=== PATIENT | female | born 1940 | race Caucasian/White ===

== ENCOUNTER → 2017-06-07 09:44 | Outpatient (CLI) | payer MEDICARE, OTHER, SELFPAY ==
[2017-06-07 12:17] LABS: Absolute Lymphocyte Count 1.48 X10^3/ul (0.83-4.51); Absolute Neutrophil Count 3.4 X10^3/uL (2.0-7.7); Basophil# 0.01 X10^3/uL; Basophil% 0.2 % (0-1); Eosinophil# 0.43 X10^3/uL; Hematocrit 39.8 % (37-47); Hemoglobin 13.1 g/dl (12.0-15.0); Lymphocyte # 1.48 X10^3/ul (4.0); Mean Corp Hgb Conc 32.9 g/gl (32-36); Mean Corpuscular Hgb 30.3 pg (27.0-32.0); Mean Corpuscular Volume 91.9 fL (81-99); Mean Platelet Vol. 12.4 fl (6.2-12.0); Monocyte# 0.83 X10^3/uL; Monocyte% 13.5 % (0-10); Neutrophil # 3.41 X10^3/uL (2.7-7.7); Neutrophil % 55.1 % (47-70); Platelet Count 209 K/mm3 (150-450); RBC Distribution Width CV 13.2 % (11.6-14.6); RBC Distribution Width SD 44.1 fl (35.1-43.9); Red Blood Count 4.33 M/mm3 (4.2-5.4); White Blood Count 6.2 K/mm3 (4.4-11.0)
[2017-06-07 12:18] LABS: POSITIVE DIFFERENTIAL NO
[2017-06-07 12:19] LABS: POSITIVE COUNT NO; POSITIVE MORPHOLOGY NO
[2017-06-07 12:44] LABS: ALB/GLOB Ratio 0.9 RATIO (0.9-2.4); AST(SGOT) 80 U/L (15-37); Alanine Aminotransfer ALT/SGPT 27 U/L (13-56); Albumin, Serum 3.4 g/dL (3.2-5.0); Alkaline Phosphatase 85 U/L (45-117); Anion Gap 9 (5-15); BUN 22 mg/dL (7-18); BUN/Creat Ratio 23.2 RATIO (10-20); Calcium,Total 8.8 mg/dL (8.5-10.1); Chloride 105 mmol/L (98-107); Creatinine, Serum 0.95 mg/dL (0.55-1.02); EST Glomerular Filtration Rate 61 mL/min (>60); Est Glom Filt Rate - Afr Amer 74 mL/min (>60); Globulin 3.9 g/dL (2.2-4.2); Glucose 97 mg/dL (74-106); Potassium 3.7 mmol/L (3.5-5.1); Protein, Total 7.3 g/dL (6.4-8.2); Sodium Level 141 mmol/L (136-145)
== END ==
PROVIDERS: Family Provider Internal Medicine; PCP Internal Medicine; Visit Provider Internal Medicine Rheumatology
DX: L40.59 Other psoriatic arthropathy (principal); L40.8 Other psoriasis; R76.8 Other specified abnormal immunological findings in serum; M35.1 Other overlap syndromes; M15.9 Polyosteoarthritis, unspecified; I10 Essential (primary) hypertension; Z85.110 Personal history of malignant carcinoid tumor of bronchus and lung
CPT/HCPCS: 36415; 80053; 85025

== ENCOUNTER → 2017-07-17 10:02 | Outpatient (CLI) | payer MEDICARE, OTHER, SELFPAY ==
--- NOTE | 2017-07-17 10:09 | RAD_ITS ---
STUDY: X-RAY CHEST REASON FOR EXAM: Female, 77 years old. Asthma. Right middle lobectomy. TECHNIQUE: Frontal view of the chest COMPARISON: None. FINDINGS: There are postsurgical changes in the right mid lung with associated scarring. The lungs are clear. There are no pleural effusions. There is no pneumothorax. The heart is normal in size. The visualized osseous structures are within normal limits. RAD/Chest PA and Lateral IMPRESSION: Postsurgical changes in the right midlung. No acute thoracic pathology. Electronically Signed: Bridger De Guzman, at 18:04 EDT Tel , Service support ,
== END ==
PROVIDERS: Family Provider Internal Medicine; PCP Internal Medicine; Visit Provider Internal Medicine Pulmonary Disease
DX: J45.909 Unspecified asthma, uncomplicated (principal)
CPT/HCPCS: 71046

== ENCOUNTER → 2017-08-10 13:26 | Outpatient (CLI) | payer MEDICARE, OTHER, SELFPAY ==
--- NOTE | 2017-08-10 11:40 | RAD_ITS ---
STUDY: X-RAY CHEST REASON FOR EXAM: Female, 77 years old. Cough TECHNIQUE: PA and lateral views of the chest. COMPARISON: 07/17/2017 FINDINGS: Postoperative changes are seen within the right lung. No focal consolidation. There is no demonstrated pleural abnormality. Normal size heart. Normal mediastinum and axel. Normal visualized pulmonary arteries. There is atherosclerotic calcification of the aortic arch with tortuosity. There are diffuse degenerative changes of the visualized thoracic spine. Normal visualized ribs, clavicles, and shoulders. There is no demonstrated abnormality of the visualized soft tissue structures of the upper abdomen. RAD/Chest PA and Lateral IMPRESSION: Postoperative changes to the right midlung. No focal process. Electronically Signed: Ed Padgett DO at 11:40 EDT Tel , Service support ,
--- NOTE | 2017-08-10 13:26 | DT_ITS ---
This patient was seen during an EMR downtime August 07, 2017 - August 14, 2017. This patient may have a combination of paper and electronic documentation or all paper documentation. All documentation is viewable within the e-chart portion of [employer] for each patient visit.
--- NOTE | 2017-08-10 13:32 | RAD_ITS ---
STUDY: X-RAY - PARANASAL SINUSES REASON FOR EXAM: Female, 77 years old. Cough TECHNIQUE: 3 view(s) of the paranasal sinuses were obtained. COMPARISON: None. FINDINGS: Normal visualized frontal, maxillary, ethmoidal and sphenoid sinuses. Normal visualized facial bones. There is a rightward nasal septal spur. The soft tissue structures are unremarkable. RAD/Sinuses min 3 Views IMPRESSION: Normal x-rays of the paranasal sinuses. Electronically Signed: Katiuska Escobar MD at 11:01 EDT Tel , Service support ,
== END ==
PROVIDERS: Family Provider Internal Medicine; PCP Internal Medicine; Visit Provider Internal Medicine Pulmonary Disease
DX: R05 Cough (principal)
CPT/HCPCS: 70220; 71046

== ENCOUNTER → 2018-01-11 08:14 | Outpatient (CLI) | payer MEDICARE, OTHER, SELFPAY ==
[2018-01-11 10:36] LABS: Absolute Lymphocyte Count 1.43 X10^3/ul (0.83-4.51); Absolute Neutrophil Count 3.6 X10^3/uL (2.0-7.7); Basophil# 0.03 X10^3/uL; Basophil% 0.5 % (0-1); Eosinophil# 0.58 X10^3/uL; Eosinophils% 8.8 % (0-5); Hematocrit 41.1 % (37-47); Lymphocyte # 1.43 X10^3/ul (4.0); Lymphocyte % 21.7 % (19-41); Mean Corp Hgb Conc 34.1 g/gl (32-36); Mean Corpuscular Hgb 30.5 pg (27.0-32.0); Mean Corpuscular Volume 89.5 fL (81-99); Monocyte# 0.97 X10^3/uL; Monocyte% 14.7 % (0-10); Neutrophil # 3.57 X10^3/uL (2.7-7.7); Platelet Count 213 K/mm3 (150-450); RBC Distribution Width CV 13.5 % (11.6-14.6); Red Blood Count 4.59 M/mm3 (4.2-5.4); White Blood Count 6.6 K/mm3 (4.4-11.0)
[2018-01-11 10:38] LABS: POSITIVE COUNT NO; POSITIVE DIFFERENTIAL NO; POSITIVE MORPHOLOGY NO
[2018-01-11 10:58] LABS: ALB/GLOB Ratio 0.9 RATIO (0.9-2.4); AST(SGOT) 89 U/L (15-37); Alanine Aminotransfer ALT/SGPT 35 U/L (13-56); Albumin, Serum 3.4 g/dL (3.2-5.0); Alkaline Phosphatase 91 U/L (45-117); Anion Gap 7 (5-15); BUN 21 mg/dL (7-18); BUN/Creat Ratio 22.4 RATIO (10-20); Calcium,Total 8.7 mg/dL (8.5-10.1); Chloride 100 mmol/L (98-107); Creatinine, Serum 0.94 mg/dL (0.55-1.02); EST Glomerular Filtration Rate 62 mL/min (>60); Est Glom Filt Rate - Afr Amer 75 mL/min (>60); Globulin 3.9 g/dL (2.2-4.2); Glucose 101 mg/dL (74-106); Potassium 3.9 mmol/L (3.5-5.1); Protein, Total 7.3 g/dL (6.4-8.2); Sodium Level 137 mmol/L (136-145)
== END ==
PROVIDERS: Family Provider Internal Medicine; PCP Internal Medicine; Referring Provider Internal Medicine Rheumatology; Visit Provider Internal Medicine Rheumatology
DX: L40.59 Other psoriatic arthropathy (principal); L40.8 Other psoriasis; R76.8 Other specified abnormal immunological findings in serum; M35.1 Other overlap syndromes; M15.9 Polyosteoarthritis, unspecified; I10 Essential (primary) hypertension; Z85.110 Personal history of malignant carcinoid tumor of bronchus and lung
CPT/HCPCS: 36415; 80053; 85025

== ENCOUNTER → 2018-09-07 | Outpatient (CLI) | payer MEDICARE, OTHER, SELFPAY ==
--- NOTE | 2018-09-07 11:36 | RAD_ITS ---
STUDY: X-RAY CHEST REASON FOR EXAM: Female, 78 years old. Routine follow-up status post lung cancer 10 years ago and right middle lobectomy TECHNIQUE: PA and lateral views of the chest. COMPARISON: Prior study of 08/10/2017 FINDINGS: Postsurgical changes of the right lung are again noted, stable in the interval. There is no demonstrated pleural abnormality. Normal size heart. There is right hilar prominence consistent with postsurgical change, appearing stable in the interval. Normal visualized pulmonary arteries. There are calcified plaques of the aortic arch. There are diffuse degenerative changes of the visualized thoracic spine. Normal visualized ribs, clavicles, and shoulders. There is no demonstrated abnormality of the visualized soft tissue structures of the upper abdomen. RAD/Chest PA and Lateral IMPRESSION: Postsurgical changes of the right lung. Calcified plaques of the aortic arch. Degenerative changes of the thoracic spine. No acute cardiopulmonary disease process is seen. Chest findings are stable in the interval. Electronically Signed: Dioni Hui MD at 17:14 EDT , Service support ,
== END | disposition home or self-care (01) ==
LOC: MTRAD 11:33
PROVIDERS: Family Provider Internal Medicine; PCP Internal Medicine; Referring Provider Internal Medicine Pulmonary Disease; Visit Provider Internal Medicine Pulmonary Disease
DX: Z85.118 Personal history of other malignant neoplasm of bronchus and lung (principal)
CPT/HCPCS: 71046

== ENCOUNTER → 2019-01-01 | Outpatient (CLI) | payer MEDICARE, OTHER, SELFPAY ==
[2019-01-01 10:09] LABS: Absolute Lymphocyte Count 1.89 X10^3/uL (0.83-4.51); Absolute Neutrophil Count 4.2 X10^3/uL (2.0-7.7); Basophil# 0.05 X10^3/uL; Basophil% 0.6 % (0-1); Eosinophil# 0.66 X10^3/uL; Eosinophils% 8.4 % (0-5); Hematocrit 42.4 % (37-47); Hemoglobin 14.5 g/dL (12.0-15.0); Lymphocyte # 1.89 X10^3/ul (4.0); Lymphocyte % 23.9 % (19-41); Mean Corp Hgb Conc 34.2 g/dL (32-36); Mean Corpuscular Hgb 30.9 pg (27.0-32.0); Mean Corpuscular Volume 90.2 fL (81-99); Mean Platelet Vol. 11.7 fl (6.2-12.0); Monocyte# 1.12 X10^3/uL; Monocyte% 14.2 % (0-10); NRBC Flagged by Analyzer 0 % (0-5); Neutrophil # 4.16 X10^3/uL (2.7-7.7); Neutrophil % 52.6 % (47-70); Platelet Count 216 K/mm3 (150-450); RBC Distribution Width CV 12.4 % (11.6-14.6); RBC Distribution Width SD 41.5 fl (35.1-43.9); White Blood Count 7.9 K/mm3 (4.4-11.0)
[2019-01-01 10:29] LABS: ALB/GLOB Ratio 0.9 RATIO (0.9-2.4); AST(SGOT) 88 U/L (15-37); Alanine Aminotransfer ALT/SGPT 28 U/L (13-56); Albumin, Serum 3.4 g/dL (3.2-5.0); Alkaline Phosphatase 86 U/L (45-117); Anion Gap 10 (5-15); BUN 25 mg/dL (7-18); BUN/Creat Ratio 21.9 RATIO (10-20); Calcium,Total 9.1 mg/dL (8.5-10.1); Chloride 99 mmol/L (98-107); Creatinine, Serum 1.14 mg/dL (0.55-1.02); EST Glomerular Filtration Rate 49 mL/min (>60); Est Glom Filt Rate - Afr Amer 59 mL/min (>60); Globulin 3.9 g/dL (2.2-4.2); Glucose 105 mg/dL (74-106); Potassium 3.5 mmol/L (3.5-5.1); Protein, Total 7.3 g/dL (6.4-8.2); Sodium Level 138 mmol/L (136-145)
== END | disposition home or self-care (01) ==
PROVIDERS: Family Provider Internal Medicine; PCP Internal Medicine; Referring Provider Internal Medicine Rheumatology; Visit Provider Internal Medicine Rheumatology
DX: L40.59 Other psoriatic arthropathy (principal); L40.8 Other psoriasis; R76.8 Other specified abnormal immunological findings in serum; M35.1 Other overlap syndromes; M15.9 Polyosteoarthritis, unspecified; I10 Essential (primary) hypertension; Z85.110 Personal history of malignant carcinoid tumor of bronchus and lung
CPT/HCPCS: 36415; 80053; 85025

== ENCOUNTER → 2019-02-18 10:33 | Outpatient (CLI) | payer MEDICARE, OTHER, SELFPAY ==
[2019-02-06 08:58] VITALS: BMI 28.5
--- NOTE | 2019-02-18 10:34 | ECHOD_ITS ---
Reason For Study: HYPERTENSION Procedure This was a 2D Doppler, Color Flow transthoracic echocardiogram. Exam performed in department. Left Ventricle Normal size and thickness. Normal LV size. Left ventricular systolic function is normal. The estimated ejection fraction is 65 %. Stage 1 diastolic dysfunction. No regional wall motion abnormalities noted. Right Ventricle Normal RV size. Normal systolic function. Atria The left atrium is mildly enlarged. Normal right atrium. Mitral Valve Normal mitral valve. Tricuspid Valve Normal tricuspid valve. Mild tricuspid valve insufficiency. Mild pulmonary hypertension. Aortic Valve Trisinus/trileaflet aortic valve. Pulmonic Valve Normal pulmonic valve. Great Vessels Normal aortic root. The pulmonary artery is normal size. Normal inferior vena cava. Pericardium/Pleural No pericardial effusion. MMode/2D Measurements & Calculations LVIDd: 4.6 cm IVSd: 1.1 cm Ao root diam: 3.1 cm LVIDs: 3.0 cm LVPWd: 1.1 cm RVDd: 3.2 cm FS: 34.2 % LAV(MOD-bp): 65.9 ml LA A4 area: 21.3 cm2 LA dimension(2D): 3.5 cm LAV(MOD-bp) Indexed: 38.1 ml/m2 LAV(MOD-sp2): 60.3 ml LAV(MOD-sp4): 60.3 ml RA A4 area: 12.1 cm2 Time Measurements MV dec time: 0.18 sec Doppler Measurements & Calculations MV E max quentin: 100.9 cm/sec Lat Peak E' Quentin: 10.3 cm/sec Med Peak E' Quentin: 4.9 cm/sec MV A max quentin: 120.9 cm/sec E/E' lat: 9.8 E/E' med: 20.6 MV E/A: 0.83 Ao V2 max: 197.8 cm/sec LV V1 max: 115.8 cm/sec PA V2 max: 96.9 cm/sec Ao max P.7 mmHg LV V1 max P.4 mmHg TR max quentin: 274.1 cm/sec TR max P.1 mmHg Interpretation Summary Normal LV size. Left ventricular systolic function is normal. The estimated ejection fraction is 65 %. Stage 1 diastolic dysfunction. Mild pulmonary hypertension. Ordering Physician: Larry Manuel Referring Physician: Romulo Awan Performed By: Alicia Garcia, VICTORIANO, RVT
== END ==
PROVIDERS: Family Provider Internal Medicine; PCP Internal Medicine; Referring Provider Internal Medicine Cardiovascular Disease; Visit Provider Internal Medicine Cardiovascular Disease
DX: I10 Essential (primary) hypertension (principal); R94.31 Abnormal electrocardiogram [ECG] [EKG]
CPT/HCPCS: 93306

== ENCOUNTER → 2019-05-31 07:14 | Outpatient (CLI) | payer MEDICARE, OTHER, SELFPAY ==
[2019-05-15 10:55] VITALS: BMI 28.5
[2019-05-31 08:04] LABS: Anion Gap 8 (5-15); BUN 27 mg/dL (7-18); Calcium,Total 9.4 mg/dL (8.5-10.1); Chloride 101 mmol/L (98-107); Creatinine, Serum 1.04 mg/dL (0.55-1.02); EST Glomerular Filtration Rate 54 mL/min (>60); Est Glom Filt Rate - Afr Amer 66 mL/min (>60); Glucose 109 mg/dL (74-106); Potassium 3.4 mmol/L (3.5-5.1); Sodium Level 141 mmol/L (136-145)
== END ==
PROVIDERS: PCP Internal Medicine; Referring Provider Physician Assistant Medical; Visit Provider Physician Assistant Medical
DX: I10 Essential (primary) hypertension (principal)
CPT/HCPCS: 36415; 80048

== ENCOUNTER → 2019-06-26 08:55 | Outpatient (CLI) | payer MEDICARE, OTHER, SELFPAY ==
[2019-05-15 10:55] VITALS: BMI 28.5
[2019-06-26 10:02] LABS: Absolute Lymphocyte Count 1.67 X10^3/uL (0.83-4.51); Absolute Neutrophil Count 7.2 X10^3/uL (2.0-7.7); Basophil# 0.04 X10^3/uL; Basophil% 0.4 % (0-1); Eosinophil# 0.04 X10^3/uL; Eosinophils% 0.4 % (0-5); Hematocrit 41.1 % (37-47); Hemoglobin 13.8 g/dL (12.0-15.0); Lymphocyte # 1.67 X10^3/ul (4.0); Lymphocyte % 16.7 % (19-41); Mean Corp Hgb Conc 33.6 g/dL (32-36); Mean Corpuscular Hgb 31.4 pg (27.0-32.0); Mean Corpuscular Volume 93.4 fL (81-99); Monocyte# 1.05 X10^3/uL; Monocyte% 10.5 % (0-10); NRBC Flagged by Analyzer 0 % (0-5); Neutrophil % 71.7 % (47-70); Platelet Count 251 K/mm3 (150-450); RBC Distribution Width CV 12.3 % (11.6-14.6); RBC Distribution Width SD 42.2 fl (35.1-43.9)
[2019-06-26 10:35] LABS: ALB/GLOB Ratio 0.8 RATIO (0.9-2.4); AST(SGOT) 69 U/L (15-37); Alanine Aminotransfer ALT/SGPT 19 U/L (13-56); Albumin, Serum 3.5 g/dL (3.2-5.0); Alkaline Phosphatase 90 U/L (45-117); Anion Gap 8 (5-15); BUN 22 mg/dL (7-18); BUN/Creat Ratio 20.6 RATIO (10-20); Calcium,Total 9.5 mg/dL (8.5-10.1); Chloride 103 mmol/L (98-107); Creatinine, Serum 1.07 mg/dL (0.55-1.02); EST Glomerular Filtration Rate 53 mL/min (>60); Est Glom Filt Rate - Afr Amer 64 mL/min (>60); Globulin 4.2 g/dL (2.2-4.2); Glucose 118 mg/dL (74-106); Potassium 4.1 mmol/L (3.5-5.1); Protein, Total 7.7 g/dL (6.4-8.2); Sodium Level 139 mmol/L (136-145)
== END ==
PROVIDERS: PCP Internal Medicine; Referring Provider Internal Medicine Rheumatology; Visit Provider Internal Medicine Rheumatology
DX: L40.59 Other psoriatic arthropathy (principal); L40.8 Other psoriasis; R76.8 Other specified abnormal immunological findings in serum; M35.1 Other overlap syndromes; M15.9 Polyosteoarthritis, unspecified; I10 Essential (primary) hypertension; Z85.110 Personal history of malignant carcinoid tumor of bronchus and lung
CPT/HCPCS: 36415; 80053; 85025

== ENCOUNTER → 2019-09-24 12:36 | Outpatient (CLI) | payer MEDICARE, OTHER, SELFPAY ==
[2019-02-20 09:02] VITALS: BMI 28.5
[2019-08-26 09:05] VITALS: BMI 28.5
--- NOTE | 2019-09-24 12:38 | CT_ITS ---
STUDY: CT CHEST WITHOUT CONTRAST REASON FOR EXAM: Female, 79 years old. LUNG CANCER F/U 10 YEARS AGO. RIGHT MIDDLE LOBECTOMY RADIATION DOSAGE (If Supplied By Facility): CTDIvol = ( 10.16 ) mGy, DLP = ( 330.13 ) mGycm TECHNIQUE: Transaxial imaging was performed without the administration of intravenous contrast material. Multiplanar coronal and sagittal images were reformatted. Individualized dose optimization techniques were used for this CT. COMPARISON: Previous plain films FINDINGS: Lung windows show the lungs to be normally expanded. Postsurgical changes noted in the right perihilar region consistent with previous right middle lobectomy. Surgical clips and sutures noted. No organized infiltrate, groundglass opacifications, or suspicious noncalcified mass or nodule is noted. The soft tissue windows show a normal-appearing thyroid gland. No suspicious axillary, mediastinal, or perihilar mass or adenopathy. No pleural or pericardial effusions. Normal heart and pericardium. There are calcifications of the coronary arteries. Normal mediastinum. Normal hilar regions. Normal unenhanced pulmonary arteries. Peripheral calcifications noted in the thoracic aorta without aneurysm There are multi-level degenerative changes of the thoracic spine. There is no demonstrated abnormality of the visualized upper abdomen. CT/Chest without Contrast IMPRESSION: Postsurgical changes noted in the right hemithorax from previous right middle lobectomy. No suspicious noncalcified mass or nodule or acute pulmonary process noted. No suspicious axillary, mediastinal, or perihilar adenopathy. Calcified coronary vessels Degenerative bony changes Electronically Signed: Osmar Xiao MD at 13:33 EDT , Service support ,
== END ==
PROVIDERS: Family Provider Internal Medicine; PCP Internal Medicine; Referring Provider Internal Medicine Pulmonary Disease; Visit Provider Internal Medicine Pulmonary Disease
DX: C7A.090 Malignant carcinoid tumor of the bronchus and lung (principal)
CPT/HCPCS: 71250

== ENCOUNTER → 2019-10-04 08:27 | Outpatient (CLI) | payer MEDICARE, OTHER, SELFPAY ==
[2019-08-26 09:05] VITALS: BMI 28.5
[2019-10-04 09:53] LABS: Absolute Lymphocyte Count 2.07 X10^3/uL (0.83-4.51); Absolute Neutrophil Count 3.2 X10^3/uL (2.0-7.7); Basophil# 0.06 X10^3/uL; Basophil% 0.8 % (0-1); Eosinophil# 0.61 X10^3/uL; Eosinophils% 8.5 % (0-5); Hematocrit 40.1 % (37-47); Hemoglobin 13.1 g/dL (12.0-15.0); Lymphocyte # 2.07 X10^3/ul (4.0); Lymphocyte % 28.8 % (19-41); Mean Corp Hgb Conc 32.7 g/dL (32-36); Mean Corpuscular Hgb 31.5 pg (27.0-32.0); Mean Corpuscular Volume 96.4 fL (81-99); Mean Platelet Vol. 11.6 fl (6.2-12.0); Monocyte# 1.21 X10^3/uL; Monocyte% 16.8 % (0-10); NRBC Flagged by Analyzer 0 % (0-5); Neutrophil # 3.22 X10^3/uL (2.7-7.7); Neutrophil % 44.8 % (47-70); Platelet Count 223 K/mm3 (150-450); RBC Distribution Width CV 12.1 % (11.6-14.6); RBC Distribution Width SD 42.4 fl (35.1-43.9); Red Blood Count 4.16 M/mm3 (4.2-5.4); White Blood Count 7.2 K/mm3 (4.4-11.0)
[2019-10-04 10:09] LABS: ALB/GLOB Ratio 0.9 RATIO (0.9-2.4); AST(SGOT) 77 U/L (15-37); Alanine Aminotransfer ALT/SGPT 22 U/L (13-56); Albumin, Serum 3.4 g/dL (3.2-5.0); Alkaline Phosphatase 80 U/L (45-117); Anion Gap 4 (5-15); BUN 25 mg/dL (7-18); BUN/Creat Ratio 22.3 RATIO (10-20); Calcium,Total 9.2 mg/dL (8.5-10.1); Chloride 102 mmol/L (98-107); Creatinine, Serum 1.12 mg/dL (0.55-1.02); EST Glomerular Filtration Rate 50 mL/min (>60); Est Glom Filt Rate - Afr Amer 60 mL/min (>60); Globulin 3.9 g/dL (2.2-4.2); Glucose 100 mg/dL (74-106); Potassium 3.8 mmol/L (3.5-5.1); Protein, Total 7.3 g/dL (6.4-8.2); Sodium Level 138 mmol/L (136-145)
== END ==
PROVIDERS: PCP Internal Medicine; Referring Provider Internal Medicine Rheumatology; Visit Provider Internal Medicine Rheumatology
DX: L40.59 Other psoriatic arthropathy (principal); L40.8 Other psoriasis; R76.8 Other specified abnormal immunological findings in serum; M35.1 Other overlap syndromes; M15.9 Polyosteoarthritis, unspecified; I10 Essential (primary) hypertension; Z85.110 Personal history of malignant carcinoid tumor of bronchus and lung
CPT/HCPCS: 36415; 80053; 85025

== ENCOUNTER → 2019-12-24 08:36 | Outpatient (CLI) | payer MEDICARE, OTHER, SELFPAY ==
[2019-08-26 09:05] VITALS: BMI 28.5
[2019-12-24 09:56] LABS: Absolute Lymphocyte Count 2.11 X10^3/uL (0.83-4.51); Absolute Neutrophil Count 4.5 X10^3/uL (2.0-7.7); Basophil# 0.05 X10^3/uL; Basophil% 0.6 % (0-1); Eosinophil# 0.62 X10^3/uL; Eosinophils% 7.4 % (0-5); Hematocrit 40.7 % (37-47); Hemoglobin 13.1 g/dL (12.0-15.0); Lymphocyte # 2.11 X10^3/ul (4.0); Lymphocyte % 25.2 % (19-41); Mean Corp Hgb Conc 32.2 g/dL (32-36); Mean Corpuscular Hgb 30.3 pg (27.0-32.0); Mean Platelet Vol. 11.6 fl (6.2-12.0); Monocyte# 1.05 X10^3/uL; Monocyte% 12.6 % (0-10); NRBC Flagged by Analyzer 0 % (0-5); Neutrophil # 4.52 X10^3/uL (2.7-7.7); Neutrophil % 54.1 % (47-70); Platelet Count 248 K/mm3 (150-450); RBC Distribution Width CV 12.2 % (11.6-14.6); RBC Distribution Width SD 42.5 fl (35.1-43.9); Red Blood Count 4.33 M/mm3 (4.2-5.4); White Blood Count 8.4 K/mm3 (4.4-11.0)
[2019-12-24 10:36] LABS: ALB/GLOB Ratio 0.8 RATIO (0.9-2.4); AST(SGOT) 81 U/L (15-37); Alanine Aminotransfer ALT/SGPT 21 U/L (13-56); Albumin, Serum 3.4 g/dL (3.2-5.0); Alkaline Phosphatase 89 U/L (45-117); Anion Gap 6 (5-15); BUN 21 mg/dL (7-18); BUN/Creat Ratio 20.6 RATIO (10-20); Calcium,Total 9.2 mg/dL (8.5-10.1); Chloride 99 mmol/L (98-107); Cholesterol 246 mg/dL (200); Creatinine, Serum 1.02 mg/dL (0.55-1.02); EST Glomerular Filtration Rate 56 mL/min (>60); Est Glom Filt Rate - Afr Amer 67 mL/min (>60); Glucose 105 mg/dL (74-106); High Density Lipoprotein 44 mg/dL; Potassium 3.2 mmol/L (3.5-5.1); Protein, Total 7.4 g/dL (6.4-8.2); Sodium Level 137 mmol/L (136-145); Triglycerides 371 mg/dL; Very Low Density Lipoprotein 74 mg/dL (5-40)
== END ==
PROVIDERS: PCP Internal Medicine; Referring Provider Internal Medicine Rheumatology; Visit Provider Internal Medicine Rheumatology
DX: L40.59 Other psoriatic arthropathy (principal); L40.8 Other psoriasis; R76.8 Other specified abnormal immunological findings in serum; M35.1 Other overlap syndromes; M15.9 Polyosteoarthritis, unspecified; I10 Essential (primary) hypertension; Z85.110 Personal history of malignant carcinoid tumor of bronchus and lung
CPT/HCPCS: 36415; 80053; 80061; 85025

== ENCOUNTER → 2020-01-03 09:34 | Outpatient (CLI) | payer MEDICARE, OTHER, SELFPAY ==
[2019-08-26 09:05] VITALS: BMI 28.5
[2020-01-03 13:45] LABS: Anion Gap 7 (5-15); BUN 25 mg/dL (7-18); BUN/Creat Ratio 20.5 RATIO (10-20); Calcium,Total 9.4 mg/dL (8.5-10.1); Chloride 100 mmol/L (98-107); Creatinine, Serum 1.22 mg/dL (0.55-1.02); EST Glomerular Filtration Rate 45 mL/min (>60); Est Glom Filt Rate - Afr Amer 55 mL/min (>60); Glucose 99 mg/dL (74-106); Potassium 4.4 mmol/L (3.5-5.1); Sodium Level 137 mmol/L (136-145)
== END ==
PROVIDERS: PCP Internal Medicine; Referring Provider Physician Assistant Medical; Visit Provider Physician Assistant Medical
DX: E87.6 Hypokalemia (principal); I10 Essential (primary) hypertension
CPT/HCPCS: 36415; 80048

== ENCOUNTER → 2020-05-26 08:42 | Outpatient (CLI) | payer MEDICARE, OTHER, SELFPAY ==
[2020-04-28 09:26] VITALS: BMI 29.0
[2020-05-26 09:09] LABS: Absolute Lymphocyte Count 2.61 X10^3/uL (0.83-4.51); Absolute Neutrophil Count 4.9 X10^3/uL (2.0-7.7); Basophil# 0.06 X10^3/uL; Basophil% 0.6 % (0-1); Eosinophil# 0.82 X10^3/uL; Eosinophils% 8.5 % (0-5); Hematocrit 40.2 % (37-47); Hemoglobin 13.3 g/dL (12.0-15.0); Lymphocyte # 2.61 X10^3/ul (4.0); Lymphocyte % 27.1 % (19-41); Mean Corp Hgb Conc 33.1 g/dL (32-36); Mean Corpuscular Hgb 30.9 pg (27.0-32.0); Mean Corpuscular Volume 93.5 fL (81-99); Mean Platelet Vol. 11.1 fl (6.2-12.0); Monocyte# 1.18 X10^3/uL; Monocyte% 12.3 % (0-10); NRBC Flagged by Analyzer 0 % (0-5); Neutrophil # 4.92 X10^3/uL (2.7-7.7); Neutrophil % 51.2 % (47-70); Platelet Count 244 K/mm3 (150-450); RBC Distribution Width CV 12.8 % (11.6-14.6); RBC Distribution Width SD 43.8 fl (35.1-43.9); White Blood Count 9.6 K/mm3 (4.4-11.0)
[2020-05-26 09:26] LABS: ALB/GLOB Ratio 0.8 RATIO (0.9-2.4); AST(SGOT) 92 U/L (15-37); Alanine Aminotransfer ALT/SGPT 37 U/L (13-56); Albumin, Serum 3.3 g/dL (3.2-5.0); Alkaline Phosphatase 102 U/L (45-117); Anion Gap 8 (5-15); BUN 22 mg/dL (7-18); Calcium,Total 9.2 mg/dL (8.5-10.1); Chloride 101 mmol/L (98-107); Creatinine, Serum 1.16 mg/dL (0.55-1.02); EST Glomerular Filtration Rate 48 mL/min (>60); Est Glom Filt Rate - Afr Amer 58 mL/min (>60); Glucose 114 mg/dL (74-106); Potassium 3.6 mmol/L (3.5-5.1); Protein, Total 7.3 g/dL (6.4-8.2); Sodium Level 139 mmol/L (136-145)
== END ==
PROVIDERS: Physician Assistant Medical; PCP Internal Medicine; Referring Provider Internal Medicine Rheumatology; Visit Provider Internal Medicine Rheumatology
DX: L40.59 Other psoriatic arthropathy (principal); L40.8 Other psoriasis; R76.8 Other specified abnormal immunological findings in serum; M35.1 Other overlap syndromes; M47.897 Other spondylosis, lumbosacral region; M15.9 Polyosteoarthritis, unspecified; I10 Essential (primary) hypertension; Z85.110 Personal history of malignant carcinoid tumor of bronchus and lung
CPT/HCPCS: 36415; 80053; 85025

== ENCOUNTER → 2020-08-27 08:19 | Outpatient (CLI) | payer MEDICARE, OTHER, SELFPAY ==
[2020-04-28 09:26] VITALS: BMI 29.0
--- NOTE | 2020-08-27 08:24 | EKG12_ITS ---
Test Reason : PREOP Blood Pressure : / mmHG Vent. Rate : 039 BPM Atrial Rate : 039 BPM P-R Int : 192 ms QRS Dur : 084 ms QT Int : 506 ms P-R-T Axes : 049 -36 013 degrees QTc Int : 407 ms Marked sinus bradycardia Left axis deviation Abnormal ECG Confirmed by BRINDA SEBASTIAN, SHERRIE ([id number]), fashion editor RIGO FRANCO ([id number]) on 08/28/2020 11:29:40 AM Referred By: Burton Torres Confirmed By:SHERRIE PARRY MD
[2020-08-27 09:27] LABS: Hematocrit 41.8 % (37-47); Hemoglobin 14.2 g/dL (12.0-15.0); Mean Corpuscular Hgb 30.5 pg (27.0-32.0); Mean Corpuscular Volume 89.7 fL (81-99); Platelet Count 275 K/mm3 (150-450); RBC Distribution Width CV 12.6 % (11.6-14.6); Red Blood Count 4.66 M/mm3 (4.2-5.4); White Blood Count 8.7 K/mm3 (4.4-11.0)
[2020-08-27 09:58] LABS: Anion Gap 6 (5-15); BUN 18 mg/dL (7-18); BUN/Creat Ratio 16.7 RATIO (10-20); Calcium,Total 9.4 mg/dL (8.5-10.1); Chloride 90 mmol/L (98-107); Creatinine, Serum 1.08 mg/dL (0.55-1.02); EST Glomerular Filtration Rate 52 mL/min (>60); Est Glom Filt Rate - Afr Amer 63 mL/min (>60); Glucose 96 mg/dL (74-106); Potassium 3.7 mmol/L (3.5-5.1); Sodium Level 127 mmol/L (136-145)
== END ==
PROVIDERS: PCP Internal Medicine; Referring Provider Physician Assistant; Visit Provider Physician Assistant
DX: Z01.818 Encounter for other preprocedural examination (principal); Z01.810 Encounter for preprocedural cardiovascular examination
CPT/HCPCS: 36415; 80048; 85027; 93005

== ENCOUNTER → 2020-09-08 07:44 | Outpatient (CLI) | payer MEDICARE, OTHER, SELFPAY ==
[2020-04-28 09:26] VITALS: BMI 29.0
[2020-09-08 10:23] LABS: Potassium 3.2 mmol/L (3.5-5.1)
== END ==
PROVIDERS: PCP Internal Medicine; Referring Provider Physician Assistant; Visit Provider Physician Assistant
DX: M19.011 Primary osteoarthritis, right shoulder (principal); S46.011A Strain of muscle(s) and tendon(s) of the rotator cuff of right shoulder, initial encounter
CPT/HCPCS: 36415; 84132

== ENCOUNTER → 2020-11-25 08:02 | Outpatient (CLI) | payer MEDICARE, OTHER, SELFPAY ==
[2020-11-25 10:11] LABS: Absolute Neutrophil Count 5.9 X10^3/uL (2.0-7.7); Basophil# 0.07 X10^3/uL; Basophil% 0.7 % (0-1); Eosinophil# 0.31 X10^3/uL; Hematocrit 37.8 % (37-47); Hemoglobin 12.7 g/dL (12.0-15.0); Lymphocyte % 22.5 % (19-41); Mean Corp Hgb Conc 33.6 g/dL (32-36); Mean Corpuscular Hgb 30.5 pg (27.0-32.0); Mean Corpuscular Volume 90.6 fL (81-99); Mean Platelet Vol. 11.9 fl (6.2-12.0); Monocyte# 1.54 X10^3/uL; Monocyte% 15.1 % (0-10); NRBC Flagged by Analyzer 0 % (0-5); Neutrophil # 5.92 X10^3/uL (2.7-7.7); Neutrophil % 58.1 % (47-70); POSITIVE DIFFERENTIAL YES; Platelet Count 279 K/mm3 (150-450); RBC Distribution Width CV 13.2 % (11.6-14.6); RBC Distribution Width SD 43.7 fl (35.1-43.9); Red Blood Count 4.17 M/mm3 (4.2-5.4); White Blood Count 10.2 K/mm3 (4.4-11.0)
[2020-11-25 10:14] LABS: Differential Indicated SCAN CRITERIA MET
[2020-11-25 10:40] LABS: ALB/GLOB Ratio 0.8 RATIO (0.9-2.4); AST(SGOT) 68 U/L (15-37); Alanine Aminotransfer ALT/SGPT 24 U/L (13-56); Albumin, Serum 2.9 g/dL (3.2-5.0); Alkaline Phosphatase 83 U/L (45-117); Anion Gap 9 (5-15); BUN 16 mg/dL (7-18); BUN/Creat Ratio 16.4 RATIO (10-20); Calcium,Total 8.5 mg/dL (8.5-10.1); Chloride 96 mmol/L (98-107); Creatinine, Serum 0.98 mg/dL (0.55-1.02); EST Glomerular Filtration Rate 58 mL/min (>60); Est Glom Filt Rate - Afr Amer 71 mL/min (>60); Globulin 3.8 g/dL (2.2-4.2); Glucose 88 mg/dL (74-106); Potassium 3.4 mmol/L (3.5-5.1); Protein, Total 6.7 g/dL (6.4-8.2); Sodium Level 132 mmol/L (136-145)
== END ==
PROVIDERS: PCP Internal Medicine; Referring Provider Internal Medicine Rheumatology; Visit Provider Internal Medicine Rheumatology
DX: L40.59 Other psoriatic arthropathy (principal); L40.8 Other psoriasis; Z79.899 Other long term (current) drug therapy; R76.8 Other specified abnormal immunological findings in serum; M35.1 Other overlap syndromes; M47.897 Other spondylosis, lumbosacral region; M15.9 Polyosteoarthritis, unspecified; I10 Essential (primary) hypertension; Z85.110 Personal history of malignant carcinoid tumor of bronchus and lung
CPT/HCPCS: 36415; 80053; 85025

== ENCOUNTER 2021-02-17 09:22 | Emergency (ER) | payer MEDICARE, OTHER, SELFPAY ==
[2021-02-17 09:24] VITALS: BP 131/65; PULSE 64; RESP 18; TEMP 36.1; O2SAT 97; BMI 28.3
--- NOTE | 2021-02-17 09:37 | CT_ITS ---
STUDY: CT ABDOMEN AND PELVIS WITHOUT CONTRAST REASON FOR EXAM: Female, 80 years old. Diarrhea and flank pain. RADIATION DOSAGE (If Supplied By Facility): CTDIvol = ( 9.38 ) mGy, DLP = ( 463.43 ) mGycm TECHNIQUE: Transaxial images were obtained from the dome of the diaphragm to the symphysis pubis without oral contrast, and without intravenous contrast. Sagittal and coronal images were reconstructed. Individualized dose optimization techniques were used for this CT. COMPARISON: None. FINDINGS: The visualized lung bases are unremarkable. The visualized portions of the heart are within normal limits. Normal liver. Normal gallbladder and extrahepatic biliary system. There are multiple benign calcified granulomata of the spleen. There are pancreatic calcifications in the distribution of the ducts consistent with chronic pancreatitis. Normal bilateral adrenal glands. There is a 3.1 cm x 3.5 cm cyst in the mid lateral aspect of the right kidney. Minimal anterior cystic calcification is seen. Mild degree of nonspecific bilateral perinephric stranding. Normal left kidney. There is a small hiatal hernia. Normal small intestine. Normal colon. The appendix is visualized and appears normal. There is diffuse atherosclerotic calcification of the abdominal aorta, without a demonstrated aneurysm. Normal inferior vena cava. Normal retroperitoneum. Normal urinary bladder. There is a small umbilical hernia containing fat. There are diffuse degenerative changes of the visualized lumbar spine. CT/Abdomen/Pelvis without Cont IMPRESSION: 3.1 cm x 3.5 cm cyst in the right kidney. Nonspecific bilateral perinephric stranding. No evidence of obstructive uropathy at this time. Electronically Signed: Alex Bedoya MD at 11:01 EST , Service support ,
--- NOTE | 2021-02-17 09:38 | EDS_ITS ---
HPI History of Present Illness Chief Complaint: General Illness Detail of Chief Complaint: Back pain and not feeling well for about a week Informant: patient and spouse/S.O. Narrative Narrative: Patient presents to the emergency department with chief complaint of not feeling well for about a week. Patient states that she has had intermittent back pain which she chronically has because she has arthritis in her back. Last night she had severe pain that radiated down her left leg and she does have prior history of sciatica. She denies any trauma to her back. She denies doing any lifting. Patient also states she is really has not had much of an appetite over the last week. Patient has had some nasal congestion. She denies significant cough. She denies fever. Patient has had her Covid vaccine and booster. Patient denies urinary symptoms. She states that she woke up this morning and she was sweaty. She denies any chest pain. Patient states that she had upper and lower scopes this summer and was diagnosed with lymphocytic colitis and is currently on budesonide. Prior similar symptoms: Yes PFSH [facility] Medical History (Updated 02/17/21 @ 11:[address] Keegan Pendleton, ) Asthma Carcinoid bronchial adenoma of right lung Colitis Elevated serum lactate dehydrogenase (LDH) Essential (primary) hypertension Mild pulmonary arterial systolic hypertension Obesity Osteoarthritis Psoriatic arthropathy Home Medications apremilast 30 mg tablet 30 mg PO BID 02/04/19 [History Last Taken Unknown] vit A 7,160 unit-vit C 113 mg-vit E 100 mfgi-jzll-ajchfd tablet 1 tab PO BID tab 02/04/19 [History Last Taken Unknown] benazepril 20 mg tablet 20 mg PO BID tab 02/06/19 [History Last Taken Unknown] acetaminophen 500 mg tablet 500 mg PO Q6H PRN 05/15/19 [History Last Taken Unknown] budesonide 180 mcg/actuation breath activated powder inhaler 1 inh INHALATION DAILY ea 05/15/19 [History Last Taken Unknown] tizanidine 4 mg tablet 4 mg PO TID PRN tab 04/28/20 [History Last Taken Unknown] chlorthalidone 25 mg tablet 25 mg PO DAILY #30 tab 06/05/20 [Rx Last Taken Unknown] potassium chloride 10 mEq capsule,extended release 20 meq PO DAILY #180 cap 06/22/20 [Rx Last Taken Unknown] amlodipine 10 mg PO DAILY 02/17/21 [History Last Taken Unknown] budesonide 3 mg PO DAILY 02/17/21 [History Last Taken Unknown] cephalexin 500 mg PO Q6 #40 capsule 02/17/21 [Rx Last Taken Unknown] metoprolol succinate 100 mg PO DAILY 02/17/21 [History Last Taken Unknown] Allergy/AdvReac Type Severity Reaction Status Date / Time felodipine [From Plendil] Allergy rash/dyspne Verified 02/17/21 09:23 a meperidine [From Demerol] Allergy over Verified 02/17/21 09:23 sedation thimerosal Allergy rash Verified 02/17/21 09:23 diltiazem [From Cardizem] AdvReac tachycardia Verified 02/17/21 09:23 hydrochlorothiazide AdvReac azotemia Verified 02/17/21 09:23 lanolin AdvReac unknown Verified 02/17/21 09:23 latex AdvReac Unknown Verified 02/17/21 09:23 neomycin AdvReac unknown Verified 02/17/21 09:23 Surgical History History of carpal tunnel release History of hysterectomy History of lobectomy of lung (2009) Social History (Updated 04/28/20 @ 09:[address] Larry Manuel MD) Smoking Status: Never smoker alcohol intake: never ROS ROS ED Constitutional Constitutional ED: Reports systems reviewed and no addt'l complaints, except as documented; Denies body ache(s), change in weight or chills Eyes Eyes: Denies acute decrease in peripheral vision, change in vision, double vision or loss of vision ENT ENT ED: Reports none; Denies ear pain, lip swelling, loss taste/smell, neck pain, otalgia or sore throat Cardiovascular Cardiovascular: Reports none; Denies abdominal pain, chest pain with activity, leg edema, lightheadedness, palpitations, rapid heart rate or syncope Respiratory/Chest Respiratory/Chest: Reports none; Denies change in mental status, dry cough, dyspnea, hemoptysis, shortness of breath at rest or shortness of breath with exertion Gastrointestinal Gastrointestinal: Reports none and other Details: Loss of appetite ; Denies abdominal pain, change in stool character, diarrhea, hematemesis, hematochezia, melena, rectal bleeding or vomiting Genitourinary Genitourinary ED: Reports none; Denies abdominal discomfort, anuria, dysuria, genital pain or polyuria Musculoskeletal Musculoskeletal: Reports none and back pain; Denies arthralgias, difficulty walking, extremity pain, muscle weakness or myalgias Integumentary Reports none; Denies abscess or rash Neurologic Neurologic: Reports none; Denies abnormal gait, confusion, focal weakness, frequent falls, headache(s), loss of vision, numbness, paresthesias, radicular pain, vertigo or weakness Psychiatric Psychiatric: Reports systems reviewed and no addt'l complaints, except as documented and none; Denies behavioral changes, confusion, difficulty concentrating, hallucinations, suicidal ideation, tactile hallucinations or visual hallucinations Endocrine Endocrinology: Denies none, cold intolerance, excessive sweating, fatigue or heat intolerance Hematologic/Lymphatic Hematologic/Lymphatic: Reports none; Denies anemia, easy bleeding or easy bruising Allergic/Immunologic Allergic/Immunologic ED: Denies as per HPI, none, lip swelling, mouth swelling, throat swelling, tongue swelling or hives EXAM Physical Exam Const Vital Signs: 02/17/21 09:24 02/17/21 10:12 Temperature 97.0 F L Temperature Source Temporal Pulse Rate 64 Respiratory Rate 18 Respiratory Effort Normal Non-Labored Respiratory Pattern Normal Blood Pressure 131/65 H Blood Pressure Mean 87 Pulse Ox 97 Oxygen Delivery Method Room Air Positive well nourished and well developed General Appearance ED: well developed and NAD HEENT Reports TM's clear and moist mucous membranes normocephalic and atraumatic; Negative for trauma or tenderness Tympanic Membrane ED: Yes TM's clear Eyes PERRL and EOMs intact bilaterally General Eye ED: Negative for pale conjunctiva or scleral icterus Neck no lymphadenopathy, supple and no JVD General: Negative for tenderness Chest Wall inspection of chest normal and palpation of chest normal Chest: Negative for tenderness Resp normal respiratory effort and clear to auscultation bilaterally Effort and Inspection: Negative for respiratory distress or pain with movement Auscultation: Negative for rhonchi, wheezes or diminished lung sounds Cardio regular rate, regular rhythm, S1 normal heart sound, S2 normal heart sound and no murmurs Peripheral Pulses: pulses 2+ throughout GI normal to inspection, nondistended, normoactive bowel sounds, soft to palpation, non-tender, non-distended and no masses Back/Spine no CVA tenderness and no thoracic nor lumbar tenderness Extremity normal to inspection General Extremety ED: Negative for edema General Extremity: Negative for edema Neuro oriented x3, CN's II-XII intact bilaterally, no sensory deficits noted and gait normal Sensorium / Orientation: awake, alert, oriented to person, oriented to place and oriented to time Motor Exam: strength 5/5 throughout and strength abnormal Psych mental status grossly normal Skin no rashes or lesions noted and no wounds MDM MDM MDM Narrative Medical decision making narrative: Patient has an elevated white blood cell count and signs of urinary tract infection. Her CT scan of her abdomen pelvis was essentially unremarkable. Patient was given Rocephin 1 g IV. I do not feel patient is septic. I feel that the UTI explains her symptomatology and elevated white blood cell count. Patient also had some nonspecific stranding around the kidneys. Patient had a urine culture sent. She will be started on Keflex. Patient advised to push fluids and follow-up with her primary care physician 3 to 5 days. She is to return if worsening back pain, fever, vomiting, or condition should worsen anyway. Lab Data Attestation: I reviewed the patient's lab results. Labs: Laboratory Results - last 24 hr 02/17/21 02/17/21 02/17/21 09:55 09:55 10:25 WBC 18.5 H RBC 3.90 L Hgb 11.8 L Hct 34.8 L MCV 89.2 MCH 30.3 MCHC 33.9 RDW Std Deviation 42.7 RDW Coeff of Carol 13.0 Plt Count 401 MPV 10.5 Immature Gran % (Auto) 1.200 H Neut % (Auto) 81.4 H Lymph % (Auto) 6.5 L Shannon % (Auto) 9.2 Eos % (Auto) 1.4 Baso % (Auto) 0.3 Absolute Neuts (auto) 15.1 H Absolute Lymphs (auto) 1.21 Nucleated RBC % 0 Differential Comment COMMENT Diff Path Review May foll Sodium 134 L Potassium 3.2 L Chloride 96 L Carbon Dioxide 29.0 Anion Gap 9 BUN 27 H Creatinine 1.02 Estim Creat Clear Calc 35.37 Est GFR (MDRD) Af Amer 67 Est GFR (MDRD) Non-Af 55 L BUN/Creatinine Ratio 26.5 H Glucose 118 H Lactic Acid 1.2 Calcium 8.6 Total Bilirubin 0.50 AST 85 H ALT 45 Alkaline Phosphatase 81 Troponin I High Sens 12 Total Protein 6.7 Albumin 1.7 L Globulin 5.0 H Albumin/Globulin Ratio 0.3 L Urine Color Urine Clarity Urine pH Ur Specific [place] Urine Protein Urine Glucose (UA) Urine Ketones Urine Occult Blood Urine Nitrite Urine Bilirubin Urine Urobilinogen Ur Leukocyte Esterase Urine RBC Urine WBC Ur Squamous Epith Cells Urine Bacteria Urine Mucus 02/17/21 11:16 WBC RBC Hgb Hct MCV MCH MCHC RDW Std Deviation RDW Coeff of Carol Plt Count MPV Immature Gran % (Auto) Neut % (Auto) Lymph % (Auto) Shannon % (Auto) Eos % (Auto) Baso % (Auto) Absolute Neuts (auto) Absolute Lymphs (auto) Nucleated RBC % Differential Comment Diff Path Review Sodium Potassium Chloride Carbon Dioxide Anion Gap BUN Creatinine Estim Creat Clear Calc Est GFR (MDRD) Af Amer Est GFR (MDRD) Non-Af BUN/Creatinine Ratio Glucose Lactic Acid Calcium Total Bilirubin AST ALT Alkaline Phosphatase Troponin I High Sens Total Protein Albumin Globulin Albumin/Globulin Ratio Urine Color Yellow Urine Clarity Sl. Cloudy Urine pH 5.0 Ur Specific [place] 1.015 Urine Protein 30 H Urine Glucose (UA) Normal Urine Ketones 5 H Urine Occult Blood 10 H Urine Nitrite Positive H Urine Bilirubin Negative Urine Urobilinogen 1 H Ur Leukocyte Esterase 500 H Urine RBC 0 SEEN Urine WBC 25-50 SEEN Ur Squamous Epith Cells 0 SEEN Urine Bacteria 2+ Urine Mucus 0 SEEN Radiography Diagnostic Testing: Clinical Impression(s) from Imaging Studies Abdomen/Pelvis CT 02/17/21 09:37 IMPRESSION: 3.1 cm x 3.5 cm cyst in the right kidney. Nonspecific bilateral perinephric stranding. No evidence of obstructive uropathy at this time. Electronically Signed: Alex Bedoya MD at 11:01 EST , Service support , EKG Initial EKG: Attestation: I personally reviewed and interpreted this EKG as follows: Comments: Sinus rhythm with a ventricular rate of 53 bpm with left axis deviation Prior EKG tracings: available for review Prior: Unchanged Discharge Plan Triage Chief Complaint: General Illness ED Provider: Keegan Pendleton Dx/Rx/DC Orders Clinical Impression: Acute UTI Instructions: ED CYSTITIS Female Adult Prescriptions: New cephalexin [cephalexin] 500 MG capsule 500 mg PO Q6 Qty: 40 RF: 0 No Action Otezla 30 mg tablet 30 mg PO BID RF: 0 vit A-vit C-vit D-iffi-ojniup 7,160-113-100 kguf-in-ckja tablet 1 tab PO BID RF: 0 benazepril [Lotensin] 20 mg tablet 20 mg PO BID RF: 0 Pulmicort Flexhaler 180 mcg/actuation aerosol powdr breath activated 1 inh INHALATION DAILY RF: 0 acetaminophen [Tylenol Extra Strength] 500 mg tablet 500 mg PO Q6H PRN (Reason: Pain) RF: 0 tizanidine 4 mg tablet 4 mg PO TID PRN (Reason: Pain) RF: 0 budesonide 3 mg capsule,delayed,extend.release 3 mg PO DAILY RF: 0 metoprolol succinate 100 mg tablet extended release 24 hr 100 mg PO DAILY RF: 0 amlodipine 10 mg tablet 10 mg PO DAILY RF: 0 chlorthalidone 25 mg tablet 25 mg PO DAILY Qty: 30 RF: 11 potassium chloride 10 mEq capsule, extended release 20 meq PO DAILY Qty: 180 RF: 3 Primary Care Provider: Romulo Awan Referrals: Romulo Awan MD [Primary Care Provider] - 3-5 Days Disposition Disposition: Home, Self Care
--- NOTE | 2021-02-17 09:38 | EKG12_ITS ---
Test Reason : Blood Pressure : / mmHG Vent. Rate : 053 BPM Atrial Rate : 053 BPM P-R Int : 172 ms QRS Dur : 088 ms QT Int : 464 ms P-R-T Axes : 057 -34 006 degrees QTc Int : 435 ms Sinus bradycardia Left axis deviation Abnormal ECG Confirmed by LILY SEBASTIAN, BELINDA ([id number]), book or script editor RIGO FRANCO ([id number]) on 02/19/2021 1:06:21 PM Referred By: MAGDY Confirmed By:BELINDA BAUTISTA MD
[2021-02-17 10:00] LABS: Absolute Lymphocyte Count 1.21 X10^3/uL (0.83-4.51); Absolute Neutrophil Count 15.1 X10^3/uL (2.0-7.7); Basophil# 0.05 X10^3/uL; Basophil% 0.3 % (0-1); Eosinophil# 0.25 X10^3/uL; Eosinophils% 1.4 % (0-5); Hematocrit 34.8 % (37-47); Hemoglobin 11.8 g/dL (12.0-15.0); Lymphocyte # 1.21 X10^3/ul (0.83-4.51); Lymphocyte % 6.5 % (19-41); Mean Corp Hgb Conc 33.9 g/dL (32-36); Mean Corpuscular Hgb 30.3 pg (27.0-32.0); Mean Corpuscular Volume 89.2 fL (81-99); Mean Platelet Vol. 10.5 fl (6.2-12.0); Monocyte% 9.2 % (0-10); NRBC Flagged by Analyzer 0 % (0-5); Neutrophil # 15.06 X10^3/uL (2.7-7.7); Neutrophil % 81.4 % (47-70); POSITIVE DIFFERENTIAL YES; Platelet Count 401 K/mm3 (150-450); RBC Distribution Width SD 42.7 fl (35.1-43.9); White Blood Count 18.5 K/mm3 (4.4-11.0)
[2021-02-17 10:01] LABS: Differential Indicated SCAN CRITERIA MET
[2021-02-17 10:24] LABS: ALB/GLOB Ratio 0.3 RATIO (0.9-2.4); AST(SGOT) 85 U/L (15-37); Alanine Aminotransfer ALT/SGPT 45 U/L (13-56); Albumin, Serum 1.7 g/dL (3.2-5.0); Alkaline Phosphatase 81 U/L (45-117); Anion Gap 9 (5-15); BUN 27 mg/dL (7-18); BUN/Creat Ratio 26.5 RATIO (10-20); Calcium,Total 8.6 mg/dL (8.5-10.1); Chloride 96 mmol/L (98-107); Creatinine, Serum 1.02 mg/dL (0.55-1.02); EST Glomerular Filtration Rate 55 mL/min (>60); Est Glom Filt Rate - Afr Amer 67 mL/min (>60); Estimated Creatinine Clearance 35.37 ml/min; Glucose 118 mg/dL (74-106); Potassium 3.2 mmol/L (3.5-5.1); Protein, Total 6.7 g/dL (6.4-8.2); Sodium Level 134 mmol/L (136-145); Troponin-I HS 12 pg/mL (3.0-54.0)
[2021-02-17] MEDS: 0.9% Normal Saline 1,000 ML 150 ML IV (10:30)
[2021-02-17 10:55] LABS: Lactic Acid 1.2 mmol/L (0.4-1.9)
[2021-02-17 11:24] LABS: Color, Urine Yellow (Yellow); Glucose, Dipstick Normal (Normal); Ketone-Dipstick 5 mg/dl (Negative); Leukocyte Esterase-Dipstick 500 /ul (Negative); Nitrite-Dipstick Positive (Negative); Occult Blood-Urine 10 /ul (Negative); Protein-Dipstick 30 mg/dl (Negative); Specific Gravity, Urine 1.015 (1.002-1.030); Urine Bilirubin Dipstick Negative (Negative); Urine Clarity Sl. Cloudy (Clear); Urine Urobilinogen 1 mg/dl (Normal)
[2021-02-17 11:26] LABS: Mucous, Urine 0 SEEN /hpf (<or=2+); Red Blood Cells-Urine 0 SEEN /hpf (0-5); Squamous Epithelial Cells - UA 0 SEEN /hpf (5-10)
[2021-02-17 11:29] LABS: White Blood Cells 25-50 SEEN /hpf (0-5)
[2021-02-17 11:30] LABS: Bacteria 2+ /hpf (None Seen)
[2021-02-17] MEDS: Ceftriaxone 1 GM/50 ML BAG IV (12:04)
[2021-02-17 12:49] VITALS: BP 118/80; PULSE 54; RESP 16; O2SAT 97
[2021-02-17 14:21] LABS: Pathologist Review Reviewed
== END 2021-02-17 12:59 | disposition home or self-care (01) ==
PROVIDERS: Emergency Provider Emergency Medicine; PCP Internal Medicine
DX: N39.0 Urinary tract infection, site not specified (principal); R09.81 Nasal congestion; I10 Essential (primary) hypertension; J45.909 Unspecified asthma, uncomplicated; M19.90 Unspecified osteoarthritis, unspecified site; Z87.19 Personal history of other diseases of the digestive system; Z79.899 Other long term (current) drug therapy
CPT/HCPCS: 74176; 80053; 81001; 83605; 84484; 85025; 87077; 87086; 87088; 87186; 87426; 93005; 96361; 96365; 99283; J7030; A4216

== ENCOUNTER 2021-05-04 08:42 | Outpatient (CLI) | payer MEDICARE, OTHER, SELFPAY ==
[2021-05-04 10:17] LABS: Absolute Lymphocyte Count 1.66 X10^3/uL (0.83-4.51); Absolute Neutrophil Count 7.8 X10^3/uL (2.0-7.7); Basophil# 0.06 X10^3/uL; Basophil% 0.5 % (0-1); Eosinophil# 0.72 X10^3/uL; Eosinophils% 6.2 % (0-5); Hematocrit 34.3 % (37-47); Hemoglobin 11.2 g/dL (12.0-15.0); Lymphocyte # 1.66 X10^3/ul (0.83-4.51); Lymphocyte % 14.3 % (19-41); Mean Corp Hgb Conc 32.7 g/dL (32-36); Mean Corpuscular Hgb 27.9 pg (27.0-32.0); Mean Corpuscular Volume 85.5 fL (81-99); Mean Platelet Vol. 11.1 fl (6.2-12.0); Monocyte# 1.32 X10^3/uL; Monocyte% 11.4 % (0-10); NRBC Flagged by Analyzer 0 % (0-5); Neutrophil # 7.79 X10^3/uL (2.7-7.7); Platelet Count 428 K/mm3 (150-450); RBC Distribution Width CV 16.2 % (11.6-14.6); RBC Distribution Width SD 50.8 fl (35.1-43.9); Red Blood Count 4.01 M/mm3 (4.2-5.4); White Blood Count 11.6 K/mm3 (4.4-11.0)
[2021-05-04 10:40] LABS: ALB/GLOB Ratio 0.6 RATIO (0.9-2.4); AST(SGOT) 40 U/L (15-37); Alanine Aminotransfer ALT/SGPT 12 U/L (13-56); Albumin, Serum 2.6 g/dL (3.2-5.0); Alkaline Phosphatase 109 U/L (45-117); Anion Gap 4 (5-15); BUN 11 mg/dL (7-18); BUN/Creat Ratio 12.7 RATIO (10-20); Calcium,Total 9.1 mg/dL (8.5-10.1); Chloride 103 mmol/L (98-107); Creatinine, Serum 0.87 mg/dL (0.55-1.02); EST Glomerular Filtration Rate 67 mL/min (>60); Est Glom Filt Rate - Afr Amer 81 mL/min (>60); Globulin 4.6 g/dL (2.2-4.2); Glucose 98 mg/dL (74-106); Potassium 3.9 mmol/L (3.5-5.1); Protein, Total 7.2 g/dL (6.4-8.2); Sodium Level 135 mmol/L (136-145)
== END 2021-05-04 23:59 | disposition home or self-care (01) ==
LOC: MTLAB 08:44
PROVIDERS: PCP Internal Medicine; Referring Provider Nurse Practitioner Gerontology; Visit Provider Nurse Practitioner Gerontology
DX: I10 Essential (primary) hypertension (principal); L40.59 Other psoriatic arthropathy; M35.1 Other overlap syndromes; E87.6 Hypokalemia; L40.8 Other psoriasis; Z79.899 Other long term (current) drug therapy; R76.8 Other specified abnormal immunological findings in serum; M47.897 Other spondylosis, lumbosacral region; M15.9 Polyosteoarthritis, unspecified; Z85.110 Personal history of malignant carcinoid tumor of bronchus and lung
CPT/HCPCS: 36415; 80053; 85025

== ENCOUNTER → 2021-10-29 | Outpatient (CLI) | payer MEDICARE, OTHER, SELFPAY ==
[2021-10-29 10:19] LABS: Absolute Lymphocyte Count 2.61 X10^3/uL (0.83-4.51); Absolute Neutrophil Count 4.2 X10^3/uL (2.0-7.7); Basophil# 0.05 X10^3/uL; Basophil% 0.6 % (0-1); Eosinophil# 0.74 X10^3/uL; Eosinophils% 8.4 % (0-5); Hematocrit 42.2 % (37-47); Hemoglobin 13.6 g/dL (12.0-15.0); Lymphocyte # 2.61 X10^3/ul (0.83-4.51); Lymphocyte % 29.7 % (19-41); Mean Corp Hgb Conc 32.2 g/dL (32-36); Mean Corpuscular Hgb 29.7 pg (27.0-32.0); Mean Corpuscular Volume 92.1 fL (81-99); Mean Platelet Vol. 12.5 fl (6.2-12.0); Monocyte# 1.11 X10^3/uL; Monocyte% 12.6 % (0-10); NRBC Flagged by Analyzer 0 % (0-5); Neutrophil # 4.24 X10^3/uL (2.7-7.7); Neutrophil % 48.4 % (47-70); Platelet Count 235 K/mm3 (150-450); RBC Distribution Width CV 13.8 % (11.6-14.6); RBC Distribution Width SD 46.8 fl (35.1-43.9); Red Blood Count 4.58 M/mm3 (4.2-5.4); White Blood Count 8.8 K/mm3 (4.4-11.0)
[2021-10-29 11:03] LABS: ALB/GLOB Ratio 0.8 RATIO (0.9-2.4); AST(SGOT) 80 U/L (15-37); Alanine Aminotransfer ALT/SGPT 20 U/L (13-56); Albumin, Serum 3.4 g/dL (3.2-5.0); Alkaline Phosphatase 118 U/L (45-117); Anion Gap 7 (5-15); BUN 19 mg/dL (7-18); BUN/Creat Ratio 18.3 RATIO (10-20); Calcium,Total 9.4 mg/dL (8.5-10.1); Chloride 106 mmol/L (98-107); Creatinine, Serum 1.04 mg/dL (0.55-1.02); EST Glomerular Filtration Rate 54 mL/min (>60); Est Glom Filt Rate - Afr Amer 66 mL/min (>60); Globulin 4.2 g/dL (2.2-4.2); Glucose 102 mg/dL (74-106); Potassium 4.1 mmol/L (3.5-5.1); Protein, Total 7.6 g/dL (6.4-8.2); Sodium Level 140 mmol/L (136-145)
== END | disposition home or self-care (01) ==
LOC: MTLAB 09:00
PROVIDERS: PCP Internal Medicine; Referring Provider Internal Medicine Rheumatology; Visit Provider Internal Medicine Rheumatology
DX: L40.59 Other psoriatic arthropathy (principal); M35.1 Other overlap syndromes; Z79.899 Other long term (current) drug therapy; L40.8 Other psoriasis; R76.8 Other specified abnormal immunological findings in serum; M47.897 Other spondylosis, lumbosacral region; M15.9 Polyosteoarthritis, unspecified; I10 Essential (primary) hypertension; Z85.110 Personal history of malignant carcinoid tumor of bronchus and lung
CPT/HCPCS: 36415; 80053; 85025

== ENCOUNTER → 2022-01-10 | Outpatient (CLI) | payer MEDICARE, OTHER, SELFPAY ==
--- NOTE | 2022-01-10 10:20 | RAD_ITS ---
EXAM: XR CHEST, 2 VIEWS CLINICAL INDICATION: Malignant carcinoid tumor of the bronchus and lung TECHNIQUE: Frontal and lateral views of the chest. This report was created using [employer] report generation technology. COMPARISON: 09/07/2018 FINDINGS: LUNGS AND PLEURAL SPACES: Postsurgical changes are again seen in the right lung. No pneumothorax. No effusion. HEART: Unremarkable. Cardiac silhouette not enlarged. MEDIASTINUM: Central airways and mediastinal contour are unremarkable. BONES/JOINTS: Unremarkable. SOFT TISSUES: Unremarkable. RAD/Chest PA and Lateral IMPRESSION: No acute findings in the chest. Electronically Signed: Renan Morales MD at 23:54 EST ,
== END | disposition home or self-care (01) ==
PROVIDERS: PCP Internal Medicine; Visit Provider Internal Medicine Pulmonary Disease
DX: C7A.090 Malignant carcinoid tumor of the bronchus and lung (principal)
CPT/HCPCS: 71046

== ENCOUNTER → 2022-04-30 | Outpatient (CLI) | payer MEDICARE, OTHER, SELFPAY ==
[2022-04-30 10:22] LABS: Absolute Lymphocyte Count 2.61 X10^3/uL (0.83-4.51); Absolute Neutrophil Count 5.2 X10^3/uL (2.0-7.7); Basophil# 0.06 X10^3/uL; Basophil% 0.6 % (0-1); Eosinophil# 0.64 X10^3/uL; Eosinophils% 6.6 % (0-5); Hematocrit 42.7 % (37-47); Lymphocyte # 2.61 X10^3/ul (0.83-4.51); Lymphocyte % 26.8 % (19-41); Mean Corp Hgb Conc 32.8 g/dL (32-36); Mean Corpuscular Hgb 30.2 pg (27.0-32.0); Monocyte# 1.26 X10^3/uL; Monocyte% 12.9 % (0-10); NRBC Flagged by Analyzer 0 % (0-5); Neutrophil # 5.15 X10^3/uL (2.7-7.7); Neutrophil % 52.8 % (47-70); Platelet Count 238 K/mm3 (150-450); RBC Distribution Width CV 13.1 % (11.6-14.6); RBC Distribution Width SD 44.2 fl (35.1-43.9); Red Blood Count 4.64 M/mm3 (4.2-5.4); White Blood Count 9.8 K/mm3 (4.4-11.0)
[2022-04-30 10:45] LABS: BUN 21 mg/dL (7-18); Creatinine, Serum 1.25 mg/dL (0.55-1.02); EST Glomerular Filtration Rate 44 mL/min (>60); Glucose 113 mg/dL (74-106)
[2022-04-30 10:46] LABS: ALB/GLOB Ratio 0.8 RATIO (0.9-2.4); AST(SGOT) 74 U/L (15-37); Alanine Aminotransfer ALT/SGPT 17 U/L (13-56); Albumin, Serum 3.4 g/dL (3.2-5.0); Alkaline Phosphatase 108 U/L (45-117); Anion Gap 9 (5-15); BUN/Creat Ratio 16.8 RATIO (10-20); Calcium,Total 9.5 mg/dL (8.5-10.1); Chloride 105 mmol/L (98-107); Est Glom Filt Rate - Afr Amer 53 mL/min (>60); Globulin 4.2 g/dL (2.2-4.2); Potassium 4.2 mmol/L (3.5-5.1); Protein, Total 7.6 g/dL (6.4-8.2); Sodium Level 140 mmol/L (136-145)
== END | disposition home or self-care (01) ==
LOC: LAB 10:14
PROVIDERS: PCP Internal Medicine; Visit Provider Internal Medicine Rheumatology
DX: L40.59 Other psoriatic arthropathy (principal); M35.1 Other overlap syndromes; Z79.899 Other long term (current) drug therapy; L40.8 Other psoriasis; R76.8 Other specified abnormal immunological findings in serum; M47.897 Other spondylosis, lumbosacral region; M15.9 Polyosteoarthritis, unspecified; I10 Essential (primary) hypertension; Z85.110 Personal history of malignant carcinoid tumor of bronchus and lung
CPT/HCPCS: 36415; 80053; 85025

== ENCOUNTER → 2022-06-07 | Outpatient (CLI) | payer MEDICARE, OTHER, SELFPAY | END | disposition home or self-care (01) | LOC: PSN 09:06 | PROVIDERS: PCP Internal Medicine; Visit Provider Nurse Practitioner Gerontology | DX: R00.1 Bradycardia, unspecified (principal) | CPT/HCPCS: 93225; 93226 ==

== ENCOUNTER → 2022-10-21 | Outpatient (CLI) | payer MEDICARE, OTHER, SELFPAY ==
[2022-10-21 10:23] LABS: Absolute Lymphocyte Count 2.09 X10^3/uL (0.83-4.51); Absolute Neutrophil Count 4.8 X10^3/uL (2.0-7.7); Basophil# 0.05 X10^3/uL; Basophil% 0.6 % (0-1); Eosinophil# 0.65 X10^3/uL; Eosinophils% 7.5 % (0-5); Hematocrit 38.3 % (37-47); Hemoglobin 12.3 g/dL (12.0-15.0); Lymphocyte # 2.09 X10^3/ul (0.83-4.51); Lymphocyte % 24.1 % (19-41); Mean Corp Hgb Conc 32.1 g/dL (32-36); Mean Corpuscular Hgb 30.1 pg (27.0-32.0); Mean Corpuscular Volume 93.6 fL (81-99); Mean Platelet Vol. 11.9 fl (6.2-12.0); Monocyte% 11.5 % (0-10); NRBC Flagged by Analyzer 0 % (0-5); Neutrophil # 4.84 X10^3/uL (2.7-7.7); Platelet Count 224 K/mm3 (150-450); RBC Distribution Width CV 13.4 % (11.6-14.6); RBC Distribution Width SD 46.3 fl (35.1-43.9); Red Blood Count 4.09 M/mm3 (4.2-5.4); White Blood Count 8.7 K/mm3 (4.4-11.0)
[2022-10-21 10:42] LABS: ALB/GLOB Ratio 0.8 RATIO (0.9-2.4); AST(SGOT) 75 U/L (15-37); Alanine Aminotransfer ALT/SGPT 15 U/L (13-56); Alkaline Phosphatase 107 U/L (45-117); Anion Gap 4 (5-15); BUN 16 mg/dL (7-18); BUN/Creat Ratio 16.6 RATIO (10-20); Chloride 105 mmol/L (98-107); Creatinine, Serum 0.96 mg/dL (0.55-1.02); EST Glomerular Filtration Rate 59 mL/min (>60); Est Glom Filt Rate - Afr Amer 72 mL/min (>60); Globulin 3.9 g/dL (2.2-4.2); Glucose 99 mg/dL (74-106); Potassium 4.1 mmol/L (3.5-5.1); Protein, Total 6.9 g/dL (6.4-8.2); Sodium Level 138 mmol/L (136-145)
== END | disposition home or self-care (01) ==
LOC: MTLAB 09:19
PROVIDERS: PCP Internal Medicine; Referring Provider Internal Medicine Rheumatology; Visit Provider Internal Medicine Rheumatology
DX: L40.59 Other psoriatic arthropathy (principal); Z79.899 Other long term (current) drug therapy
CPT/HCPCS: 36415; 80053; 85025

== ENCOUNTER → 2023-04-24 | Outpatient (CLI) | payer MEDICARE, OTHER, SELFPAY ==
--- OUTSIDE RECORDS SUMMARY | 2023-04-24 15:31 | XMS RPT_ITS | CCD ---
Author Name Unknown Address [address] [place] [address] Organization [facility] Care Team Providers Care Creative Writing English Professor Name Role Phone Romulo Spann MD Primary Care Provider ROMULO SPANN Attending Unavailable ROMULO SPANN Referring Unavailable ROMULO SPANN Primary Care Unavailable OLDER, CHELSEY Referring Unavailable ROMULO SPANN Primary Care Unavailable OLDER, CHELSEY Attending Unavailable ROMULO SPANN Referring Unavailable ROMULO SPANN Primary Care Unavailable Allergies Allergy Classification Reported Allergen(s) Allergy Type Date of Onset Reaction(s) Facility (4 sources) bacitracin / neomycin / polymyxin b; Translations: [NEOMYCIN-BACIT RACIN-POLYMYXIN ] Drug Allergy 5 [facility] Work Phone: (4 sources) dilTIAZem; Translations: [DILTIAZEM HCL] Drug Allergy 1 Other: See Comments [facility] (4 sources) Felodipine; Translations: [FELODIPINE] Drug Allergy 5 Rash, Shortness of Breath [facility] Work Phone: (4 sources) hydroCHLOROthia zide; Translations: [HYDROCHLOROTHI AZIDE] Drug Allergy 9 Unknown [facility] (4 sources) Lanolin; Translations: [LANOLIN] Drug Allergy 5 [facility] Work Phone: (4 sources) Latex; Translations: [LATEX] Propensity to adverse reactions 5 [facility] Work Phone: (4 sources) Meperidine; Translations: [MEPERIDINE (PF)] Drug Allergy 7 Other: See Comments [facility] Work Phone: (4 sources) Thimerosal; Translations: [THIMEROSAL] Drug Allergy 0 Other: See Comments [facility] Work Phone: (3 sources) Neomycin; Translations: [NEOMYCIN] Drug Allergy 1 Other: See Comments [facility] Medications Completed/Discontinued Medications Medication Drug Class(es) Dates Sig (Normalized) Sig (Original) amLODIPine 10 mg oral tablet (3 sources) Dihydropyridine Calcium Channel Reinaldo Start: 09-17-2020 take 1 tablet by mouth once daily amLODIPine (NORVASC) 10 mg tablet Take 10 mg by mouth once daily. 0 09/17/2020 Active Problems Active Problems Problem Classification Problem Date Documented Da te Episodic/Chronic Asthma (5 sources) Mild intermittent asthma; Translations: [Mild intermittent asthma, uncomplicated] Onset: 12-23-2014 Chronic Chronic kidney disease (2 sources) Chronic kidney disease stage 2; Translations: [Chronic kidney disease, stage 2 (mild)] Onset: 12-02-2021 12-02-2021 Chronic Essential hypertension (7 sources) Essential hypertension; Translations: [Essential (primary) hypertension] Onset: 07-06-2015 Chronic Noninfectious gastroenteritis (4 sources) Colitis; Translations: [Lymphocytic colitis] Onset: 11-30-2020 Chronic Osteoarthritis (3 sources) Degenerative joint disease involving multiple joints; Translations: [Polyosteoarthritis , unspecified] Onset: 12-09-2015 12-09-2015 Chronic Other inflammatory condition of skin (5 sources) Psoriatic arthritis; Translations: [Arthropathic psoriasis, unspecified] Onset: 12-09-2015 Chronic Other nutritional; endocrine; and metabolic disorders (3 sources) Body mass index 30+ - obesity; Translations: [Body mass index (BMI) 30.0-30.9, adult] Onset: 07-06-2015 07-06-2015 Chronic Other nutritional; endocrine; and metabolic disorders (1 source) Body mass index 25-29 - overweight; Translations: [Overweight] Episodic Other upper respiratory disease (3 sources) Chronic rhinitis; Translations: [Chronic rhinitis] Onset: 04-04-2008 04-04-2008 Chronic Past or Other Problems Problem Classification Problem Date Documented Date Episodic/Chronic Diabetes mellitus without complication (5 sources) Impaired fasting glycemia; Translations: [Impaired fasting glucose] Onset: 04-30-2009 04-30-2009 Episodic Other connective tissue disease (2 sources) Dupuytren contracture of left palm; Translations: [Palmar fascial fibromatosis [Dupuytren]] Onset: 12-02-2021 12-02-2021 Episodic Other liver diseases (3 sources) Elevated levels of transaminase & lactic acid dehydrogenase; Translations: [Nonspecific elevation of levels of transaminase or lactic acid dehydrogenase (LDH)] Onset: 05-06-2008 12-09-2015 Episodic Results Test Name Value Interpretation Reference Range Facil ity Vital Signs Date Time Vital Sign Value Performing Clinician Lissette lopez 06-01-2022 13:15-0400 Diastolic blood pressure 64 mm[Hg] Chelsey Older PHYSICIAN SCRIBE.ELECTRONIC SECURITY SPECIALIST Work Phone: [facility] 06-01-2022 13:15-0400 Systolic blood pressure 140 mm[Hg] Chelsey Older PHYSICIAN SCRIBE.ELECTRONIC SECURITY SPECIALIST Work Phone: [facility] 06-01-2022 12:50-0400 Body height 155 cm Chelsey Older PHYSICIAN SCRIBE.ELECTRONIC SECURITY SPECIALIST Work Phone: [facility] 06-01-2022 12:50-0400 Body weight 71.22 kg Chelsey Older PHYSICIAN SCRIBE.ELECTRONIC SECURITY SPECIALIST Work Phone: [facility] 06-01-2022 12:50-0400 Heart rate 52 /min Chelsey Older PHYSICIAN SCRIBE.ELECTRONIC SECURITY SPECIALIST Work Phone: [facility] 06-01-2022 12:50-0400 Respiratory rate 12 /min Chelsey Older PHYSICIAN SCRIBE.ELECTRONIC SECURITY SPECIALIST Work Phone: [facility] 05-31-2021 09:20-0400 Diastolic blood pressure 64 mm[Hg] Chelsey Older PHYSICIAN SCRIBE.ELECTRONIC SECURITY SPECIALIST Work Phone: [facility] 05-31-2021 09:20-0400 Systolic blood pressure 126 mm[Hg] Chelsey Older PHYSICIAN SCRIBE.ELECTRONIC SECURITY SPECIALIST Work Phone: [facility] 05-31-2021 09:01-0400 Body weight 67.13 kg Chelsey Older PHYSICIAN SCRIBE.ELECTRONIC SECURITY SPECIALIST Work Phone: [facility] 05-31-2021 09:01-0400 Heart rate 52 /min Chelsey Older PHYSICIAN SCRIBE.ELECTRONIC SECURITY SPECIALIST Work Phone: [facility] 05-31-2021 09:01-0400 Respiratory rate 14 /min Chelesy Older PHYSICIAN SCRIBE.ELECTRONIC SECURITY SPECIALIST Work Phone: [facility] 05-31-2021 09:01-0400 SaO2% (BldA) [Mass fraction] 98 % Chelsey Older PHYSICIAN SCRIBE.ELECTRONIC SECURITY SPECIALIST Work Phone: [facility] Encounters Encounter Date Encounter Type Care Provider Facility Start: 12-02-2022 End: 12-03-2022 ambulatory BRYCE SPANN Facility:[facility] Start: 06-09-2022 End: 06-10-2022 ambulatory CHELSEY OLDER Facility:[facility] Start: 06-01-2022 End: 06-01-2022 ambulatory CHELSEY OLDER Facility:[facility] Start: 06-01-2022 End: 06-01-2022 Patient encounter procedure Chelsey Older PHYSICIAN SCRIBE.ELECTRONIC SECURITY SPECIALIST Work Phone: Internal Medicine [facility] Procedures Date Procedure Procedure Detail Performing Clinician Start: 05-27-2020 Adult depression screening assessment Chelsey Older PHYSICIAN SCRIBE.ELECTRONIC SECURITY SPECIALIST Work Phone: Plan of Treatment Date Care Activity Detail Author Start: 03-19-2024 DIABETES SCREEN DIABETES SCREEN [facility] Start: 06-02-2023 SHINGRIX VACCINE (1 of 2) SHINGRIX V ACCINE (1 of 2) [facility] Immunizations Immunization Date Immunization Notes Care Provider Leilani mckee 11-30-2020 influenza, high-dose , quadrivalent vaccine (FLUZONE HIGH DOSE QUADRIVALENT) Chelsey Older PHYSICIAN SCRIBE.ELECTRONIC SECURITY SPECIALIST Work Phone: [facility] 05-07-2020 COVID-19 vaccine, ag e 12+ yr (PFIZER-BIONTECH - PURPLE TOP) Chelsey Older PHYSICIAN SCRIBE.ELECTRONIC SECURITY SPECIALIST Work Phone: [facility] 04-16-2020 COVID-19 vaccine, ag e 12+ yr (PFIZER-BIONTECH - PURPLE TOP) Chelsey Older PHYSICIAN SCRIBE.ELECTRONIC SECURITY SPECIALIST Work Phone: [facility] 12-25-2018 influenza, high dose seasonal, preservative-free Chelsey Older PHYSICIAN SCRIBE.ELECTRONIC SECURITY SPECIALIST Work Phone: [facility] Work Phone: 12-25-2017 influenza, high dose seasonal, preservative-free Chelsey Older PHYSICIAN SCRIBE.ELECTRONIC SECURITY SPECIALIST Work Phone: [facility] Work Phone: 12-15-2016 influenza, high dose seasonal, preservative-free Chelsey Older PHYSICIAN SCRIBE.ELECTRONIC SECURITY SPECIALIST Work Phone: [facility] 12-09-2015 influenza, high dose seasonal, preservative-free Chelsey Older PHYSICIAN SCRIBE.ELECTRONIC SECURITY SPECIALIST Work Phone: [facility] 12-23-2014 pneumococcal conjuga te vaccine, 13 valent Chelsey Older PHYSICIAN SCRIBE.ELECTRONIC SECURITY SPECIALIST Work Phone: [facility] 12-04-2014 influenza, high dose seasonal, preservative-free Chelsey Older PHYSICIAN SCRIBE.ELECTRONIC SECURITY SPECIALIST Work Phone: [facility] 12-30-2013 influenza, seasonal, injectable Chelsey Older PHYSICIAN SCRIBE.ELECTRONIC SECURITY SPECIALIST Work Phone: [facility] 01-25-2013 tetanus toxoid, redu jose d diphtheria toxoid, and acellular pertussis vaccine, adsorbed Chelsey Older PHYSICIAN SCRIBE.ELECTRONIC SECURITY SPECIALIST Work Phone: [facility] 06-13-2011 zoster vaccine, live Chelsey Old er PHYSICIAN SCRIBE.ELECTRONIC SECURITY SPECIALIST Work Phone: [facility] 12-03-2009 influenza virus vacc ine, unspecified formulation Chelsey Older PHYSICIAN SCRIBE.ELECTRONIC SECURITY SPECIALIST Work Phone: [facility] 12-03-2008 pneumococcal conjuga te vaccine, 7 valent Chelsey Older PHYSICIAN SCRIBE.ELECTRONIC SECURITY SPECIALIST Work Phone: [facility] Work Phone: 12-03-2008 pneumococcal polysaccharide vaccine, 23 valent Romulo Spann MD Work Phone: [facility] 04-04-2008 tetanus and diphther ia toxoids, adsorbed, preservative free, for adult use (2 Lf of tetanus toxoid and 2 Lf of diphtheria toxoid) Chelsey Older PHYSICIAN SCRIBE.ELECTRONIC SECURITY SPECIALIST Work Phone: [facility] 01-15-2008 influenza virus vacc ine, unspecified formulation Chelsey Older PHYSICIAN SCRIBE.ELECTRONIC SECURITY SPECIALIST Work Phone: [facility] 01-30-2006 influenza virus vacc ine, unspecified formulation Chelsey Older PHYSICIAN SCRIBE.ELECTRONIC SECURITY SPECIALIST Work Phone: [facility] Work Phone: Payers Date Payer Category Payer Medicare [id number] 2015 Private Health Insurance HUMANA HUMANA MEDICARE SUPPLEMENT [id number] 2015-Present [phone] [id number] [place] [id number] Indemnity [id number] 2015 Private Health Insurance HUMANA HUMANA MEDICARE SUPPLEMENT [id number] 2015-Present [phone] [id number] [place] [phone] Indemnity [id number] 2004 Medicare MEDICARE MEDICAR E A AND B [id number] 2004-Present [phone] [place] [id number] Medicare [id number] 2004 Medicare MEDICARE MEDICAR E A AND B [id number] 2004-Present [phone] [place] [address] Medicare [id number] 2004 Medicare [id number] Social History Date Type Detail Facility Start: 12-02-2021 Tobacco smoking stat [facility] Never smoked tobacco [facility] Work Phone: Start: 05-31-2021 End: 06-01-2022 Alcohol intake Current non-drinker of alcohol (finding) [facility] Start: 1940 Sex Assigned At Not on file [facility] Start: 12-02-2021 Tobacco use and exposure Smokeless tobacco non-user [facility] Work Phone: Start: 11-22-2021 End: 12-02-2021 Exposure to SARS-CoV-2 (event) Not sure [facility] Work Phone: Clinical Notes 07-06-2015 to 12-02-2022 Patient InstructionsNadiaz Sanford APRN.ELECTRONIC SECURITY SPECIALIST - 06/01/2022 1:00 PM EDTTelephone Encounter - Kim Mckeoner UNHAIRING MACHINE OPERATOR - 12/15/2021 10:00 AM EDTChelsey Sanford APRN.ELECTRONIC SECURITY SPECIALIST - 05/31/2021 9:04 AM EDT Note Date & Type Note Facility 12-02-2022 Note HNO ID: [id number] Author: Romulo Spann MD Service: ? Author Type: Physician Type: Progress Notes Filed: 12/02/2022 10:03 AM Note Text: This note was created using [employer]. Subjective Latha Ferrara is a 82 year old female. She was doing reasonably well. Bradycardia became an issue so Dr. Manuel reduced metoprolol with improvement in her symptoms and blood pressure. Review of Systems Constitutional: Negative for fever and unexpected weight change. Respiratory: Negative for cough and shortness of breath. Cardiovascular: Negative for chest pain, palpitations and leg swelling. Neurological: Negative. ACTIVE PROBLEM LIST RHINITIS CHRONIC Nonspecific elevation of levels of transaminase or lactic acid dehydrogenase (LDH) Impaired Fasting Glucose Mild Intermittent Asthma Without Complication Essential Hypertension With Goal Blood Pressure Less Than 130/80 Bmi 30.0-30.9,Adult Primary Osteoarthritis Involving Multiple Joints Psoriatic Arthropathy (Hcc) Lymphocytic Colitis Chronic Kidney Insufficiency, Stage 2 (Mild) Dupuytren's Contracture of Left Hand Current Outpatient Medications Medication Sig terazosin (HYTRIN) 2 mg capsule Take 1 capsule by mouth daily at bedtime. metoprolol succinate ER (TOPROL XL) 25 mg 24 hr tablet Take 1 tablet by mouth once daily. traMADol (ULTRAM) 50 mg tablet Take 50 mg by mouth three times daily as needed. benazepril (LOTENSIN) 20 mg tablet Take 2 tablets by mouth once daily. omeprazole (PRILOSEC) 20 mg capsule Take 20 mg by mouth once daily. amLODIPine (NORVASC) 10 mg tablet Take 10 mg by mouth once daily. BENEFIBER, WHEAT DEXTRIN, ORAL Take by mouth. potassium chloride SR (MICRO-K) 10 mEq CR capsule Take 10 mEq by mouth once daily. OTEZLA 30 mg tablet Take 1 tablet by mouth twice daily. Per Dr. Mejia budesonide (PULMICORT FLEXHALER) 180 mcg/actuation aepb Inhale 1 Puff as instructed once daily. VIT A/C/E AC/ZNOX/CUPRIC OXIDE (EYE VITAMIN AND MINERALS ORAL) Take 1 tablet by mouth twice daily. fluticasone (FLONASE) 50 mcg/actuation nasal spray Use 1 Ethel in each nostril once daily. USE DIRECTED COMPRESSOR, FOR NEBULIZER As directed No current facility-administered medications for this visit. Objective BP 128/72 Pulse 61 Resp 16 Wt 69.9 kg (154 lb) SpO2 97% BMI 29.08 kg/m? Physical Exam Constitutional: General: She is not in acute distress. Cardiovascular: Rate and Rhythm: Normal rate and regular rhythm. Occasional Extrasystoles are present. Heart sounds: No murmur heard. No gallop. Pulmonary: Breath sounds: Normal breath sounds. Musculoskeletal: Right lower leg: No edema. Left lower leg: No edema. Neurological: General: No focal deficit present. Mental Status: She is alert. Comments: Ambulatory with cane. Assessment and Plan 1. Essential hypertension with goal blood pressure less than 130/80 - ICD9: 401.9, ICD10: I10 (primary diagnosis) - Controlled - Continue current medications - TERAZOSIN 2 MG CAPSULE 2. Mild intermittent asthma without complication - ICD9: 493.90, ICD10: J45.20 - Mild intermittent asthma stable - Continue current medications - She gets flu vaccine at her pharmacy. Romulo Spann MD [facility] 06-01-2022 Note HNO ID: [id number] Author: Chelsey Sanford APRN.JAGDISH Service: ? Author Type: Nurse Practitioner Type: Progress Notes Filed: 06/01/2022 1:24 PM Note Text: Latha Ferrara is a 82 year old female here for a Medicare Subsequent Annual Wellness Visit Health Risk Assessment In general, health is: Very good Concerns with balance:Not at all Concerns with teeth or dentures:Not at all Concerns with sexual function:Not at all [place] anxious, stressed, angry, irritable, lonely, isolated, or had thoughts of hurting themself: Not at all Has little interest or pleasure in doing things: Not at all Bothered by feeling down, depressed, or hopeless: Not at all Needs help with grocery shopping, cooking, housework, bathing, grooming, dressing, eating, sitting or standing, walking, using the toilet, handling finances, taking medications, using the telephone, or driving: No Following safety precautions in the home environment and vehicle: removed throw rugs from floors, installed grab bars in the bathroom, handrails in stairwells, having adequate lighting, wearing seatbelt at all times?: Yes Smokes cigarettes, vapes, or chew tobacco: No Eats healthy foods including fruits, vegetables, whole grains, and fiber-rich foods: Nearly every day Number of days per week engages in exercise: tries to stay active as possible. Chronic back and hip pain prevent routine aerobic exercise. Average alcohol consumption: Never Current Providers Specialists: I have reviewed specialist-related care of the patient in the medical record. Current care team: Patient Care Team: Romulo Spann MD as PCP - General (Internal Medicine) Outside specialists seen: Dresser Tender- Dr. Mejia, Pulmonary-Dr. Saenz, ENT-Dr. Ayoub, [facility], cardiology-Dr. Manuel Medical/Family history review Reviewed and updated problem list, medical/surgical/family/social history, medications, and allergies. Opioid use review Patient is currently using opioids. Prescribed Tramadol as needed prescribed by procurement professional. Takes at nightly at bedtime. Does patient have risk factors for opioid abuse? No Pain overview Current pain concerns and treatment plan reviewed. Patient stable on current treatment plan and under the care of a specialist. Depression screening Depression Screening PHQ-2 Score 06/01/2022 0 Depression screening tool completed and reviewed. Based on score and interview, patient is not at risk for depression. Screening tool discussed with patient, and I recommended no further intervention at this time. Cognitive screening Mini Cog Score: 5 Cognitive screening reviewed and no further action needed (score 3-5) Functional Observation Was the patient's timed Up AND Go test unsteady or ? 12 seconds? No Advance Care Planning End of Life planning discussed, including patient's advanced directive wishes: Yes Measurements BP 140/64 Pulse 52 Resp 12 Ht 5' 1.024 (1.55m) Wt 157 lb (71.2kg) BMI 29.64 kg/(m2). Visual acuity (required for Welcome to Medicare): follows with optometry/ophthalmology Hearing Evaluation: within normal limits ASSESSMENT/PLAN: 1. Medicare annual wellness visit, subsequent - ICD9: V70.0, ICD10: Z00.00 (primary diagnosis) The following prevention plan was discussed during the office visit and provided to the patient: - fall risk reduction - Counseled on healthy diet and regular exercise - Calcium intake with supplements or by diet of 1000 mg/day for under 50, 8660-8377 mg/day for 50+ - Discussed need and benefit for weight loss. BMI 29.64 kg/(m2) - Patient was counseled [id number] by myself (the billing provider) for the following immunizations and vaccine components, including side effects: Shingrix. Patient declined. - follow-up for medicare annual exam in one year 2. Essential hypertension with goal blood pressure less than 130/80 - ICD9: 401.9, ICD10: I10 - fair control - factors affecting control of BP include white coat HTN. - Continue current medication(s) - Recommend home blood pressure monitoring, to bring results in on next visit - Goal of BP <130/80 - LIPID PANEL BASIC 3. Impaired fasting glucose - ICD9: 790.21, ICD10: R73.01 Recheck - HGB A1C Chelsey Sanford APRN.CNP [facility] 06-01-2022 Instructions Chelsey Sanford APRN.CNP - 06/01/2022 1:02 PM EDT Screening schedule Recombinant shingles vaccine (Shingrix) is recommended; 2 doses 2-6 months apart. Please read information, check with your insurance, and schedule vaccination at your local pharmacy. A prescription is not required. If you are certain you have coverage to receive this vaccine in the office, we can schedule this for you. WHAT YOU CAN DO TO PREVENT FALLS Many falls can be prevented. By making some changes, you can lower your chances of falling. Four things YOU can do to prevent falls for you* and your caregiver 1. Begin a regular exercise program Exercise is one of the most important ways to lower your chances of falling. It makes you stronger and helps you feel better. Exercises that improve balance and coordination (like Brent Chi) are the most helpful. Lack of exercise leads to weakness and increases your chances of falling. Ask your doctor or health care provider about the best type of exercise program for you. 2. Have your health care provider review your medicines Have your doctor or pharmacist review all the medicines you take, even sbig-[id number]-[id number] medicines. As you get older, the way medicines work in your body can change. Some medicines, or combinations of medicines, can make you sleepy or dizzy and can cause you to fall. 3. Have your vision checked Have your eyes checked by an eye doctor at least once a year. You may be wearing the wrong glasses or have a condition like glaucoma or cataracts that limits your vision. Poor vision can increase your chances of falling. 4. Make your home safer About half of all falls happen at home. To make your home safer: Remove things you can trip over (like papers, books, clothes, and shoes) from stairs and places where you walk. Remove small throw rugs or use double-sided tape to keep the rugs from slipping. Keep items you use often in cabinets you can reach easily without using a step stool. Have grab bars put in next to your toilet and in the tub or shower. Use non-slip mats in the bathtub and on shower floors. Improve the lighting in your home. As you get older, you need brighter lights to see well. Hang light-weight curtains or shades to reduce glare. Have handrails and lights put in on all staircases. Wear shoes both inside and outside the house. Avoid going barefoot or wearing slippers. For more information, contact: Centers for Disease Control and Prevention www.cdc.gov/injury * This information may not apply if you have certain medical conditions. documented in this encounter [facility] 06-01-2022 History of Presen t illness Narrative Latha Ferrara is a 82 year old female here for a Medicare Subsequent Annual Wellness Visit Health Risk Assessment In general, health is: Very good Concerns with balance:Not at all Concerns with teeth or dentures:Not at all Concerns with sexual function:Not at all [place] anxious, stressed, angry, irritable, lonely, isolated, or had thoughts of hurting themself: Not at all Has little interest or pleasure in doing things: Not at all Bothered by feeling down, depressed, or hopeless: Not at all Needs help with grocery shopping, cooking, housework, bathing, grooming, dressing, eating, sitting or standing, walking, using the toilet, handling finances, taking medications, using the telephone, or driving: No Following safety precautions in the home environment and vehicle: removed throw rugs from floors, installed grab bars in the bathroom, handrails in stairwells, having adequate lighting, wearing seatbelt at all times?: Yes Smokes cigarettes, vapes, or chew tobacco: No Eats healthy foods including fruits, vegetables, whole grains, and fiber-rich foods: Nearly every day Number of days per week engages in exercise: tries to stay active as possible. Chronic back and hip pain prevent routine aerobic exercise. Average alcohol consumption: Never Current Providers Specialists: I have reviewed specialist-related care of the patient in the medical record. Current care team: Patient Care Team: Romulo Spann MD as PCP - General (Internal Medicine) Outside specialists seen: Dresser Tender- Dr. Mejia, Pulmonary-Dr. Saenz, ENT-Dr. Ayoub, [facility], cardiology-Dr. Manuel Medical/Family history review Reviewed and updated problem list, medical/surgical/family/social history, medications, and allergies. Opioid use review Patient is currently using opioids. Prescribed Tramadol as needed prescribed by procurement professional. Takes at nightly at bedtime. Does patient have risk factors for opioid abuse? No Pain overview Current pain concerns and treatment plan reviewed. Patient stable on current treatment plan and under the care of a specialist. Depression screening Depression Screening PHQ-2 Score 06/01/2022 0 Depression screening tool completed and reviewed. Based on score and interview, patient is not at risk for depression. Screening tool discussed with patient, and I recommended no further intervention at this time. Cognitive screening Mini Cog Score: 5 Cognitive screening reviewed and no further action needed (score 3-5) Functional Observation Was the patient's timed Up & Go test unsteady or ? 12 seconds? No Advance Care Planning End of Life planning discussed, including patient's advanced directive wishes: Yes Measurements BP 140/64 Pulse 52 Resp 12 Ht 5' 1.024 (1.55m) Wt 157 lb (71.2kg) BMI 29.64 kg/(m^2). Visual acuity (required for Welcome to Medicare): follows with optometry/ophthalmology Hearing Evaluation: within normal limits ASSESSMENT/PLAN: 1. Medicare annual wellness visit, subsequent - ICD9: V70.0, ICD10: Z00.00 (primary diagnosis) The following prevention plan was discussed during the office visit and provided to the patient: - fall risk reduction - Counseled on healthy diet and regular exercise - Calcium intake with supplements or by diet of 1000 mg/day for under 50, 4725-9521 mg/day for 50+ - Discussed need and benefit for weight loss. BMI 29.64 kg/(m^2) - Patient was counseled [id number] by myself (the billing provider) for the following immunizations and vaccine components, including side effects: Shingrix. Patient declined. - follow-up for medicare annual exam in one year 2. Essential hypertension with goal blood pressure less than 130/80 - ICD9: 401.9, ICD10: I10 - fair control - factors affecting control of BP include white coat HTN. - Continue current medication(s) - Recommend home blood pressure monitoring, to bring results in on next visit - Goal of BP <130/80 - LIPID PANEL BASIC 3. Impaired fasting glucose - ICD9: 790.21, ICD10: R73.01 Recheck - HGB A1C Chelsey Sanford APRN.CNP documented in this encounter [facility] 12-15-2021 Miscellaneous Notes Formattin g of this note might be different from the original. Terazosin was sent escript. notified. Kim Gonzalez LPN Patient's request for medication is as follows Requested Prescriptions Signed Prescriptions Disp Refills terazosin (HYTRIN) 2 mg capsule 90 capsule 1 Sig: Take 1 capsule by mouth daily at bedtime. Authorizing Provider: ROMULO SPANN Order entered - please phone pharmacy and notify patient. Romulo Spann MD Pt calls to report that pcp increased terazosin 1 mg to 2 mg. Pt reports her bp readings have been averaging 112/60-70. Pt reports she is going to need a new rx with the 2 mg dose since she will run out of 1 mg earlier. Maria Alejandra Grimaldo LPN documented in this encounter [facility] 05-31-2021 History of Presen t illness Narrative CC: Patient presents with: F/U 6 months HPI Latha Ferrara is a 81 year old female who presents today for above. Patient was very ill in February. Treated for UTI. Chlorthalidone was discontinued due to hyponatremia. She was referred to bilingual medical receptionist for leukocytosis, thrombocytosis, and anemia. Further evaluation indicated systemic inflammatory issue possibly due to psoriatic arthritis or GI tract but no hematologic disease. Advised to follow-up with her GI, scheduled for next month. Patient reports she is doing much better now. Weakness and fatigue have resolved. No new or worsening symptoms. Essential hypertension with goal blood pressure less than 130/80 HTN-Medication changes:No Taking all medications as prescribed: Yes Side effects: No Home BP's: Yes 120's/60's Denies: headache, chest pain, palpitations, dyspnea and peripheral edema. Last 3 Encounter BP Readings: Date: BP: 05/31/2021 126/64 03/22/2021 116/59 02/24/2021 126/68 Mild intermittent asthma without complication Pulmicort prescribed by furnace room supervisor. Denies frequent cough, wheezing, SOB. No longer using albuterol inhaler. Lymphocytic colitis Diarrhea resolved. Weaned off Entocort, no reoccurring issues. Psoriatic arthropathy (HCC) Medications and monitoring managed by procurement professional Dr. Mejia. Taking Otezla as prescribed, symptoms are controlled. 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 In [place], Sees PULM Dr Saenz. Annual CT scans normal Primary osteoarthritis involving multiple joints 12/09/2015 Psoriatic arthropathy (HCC) 12/09/2015 Snoring Unspecified asthma(493.90) Unspecified essential hypertension PAST SURGICAL HISTORY Procedure Laterality Date COLONOSCOPY FLX DX W/COLLJ SPEC WHEN PFRMD 05/18/1998 Colonoscopy COLONOSCOPY FLX DX W/COLLJ SPEC WHEN PFRMD 05/08/2006 COLONOSCOPY GEN ANES 09/01/2020 EGD 09/01/2020 MASTOIDECTOMY Left 194 RMVL LUNG OTHER THAN PNEUMONECTOMY 1 LOBE LOBECT 09/16/2009 right middle lobe removed TONSILLECTOMY HX 194 TOTAL ABDOMINAL HYSTERECT W/WO RMVL TUBE OVARY 07/1999 Hysterectomy, RAY TUBAL LIGATION HX 1971 ALLERGIES Plendil [Felodipine], Cardizem [Diltiazem Hcl], Demerol [Meperidine (Pf)], Hydrochlorothiazide, Lanolin, Latex, Neosporin [Fihbvpkf-Swdgbdikiq-Xidlhtsdm ], and Thimerosal MEDICATIONS omeprazole (PRILOSEC) 20 mg capsule Take 1 capsule by mouth once daily. amLODIPine (NORVASC) 10 mg tablet Take 10 mg by mouth once daily. BENEFIBER, WHEAT DEXTRIN, ORAL Take by mouth. benazepril (LOTENSIN) 20 mg tablet Take 2 tablets by mouth once daily. potassium chloride SR (MICRO-K) 10 mEq CR capsule Take 10 mEq by mouth once daily. metoprolol succinate ER (TOPROL XL) 100 mg Tb24 Take 100 mg by mouth once daily. OTEZLA 30 mg tablet Take 1 tablet by mouth twice daily. Per Dr. Mejia budesonide (PULMICORT FLEXHALER) 180 mcg/actuation aepb Inhale 1 Puff as instructed once daily. VIT A/C/E AC/ZNOX/CUPRIC OXIDE (EYE VITAMIN AND MINERALS ORAL) Take 1 tablet by mouth twice daily. fluticasone (FLONASE) 50 mcg/actuation nasal spray Use 1 Ethel in each nostril once daily. USE DIRECTED COMPRESSOR, FOR NEBULIZER As directed budesonide, enteric coated (ENTOCORT EC) 3 mg 24 hr capsule Take 1 capsule by mouth once daily. FAMILY HISTORY Problem Relation Age of Onset Cancer Mother skin, non melanoma Heart Mother 89 ? arrhythmia Heart Father 68 [place] Diabetes Maternal Grandmother Diabetes Paternal Grandmother Heart Paternal Grandmother Diabetes Maternal Grandfather Social History Tobacco Use Smoking status: Never Smoker Smokeless tobacco: Never Used Vaping Use Vaping Use: Never used Substance Use Topics Alcohol use: No Drug use: No PHYSICAL EXAM BP 126/64 Pulse (!) 52 Resp 14 Wt 67.1 kg (148 lb) SpO2 98% BMI 27.96 kg/m General Appearance: well appearing, in no acute distress, alert Lungs: Lungs clear to auscultation. No wheezing, rhonchi, rales. Heart: RRR without murmur, gallop, or rubs. No ectopy Health maintenance reviewed with patient: SHINGRIX VACCINE(2 of 3) due on 08/08/2011 ADVANCE DIRECTIVE DISCUSSION Never done COVID-19 VACCINE(4 - Booster for Pfizer series) due on 03/23/2021 DEPRESSION SCREENING due on 05/27/2021 ANNUAL PCP TEAM CHRONIC DISEASE VISIT due on 02/24/2022 BP CONTROLLED (<130/80) due on 03/22/2022 DTAP,TDAP,TD(2 - Td or Tdap) due on 01/25/2023 DIABETES SCREEN due on 03/19/2024 BONE DENSITY Completed INFLUENZA Completed PNEUMOVAX AGE 65 AND OVER WITH 5YR LOOKBACK Completed MENINGOCOCCAL CONJUGATE Aged Out SPIROMETRY Discontinued DATA REVIEWED: Most recent labs ASSESSMENT/PLAN: 1. Essential hypertension with goal blood pressure less than 130/80 - ICD9: 401.9, ICD10: I10 (primary diagnosis) - good control - Continue current medication(s) - Recommended regular aerobic exercise. - Recommend home blood pressure monitoring, to bring results in on next visit - Goal of BP <130/80 - BENAZEPRIL 20 MG TABLET 2. Mild intermittent asthma without complication - ICD9: 493.90, ICD10: J45.20 Stable 3. Lymphocytic colitis - ICD9: 558.9, ICD10: K52.832 Resolved 4. Psoriatic arthropathy (HCC) - ICD9: 696.0, ICD10: L40.50 Stable on medications 5. Overweight (BMI 25.0-29.9) - ICD9: 278.02, ICD10: E66.3 Weight decreasing Prescription instructions reviewed with patient as applicable. Potential red flag symptoms discussed with the patient. Reviewed appropriate action plan to take if red flag symptoms occur. Patient agreeable to treatment plan. Chelsey Sanford APRN.CNP documented in this encounter [facility] documented as of this encounter (statuses as of 05/31/2021) [facility] History of Past illness Narrative* Problem Noted Date Resolved Date Primary atypical carcinoid tumor of right lung 0 07/06/2015 12/15/2016 Overview: September 2009 [place] [facility] [address] 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 Home BP: 159/61 Office BP: 157/73 Hyperlipidemia 07/06/2015 Asthma 07/06/2015 Hemorrhage of rectum and anus documented as of this encounter (statuses as of 12/15/2021) [facility] History of Past illness Narrative* Problem Noted Date Resolved Date Primary atypical carcinoid tumor of right lung 0 07/06/2015 12/15/2016 Overview: September 2009 right middle lobectomy [facility]. In [place] [address] 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 Home BP: 159/61 Office BP: 157/73 Hyperlipidemia 07/06/2015 Asthma 07/06/2015 Hemorrhage of rectum and anus documented as of this encounter (statuses as of 06/01/2022) [facility] note* Diagnosis Essential hypertension with goal blood pressure less than 130/80- Primary Mild intermittent asthma without complication Unspecified asthma Lymphocytic colitis Other and unspecified noninfectious gastroenteritis and colitis Psoriatic arthropathy (HCC) Psoriatic arthropathy Overweight (BMI 25.0-29.9) Overweight documented in this encounter [facility] note* Diagnosis Essential hypertension with goal blood pressure less than 130/80- Primary documented in this encounter [facility] note* Diagnosis Medicare annual wellness visit, subsequent- Primary Routine general medical examination at a health care facility Essential hypertension with goal blood pressure less than 130/80 Impaired fasting glucose Psoriatic arthropathy (HCC) Psoriatic arthropathy documented in this encounter [facility] Summary Purpose Family History No Family History Records FoundNo Family History Records Found Advance Directives No Advanced Directives Records FoundDocuments on File Type Date Recorded Patient Food Preparation Supervisor Expl anation Advance Directive(s) 09/01/2020 8:42 AM Advance Directive(s) 07/16/2018 10:43 AM Advance Directive(s) 10/25/2016 10:42 AM Advance Directive(s) 08/29/2016 11:16 AM Documents on File Type Date Recorded Patient Food Preparation Supervisor Expl anation Advance Directive(s) 07/16/2018 10:43 AM Additional Source Comments INFORMATION SOURCE (unrecogn ized section and content) DATE CREATED AUTHOR AUTHOR'S ORGANIZ ATION 12/09/2022 [facility] Source Comments (unrecognize d section and content) In the event this informatio n is protected by the Federal Confidentiality of Alcohol and Drug Abuse Patient Records regulations: The Federal rules restrict any use of the information to criminally investigate or prosecute any alcohol or drug abuse patient.[facility] the event this information is protected by the Federal Confidentiality of Alcohol and Drug Abuse Patient Records regulations: The Federal rules restrict any use of the information to criminally investigate or prosecute any alcohol or drug abuse patient.[facility] the event this information is protected by the Federal Confidentiality of Alcohol and Drug Abuse Patient Records regulations: The Federal rules restrict any use of the information to criminally investigate or prosecute any alcohol or drug abuse patient.[facility] Reason for Visit (unrecogniz ed section and content) Reason Comments bp update/need for medication Reason Comments Medicare Wellness Exam Care Teams (unrecognized sec tion and content) Creative Writing English Professor Relationship Specialty Start Date End Date Romulo Spann MD [address] [place], [place] [id number] PCP - General Internal Medicine 10/22/15 Creative Writing English Professor Relationship Specialty Start Date End Date Romulo Spann MD [address] [place], [place] [id number] PCP - General Internal Medicine 10/22/15 FOR RECORDS PERTAINING TO PATIENTS WHO ARE OR HAVE BEEN ENROLLED IN A CHEMICAL DEPENDENCY/SUBSTANCEABUSE PROGRAM, SOME INFORMATION MAY BE OMITTED. This clinical summary was aggregated from multiple sources. Caution should be exercised in using it in the provision of clinical care. This summary normalizes information from multiple sources, and as a consequence, information in this document may materially change the coding, format and clinical context of patient data. In addition, data may be omitted in some cases. CLINICAL DECISIONS SHOULD BE BASED ON THE PRIMARY CLINICAL RECORDS. [facility] [employer] [facility]. provides no warranty or guarantee of the accuracy or completeness of information in this document.
[2023-04-24 16:09] LABS: Absolute Lymphocyte Count 2.59 X10^3/uL (0.83-4.51); Absolute Neutrophil Count 5.7 X10^3/uL (2.0-7.7); Basophil# 0.08 X10^3/uL; Basophil% 0.8 % (0-1); Eosinophil# 0.71 X10^3/uL; Eosinophils% 6.8 % (0-5); Hematocrit 39.9 % (37-47); Hemoglobin 12.4 g/dL (12.0-15.0); Lymphocyte # 2.59 X10^3/ul (0.83-4.51); Lymphocyte % 24.9 % (19-41); Mean Corp Hgb Conc 31.1 g/dL (32-36); Mean Corpuscular Volume 93.2 fL (81-99); Mean Platelet Vol. 12.8 fl (6.2-12.0); Monocyte% 12.5 % (0-10); NRBC Flagged by Analyzer 0 % (0-5); Neutrophil # 5.71 X10^3/uL (2.7-7.7); Neutrophil % 54.8 % (47-70); Platelet Count 253 K/mm3 (150-450); RBC Distribution Width CV 13.9 % (11.6-14.6); Red Blood Count 4.28 M/mm3 (4.2-5.4); White Blood Count 10.4 K/mm3 (4.4-11.0)
[2023-04-24 16:37] LABS: ALB/GLOB Ratio 0.8 RATIO (0.9-2.4); AST(SGOT) 68 U/L (15-37); Alanine Aminotransfer ALT/SGPT 16 U/L (13-56); Albumin, Serum 3.1 g/dL (3.2-5.0); Alkaline Phosphatase 131 U/L (45-117); Anion Gap 3 (5-15); BUN 15 mg/dL (7-18); BUN/Creat Ratio 14.6 RATIO (10-20); Calcium,Total 8.8 mg/dL (8.5-10.1); Chloride 105 mmol/L (98-107); Creatinine, Serum 1.03 mg/dL (0.55-1.02); EST Glomerular Filtration Rate 55 mL/min (>60); Est Glom Filt Rate - Afr Amer 66 mL/min (>60); Globulin 4.1 g/dL (2.2-4.2); Glucose 110 mg/dL (74-106); Potassium 4.1 mmol/L (3.5-5.1); Protein, Total 7.2 g/dL (6.4-8.2); Sodium Level 137 mmol/L (136-145)
== END | disposition home or self-care (01) ==
LOC: MTLAB 13:38
PROVIDERS: PCP Internal Medicine; Referring Provider Internal Medicine Rheumatology; Visit Provider Internal Medicine Rheumatology
DX: L40.59 Other psoriatic arthropathy (principal); Z79.899 Other long term (current) drug therapy
CPT/HCPCS: 36415; 80053; 85025

== ENCOUNTER → 2023-05-10 | Outpatient (CLI) | payer MEDICARE, OTHER, SELFPAY ==
--- NOTE | 2023-05-10 10:31 | RAD_ITS ---
INDICATION: PAIN EXAMINATION/TECHNIQUE: X-RAY - LEFT XR Knee Complete 4 Views or More 4 VIEWS COMPARISON: No relevant prior comparison study available FINDINGS: SOFT TISSUES: No soft tissue swelling or gas. No radiopaque foreign body. BONES/JOINTS: No acute fracture or subluxation. Normal alignment. Moderate narrowing of the medial, lateral and patellofemoral joint compartments small marginal degenerative spurs. Mild chondrocalcinosis. No evidence of joint effusion. No sclerotic or destructive changes observed. RAD/Knee 4 or More Views IMPRESSION: Degenerative arthrosis. Electronically Signed: Javier Souza MD at 13:13 EST ,
--- OUTSIDE RECORDS SUMMARY | 2023-05-10 11:12 | XMS RPT_ITS | CCD ---
Author Name Unknown Address [address] [place] [address] Organization [facility] Care Team Providers Care Governor Assembler Name Role Phone Romulo Spann MD Primary Care Provider [phone] ROMULO SPANN Attending Unavailable ROMULO SPANN Referring Unavailable ROMULO SPANN Primary Care Unavailable OLDER, CHELSEY Referring Unavailable ROMULO SPANN Primary Care Unavailable OLDER, CHELSEY Attending Unavailable ROMULO SPANN Referring Unavailable ROMULO SPANN Primary Care Unavailable Allergies Allergy Classification Reported Allergen(s) Allergy Type Date of Onset Reaction(s) Facility (4 sources) bacitracin / neomycin / polymyxin b; Translations: [NEOMYCIN-BACIT RACIN-POLYMYXIN ] Drug Allergy 5 [facility] Work Phone: (4 sources) dilTIAZem; Translations: [DILTIAZEM HCL] Drug Allergy 1 Other: See Comments [facility] (4 sources) Felodipine; Translations: [FELODIPINE] Drug Allergy 5 Rash, Shortness of Breath [facility] Work Phone: (4 sources) hydroCHLOROthia zide; Translations: [HYDROCHLOROTHI AZIDE] Drug Allergy 9 Unknown [facility] (4 sources) Lanolin; Translations: [LANOLIN] Drug Allergy 5 [facility] Work Phone: (4 sources) Latex; Translations: [LATEX] Propensity to adverse reactions 5 [facility] Work Phone: (4 sources) Meperidine; Translations: [MEPERIDINE (PF)] Drug Allergy 7 Other: See Comments [facility] Work Phone: (4 sources) Thimerosal; Translations: [THIMEROSAL] Drug Allergy 0 Other: See Comments [facility] Work Phone: (3 sources) Neomycin; Translations: [NEOMYCIN] Drug Allergy 1 Other: See Comments [facility] Medications Completed/Discontinued Medications Medication Drug Class(es) Dates [...] Diastolic blood pressure 64 mm[Hg] Chelsey Older NURSING CARE PARTNER.MARKETING TECHNOLOGY COORDINATOR Work Phone: [facility] 06-01-2022 13:15-0400 Systolic blood pressure 140 mm[Hg] Chelsey Older NURSING CARE PARTNER.MARKETING TECHNOLOGY COORDINATOR Work Phone: [facility] 06-01-2022 12:50-0400 Body height 155 cm Chelsey Older NURSING CARE PARTNER.MARKETING TECHNOLOGY COORDINATOR Work Phone: [facility] 06-01-2022 12:50-0400 Body weight 71.22 kg Chelsey Older NURSING CARE PARTNER.MARKETING TECHNOLOGY COORDINATOR Work Phone: [facility] 06-01-2022 12:50-0400 Heart rate 52 /min Chelsey Older NURSING CARE PARTNER.MARKETING TECHNOLOGY COORDINATOR Work Phone: [facility] 06-01-2022 12:50-0400 Respiratory rate 12 /min Chelsey Older NURSING CARE PARTNER.MARKETING TECHNOLOGY COORDINATOR Work Phone: [facility] 05-31-2021 09:20-0400 Diastolic blood pressure 64 mm[Hg] Chelsey Older NURSING CARE PARTNER.MARKETING TECHNOLOGY COORDINATOR Work Phone: [facility] 05-31-2021 09:20-0400 Systolic blood pressure 126 mm[Hg] Chelsey Older NURSING CARE PARTNER.MARKETING TECHNOLOGY COORDINATOR Work Phone: [facility] 05-31-2021 09:01-0400 Body weight 67.13 kg Chelsey Older NURSING CARE PARTNER.MARKETING TECHNOLOGY COORDINATOR Work Phone: [facility] 05-31-2021 09:01-0400 Heart rate 52 /min Chelsey Older NURSING CARE PARTNER.MARKETING TECHNOLOGY COORDINATOR Work Phone: [facility] 05-31-2021 09:01-0400 Respiratory rate 14 /min Chelsey Older NURSING CARE PARTNER.MARKETING TECHNOLOGY COORDINATOR Work Phone: [facility] 05-31-2021 09:01-0400 SaO2% (BldA) [Mass fraction] 98 % Chelsey Older NURSING CARE PARTNER.MARKETING TECHNOLOGY COORDINATOR Work Phone: [facility] Encounters Encounter Date Encounter Type Care Provider Facility Start: 12-02-2022 End: 12-03-2022 ambulatory BRYCE SPANN Facility:[facility] Start: 06-09-2022 End: 06-10-2022 ambulatory CHELSEY OLDER Facility:[facility] Start: 06-01-2022 End: 06-01-2022 ambulatory CHELSEY OLDER Facility:[facility] Start: 06-01-2022 End: 06-01-2022 Patient encounter procedure Chelsey Older NURSING CARE PARTNER.MARKETING TECHNOLOGY COORDINATOR Work Phone: [facility] [place] Procedures Date Procedure Procedure Detail Performing Clinician Start: 05-27-2020 Adult depression screening assessment Chelsey Older NURSING CARE PARTNER.MARKETING TECHNOLOGY COORDINATOR Work Phone: Plan of Treatment Date Care Activity Detail Author Start: 03-19-2024 DIABETES SCREEN DIABETES SCREEN [facility] Start: 06-02-2023 SHINGRIX VACCINE (1 of 2) SHINGRIX V ACCINE (1 of 2) [facility] Immunizations Immunization Date Immunization Notes Care Provider Leilani mckee 11-30-2020 influenza, high-dose , quadrivalent vaccine (FLUZONE HIGH DOSE QUADRIVALENT) Chelsey Older NURSING CARE PARTNER.MARKETING TECHNOLOGY COORDINATOR Work Phone: [facility] 05-07-2020 COVID-19 vaccine, ag e 12+ yr (PFIZER-BIONTECH - PURPLE TOP) Chelsey Older NURSING CARE PARTNER.MARKETING TECHNOLOGY COORDINATOR Work Phone: [facility] 04-16-2020 COVID-19 vaccine, ag e 12+ yr (PFIZER-BIONTECH - PURPLE TOP) Chelsey Older NURSING CARE PARTNER.MARKETING TECHNOLOGY COORDINATOR Work Phone: [facility] 12-25-2018 influenza, high dose seasonal, preservative-free Chelsey Older NURSING CARE PARTNER.MARKETING TECHNOLOGY COORDINATOR Work Phone: [facility] Work Phone: 12-25-2017 influenza, high dose seasonal, preservative-free Chelsey Older NURSING CARE PARTNER.MARKETING TECHNOLOGY COORDINATOR Work Phone: [facility] Work Phone: 12-15-2016 influenza, high dose seasonal, preservative-free Chelsey Older NURSING CARE PARTNER.MARKETING TECHNOLOGY COORDINATOR Work Phone: [facility] 12-09-2015 influenza, high dose seasonal, preservative-free Chelsey Older NURSING CARE PARTNER.MARKETING TECHNOLOGY COORDINATOR Work Phone: [facility] 12-23-2014 pneumococcal conjuga te vaccine, 13 valent Chelsey Older NURSING CARE PARTNER.MARKETING TECHNOLOGY COORDINATOR Work Phone: [facility] 12-04-2014 influenza, high dose seasonal, preservative-free Chelsey Older NURSING CARE PARTNER.MARKETING TECHNOLOGY COORDINATOR Work Phone: [facility] 12-30-2013 influenza, seasonal, injectable Chelsey Older NURSING CARE PARTNER.MARKETING TECHNOLOGY COORDINATOR Work Phone: [facility] 01-25-2013 tetanus toxoid, redu jose d diphtheria toxoid, and acellular pertussis vaccine, adsorbed Chelsey Older NURSING CARE PARTNER.MARKETING TECHNOLOGY COORDINATOR Work Phone: [facility] 06-13-2011 zoster vaccine, live Chelsey Old er NURSING CARE PARTNER.MARKETING TECHNOLOGY COORDINATOR Work Phone: [facility] 12-03-2009 influenza virus vacc ine, unspecified formulation Chelsey Older NURSING CARE PARTNER.MARKETING TECHNOLOGY COORDINATOR Work Phone: [facility] 12-03-2008 pneumococcal conjuga te vaccine, 7 valent Chelsey Older NURSING CARE PARTNER.MARKETING TECHNOLOGY COORDINATOR Work Phone: [facility] Work Phone: 12-03-2008 pneumococcal polysaccharide vaccine, 23 valent Romulo Spann MD Work Phone: [facility] 04-04-2008 tetanus and diphther ia toxoids, adsorbed, preservative free, for adult use (2 Lf of tetanus toxoid and 2 Lf of diphtheria toxoid) Chelsey Older NURSING CARE PARTNER.MARKETING TECHNOLOGY COORDINATOR Work Phone: [facility] 01-15-2008 influenza virus vacc ine, unspecified formulation Chelsey Older NURSING CARE PARTNER.MARKETING TECHNOLOGY COORDINATOR Work Phone: [facility] 01-30-2006 influenza virus vacc ine, unspecified formulation Chelsey Older NURSING CARE PARTNER.MARKETING TECHNOLOGY COORDINATOR Work Phone: [facility] Work Phone: Payers Date Payer Category Payer Medicare [id number] 2015 Private Health Insurance HUMANA HUMANA MEDICARE SUPPLEMENT [id number] 2015-Present [phone] [id number] [place] [id number] Indemnity [id number] 2015 Private Health Insurance HUMANA HUMANA MEDICARE SUPPLEMENT [id number] 2015-Present [phone] [id number] [place] [id number] Indemnity [id number] 2004 Medicare MEDICARE MEDICAR E A AND B [id number] 2004-Present [phone] [place] [id number] Medicare [id number] 2004 Medicare MEDICARE MEDICAR E A AND B [id number] 2004-Present [phone] [place] [address] Medicare [id number] 2004 Medicare [id number] Social History Date Type Detail Facility Start: 12-02-2021 Tobacco smoking stat [facility] Never smoked tobacco [facility] Work Phone: Start: 05-31-2021 End: 06-01-2022 Alcohol intake Current non-drinker of alcohol (finding) [facility] Start: 1940 Sex Assigned At Not on file [facility] Start: 12-02-2021 Tobacco use and exposure Smokeless tobacco non-user [facility] Work Phone: Start: 11-22-2021 End: 12-02-2021 Exposure to SARS-CoV-2 (event) Not sure [facility] Work Phone: Clinical Notes 07-06-2015 to 12-02-2022 Patient InstructionsNadiaz Sanford APRN.MARKETING TECHNOLOGY COORDINATOR - 06/01/2022 1:00 PM EDTTelephone Encounter - Kim Mckeoner RECREATIONAL FACILITIES MOTEL MANAGER - 12/15/2021 10:00 AM EDTChelsey Sanford APRN.MARKETING TECHNOLOGY COORDINATOR - 05/31/2021 9:04 AM EDT Note Date & Type Note Facility 12-02-2022 Note HNO ID: [id number] Author: Romulo Spann MD Service: ? Author Type: Physician Type: Progress Notes Filed: 12/02/2022 10:03 AM Note Text: This note was created using [employer]pping [employer] Software. Subjective Latha Ferrara is a 82 year [...] (FLONASE) 50 mcg/actuation nasal spray Use 1 [place] in each nostril once daily. USE DIRECTED [...] vaccine at her pharmacy. Romulo Spann MD [facility] 06-01-2022 Note HNO ID: [id number] Author: Chelsey Sanford APRN.JAGDISH Service: ? Author Type: Nurse Practitioner Type: Progress Notes Filed: 06/01/2022 1:24 PM Note Text: Latha Ferrara is a 82 year old female here for a Medicare Subsequent Annual Wellness Visit Health Risk Assessment In general, health is: Very good Concerns with balance:Not at all Concerns with teeth or dentures:Not at all Concerns with sexual function:Not at all Eustace anxious, stressed, angry, irritable, lonely, isolated, or [...] - General (Internal Medicine) Outside specialists seen: Heater Operator Helper- Dr. Mejia, Pulmonary-Dr. Saenz, ENT-Dr. Ayoub, [facility], cardiology-Dr. Manuel Medical/Family history review Reviewed and updated problem list, medical/surgical/family/social history, medications, and allergies. Opioid use review Patient is currently using opioids. Prescribed Tramadol as needed prescribed by director of placement. Takes at nightly at bedtime. Does patient [...] diet of 1000 mg/day for under 50, 0795-4805 mg/day for 50+ - Discussed need and benefit for weight loss. BMI 29.64 kg/(m2) - Patient was counseled [id number] by myself (the billing provider) for the [...] Recheck - HGB A1C Chelsey Sanford APRN.CNP [facility] 06-01-2022 Instructions Chelsey Sanford APRN.CNP - 06/01/2022 [...] review all the medicines you take, even vacl-wpk-jwlzfln medicines. As you get older, the way [...] certain medical conditions. documented in this encounter [facility] 06-01-2022 History of Presen t illness Narrative Latha Ferrara is a 82 year old female here for a Medicare Subsequent Annual Wellness Visit Health Risk Assessment In general, health is: Very good Concerns with balance:Not at all Concerns with teeth or dentures:Not at all Concerns with sexual function:Not at all Eustace anxious, stressed, angry, irritable, lonely, isolated, or [...] - General (Internal Medicine) Outside specialists seen: Heater Operator Helper- Dr. Mejia, Pulmonary-Dr. Saenz, ENT-Dr. Ayoub, [facility], cardiology-Dr. Manuel Medical/Family history review Reviewed and updated problem list, medical/surgical/family/social history, medications, and allergies. Opioid use review Patient is currently using opioids. Prescribed Tramadol as needed prescribed by director of placement. Takes at nightly at bedtime. Does patient [...] diet of 1000 mg/day for under 50, 4259-4384 mg/day for 50+ - Discussed need and benefit for weight loss. BMI 29.64 kg/(m^2) - Patient was counseled [id number] by myself (the billing provider) for the [...] Chelsey Sanford APRN.CNP documented in this encounter [facility] 12-15-2021 Miscellaneous Notes Formattin g of this [...] Alejandra Grimaldo LPN documented in this encounter [facility] 05-31-2021 History of Presen t illness Narrative CC: Patient presents with: F/U 6 months HPI Latha Ferrara is a 81 year old female who presents today for above. Patient was very ill in February. Treated for UTI. Chlorthalidone was discontinued due to hyponatremia. She was referred to regional manager for leukocytosis, thrombocytosis, and anemia. Further evaluation [...] intermittent asthma without complication Pulmicort prescribed by cryptologic supervisor. Denies frequent cough, wheezing, SOB. No longer using albuterol inhaler. Lymphocytic colitis Diarrhea resolved. Weaned off Entocort, no reoccurring issues. Psoriatic arthropathy (HCC) Medications and monitoring managed by director of placement Dr. Mejia. Taking Otezla as prescribed, symptoms [...] (HCC) 07/06/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 In [place], Sees PULM Dr Saenz. Annual CT scans [...] Demerol [Meperidine (Pf)], Hydrochlorothiazide, Lanolin, Latex, Neosporin [Herpovef-Kvlewmzfai-Dbtjeuvmm ], and Thimerosal MEDICATIONS omeprazole (PRILOSEC) 20 [...] (FLONASE) 50 mcg/actuation nasal spray Use 1 [place] in each nostril once daily. USE DIRECTED COMPRESSOR, FOR NEBULIZER As directed budesonide, enteric coated (ENTOCORT EC) 3 mg 24 hr capsule Take 1 capsule by mouth once daily. FAMILY HISTORY Problem Relation Age of Onset Cancer Mother skin, non melanoma Heart Mother 89 ? arrhythmia Heart Father 68 [place] Diabetes Maternal Grandmother Diabetes Paternal Grandmother Heart [...] Chelsey Sanford APRN.CNP documented in this encounter [facility] documented as of this encounter (statuses as of 05/31/2021) [facility]05-02-2016 History of Past illness Narrative* Problem Noted Date Resolved Date Primary atypical carcinoid tumor of right lung 0 07/06/2015 12/15/2016 Overview: September 2009 [place] middle [place] [facility] [place] [address] 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 Home BP: 159/61 Office BP: 157/73 Hyperlipidemia 07/06/2015 Asthma 07/06/2015 Hemorrhage of rectum and anus documented as of this encounter (statuses as of 12/15/2021) [facility]05-02-2016 History of Past illness Narrative* Problem Noted [...] of this encounter (statuses as of 06/01/2022) [facility] note* Diagnosis Essential hypertension with goal blood pressure less than 130/80- Primary Mild intermittent asthma without complication Unspecified asthma Lymphocytic colitis Other and unspecified noninfectious gastroenteritis and colitis Psoriatic arthropathy (HCC) Psoriatic arthropathy Overweight (BMI 25.0-29.9) Overweight documented in this encounter [facility] note* Diagnosis Essential hypertension with goal blood pressure less than 130/80- Primary documented in this encounter [facility] note* Diagnosis Medicare annual wellness visit, subsequent- Primary Routine general medical examination at a health care facility Essential hypertension with goal blood pressure less than 130/80 Impaired fasting glucose Psoriatic arthropathy (HCC) Psoriatic arthropathy documented in this encounter [facility] Summary Purpose Family History No Family History Records FoundNo Family History Records Found Advance Directives No Advanced Directives Records FoundDocuments on File Type Date Recorded Patient Computer Salesperson Retail Expl anation Advance Directive(s) 09/01/2020 8:42 AM Advance Directive(s) 07/16/2018 10:43 AM Advance Directive(s) 10/25/2016 10:42 AM Advance Directive(s) 08/29/2016 11:16 AM Documents on File Type Date Recorded Patient Computer Salesperson Retail Expl anation Advance Directive(s) 07/16/2018 10:43 AM Additional Source Comments INFORMATION SOURCE (unrecogn ized section and content) DATE CREATED AUTHOR AUTHOR'S ORGANIZ ATION 12/09/2022 [facility] Source Comments (unrecognize d section and content) In the event this informatio n is protected by the Federal Confidentiality of Alcohol and Drug Abuse Patient Records regulations: The Federal rules restrict any use of the information to criminally investigate or prosecute any alcohol or drug abuse patient.[facility] the event this information is protected by the Federal Confidentiality of Alcohol and Drug Abuse Patient Records regulations: The Federal rules restrict any use of the information to criminally investigate or prosecute any alcohol or drug abuse patient.[facility] the event this information is protected by the Federal Confidentiality of Alcohol and Drug Abuse Patient Records regulations: The Federal rules restrict any use of the information to criminally investigate or prosecute any alcohol or drug abuse patient.[facility] Reason for Visit (unrecogniz ed section and content) Reason Comments bp update/need for medication Reason Comments Medicare Wellness Exam Care Teams (unrecognized sec tion and content) Governor Assembler Relationship Specialty Start Date End Date Romulo Spann MD [address] [place], [place] [id number] PCP - General Internal Medicine 10/22/15 Governor Assembler Relationship Specialty Start Date End Date Romulo Spann MD [address] [place], [place] [id number] PCP - General Internal Medicine 10/22/15 FOR [...] BE BASED ON THE PRIMARY CLINICAL RECORDS. [facility] in [facility]. provides no warranty or guarantee of the accuracy or completeness of information in this document.
== END | disposition home or self-care (01) ==
LOC: MTRAD 10:30
PROVIDERS: PCP Internal Medicine; Referring Provider Clinical Nurse Specialist Adult Health; Visit Provider Clinical Nurse Specialist Adult Health
DX: M25.562 Pain in left knee (principal)
CPT/HCPCS: 73564

== ENCOUNTER → 2023-10-10 | Outpatient (CLI) | payer MEDICARE, OTHER, SELFPAY ==
[2023-10-10 10:42] LABS: Absolute Lymphocyte Count 2.12 X10^3/uL (0.83-4.51); Absolute Neutrophil Count 5.3 X10^3/uL (2.0-7.7); Basophil# 0.03 X10^3/uL; Basophil% 0.3 % (0-1); Eosinophils% 6.5 % (0-5); Hematocrit 40.5 % (37-47); Hemoglobin 12.8 g/dL (12.0-15.0); Lymphocyte # 2.12 X10^3/ul (0.83-4.51); Lymphocyte % 22.9 % (19-41); Mean Corp Hgb Conc 31.6 g/dL (32-36); Mean Corpuscular Hgb 28.1 pg (27.0-32.0); Mean Corpuscular Volume 88.8 fL (81-99); Mean Platelet Vol. 11.9 fl (6.2-12.0); Monocyte# 1.13 X10^3/uL; Monocyte% 12.2 % (0-10); NRBC Flagged by Analyzer 0 % (0-5); Neutrophil # 5.33 X10^3/uL (2.7-7.7); Neutrophil % 57.8 % (47-70); Platelet Count 263 K/mm3 (150-450); RBC Distribution Width CV 15.4 % (11.6-14.6); RBC Distribution Width SD 50.6 fl (35.1-43.9); Red Blood Count 4.56 M/mm3 (4.2-5.4); White Blood Count 9.2 K/mm3 (4.4-11.0)
[2023-10-10 10:46] LABS: ALB/GLOB Ratio 0.8 RATIO (0.9-2.4); AST(SGOT) 58 U/L (15-37); Alanine Aminotransfer ALT/SGPT 11 U/L (13-56); Alkaline Phosphatase 111 U/L (45-117); Anion Gap 7 (5-15); BUN 24 mg/dL (7-18); BUN/Creat Ratio 21.8 RATIO (10-20); Chloride 106 mmol/L (98-107); EST Glomerular Filtration Rate 51 mL/min (>60); Est Glom Filt Rate - Afr Amer 61 mL/min (>60); Glucose 104 mg/dL (74-106); Potassium 4.5 mmol/L (3.5-5.1); Sodium Level 139 mmol/L (136-145)
== END | disposition home or self-care (01) ==
LOC: MTLAB 08:36
PROVIDERS: PCP Internal Medicine; Referring Provider Internal Medicine Rheumatology; Visit Provider Internal Medicine Rheumatology
DX: L40.59 Other psoriatic arthropathy (principal); Z79.899 Other long term (current) drug therapy; L40.8 Other psoriasis
CPT/HCPCS: 36415; 80053; 85025

== ENCOUNTER → 2024-05-24 | Outpatient (CLI) | payer MEDICARE, OTHER, SELFPAY ==
--- NOTE | 2024-05-24 07:24 | MRI_ITS ---
PROCEDURE: BRAIN W/WO CONTRAST (MRIBRWW), 05/24/2024 REASON FOR EXAM: NEW NYSTAGMUS DIPLOPIA COMPARISON: None TECHNIQUE: Multisequence multiplanar MRI brain was performed with and without intravenous contrast. IV contrast: 15 mL Clariscan. 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 No mass or appreciable intracranial hemorrhage. Advanced patchy supratentorial white matter and deep blankenship matter signal abnormalities, nonspecific but compatible with chronic microvascular ischemic changes. Mild/moderate cerebral atrophy. Prominent basal ganglia likely perivascular spaces. Cerebellum: Unremarkable. Brainstem: No evidence of acute infarct. Punctate lacunar infarct versus prominent perivascular space within the RIGHT janay. Ventricles/extra-axial spaces: Mildly prominent, proportionate to the degree of volume loss. Major flow voids: Grossly unremarkable within limits of nondedicated technique. Paranasal sinuses: LEFT mastoidectomy. Moderate mucosal thickening in the RIGHT sphenoid sinus. Mild mucosal thickening in the LEFT sphenoid sinus. Patchy opacification and moderate mucosal thickening in the ethmoid air cells and OEPT-ypaagfv-uwec-RIGHT frontal recesses. Trace to mild mucosal thickening along the inferior maxillary sinuses. Scalp/calvarium: Unremarkable. Orbits: Bilateral cataract surgery. Other: No abnormal enhancement. Rightward nasal septal deviation. MRI/Brain W/WO Contrast IMPRESSION: 1. 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 2. RIGHT sphenoid and ethmoid predominant paranasal sinus disease. 3. Additional description as above. Findings in #1 were discussed by telephone with Dori SEBASTIAN at 8:47 am [facility] on 05/05. Reading Location: [id number]
== END | disposition home or self-care (01) ==
LOC: MRI 07:12
PROVIDERS: PCP Internal Medicine; Referring Provider Ophthalmology; Visit Provider Ophthalmology
DX: H55.00 Unspecified nystagmus (principal); I63.9 Cerebral infarction, unspecified
CPT/HCPCS: 70553; A9575

== ENCOUNTER → 2024-06-05 | Outpatient (CLI) | payer MEDICARE, OTHER, SELFPAY ==
--- NOTE | 2024-06-05 13:37 | CDU_ITS ---
Reason For Study Reason For Study: Diplopia Rt. Velocities/BP Lt. Velocities/BP Prox CCA 57/9.9 cm/sec. Prox CCA 62.8/10.9 cm/sec. Mid CCA 57/11.6 cm/sec. Mid CCA 65.7/13.7 cm/sec. Dist CCA 52.6/9.9 cm/sec. Dist CCA 60.7/10.9 cm/sec. Prox ICA 78.4/11.3 cm/sec. Prox ICA 62.6/17.3 cm/sec. Mid ICA 64.1/11.3 cm/sec. Mid ICA 98.1/21.2 cm/sec. Dist ICA 60.5/10.7 cm/sec. Dist ICA 82.8/19 cm/sec. Rt. ICA/CCA = 1.38. Lt. ICA/CCA = 1.49. Prox ECA 118.2/7.7 cm/sec. Prox ECA 88.3/9.1 cm/sec. Rt. Vert. 40.8/8 cm/sec. Lt. Vert. 44.7/12.6 cm/sec. Right Extracranial There is intimal thickening but no significant atherosclerotic plaque noted in the right common carotid artery. There is heterogeneous, irregular atherosclerotic plaque noted in the right internal carotid artery. There is heterogeneous, irregular atherosclerotic plaque noted in the right external carotid artery. Antegrade flow is noted in the right vertebral artery. Left Extracranial There is homogeneous, smooth atherosclerotic plaque noted in the left common carotid artery. There is heterogeneous, irregular atherosclerotic plaque noted in the left internal carotid artery. There is heterogeneous, irregular atherosclerotic plaque noted in the left external carotid artery. Antegrade flow is noted in the left vertebral artery. Procedure Carotid Duplex [id number]. This is a Carotid Duplex examination using B-mode, color flow and specral Doppler. Exam performed in department. VL/Carotid Duplex Ultrasound Interpretation Summary Mild (<50%) stenosis right extracranial internal carotid. Mild (<50%) stenosis left extracranial internal carotid. Patent and antegrade vertebrals bilaterally. Ordering Physician: Maximo Meadows Referring Physician: Romulo Awan M.D. Performed By: Chapis Oliver RVT
== END | disposition home or self-care (01) ==
LOC: CVS 13:36
PROVIDERS: PCP Internal Medicine; Referring Provider Ophthalmology; Visit Provider Ophthalmology
DX: I63.9 Cerebral infarction, unspecified (principal); H53.2 Diplopia
CPT/HCPCS: 93880

== ENCOUNTER → 2024-09-13 | Outpatient (CLI) | payer MEDICARE, OTHER, SELFPAY ==
--- NOTE | 2024-09-13 07:32 | US_ITS ---
PROCEDURE: ABDOMEN LIMITED 09/13/2024 REASON FOR EXAM: ELEVATED LIVER ENZYMES COMPARISON: None FINDINGS: Liver: Diffusely echogenic suggesting fatty infiltration. The liver measures 15.1 cm. Gallbladder: Unremarkable. No evidence of gallstones. The gallbladder wall is not thickened. Common bile duct: Normal measuring 4.1 mm . Pancreas: Normal Other: The right kidney measures 10.7 cm x 5.5 cm 5.4 cm. The renal cortex measures 1.3 cm. 2 cysts are seen in the upper pole of the right kidney. The largest cyst measures 3.7 cm x 3.2 cm x 3.1 cm. US/Abdomen Limited IMPRESSION: Fatty infiltration of the liver. No evidence of gallstones. Cysts seen in the upper pole of the right kidney. Reading Location: [place] [address]
--- OUTSIDE RECORDS SUMMARY | 2024-09-13 07:33 | XMS RPT_ITS | CCD ---
Author Organization [facility] Care Team Providers Care [employer] Administrator Name Role Phone Romulo Awan MD Primary Care Provider Dr. Romulo Awan Primary Care Provider Dr. Romulo Awan Referring Provider Donald SEASONAL RECRUITER, SEASONAL RECRUITER-C Sakina Attending Provider Dr. Romulo Awan Primary Care Provider Dr. Romulo Awan Referring Provider BHAVYA Aponte Attending Provider Donald SEASONAL RECRUITER, SEASONAL RECRUITER-C Sakina Attending Provider Dr. Romulo Awan Primary Care Provider Dr. Romulo wAan Referring Provider Donald LOPEZ, SEASONAL RECRUITER-C Sakina Attending Provider Dr. Romulo Awan Primary Care Provider Dr. Romulo Awan Referring Provider Donald SEASONAL RECRUITER, SEASONAL RECRUITER-C Sakina Attending Provider Romulo Awan MD Primary Care Provider Romulo Awan MD Primary Care Provider Morgan [employer]UMBER [employer] TIN[employer].ENVIRONMENTAL HEALTH SANITARIAN, Chelsey M Unavailable Dr. Romulo Awan MD Primary Care Provider Dori SEBASTIAN, Dr. Marsh Attending Provider Dori SEBASTIAN, Dr. Marsh Referring Provider Trisha SEBASTIAN Dr. Chatman Attending Provider [phone] Miedel, [place] Referring Unavailable Awan, Romulo Primary Care Unavailable Miedel, Maximo Attending Unavailable Miedel, [place] Referring Unavailable Awan, Romulo Primary Care Unavailable Miedel, [place] Attending Unavailable Awan, Romulo Primary Care Unavailable Vellangaby, Ashely Attending Unavailable Quentinlangaby, Ashely Referring Unavailable Larry Manuel Attending Unavailable Awan, Romulo Primary Care Unavailable Awan, Romulo Referring Unavailable Awan, Romulo Primary Care Unavailable Compa Rico Attending Unavailable Miedel, Maximo Referring Unavailable MORGAN, CHELSEY M Referring Unavailable AWAN, BRYCE Primary Care Unavailable MORGAN, CHELSEY M Attending Unavailable AWAN, BRYCE Primary Care Unavailable AWAN, BRYCE Primary Care Unavailable MORGAN, CHELSEY M Referring Unavailable AWAN, BRYCE Primary Care Unavailable MORGAN, CHELSEY M Referring Unavailable AWAN, BRYCE Primary Care Unavailable MORGAN, CHELSEY M Referring Unavailable AWAN, BRYCE Primary Care Unavailable MORGAN, CHELSEY M Referring Unavailable AWAN, BRYCE Primary Care Unavailable MORGAN, CHELSEY M Referring Unavailable AWAN, BRYCE Primary Care Unavailable MORGAN, CHELSEY M Referring Unavailable MORGAN, CHELSEY M Attending Unavailable AWAN, BRYCE Referring Unavailable AWAN, BRYCE Primary Care Unavailable PORTER UNDERWOOD Attending Unavailable AWAN, BRYCE Primary Care Unavailable PORTER UNDERWOOD Attending Unavailable AWAN, BRYCE Primary Care Unavailable MORGAN, CHELSEY M Attending Unavailable AWAN, BRYCE Primary Care Unavailable AWAN, BRYCE Referring Unavailable AWAN, BRYCE Primary Care Unavailable MORGAN, CHELSEY M Referring Unavailable Allergies Allergy Classification Reported Allergen(s) Allergy Type Date of Onset Reaction(s) Facility (20 sources) bacitracin / neomycin / polymyxin b; Translations: [[id number]-J OLYMYXIN] Drug Allergy 01-18-20 [facility] Work Phone: (20 sources) dilTIAZem; Translations: [DILTIAZEM HCL] Drug Allergy 07-24-19 11 Other: See Comments [facility] (20 sources) Felodipine; Translations: [FELODIPINE] Drug Allergy 01-18-20 05 Rash, Shortness of Breath [facility] Work Phone: (20 sources) hydroCHLOROthiazide; Translations: [HYDROCHLOROTHIAZIDE] Drug Allergy 02-07-20 19 Unknown [facility] (20 sources) Lanolin; Translations: [LANOLIN] Drug Allergy 01-18-20 05 unknown [facility] Work Phone: (20 sources) Latex; Translations: [latex] Propensity to adverse reactions 01-18-20 05 Unknown [facility] Work Phone: (20 sources) Meperidine; Translations: [MEPERIDINE (PF)] Drug Allergy 10-15-19 17 Other: See Comments [facility] Work Phone: (20 sources) Thimerosal; Translations: [THIMEROSAL] Drug Allergy 12-04-19 10 Other: See Comments [facility] Work Phone: (9 sources) dilTIAZem Drug Allergy 04-29-19 22 tachycardia [facility] (9 sources) Meperidine Drug Allergy 04-29-19 22 over sedation [facility] (20 sources) Neomycin; Translations: [NEOMYCIN] Drug Allergy 02-18-20 21 Other: See Comments [facility] (1 source) dilTIAZem Drug Allergy 08-10-19 24 [facility] (1 source) Felodipine Drug Allergy 08-10-19 24 [facility] (1 source) hydroCHLOROthiazide Drug Allergy 08-10-19 24 [facility] (1 source) Lanolin Drug Allergy 08-10-19 24 [facility] (1 source) Meperidine Drug Allergy 08-10-19 24 [facility] (1 source) Neomycin Drug Allergy 08-10-19 24 [facility] (1 source) Thimerosal Drug Allergy 08-10-19 24 [facility] Medications Current Medications Medication Drug Class(es) Dates Sig (Normalized) Sig (Original) acetaminophen 500 mg oral tablet (9 sources) Start: 05-15-2019 take 1 tablet by mouth every six hours as needed for pain Acetaminophen (Tylenol Extra Strength) 500 mg tablet Active 500 mg PO EVERY 6 HOURS as needed for Pain May 15, 2019 12:00am amLODIPine 10 mg oral tablet (20 sources) Dihydropyridine Calcium Channel Reinaldo Start: 03-27-2019 End: 05-23-2024 take 1 tablet by mouth once daily amLODIPine (NORVASC) 10 mg tablet Take 10 mg by mouth once daily. 09/17/2020 Active Start: 02-06-2019 End: 10-20-2020 take 2 tablets by mouth once daily at bedtime amLODIPine (NORVASC) 5 mg tablet Take 10 mg by mouth daily at bedtime. 02/06/2019 10/20/2020 Discontinued Start: 02-06-2019 End: 03-27-2019 take 1 tablet by mouth once daily Amlodipine 5 mg tablet Discontinued 5 mg PO DAILY 90 February 06, 2019 1:00am March 27, 2019 3:12pm Comment on above: Take 10 mg by mouth once daily. apremilast 30 mg oral tablet (20 sources) Start: 06-15-19 OTEZLA 30 mg tablet Take 1 tablet by mouth twice daily. Per Dr. Mejia 06/14/2017 Active Comment on above: Take 1 tablet by jarret twice daily. Per Dr. Mejia aspirin 81 mg delayed release oral tablet (6 sources) Platelet Aggregation Inhibitor, Nonsteroidal Anti-inflammatory Drug Start: 06-12-19 take 1 tablet by mouth once daily aspirin, enteric coated (ECOTRIN LOW STRENGTH) 81 mg EC tablet Take 1 tablet by mouth once daily. 06/11/2024 Active atorvastatin 10 mg oral tablet (6 sources) HMG-CoA Reductase Inhibitor Start: 06-12-19 25 take 1 tablet by mouth once daily atorvastatin (LIPITOR) 10 mg tablet Take 1 tablet by mouth once daily. 90 tablet 3 06/11/2024 Active benazepril hydrochloride 20 mg oral tablet (20 sources) Angiotensin Converting Enzyme Inhibitor Start: 04-25-19 23 take 2 tablets by mouth once daily benazepril (LOTENSIN) 20 mg tablet Indications: Essential hypertension with goal blood pressure less than 130/80 Take 2 tablets by mouth once daily. 180 tablet 3 04/25/2022 Active Start: 07-27-2020 End: 05-31-2021 take 2 tablets by mouth once daily benazepril (LOTENSIN) 20 mg tablet Indications: Essential hypertension with goal blood pressure less than 130/80 Take 2 tablets by mouth once daily. 180 tablet 3 07/27/2020 05/31/2021 Discontinued Start: 07-30-2019 End: 07-24-2020 take 2 tablets by mouth once daily benazepril (LOTENSIN) 20 mg tablet Indications: Essential hypertension with goal blood pressure less than 130/80 Take 2 tablets by mouth once daily. 180 tablet 3 07/30/2019 07/24/2020 Discontinued Start: 02-06-2019 End: 10-02-2023 take 1 tablet by mouth twice daily Benazepril (Lotensin) 20 mg tablet Discontinued 20 mg PO TWICE A DAY 180 September 16, 2022 9:12am October 02, 2023 8:01am Start: 02-04-2019 End: 02-06-2019 take 2 tablets by mouth once daily Benazepril (Lotensin) 20 mg tablet Discontinued 40 mg PO DAILY February 04, 2019 1:00am February 06, 2019 10:01am Comment on above: Take 2 tablets by mo [facility] once daily. BENEFIBER, WHEAT DEXTRIN, ORAL (20 sources) BENEFIBER, WHEAT DEXTRIN, ORAL Take by mouth. Active BENEFIBER, WHEAT DEXTRIN, ORAL Take by mouth. 0 Active Comment on above: Take by mouth. clobetasol propionate 0.0005 mg/mg topical ointment (2 sources) Corticosteroid Start: 07-17-2024 End: 08-16-2024 clobetasol (TEMOVATE) 0.05 % ointment Apply 1 application to affected area two times a day. TO AFFECTED AREA. 30 g 1 07/17/2024 08/16/2024 Active enteric contrast (will be provided with radiology test) (4 sources) Start: 04-02-2024 End: 04-03-2024 enteric contrast (will be provided with radiology test) Indications: Left lower quadrant abdominal pain , Rectal bleeding For CT ABD/PEL W IVCON Routine order Administer, As Directed One Time Only, via Oral, Rectal, both Oral and Rectal, Enteric Tube, Stoma or Indwelling Catheter, Enteric Contrast as designated per enteric contrast guidelines 1 Each 04/02/2024 04/03/2024 Active Fluticasone Furoate (20 sources) Corticosteroid Start: 08-10-2023 take 200 ug by inhalation once daily Fluticasone Furoate (Arnuity Ellipta) 200 mcg/actuation blister with device Active 1 NMA INHALATION DAILY August 10, 2023 12:00am Start: 05-22-2023 take 1 puff(s) by in halation once daily fluticasone furoate (ARNUITY ELLIPTA) 100 mcg/actuation inhaler Inhale 1 Puff as instructed once daily. 05/22/2023 Active Start: 05-22-2023 take 1 puff(s) by [facility] once daily ARNUITY ELLIPTA 200 mcg/actuation inhaler 1 PUFF DAILY FOLLOWED BY GOOD ORAL CARE 05/22/2023 Active Start: 05-22-2023 take 1 puff(s) by [facility] once daily ARNUITY ELLIPTA 200 mcg/actuation inhaler 1 PUFF DAILY FOLLOWED BY GOOD ORAL CARE 0 05/22/2023 Active Start: 02-06-2019 End: 04-28-2020 Fluticasone Propionate (Flon ase Allergy Relief) 50 mcg/actuation spray,suspension Discontinued 1 NMA INTRANASAL DAILY as needed May 15, 2019 11:25am April 28, 2020 10:27am Start: 02-06-2019 End: 04-28-2020 Fluticasone Propionate (Flon ase Allergy Relief) 50 mcg/actuation spray,suspension Discontinued 1 SPRAY INTRANASAL DAILY May 15, 2019 11:25am April 28, 2020 10:27am Start: 12-06-2013 End: 12-12-2023 take 1 spray(s) nasal route once daily fluticasone (FLONASE) 50 mcg/actuation nasal spray Indications: Chronic rhinitis Use 1 [place] in each nostril once daily. USE DIRECTED 1 Bottle 11 12/06/2013 12/12/2023 Discontinued (Course of therapy completed) Comment on above: Use 1 [place] in each nostril once daily. USE DIRECTED 1 PUFF DAILY FOLLOWE D BY GOOD ORAL CARE iv contrast (will be provided with radiology test) (5 sources) Start: 04-03-2024 End: 04-04-2024 iv contrast (will be provided with radiology test) Indications: Renal cyst MRI Kidney Inject, intravenously, once for 1 dose. No IV access, insert saline lock prior to the beginning of sedation, infusion, injection of imaging exam. Discontinue saline lock post exam. If Pt. has a central line or IVAD, may access for administration according to line specific nursing protocol. Once exam is complete flush line and de-access according to line specific nursing protocol in the MR contrast administration guidelines link. 1 Each 04/03/2024 04/04/2024 Active Start: 04-02-2024 End: 04-03-2024 iv contrast (will be provide d with radiology test) Indications: Left lower quadrant abdominal pain , Rectal bleeding CT ABD/PEL -Inject, intravenously, once for 1 dose.No IV access, insert saline lock prior to the beginning of sedation, infusion, injection of imaging exam. Discontinue saline lock post exam. If Pt. has a central line or IVAD, may access for administration according to line specific nursing protocol. Once exam is complete flush line and de-access according to line specific nursing protocol in the CT contrast administration guidelines link. 1 Each 04/02/2024 04/03/2024 Discontinued (Course of therapy completed) Start: 04-02-2024 End: 04-03-2024 iv contrast (will be provide d with radiology test) Indications: Left lower quadrant abdominal pain , Rectal bleeding CT ABD/PEL -Inject, intravenously, once for 1 dose.No IV access, insert saline lock prior to the beginning of sedation, infusion, injection of imaging exam. Discontinue saline lock post exam. If Pt. has a central line or IVAD, may access for administration according to line specific nursing protocol. Once exam is complete flush line and de-access according to line specific nursing protocol in the CT contrast administration guidelines link. 1 Each 04/02/2024 04/03/2024 Active 24 hr metoprolol succinate 25 mg extended release oral tablet (20 sources) beta-Adrenergic Reinaldo Start: 07-01-2022 End: 05-23-2024 take 1 tablet by mouth once daily metoprolol succinate ER (TOPROL XL) 25 mg 24 hr tablet Take 1 tablet by mouth once daily. 12/02/2022 Active Start: 2022 End: 07-01-2022 take 2 tablets by mouth once daily Metoprolol Succinate 100 mg tablet extended release 24 hr Discontinued 50 mg PO DAILY May 27, 2022 1:39pm July 01, 2022 10:42am Start: 01-14-2021 End: 02-17-2021 take 1 tablet by mouth once daily Metoprolol Succinate 100 mg tablet extended release 24 hr Discontinued 0 .ROUTE .COMPLEX 90 January 20, 2021 4:23pm February 17, 2021 11:19am TAKE 1 TABLET BY MOUTH EVERY DAY Start: 02-06-2019 End: 12-02-2022 take 25 mg by mouth once daily metoprolol succinate ER (TOPROL XL) 100 mg Tb24 Take 25 mg by mouth once daily. 02/06/2019 12/02/2022 Discontinued Start: 02-06-2019 End: 07-01-2022 take 1 tablet by mouth once daily Metoprolol Succinate Discontinued 0 .ROUTE .COMPLEX 90 2022 11:01am May 27, 2022 1:26pm TAKE 1 TABLET BY MOUTH EVERY DAY Start: 02-06-2019 End: 05-27-2022 take 1 tablet by mouth once daily Metoprolol Succinate (Toprol Xl) 100 mg tablet extended release 24 hr Discontinued 100 mg PO DAILY January 27, 2020 4:28pm January 14, 2021 4:01pm Comment on above: Take 100 mg by mouth once daily. Take 50 mg by mouth once daily. Take 1 tablet by jarret once daily. terazosin 2 mg oral capsule (20 sources) alpha-Adrenergic Reinaldo Start: 04-25-2022 End: 04-02-2024 take 1 capsule by mouth once daily at bedtime terazosin (HYTRIN) 2 mg capsule Take 1 capsule by mouth daily at bedtime. 90 capsule 3 04/02/2024 Active Start: 12-14-2021 take 1 capsule by mo ut once daily at bedtime terazosin (HYTRIN) 2 mg capsule Indications: Essential hypertension with goal blood pressure less than 130/80 Take 1 capsule by mouth daily at bedtime. 90 capsule 1 12/14/2021 Active Start: 12-07-2021 End: 12-14-2021 take 2 capsules by mouth once daily at bedtime terazosin (HYTRIN) 1 mg capsule Indications: Essential hypertension with goal blood pressure less than 130/80 Take 2 capsules by mouth daily at bedtime. 0 12/07/2021 12/14/2021 Discontinued (Duplicate Entry) Comment on above: Take 1 capsule by mo uth daily at bedtime. Take 2 capsules by m outh daily at bedtime. tiZANidine 4 mg oral tablet (9 sources) Central alpha-2 Adrenergic Agonist Start: 1 take 1 tablet by mouth three times daily as needed for pain Tizanidine 4 mg tablet Active 4 mg PO THREE TIMES A DAY as needed for Pain April 28, 2020 1:00am traMADol hydrochloride 50 mg oral tablet (20 sources) Opioid Agonist Start: 3 take 1 tablet by mouth every eight hours as needed traMADol (ULTRAM) 50 mg tablet Take 50 mg by mouth three times daily as needed. 05/02/2022 Active Start: 10-10-2019 End: 08-04-2020 take 1 tablet by mouth every eight hours as needed traMADol (ULTRAM) 50 mg tablet Take 50 mg by mouth three times daily as needed. 10/10/2019 08/04/2020 Discontinued (Course of therapy completed) Comment on above: Take 50 mg by mouth three times daily as needed. Vit A-Vit C-Vit M-Vpnn-Ycjeyv (7 sources) Start: 02-04-2019 take 1 tablet by mouth twice daily Vit A-Vit C-Vit F-Hvxo-Rtwfgv Active 1 TABLET PO TWICE A DAY February 04, 2019 12:00am Start: 02-04-2019 take 1 tablet by jarret th twice daily Vit A-Vit C-Vit Y-Wmgp-Unuxlo Active 1 TABLET PO TWICE A DAY February 04, 2019 1:00am Vit A-Vit C-Vit S-Gheo-Pddtsj 7,160-113-100 yiwu-kc-ktfe tablet (2 sources) Start: 02-04-2019 Vit A-Vit C-Vi t E-Zcky-Qzdkgd 7,160-113-100 pfzm-lx-rnrf tablet Active 1 {tbl} PO TWICE A DAY February 04, 2019 1:00am VIT A/C/E AC/ZNOX/CUPRIC OXIDE (EYE VITAMIN AND MINERALS ORAL) (20 sources) take 1 tablet by mouth twice daily before mealtime VIT A/C/E AC/ZNOX/CUPRIC OXIDE (EYE VITAMIN AND MINERALS ORAL) Take 1 tablet by mouth twice daily. Active take 1 tablet by jarret th twice daily before mealtime VIT A/C/E AC/ZNOX/CUPRIC OXIDE (EYE LEONARDO MIN AND MINERALS ORAL) Take 1 tablet by mouth twice daily. 0 Active Comment on above: Take 1 tablet by jarret twice daily. Completed/Discontinued Medications Medication Drug Class(es) Dates Sig (Normalized) Sig (Original) albuterol 0.83 mg/ml inhalation solution (9 sources) beta2-Adrenergic Agonist Start: 02-04-2019 End: 04-28-2020 take 2.5 mg by inhalation three times daily as needed Albuterol Sulfate 2.5 mg /3 mL (0.083 %) solution for nebulization Discontinued 2.5 mg INHALATION THREE TIMES A DAY as needed February 04, 2019 1:00am April 28, 2020 10:28am budesonide 3 mg delayed release oral capsule (20 sources) Corticosteroid Start: 02-17-2021 End: 05-31-2021 take 1 capsule by mouth once daily Budesonide 3 mg capsule,delayed,ex tend.release Discontinued 3 mg PO DAILY February 17, 2021 1:00am April 29, 2021 10:26am Start: 05-15-2019 End: 08-10-2023 take 180 ug by inhalation once daily Budesonide (Pulmicort Flexhaler) 180 mcg/actuation aerosol powdr breath activated Discontinued 1 NMA INHALATION DAILY May 15, 2019 11:26am August 10, 2023 9:46am Start: 05-15-2019 take 180 ug by inhal ation once daily Budesonide (Pulmicort Flexhaler) 180 mcg/actuation aerosol powdr breath activated Active 1 INH INHALATION DAILY May 15, 2019 10:26am Start: 05-15-2019 take 180 ug by inhal ation once daily Budesonide (Pulmicort Flexhaler) 180 mcg/actuation aerosol powdr breath activated Active 1 INH INHALATION DAILY May 15, 2019 11:26am Start: 02-04-2019 End: 05-15-2019 take 180 ug by inhalation twice daily Budesonide (Pulmicort Flexhaler) 180 mcg/actuation aerosol powdr breath activated Discontinued 1 NMA INHALATION TWICE A DAY February 04, 2019 1:00am May 15, 2019 11:26am Start: 02-04-2019 End: 05-15-2019 take 180 ug by inhalation twice daily Budesonide (Pulmicort Flexhaler) 180 mcg/actuation aerosol powdr breath activated Discontinued 1 INH INHALATION TWICE A DAY February 04, 2019 12:00am May 15, 2019 10:26am Start: 02-04-2019 End: 05-15-2019 take 180 ug by inhalation twice daily Budesonide (Pulmicort Flexhaler) 180 mcg/actuation aerosol powdr breath activated Discontinued 1 INH INHALATION TWICE A DAY February 04, 2019 1:00am May 15, 2019 11:26am Start: 06-26-2017 End: 12-12-2023 take 1 puff(s) by inhalation once daily budesonide (PULMICORT FLEXHALER) 180 mcg/actuation aepb Inhale 1 Puff as instructed once daily. 0 06/26/2017 12/12/2023 Discontinued (Discontinued by another Health Care Provider) Start: 06-26-2017 take 1 puff(s) by in halation once daily budesonide (PULMICORT FLEXHALER) 180 mcg/actuation aepb Inhale 1 Puff as instructed once daily. 0 06/26/2017 Active Comment on above: Inhale 1 Puff as ins tructed once daily. Take 1 capsule by [facility] once daily. cephalexin 500 mg oral capsule (9 sources) Cephalosporin Antibacterial Start: End: take 1 capsule by mouth every six hours Cephalexin 500 MG capsule Discontinued 500 mg PO EVERY 6 HOURS 40 February 17, 2021 1:00am April 29, 2021 10:25am chlorthalidone 25 mg oral tablet (20 sources) Thiazide-like Diuretic Start: End: take 1 tablet by mouth once daily Chlorthalidone 25 mg tablet Discontinued 25 mg PO DAILY June 05, 2020 4:25pm April 29, 2021 10:26am cloNIDine hydrochloride 0.1 mg oral tablet (9 sources) Central alpha-2 Adrenergic Agonist Start: End: take 1 tablet by mouth three times daily Clonidine Hcl 0.1 mg tablet Discontinued 0.1 mg PO THREE TIMES A DAY February 04, 2019 1:00am February 06, 2019 10:22am COMPRESSOR, FOR NEBULIZER (7 sources) Start: End: COMPRESSOR, FOR NEBULIZER As directed 1 0 05/20/2008 12/12/2023 Discontinued (Course of therapy completed) Start: 05-20-2008 COMPRESSOR, FO R NEBULIZER As directed 1 0 05/20/2008 Active Comment on above: As directed diclofenac sodium 0.01 mg/mg topical gel (1 source) Nonsteroidal Anti-inflammatory Drug Start : 10-23 End: 11-30 apply 4 g topically four times daily diclofenac sodium (VOLTAREN) 1 % topical gel Indications: Neck pain Apply 4 g to affected area four times daily. 100 g 10/24/2019 11/30/2020 Discontinued (Course of therapy completed) doxazosin 4 mg oral tablet (9 sources) alpha-Adrenergic Reinaldo Start : 02-04 End: 02-06 take 1 tablet by mouth once daily Doxazosin (Cardura) 4 mg tablet Discontinued 4 mg PO DAILY February 04, 2019 1:00am February 06, 2019 10:22am methylPREDNISolone 4 mg oral tablet (5 sources) Corticosteroid Start : 07-12 End: 07-18 take 1 tablet by mouth once Methylprednisolone (Medrol (Jessee)) 4 mg tablets,dose pack Discontinued 4 mg PO per package directions 24 08July 12, 2022 12:00am July 17, 2022 12:00am July 18, 2022 12:04am omeprazole 20 mg delayed release oral capsule (20 sources) Proton Pump Inhibitor Start : 02-24 End: 06-10 take 1 capsule by mouth once daily omeprazole (PRILOSEC) 20 mg capsule Indications: Heartburn Take 1 capsule by mouth once daily. 30 capsule 5 02/24/2021 06/10/2021 Discontinued Comment on above: Take 1 capsule by [facility] once daily. Take 20 mg by mouth once daily. potassium chloride 10 meq extended release oral capsule (20 sources) Start : 12-26 End: 08-09 take 2 capsules by mouth once daily Potassium Chloride 10 mEq capsule, extended release Discontinued 20 meq PO DAILY 180 August 19, 2022 8:12am August 10, 2023 9:53am Start: 12-27-2019 End: 08-19-2022 take 20 mEq by mouth once daily Potassium Chloride Discontinued 20 MEQ PO DAILY 180 August 23, 2021 8:49am August 19, 2022 8:13am Start: 06-04-2019 End: 12-27-2019 potassium chloride SR (MICRO -K) 10 mEq CR capsule Take 10 mEq by mouth once daily. 08/30/2019 Active Comment on above: Take 10 mEq by mouth once daily. raNITIdine 150 mg oral tablet (10 sources) Histamine-2 Receptor Antagonist Start: 9 End: 0 take 1 tablet by mouth once daily as needed Ranitidine Hcl 150 mg tablet Discontinued 150 mg PO DAILY as needed February 04, 2019 1:00am August 26, 2019 9:08am End: 08-04-2020 Ranitidine HCl 150 mg capsul e Take 150 mg by mouth as needed. 08/04/2020 Discontinued (Course of therapy completed) Problems Active Problems Problem Classification Problem Date Documented Da te Episodic/Chronic Acute cerebrovascular disease (1 source) Cerebral infarction, unspecified; Translations: [Cerebral infarction, unspecified] Onset: 06-11-2024 Chronic Allergic reactions (4 sources) Contact dermatitis; Translations: [Unspecified contact dermatitis, unspecified cause] Onset: 07-17-2024 07-17-2024 Episodic Asthma (20 sources) Mild intermittent asthma; Translations: [Mild intermittent asthma, uncomplicated] Onset: 12-23-2014 Resolved: 07-06-2015 Chronic Cardiac dysrhythmias (11 sources) Bradycardia; Translations: [Bradycardia, unspecified] 05-27-2022 Episodic Chronic kidney disease (20 sources) Chronic kidney disease stage 2; Translations: [Chronic kidney disease, stage 2 (mild)] Onset: 12-02-2021 12-02-2021 Chronic Diseases of white blood cells (1 source) Leukocytosis; Translations: [Elevated white blood cell count, unspecified] 02-24-2021 Chronic Essential hypertension (20 sources) Essential hypertension; Translations: [Essential (primary) hypertension] Onset: 07-06-2015 Resolved: 07-06-2015 Chronic Fluid and electrolyte disorders (9 sources) Hypokalemia; Translations: [Hypokalemia] 04-28-2020 Episodic Inflammatory diseases of female pelvic organs (2 sources) Chronic vulvitis; Translations: [Subacute and chronic vulvitis] Onset: 07-17-2024 07-17-2024 Episodic Osteoarthritis (20 sources) Degenerative joint disease involving multiple joints; Translations: [Polyosteoarthritis , unspecified] Onset: 12-09-2015 12-09-2015 Chronic Other circulatory disease (9 sources) Orthostatic hypotension; Translations: [Orthostatic hypotension] 04-27-2020 Episodic Other circulatory disease (7 sources) Brain stem infarction; Translations: [Personal history of transient ischemic attack (TIA), and cerebral infarction without residual deficits] Onset: 06-11-2024 06-11-2024 Episodic Other diseases of kidney and ureters (3 sources) Cyst of kidney; Translations: [Cyst of kidney, acquired] 04-03-2024 Episodic Other diseases of kidney and ureters (2 sources) Acquired renal cystic disease; Translations: [Cyst of kidney, acquired] 04-03-2024 Episodic Other eye disorders (1 source) Unspecified nystagmus; Translations: [Unspecified nystagmus] Onset: 05-31-2024 Chronic Other gastrointestinal disorders (9 sources) Diarrhea; Translations: [Diarrhea, unspecified] 04-28-2020 Episodic Other gastrointestinal disorders (1 source) Constipation; Translations: [Constipation, unspecified] 04-02-2024 Episodic Other inflammatory condition of skin (20 sources) Psoriatic arthritis; Translations: [Arthropathic psoriasis, unspecified] Onset: 12-09-2015 Chronic Other inflammatory condition of skin (1 source) Other psoriatic arthropathy; Translations: [Other psoriatic arthropathy] Onset: 11-10-2023 Chronic Other non-traumatic joint disorders (1 source) Chronic pain of right upper limb; Translations: [Pain in right shoulder] 05-27-2020 Episodic Other nutritional; endocrine; and metabolic disorders (16 sources) Body mass index 30+ - obesity; Translations: [Body mass index (BMI) 30.0-30.9, adult] Onset: 07-06-2015 07-06-2015 Chronic Other screening for suspected conditions (not mental disorders or infectious disease) (2 sources) Encounter for screening mammogram for malignant neoplasm of breast; Translations: [Encounter for screening mammogram for breast cancer] Onset: 07-17-2024 Episodic Other skin disorders (9 sources) Excessive sweating; Translations: [Generalized hyperhidrosis] 04-28-2020 Episodic Other upper respiratory disease (20 sources) Chronic rhinitis; Translations: [Chronic rhinitis] Onset: 04-04-2008 Resolved: 06-11-2024 04-04-2008 Chronic Pulmonary heart disease (9 sources) Pulmonary arterial hypertension; Translations: [Secondary pulmonary arterial hypertension] 04-27-2020 Chronic Residual codes; unclassified (2 sources) Obstructive sleep apnea syndrome; Translations: [Obstructive sleep apnea (adult) (pediatric)] 08-10-2023 Chronic Comment on above: uses BIPAP Retinal detachments; defects; vascular occlusion; and retinopathy (7 sources) Age related macular degeneration; Translations: [Unspecified macular degeneration] Onset: 06-11-2024 06-11-2024 Chronic Screening and history of mental health and substance abuse codes (4 sources) Patient encounter status; Translations: [Encounter for screening examination for other mental health and behavioral disorders] 06-11-2024 Episodic Sprains and strains (6 sources) Strain of knee; Translations: [Strain of unspecified muscle(s) and tendon(s) at lower leg level, right leg, initial encounter] 07-12-2022 Episodic Urinary tract infections (9 sources) Acute urinary tract infection; Translations: [Urinary tract infection, site not specified] 02-25-2021 Episodic Past or Other Problems Problem Classification Problem Date Documented Da te Episodic/Chronic Abdominal pain (5 sources) Left lower quadrant pain; Translations: [Left lower quadrant pain] Onset: 04-02-2024 04-02-2024 Episodic Cancer of bronchus; lung (20 sources) Carcinoid bronchial adenoma; 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] Onset: 12-03-2009 Resolved: 12-15-2016 02-19-2019 Chronic Diabetes mellitus without complication (20 sources) Impaired fasting glycemia; Translations: [Impaired fasting glucose] Onset: 04-30-2009 04-30-2009 Episodic Disorders of lipid metabolism (18 sources) Hyperlipidemia; Translations: [Hyperlipidemia, unspecified] Resolved: 07-06-2015 07-06-2015 Chronic Gastrointestinal hemorrhage (20 sources) Hemorrhage of rectum and anus; Translations: [Hemorrhage of anus and rectum] Onset: 04-02-2024 Resolved: 12-09-2015 12-09-2015 Episodic Noninfectious gastroenteritis (20 sources) Colitis; Translations: [Lymphocytic colitis] Onset: 11-30-2020 Resolved: 06-11-2024 Chronic Other and unspecified benign neoplasm (18 sources) Carcinoid tumor of lung; Translations: [Benign carcinoid tumor of the bronchus and lung] Onset: 07-07-2010 Resolved: 07-06-2015 07-06-2015 Episodic Other connective tissue disease (19 sources) Dupuytren contracture of left palm; Translations: [Palmar fascial fibromatosis [Dupuytren]] Onset: 12-02-2021 12-02-2021 Episodic Other diseases of kidney and ureters (9 sources) Acquired complex renal cyst; Translations: [Cyst of kidney, acquired] Onset: 04-02-2024 04-20-2024 Episodic Other diseases of kidney and ureters (2 sources) Cyst of kidney, acquired; Translations: [Renal cyst] Onset: 04-10-2024 Episodic Other liver diseases (20 sources) Elevated levels of transaminase & lactic acid dehydrogenase; Translations: [Nonspecific elevation of levels of transaminase or lactic acid dehydrogenase (LDH)] Onset: 05-06-2008 Resolved: 06-11-2024 12-09-2015 Episodic Other nutritional; endocrine; and metabolic disorders (7 sources) Body mass index 25-29 - overweight; Translations: [Overweight] Onset: 07-06-2015 Episodic Unclassified (1 source) Patient encounter status 07-17-2024 Results Test Name Value Interpretation Reference Range Facility OV 08-05-2024 CNOV Office Visit (OBGYWM ) LATHA FERRARA Ivan ([id number]) 1940 F [facility] Date Time Provider Department 08/05/24 10:10 AM PORTER UNDERWOOD OBGYWMarques During your visit today, we recorded the following information about you: Blood pressure 132/68 Porter Underwood MD 08/05/2024 10:59 AM Signed Latha Love Zach is a 84 year old female who presents for problem visit f/u to determine impact of steroid therapy vulvar inflammation. . HPI: severe vulvar irritation/inflammati on OB History No obstetric history on file. Body Die Maker History LMP: Postmenopausal Age at Menarche: Age at First : Age at Menopause: Body Die Maker History Comments: Sexual Activity: Yes; Male Contraception: No contraception data on record PAST MEDICAL HISTORY Diagnosis Date Age-related macular degeneration 06/11/2024 Calculus of gallbladder without mention of cholecystitis or obstruction Carpal tunnel syndrome Chronic kidney insufficiency, stage 2 (mild) 12/02/2021 Disturbance of skin sensation Essential hypertension with goal blood pressure less than 140/90 07/06/2015 External hemorrhoids without mention of complication Generalized osteoarthrosis, unspecified site Hemorrhage of rectum and anus Lymphocytic colitis Nonspecific elevation of levels of transaminase or lactic acid dehydrogenase (LDH) 05/06/2008 Other and unspecified hyperlipidemia 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 In [place], Sees [facility] Dr Saenz. Annual CT scans normal Primary osteoarthritis involving multiple joints 12/09/2015 Psoriatic arthropathy (HCC) 12/09/2015 RHINITIS CHRONIC 04/04/2008 Snoring Unspecified asthma(493.90) Unspecified essential hypertension PAST SURGICAL HISTORY Procedure Laterality Date COLONOSCOPY FLX DX W/COLLJ SPEC WHEN PFRMD 05/18/1998 Colonoscopy COLONOSCOPY FLX DX W/COLLJ SPEC WHEN PFRMD 05/08/2006 COLONOSCOPY GEN ANES 09/01/2020 EGD 09/01/2020 MASTOIDECTOMY Left 194 RMVL LUNG OTHER THAN PNEUMONECTOMY 1 LOBE LOBECT 09/16/2009 right middle lobe removed TONSILLECTOMY HX 1948 TOTAL ABDOMINAL HYSTERECT W/WO RMVL TUBE OVARY 07/1999 Hysterectomy, RAY TUBAL LIGATION HX 1972 FAMILY HISTORY Problem Relation Age of Onset Cancer Mother skin, non melanoma Heart Mother 89 ? arrhythmia Heart Father 68 [place] Diabetes Maternal Grandmother Diabetes Paternal Grandmother Heart Paternal Grandmother Diabetes Maternal Grandfather Social History Tobacco Use Smoking status: Never Smokeless tobacco: Never Vaping Use Vaping status: Never Used Substance Use Topics Alcohol use: No Drug use: No Current Outpatient Medications Medication Sig clobetasol (TEMOVATE) 0.05 % ointment Apply 1 application to affected area two times a day. TO AFFECTED AREA. aspirin, enteric coated (ECOTRIN LOW STRENGTH) 81 mg EC tablet Take 1 tablet by mouth once daily. atorvastatin (LIPITOR) 10 mg tablet Take 1 tablet by mouth once daily. terazosin (HYTRIN) 2 mg capsule Take 1 capsule by mouth daily at bedtime. fluticasone furoate (ARNUITY ELLIPTA) 100 mcg/actuation inhaler Inhale 1 Puff as instructed once daily. metoprolol succinate ER (TOPROL XL) 25 mg [...] by mouth twice daily. Per Dr. Mejia VIT A/C/E AC/ZNOX/CUPRIC OXIDE (EYE VITAMIN AND MINERALS ORAL) Take 1 tablet by mouth twice daily. No current facility-administered medications for this visit. Allergies As of Date: 08/05/2024 Allergen Noted Reaction PLENDIL [FELODIPINE] 01/17/2005 Rash and Shortness of Breath CARDIZEM [DILTIAZEM HCL] 07/23/2010 Other: See Comments DEMEROL [MEPERIDINE (PF)] 10/14/2016 Other: See Comments HYDROCHLOROTHIAZIDE 02/06/2019 Unknown LANOLIN 01/17/2005 LATEX 01/17/2005 NEOMYCIN 02/17/2021 Other: See Comments NEOSPORIN [NEOMYCIN-BACITRACIN- PO*01/17/2005 THIMEROSAL 12/03/2009 Other: See Comments Fully Assessed 08/05/2024 REVIEW OF SYSTEMS Abdomen: No bloating, early satiety, indigestion, or increased flatulence. No abdominal pain, nausea, vomiting, diarrhea, or constipation. Bladder: No dysuria, gross hematuria, urinary frequency, urinary urgency, or incontinence. Breast: No breast lumps, nipple d/c, overlying skin changes, redness or skin retraction. Expanded ROS: N/A Allergies and current medication updated:Yes SENSITIVE EXAM: The sensitive examination was discussed with (more content not included)... Normal [facility] CNOVon 07-17-2024 CNOV Office Visit (OBGYWM ) LATHA FERRARA I ([id number]) 1940 F [facility] Date Time Provider Department 07/17/24 11:10 AM PORTER UNDERWOOD During your visit today, we recorded the following information about you: Blood pressure Weight 132/78 74.5 kg Porter Underwood MD 07/17/2024 11:59 AM Signed Health Care Marketing Specialist provided by [facility] Ivan Ferrara is a 84 year old female who presents for problem visit vaginal and vulvar irritation for 5 month(s). Refractory to steroids and AANDD ointment HPI: OB History No obstetric history on file. Body Die Maker History LMP: Postmenopausal Age at Menarche: Age at First : Age at Menopause: Body Die Maker History Comments: Sexual Activity: Yes; Male Contraception: No contraception data on record PAST MEDICAL HISTORY Diagnosis Date Age-related macular degeneration 06/11/2024 Calculus of gallbladder without mention of cholecystitis or obstruction Carpal tunnel syndrome Chronic kidney insufficiency, stage 2 (mild) 12/02/2021 Disturbance of skin sensation Essential hypertension with goal blood pressure less than 140/90 07/06/2015 External hemorrhoids without mention of complication Generalized osteoarthrosis, unspecified site Hemorrhage of rectum and anus Lymphocytic colitis Nonspecific elevation of levels of transaminase or lactic acid dehydrogenase (LDH) 05/06/2008 Other and unspecified hyperlipidemia 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 In [place], Sees PUL[facility] Saenz. Annual CT scans normal Primary osteoarthritis involving multiple joints 12/09/2015 Psoriatic arthropathy (HCC) 12/09/2015 RHINITIS CHRONIC 04/04/2008 Snoring Unspecified asthma(493.90) Unspecified essential hypertension PAST SURGICAL HISTORY Procedure Laterality Date COLONOSCOPY FLX DX W/COLLJ SPEC WHEN PFRMD 05/18/1998 Colonoscopy COLONOSCOPY FLX DX W/COLLJ SPEC WHEN PFRMD 05/08/2006 COLONOSCOPY GEN ANES 09/01/2020 EGD 09/01/2020 MASTOIDECTOMY Left 1943 RMVL LUNG OTHER THAN PNEUMONECTOMY 1 LOBE LOBECT 09/16/2009 right middle lobe removed TONSILLECTOMY HX 1947 TOTAL ABDOMINAL HYSTERECT W/WO RMVL TUBE OVARY 07/1999 Hysterectomy, RAY TUBAL LIGATION HX 1972 FAMILY HISTORY Problem Relation Age of Onset Cancer Mother skin, non melanoma Heart Mother 89 ? arrhythmia Heart Father 68 [place] Diabetes Maternal Grandmother Diabetes Paternal Grandmother Heart Paternal Grandmother Diabetes Maternal Grandfather Social History Tobacco Use Smoking status: Never Smokeless tobacco: Never Vaping Use Vaping status: Never Used Substance Use Topics Alcohol use: No Drug use: No Current Outpatient Medications Medication Sig aspirin, enteric coated (ECOTRIN LOW STRENGTH) 81 mg EC tablet Take 1 tablet by mouth once daily. atorvastatin (LIPITOR) 10 mg tablet Take 1 tablet by mouth once daily. terazosin (HYTRIN) 2 mg capsule Take 1 capsule by mouth daily at bedtime. fluticasone furoate (ARNUITY ELLIPTA) 100 mcg/actuation inhaler Inhale 1 Puff as instructed once daily. metoprolol succinate ER (TOPROL XL) 25 mg [...] by mouth twice daily. Per Dr. Mejia VIT A/C/E AC/ZNOX/CUPRIC OXIDE (EYE VITAMIN AND MINERALS ORAL) Take 1 tablet by mouth twice daily. No current facility-administered medications for this visit. Allergies As of Date: 07/17/2024 Allergen Noted Reaction PLENDIL [FELODIPINE] 01/17/2005 Rash and Shortness of Breath CARDIZEM [DILTIAZEM HCL] 07/23/2010 Other: See Comments DEMEROL [MEPERIDINE (PF)] 10/14/2016 Other: See Comments HYDROCHLOROTHIAZIDE 02/06/2019 Unknown LANOLIN 01/17/2005 LATEX 01/17/2005 NEOMYCIN 02/17/2021 Other: See Comments NEOSPORIN [NEOMYCIN-BACITRACIN- PO*01/17/2005 THIMEROSAL 12/03/2009 Other: See Comments Fully Assessed 06/11/2024 REVIEW OF SYSTEMS Abdomen: No bloating, early satiety, indigestion, or increased flatulence. No abdominal pain, nausea, vomiting, diarrhea, or constipation. Bladder: No dysuria, gross hematuria, urinary frequency, urinary urgency, or incontinence. Breast: No breast lumps, nipple d/c, overlying skin changes, redness or skin retraction. Expanded ROS: N/A Allergies and current medication updated:Yes SENSITIVE EXAM: The sensitive examination was discussed with the Patient or Patient's Authorized Resist Coater Developer. As applicable, (more content not included)... Normal [facility] CNPNon 06-12-2024 CNPN Telephone (INTMWS) LATHA FERRARA I ([id number]) 1940 [facility] Date Time Provider Department 06/12/24 ROMULO AWAN INTMWS During your visit today, we recorded the following information about you: Emerita Glynn RN 06/12/2024 4:01 PM Signed Patient requesting recent lab results from 06/11/24 to be faxed to her Scow Captain, Dr. Tash Mejia. Faxed as requested to [phone]. Emerita Glynn RN Allergies As of Date: 06/12/2024 Noted Allergy Reaction PLENDIL (FELODIPINE) 01/17/2005 2 - Rash 12 - Shortness of Breath CARDIZEM (DILTIAZEM HCL) 07/23/2010 14 - Other: See Comments Comments: heart racing DEMEROL (MEPERIDINE (PF)) 10/14/2016 14 - Other: See Comments Comments: received 100mg for last colonoscopy and would not wake up- needed to use Narcan HYDROCHLOROTHIAZIDE 02/06/2019 16 - Unknown LANOLIN 01/17/2005 Comments: topical LATEX 01/17/2005 NEOMYCIN 02/17/2021 14 - Other: See Comments NEOSPORIN (NEOMYCIN-BACITRACIN- PO*01/17/2005 THIMEROSAL 12/03/2009 14 - Other: See Comments Comments: Pt. was tested in Allergy and had a reaction (rash) from skin test. Date Reviewed: 06/11/2024 Reviewed by: Chelsey Mora APRN.ENVIRONMENTAL HEALTH SANITARIAN - Fully Assessed Reason for Visit: Patient Request [[id number]] Prescriptions as of 06/12/2024 - aspirin, enteric coated (ECOTRIN LOW STRENGTH) 81 mg EC tablet Take 1 tablet by mouth once daily. - atorvastatin (LIPITOR) 10 mg tablet Take 1 tablet by mouth once daily. - terazosin (HYTRIN) 2 mg capsule Take 1 capsule by mouth daily at bedtime. - fluticasone furoate (ARNUITY ELLIPTA) 100 mcg/actuation inhaler Inhale 1 Puff as instructed once daily. - metoprolol succinate ER (TOPROL XL) 25 mg 24 hr tablet Take 1 tablet by mouth once daily. - traMADol (ULTRAM) 50 mg tablet Take 50 mg by mouth three times daily as needed. - benazepril (LOTENSIN) 20 mg tablet Take 2 tablets by mouth once daily. - omeprazole (PRILOSEC) 20 mg capsule Take 20 mg by mouth once daily. - amLODIPine (NORVASC) 10 mg tablet Take 10 mg by mouth once daily. - BENEFIBER, WHEAT DEXTRIN, ORAL Take by mouth. - potassium chloride SR (MICRO-K) 10 mEq CR capsule Take 10 mEq by mouth once daily. - OTEZLA 30 mg tablet Take 1 tablet by mouth twice daily. Per Dr. Mejia - VIT A/C/E AC/ZNOX/CUPRIC OXIDE (EYE VITAMIN AND MINERALS ORAL) Take 1 tablet by mouth twice daily. Problem List As Of Date 06/12/2024 Noted Resolved Essential hypertension [I10] 07/06/2015 Hyperlipidemia [E78.5] 07/06/2015 Asthma [J45.909] 07/06/2015 Hemorrhage of rectum and anus [K62.5] 12/09/2015 RHINITIS CHRONIC [J31.0] 04/04/2008 06/11/2024 Nonspecific elevation of levels of transaminase*05/07/19 09 06/11/2024 Impaired Fasting Glucose [R73.01] 04/30/2009 Lung cancer (HCC) [C34.90] 12/03/2009 07/06/2015 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] 07/07/2010 07/06/2015 Mild intermittent asthma without complication [*12/23/2014 Essential hypertension with goal blood pressure*07/06/2015 Overweight (BMI 25.0-29.9) [E66.3] 07/06/2015 Primary atypical carcinoid tumor of right lung *07/06/2015 12/15/2016 Primary osteoarthritis involving multiple joint*12/09/2015 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] 12/09/2015 Lymphocytic colitis [K52.832] 11/30/2020 06/11/2024 Chronic kidney insufficiency, stage 2 (mild) [N*12/02/2021 Dupuytren's contracture of left hand [M72.0] 12/02/2021 Acquired complex cyst of kidney, Right. 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/11/2024 Age-related macular degeneration [H35.30] 06/11/2024 Encounter Status:Closed by EMERITA GLYNN on 06/12/24 Normal [facility] CBC W Auto Differential pane l (Bld)on 06-11-2024 Basophils (Bld) [#/Vol] 0.09 10*3/uL [facility] Basophils/100 WBC (Bld) 0.8 % [facility] Differential cell count method Nom (Bld) Auto [facility] Eosinophils (Bld) [#/Vol] 1.18 10*3/uL High [facility] Eosinophils/100 WBC (Bld) 10.6 % [facility] Erythrocyte distribution width (RBC) [Ratio] 14.1 % 11.5 - 15.0 % [facility] Hematocrit (Bld) [Volume fraction] 42.1 % 36.0 - 46.0 % [facility] Hemoglobin (Bld) [Mass/Vol] 13.7 g/dL 11.5 - 15.5 g/dL [facility] Immature granulocytes (Bld) [#/Vol] 0.03 10*3/uL [facility] Immature granulocytes/100 WBC (Bld) 0.3 % [facility] Interpretation and review of laboratory results Abnormal [facility] Lymphocytes (Bld) [#/Vol] 2.83 10*3/uL [facility] Lymphocytes/100 WBC (Bld) 25.3 % [facility] MCH (RBC) [Entitic mass] 29.3 pg 26.0 - 34.0 pg [facility] MCHC (RBC) [Mass/Vol] 32.5 g/dL 30.5 - 36.0 g/dL [facility] MCV (RBC) [Entitic vol] 90 fL 80.0 - 100.0 fL [facility] Monocytes (Bld) [#/Vol] 1.41 10*3/uL High [facility] Monocytes/100 WBC (Bld) 12.6 % [facility] Neutrophils (Bld) [#/Vol] 5.64 10*3/uL [facility] Neutrophils/100 WBC (Bld) 50.4 % [facility] Nucleated RBC (Bld) [#/Vol] [facility] Nucleated RBC/100 WBC (Bld) [Ratio] 0 % /100 WBC [facility] Platelet mean volume (Bld) [Entitic vol] 12.3 fL 9.0 - 12.7 fL [facility] Platelets (Bld) [#/Vol] 231 10*3/uL [facility] RBC (Bld) [#/Vol] 4.68 10*6/uL 3.90 - 5.2 0 m/uL [facility] WBC (Bld) [#/Vol] 11.18 10*3/uL High [facility] Basophils (Bld) [#/Vol] 0.09 10*3/uL Normal <0.11 [facility] Comment on above: Order Comment: Speci men Type: BLOOD SPECIMENOrdering Facility: [facility] Address: [address] [place] [address] Performed By: #### 5 7021-8 ####[facility] LABCLIA [id number] [address] [place] Basophils/100 WBC (Bld) 0.8 % Normal [facility] Comment on above: Order Comment: Speci men Type: BLOOD SPECIMENOrdering Facility: [facility] Address: [address] [place] [address] Performed By: #### 5 7021-8 ####[facility] LABCLIA [id number] [place] [address] [place] Differential cell count method Nom (Bld) Auto Normal [facility] Comment on above: Order Comment: Speci men Type: BLOOD SPECIMENOrdering Facility: [facility] Address: [address] [place] [address] Performed By: #### 5 7021-8 ####[facility] LABCLIA [id number] [place] [address] [place] Eosinophils (Bld) [#/Vol] 1.18 10*3/uL High <0.46 [facility] Comment on above: Order Comment: Speci men Type: BLOOD SPECIMENOrdering Facility: [facility] Address: [address] [place] [address] Performed By: #### 5 7021-8 ####[facility] LABCLIA [id number] [place] [address] [place] Eosinophils/100 WBC (Bld) 10.6 % Normal [facility] Comment on above: Order Comment: Speci men Type: BLOOD SPECIMENOrdering Facility: [facility] Address: [address] [place] [address] Performed By: #### 5 7021-8 ####[facility] LABCLIA [id number] [place] [address] [place] Erythrocyte distribution width (RBC) [Ratio] 14.1 % Normal 11.5-15.0 [facility] Comment on above: Order Comment: Speci men Type: BLOOD SPECIMENOrdering Facility: [facility] Address: [address] [place] [address] Performed By: #### 5 7021-8 ####[facility] LABIA [id number] [place] [address] [place] Hematocrit (Bld) [Volume fraction] 42.1 % Normal 36.0-46.0 [facility] Comment on above: Order Comment: Speci men Type: BLOOD SPECIMENOrdering Facility: [facility] Address: [address] [place] [address] Performed By: #### 5 7021-8 ####[facility] LABIA [id number] [place] [address] [place] Hemoglobin (Bld) [Mass/Vol] 13.7 g/dL Normal 11.5-15.5 [facility] Comment on above: Order Comment: Speci men Type: BLOOD SPECIMENOrdering Facility: [facility] Address: [address] [place] [address] Performed By: #### 5 7021-8 ####[facility] LABIA [id number] [place] [address] [place] Immature granulocytes (Bld) [#/Vol] 0.03 10*3/uL Normal <0.10 [facility] Comment on above: Order Comment: Speci men Type: BLOOD SPECIMENOrdering Facility: [facility] Address: [address] [place] [address] Performed By: #### 5 7021-8 ####[facility] LABIA [id number] [place] [address] [place] Immature granulocytes/100 WBC (Bld) 0.3 % Normal [facility] Comment on above: Order Comment: Speci men Type: BLOOD SPECIMENOrdering Facility: [facility] Address: [address] [place] [address] Performed By: #### 5 7021-8 ####[facility] LABIA [id number] [place] [address] [place] Lymphocytes (Bld) [#/Vol] 2.83 10*3/uL Normal 1.00-4.00 [facility] Comment on above: Order Comment: Speci men Type: BLOOD SPECIMENOrdering Facility: [facility] Address: [address] [place] [address] Performed By: #### 5 7021-8 ####[facility] LABIA [id number] [place] [address] [place] Lymphocytes/100 WBC (Bld) 25.3 % Normal [facility] Comment on above: Order Comment: Speci men Type: BLOOD SPECIMENOrdering Facility: [facility] Address: [address] [place] [address] Performed By: #### 5 7021-8 ####[facility] LABIA [id number] [place] [address] [place] MCH (RBC) [Entitic mass] 29.3 pg Normal 26.0-34.0 [facility] Comment on above: Order Comment: Speci men Type: BLOOD SPECIMENOrdering Facility: [facility] Address: [address] [place] [address] Performed By: #### 5 7021-8 ####[facility] LABIA [id number] [place] [address] [place] MCHC (RBC) [Mass/Vol] 32.5 g/dL Normal 30.5-36.0 [facility] Comment on above: Order Comment: Speci men Type: BLOOD SPECIMENOrdering Facility: [facility] Address: [address] [place] [address] Performed By: #### 5 7021-8 ####[facility] LABIA [id number] [place] [address] [place] MCV (RBC) [Entitic vol] 90.0 fL Normal 80.0-100.0 [facility] Comment on above: Order Comment: Speci men Type: BLOOD SPECIMENOrdering Facility: [facility] Address: [address] [place] [address] Performed By: #### 5 7021-8 ####[facility] LABCLIA [id number] [address], [facility]95 [place] Monocytes (Bld) [#/Vol] 1.41 10*3/uL High <0.87 [facility] Comment on above: Order Comment: Speci men Type: BLOOD SPECIMENOrdering Facility: [facility] Address: [address] [place] [address] Performed By: #### 5 7021-8 ####[facility] LABCLIA [id number] [address], [facility]95 [place] Monocytes/100 WBC (Bld) 12.6 % Normal [facility] Comment on above: Order Comment: Speci men Type: BLOOD SPECIMENOrdering Facility: [facility] Address: [address] [place] [address] Performed By: #### 5 7021-8 ####[facility] LABCLIA [id number] [address], [facility]95 [place] Neutrophils (Bld) [#/Vol] 5.64 10*3/uL Normal 1.45-7.50 [facility] Comment on above: Order Comment: Speci men Type: BLOOD SPECIMENOrdering Facility: [facility] Address: [address] [place] [address] Performed By: #### 5 7021-8 ####[facility] LABCLIA [id number] [facility] [address] [place] [address] [place] Neutrophils/100 WBC (Bld) 50.4 % Normal [facility] Comment on above: Order Comment: Speci men Type: BLOOD SPECIMENOrdering Facility: [facility] Address: [address] [place] [address] Performed By: #### 5 7021-8 ####[facility] LABCLIA [id number] [address] [place] [address] [place] Nucleated RBC (Bld) [#/Vol] 10*3/uL Normal <0.01 [facility] Comment on above: Order Comment: Speci men Type: BLOOD SPECIMENOrdering Facility: [facility] Address: [address] [place] [address] Performed By: #### 5 7021-8 ####[facility] LABCLIA [id number] [place] [address] [place] Nucleated RBC/100 WBC (Bld) [Ratio] 0.0 /100 WBC Normal [facility] Comment on above: Order Comment: Speci men Type: BLOOD SPECIMENOrdering Facility: [facility] Address: [address] [place] [address] Performed By: #### 5 7021-8 ####[facility] LABIA [id number] [place] [address] [place] Platelet mean volume (Bld) [Entitic vol] 12.3 fL Normal 9.0-12.7 [facility] Comment on above: Order Comment: Speci men Type: BLOOD SPECIMENOrdering Facility: [facility] Address: [address] [place] [address] Performed By: #### 5 7021-8 ####[facility] LABIA [id number] [place] [address] [place] Platelets (Bld) [#/Vol] 231 10*3/uL Normal 150-400 [facility] Comment on above: Order Comment: Speci men Type: BLOOD SPECIMENOrdering Facility: [facility] Address: [address] [place] [address] Performed By: #### 5 7021-8 ####[facility] LABCLIA [id number] [place] [address] [place] RBC (Bld) [#/Vol] 4.68 10*6/uL Normal 3.90-5.20 [facility] Comment on above: Order Comment: Speci men Type: BLOOD SPECIMENOrdering Facility: [facility] Address: [address] [place] [address] Performed By: #### 5 7021-8 ####[facility] [id number] [place] [address] [place] WBC (Bld) [#/Vol] 11.18 10*3/uL High 3.70-11.00 [facility] Comment on above: Order Comment: Speci men Type: BLOOD SPECIMENOrdering Facility: [facility] Address: [address] [place] [address] Performed By: #### 5 7021-8 ####[facility] [id number] [place] [address] [facility] CNOVon 06-11-2024 CNOV Office Visit (INTMWS ) LATHA FERRARA I ([id number]) 1940 F [facility] Date Time Provider Department 06/11/24 9:00 AM CHELSEY MORA INTMWS During your visit today, we recorded the following information about you: Pulse Respiration Blood pressure Weight 42/minute 12/minute 118/74 73 kg Height 1.58 m Chelsey Mora, [employer].ENVIRONMENTAL HEALTH SANITARIAN 06/11/2024 9:40 AM Addendum We discussed your recent stroke and stroke prevention: - You are currently taking a daily baby aspirin, which is part of stroke prevention. - I recommend starting atorvastatin 10 mg daily to help reduce your risk of another stroke. This prescription has been sent to your pharmacy. - Stroke prevention also includes maintaining a healthy diet, staying active, and managing other risk factors like high blood pressure. We discussed your carotid ultrasound results: - Your carotid ultrasound showed less than 50% blockage, which is within acceptable limits. No further action is needed at this time. We discussed your rectal bleeding: - You mentioned occasional blood when wiping, which may be due to thinning tissue. - To help prevent this, ensure your bowel movements are soft by eating plenty of fiber and drinking adequate water. - If the bleeding worsens or becomes more frequent, I recommend seeing a general claims agent for further evaluation. We discussed your kidney ultrasound: - Your prior MRI showed kidney cyst that require follow-up. I have ordered a kidney ultrasound to be done in 6-12 months. You can schedule this at your convenience or closer to your next visit. - Your heart rate was slightly low at 42, but you are on metoprolol, which can lower heart rate. Let us know if you experience dizziness, lightheadedness, or shortness of breath. Please let us know if you have any new or worsening symptoms or additional concerns before your next visit. WHAT YOU CAN DO TO PREVENT FALLS [...] review all the medicines you take, even odxg-czy-malmqfj medicines. As you get older, the way [...] apply if you have certain medical conditions. Chelsey Mora, [employer].ENVIRONMENTAL HEALTH SANITARIAN 06/11/2024 10:01 AM Signed Latha Ferrara is a 84 year old female here for a Medicare wellness visit. Medicare Health Risk Assessment General Health Good Exercise: Minutes/Day 0 min Exercise: Days/Week 0 days Alcohol: Daily Use Never Alcohol: Drinks/Day Patient does not drink Alcohol: 6 or more drinks Never Feel off balance No Concerns: Teeth/Dentures No Concerns: Sexual function No Troubled by feelings Stressed Frequency: Eating healthy diet Nearly every day ADLs requiring help None of the above Safety precautions in home/vehicle Yes Smoke, vape, chews tobacco No Difficulty hearing No Difficulty seeing Yes Current Providers Specialists: I have reviewed specialist-related care of the patient in the medical record. Current care team: Patient Care Team: V (more content not included)... Normal [facility] Comprehensive metabolic 2000 panelon 06-11-2024 Albumin [Mass/Vol] 4.0 g/dL Normal 3.9-4.9 [facility] Comment on above: Order Comment: Speci men Type: BLOOD SPECIMENOrdering Facility: [facility] Address: [address] [place] [address] Performed By: #### 2 4331-1, 57961-3 ####[facility] LABCLIA [id number] [place] [address] [place] ALP [Catalytic activity/Vol] 106 U/L Normal 34-123 [facility] Comment on above: Order Comment: Speci men Type: BLOOD SPECIMENOrdering Facility: [facility] Address: [address] [place] [id number] Performed By: #### 2 4331-1, 80182-5 ####[facility] LABCLIA [id number] [address] [address] [place] ALT [Catalytic activity/Vol] 10 U/L Normal 7-38 [facility] Comment on above: Order Comment: Speci men Type: BLOOD SPECIMENOrdering Facility: [facility] Address: [address] [place] [address] Performed By: #### 2 4331-1, ####[facility] LABCLIA [id number] [place] [address] [place] Anion gap [Moles/Vol] 13 mmol/L Normal 8-15 [facility] Comment on above: Order Comment: Speci men Type: BLOOD SPECIMENOrdering Facility: [facility] Address: [address] [place] [address] Performed By: #### 2 4331-, ####[facility] LABCLIA [id number] [place] [address] [place] AST [Catalytic activity/Vol] 59 U/L High 13-35 [facility] Comment on above: Order Comment: Speci men Type: BLOOD SPECIMENOrdering Facility: [facility] Address: [address] [place], [place] [address] Performed By: #### 2 4331-, ####[facility] LABCLIA [id number] [address] [address] [place] Bilirubin [Mass/Vol] 0.4 mg/dL Normal 0.2-1.3 [facility] Comment on above: Order Comment: Speci men Type: BLOOD SPECIMENOrdering Facility: [facility] Address: [address] [place], [place] [address] Performed By: #### 2 4331-1, 09620-3 ####[facility] LABCLIA [id number] [facility] [address] [place] [address] [place] Calcium [Mass/Vol] 9.5 mg/dL Normal 8.5-10.2 [facility] Comment on above: Order Comment: Speci men Type: BLOOD SPECIMENOrdering Facility: [facility] Address: [address] [place] [address] Performed By: #### 2 4331-1, ####[facility] LABCLIA [id number] [facility] [address] [place] [address] [place] Chloride [Moles/Vol] 103 mmol/L Normal 98-107 [facility] Comment on above: Order Comment: Speci men Type: BLOOD SPECIMENOrdering Facility: [facility] Address: [address] [place] [address] Performed By: #### 2 4331-, ####[facility] LABCLIA [id number] [address] [place] [address] [place] CO2 [Moles/Vol] 22 mmol/L Normal 22-30 [facility] Comment on above: Order Comment: Speci men Type: BLOOD SPECIMENOrdering Facility: [facility] Address: [address] [place], [place] [address] Performed By: #### 2 4331-1, 51058-6 ####[facility] LABCLIA [id number] [address] [place] [address] [place] Creatinine [Mass/Vol] 0.95 mg/dL Normal 0.58-0.96 [facility] Comment on above: Order Comment: Speci men Type: BLOOD SPECIMENOrdering Facility: [facility] Address: [address] [place], [place] [address] Performed By: #### 2 4331-1, 36099-2 ####[facility] LABCLIA [id number] [address] [address] [place] Creatinine and Glomerular filtration rate.predicted panel (S/P/Bld) 60 mL/min/1.73m??? Normal >=60 [facility] Comment on above: Order Comment: Marcia fleming Type: BLOOD SPECIMENOrdering Facility: [facility] Address: [address] [place] [address] Result Comment: Deepa mated Glomerular Filtration Rate (eGFR) is calculated using the 2020 CKD-EPI creatinine equation. This equation utilizes serum creatinine, sex, and age as parameters. The creatinine assay has traceable calibration to isotope dilution-mass spectrometry. Refer to KDIGO guidelines for clinical interpretation. In patients with unstable renal function, e.g. those with acute kidney injury, the eGFR may not accurately reflect actual GFR. Performed By: #### 2 4331-1, 80097-5 ####[facility] LABCLIA [id number] [place] [address] [place] Glucose [Mass/Vol] 111 mg/dL High 74-99 [facility] Comment on above: Order Comment: Marcia fleming Type: BLOOD SPECIMENOrdering Facility: [facility] Address: [address] [place] [address] Result Comment: The [place] Diabetes Association (ADA) provides guidance for cutoff values for fasting glucose and random glucose. The ADA defines fasting as no caloric intake for at least 8 hours. Fasting plasma glucose results between 100 to 125 mg/dL indicate increased risk for diabetes (prediabetes). Fasting plasma glucose results greater than or equal to 126 mg/dL meet the criteria for diagnosis of diabetes. In the absence of unequivocal hyperglycemia, results should be confirmed by repeat testing. In a patient with classic symptoms of hyperglycemia or hyperglycemic crisis, random plasma glucose results greater than or equal to 200 mg/dL meet the criteria for diagnosis of diabetes. Reference: Standards of Medical Care in Diabetes 2016, [place] Diabetes Association. Diabetes Care. 2016.39(Suppl 1). Performed By: #### 2 4331-1, 17482-7 ####[facility] LABIA [id number] [place] [address] [place] Potassium [Moles/Vol] 4.6 mmol/L Normal 3.7-5.1 [facility] Comment on above: Order Comment: Speci men Type: BLOOD SPECIMENOrdering Facility: [facility] Address: [address] [place], [place] [address] Performed By: #### 2 4331-1, ####[facility] LABCLIA [id number] [address] [place] [address] [place] Protein [Mass/Vol] 7.5 g/dL Normal 6.3-8.0 [facility] Comment on above: Order Comment: Speci men Type: BLOOD SPECIMENOrdering Facility: [facility] Address: [address] [place], [place] [address] Performed By: #### 2 4331-1, ####[facility] LABCLIA [id number] [address] [address] [place] Sodium [Moles/Vol] 138 mmol/L Normal 136-144 [facility] Comment on above: Order Comment: Speci men Type: BLOOD SPECIMENOrdering Facility: [facility] Address: [address] [place], [place] [address] Performed By: #### 2 4331-1, ####[facility] LABCLIA [id number] [address] [address] [place] Urea nitrogen [Mass/Vol] 20 mg/dL Normal 7-21 [facility] Comment on above: Order Comment: Speci men Type: BLOOD SPECIMENOrdering Facility: [facility] Address: [address] [place], [place] [address] Performed By: #### 2 4331-1, ####[facility] LABCLIA [id number] [address] [address] [place] HbA1c (Bld)on 06-11-2024 Average glucose Estimated from glycated hemoglobin (Bld) [Mass/Vol] 123 mg/dL Normal [facility] Comment on above: Order Comment: Speci men Type: BLOOD SPECIMENOrdering Facility: [facility] Address: [address] [place] [address] Result Comment: eAG: (Estimated average glucose) is a calculated value from HgbA1c and is new accounts banking representative of the average blood glucose level in the last 2-3 month period. Performed By: #### 5 5454-3 ####[facility] LABCLIA [id number] [address] [place] [address] [place] HbA1c (Bld) [Mass fraction] 5.9 % High 4.3-5.6 [facility] Comment on above: Order Comment: Speci men Type: BLOOD SPECIMENOrdering Facility: [facility] Address: [address] [place] [address] Result Comment: Amer [place] Diabetes Association guidelines indicate that patients with HgbA1c in the range 5.7-6.4% are at increased risk for development of diabetes, and intervention by lifestyle modification may be beneficial. HgbA1c greater or equal to 6.5% is considered diagnostic of diabetes. Performed By: #### 5 5454-3 ####[facility] LABIA [id number] [address] [place] [address] [place] Lipid 1996 panelon 5 Cholesterol [Mass/Vol] 216 mg/dL High <200 [facility] Comment on above: Order Comment: Matteoi men Type: BLOOD SPECIMENOrdering Facility: [facility] Address: [address] [place] [address] Result Comment: <200 mg/dL, Desirable 200-239 mg/dL, Borderline high >239 mg/dL, High Performed By: #### 2 4331-1, 15623-5 ####[facility] LABIA [id number] [place] [address] [place] Cholesterol in HDL [Mass/Vol] 40 mg/dL Normal >39 [facility] Comment on above: Order Comment: Matteoi men Type: BLOOD SPECIMENOrdering Facility: [facility] Address: [address] [place] [address] Result Comment: 40-5 9 mg/dL, Acceptable >59 mg/dL, High: Negative risk factor for coronary heart disease <40 mg/dL, Low: Positive risk factor for coronary heart disease Performed By: #### 2 4331-1, 26522-2 ####[facility] LABCLIA [id number] [address] STATES OF [facility] Cholesterol in LDL [Mass/Vol] 141 mg/dL High <100 [facility] Comment on above: Order Comment: Speci men Type: BLOOD SPECIMENOrdering Facility: [facility] Address: [address] [place] [address] Result Comment: <100 mg/dL, Optimal 100-129 mg/dL, Near optimal/above optimal 130-159 mg/dL, Borderline high 160-189 mg/dL, High >189 mg/dL, Very high Secondary prevention optimal LDL Cholesterol levels are recommended to be < 70 mg/dL Performed By: #### 2 4331-1, 24460-9 ####[facility] LABIA [id number] [address] Cholesterol in LDL/Cholesterol in HDL [Mass ratio] 3.53 {ratio} High <2.54 [facility] Comment on above: Order Comment: Speci men Type: BLOOD SPECIMENOrdering Facility: [facility] Address: [address] [place] [address] Result Comment: Refe rence: 1. National Cholesterol Education Program ATP III Guideline At-A-Glance Quick Desk Reference: National Heart, Lung, and Blood Garrett. National Institutes of Health. 2001: NIH Publication No. 01-3305. 2. An International Atherosclerosis Society position paper: global recommendations for the management of dyslipidemia: executive summary, Atherosclerosis. 2014: 232(2):410-413. Performed By: #### 2 4331-1, 49687-4 ####[facility] LABIA [id number] [address] [place] Cholesterol in VLDL [Mass/Vol] 35 mg/dL High <30 [facility] Comment on above: Order Comment: Speci men Type: BLOOD SPECIMENOrdering Facility: [facility] Address: [address] [place] [address], [place] [address] Performed By: #### 2 4331-1, ####[facility] LABCLIA [id number] [facility] [address] [place] [address] [place] Cholesterol non HDL [Mass/Vol] 176 mg/dL High <130 [facility] Comment on above: Order Comment: Speci men Type: BLOOD SPECIMENOrdering Facility: [facility] Address: [address] [place], [place] [address] Result Comment: <130 mg/dL, Optimal 130-159 mg/dL, Near optimal/above optimal 160-189 mg/dL, Borderline high 190-219 mg/dL, High >219 mg/dL, Very high Secondary prevention optimal non HDL Cholesterol levels are recommended to be <100 mg/dL Performed By: #### 2 4331-1, ####[facility] LABCLIA [id number] [address] [place] [address] [place] Cholesterol.total/Chol esterol in HDL [Mass ratio] 5.40 {ratio} High <5.10 [facility] Comment on above: Order Comment: Speci men Type: BLOOD SPECIMENOrdering Facility: [facility] Address: [address] [place], [place] [address] Performed By: #### 2 4331-1, ####[facility] LABCLIA [id number] [facility] [address] [place] [address] [place] FASTING TIME 13 hrs Normal [facility] Comment on above: Order Comment: Speci men Type: BLOOD SPECIMENOrdering Facility: [facility] Address: [address] [place] [address] Performed By: #### 2 4331-1, ####[facility] LABCLIA [id number] [facility] [address] [place] [address] [place] Triglyceride [Mass/Vol] 175 mg/dL High <150 [facility] Comment on above: Order Comment: Speci men Type: BLOOD SPECIMENOrdering Facility: [facility] Address: [address] [place] [address] Result Comment: <150 mg/dL, Normal 150-199 mg/dL, Borderline high 200-499 mg/dL, High >499 mg/dL, Very high Performed By: #### 2 4331-1, 84919-9 ####[facility] LABCLIA [id number] [facility] [address] [place] [facility] Carotid Duplex Ultrasoundon 06-05-2024 Carotid Duplex Ultrasound [facility] [address] [place] [address] Carotid Duplex Ultrasound 06/05/24 1337 MR#: [id number] Acct: [id number] Name: LATHA FERRARA I Rep #: [id number] : 1940 84 From: Compa Rico MD Attending Dr: Dr. Maximo Meadows MD Status: REG CLI Ordering Dr: Maximo Meadows MD Date: 06/05/24 Location: [facility] Sex: F C Admitted: Reason For Study Reason For Study: Diplopia Rt. Velocities/BP Lt. Velocities/BP Prox CCA 57/9.9 cm/sec. Prox CCA 62.8/10.9 cm/sec. Mid CCA 57/11.6 cm/sec. Mid CCA 65.7/13.7 cm/sec. Dist CCA 52.6/9.9 cm/sec. Dist CCA 60.7/10.9 cm/sec. Prox ICA 78.4/11.3 cm/sec. Prox ICA 62.6/17.3 cm/sec. Mid ICA 64.1/11.3 cm/sec. Mid ICA 98.1/21.2 cm/sec. Dist ICA 60.5/10.7 cm/sec. Dist ICA 82.8/19 cm/sec. Rt. ICA/CCA = 1.38. Lt. ICA/CCA = 1.49. Prox ECA 118.2/7.7 cm/sec. Prox ECA 88.3/9.1 cm/sec. Rt. Vert. 40.8/8 cm/sec. Lt. Vert. 44.7/12.6 cm/sec. Right Extracranial There is intimal thickening but no significant atherosclerotic plaque noted in the right common carotid artery. There is heterogeneous, irregular atherosclerotic plaque noted in the right internal carotid artery. There is heterogeneous, irregular atherosclerotic plaque noted in the right external carotid artery. Antegrade flow is noted in the right vertebral artery. Left Extracranial There is homogeneous, smooth atherosclerotic plaque noted in the left common carotid artery. There is heterogeneous, irregular atherosclerotic plaque noted in the left internal carotid artery. There is heterogeneous, irregular atherosclerotic plaque noted in the left external carotid artery. Antegrade flow is noted in the left vertebral artery. Procedure Carotid Duplex 24853. This is a Carotid Duplex examination using B-mode, color flow and specral Doppler. Exam performed in department. VL/Carotid Duplex Ultrasound Interpretation Summary Mild (<50%) stenosis right extracranial internal carotid. Mild (<50%) stenosis left extracranial internal carotid. Patent and antegrade vertebrals bilaterally. Ordering Physician: Maximo Meadows Referring Physician: Romulo Awan M.D. Performed By: Chapis Oliver Ezequiel 06/05/241704 Date Compa Rico MD CC: Dr. Maximo Meadows MD; Dr. Romulo Awan MD Date Dictated: 06/05/241336 Date Transcribed: 06/05/241704 Professional Bondsman: Signed Normal [facility] Duplex ultrasound of carotid artery reportOrdered By: Compa Rico on 06-05-2024 Study report [facility] [address] [place] [address] Carotid Duplex Ultrasound 06/05/241336 MR#: [id number] Acct: [id number] Name: LATHA FERRARA I Rep #:[id number] : 1940 84 From: Compa Nieves Attending Dr: Dr. Maximo Meadows MD Status: REG CLI Ordering Dr: Maximo Meadows MD Date: Location: [facility] Sex: F C Admitted: Reason For Study Reason For Study: Diplopia Rt. Velocities/BP Lt. Velocities/BP Prox CCA 57/9.9 cm/sec. Prox CCA 62.8/10.9 cm/sec. Mid CCA 57/11.6 cm/sec. Mid CCA 65.7/13.7 cm/sec. Dist CCA 52.6/9.9 cm/sec. Dist CCA 60.7/10.9 cm/sec. Prox ICA 78.4/11.3 cm/sec. Prox ICA 62.6/17.3 cm/sec. Mid ICA 64.1/11.3 cm/sec. Mid ICA 98.1/21.2 cm/sec. Dist ICA 60.5/10.7 cm/sec. Dist ICA 82.8/19 cm/sec. Rt. ICA/CCA = 1.38. Lt. ICA/CCA = 1.49. Prox ECA 118.2/7.7 cm/sec. Prox ECA 88.3/9.1 cm/sec. Rt. Vert. 40.8/8 cm/sec. Lt. Vert. 44.7/12.6 cm/sec. Right Extracranial There is intimal thickening but no significant atherosclerotic plaque noted in the right common carotid artery. There is heterogeneous, irregular atherosclerotic plaque noted in the right internal carotid artery. There is heterogeneous, irregular atherosclerotic plaque noted in the right external carotid artery. Antegrade flow is noted in the right vertebral artery. Left Extracranial There is homogeneous, smooth atherosclerotic plaque noted in the left common carotid artery. There is heterogeneous, irregular atherosclerotic plaque noted in the left internal carotid artery. There is heterogeneous, irregular atherosclerotic plaque noted in the left external carotid artery. Antegrade flowis noted in the left vertebral artery. Procedure Carotid Duplex 94646. This is a Carotid Duplex examination using B-mode, color flow and specral Doppler. Exam performed in department. VL/Carotid Duplex Ultrasound Interpretation Summary Mild (<50%) stenosis right extracranial internal carotid. Mild (<50%) stenosis left extracranial internal carotid. Patent and antegrade vertebrals bilaterally. Ordering Physician: Maximo Meadows Referring Physician: Romulo Awan M.D. Performed By: Chapis Oliver RVT 06/05/241704 Date _ Compa Rico MD CC: Dr. Maximo Meadows MD; Dr. Romulo Awan MD ~ Date Dictated: 06/05/24 1337 Date Transcribed: 06/05/241704 Professional Bondsman: Signed [facility] Work Phone: Brain W/WO Contraston 2024 Brain W/WO Contrast [facility] [address] [place] [address] Brain W/WO Contrast MR#: [id number] Acct: [id number] Name: LATHA FERRARA I Rep #: [id number] : 1940 F 84 From: Victoriano Peñaloza MD PCP: Dr. Romulo Awan MD Status: REG CLI Study: Brain W/WO Contrast Date of Exam: 05/24/24 Exam# [id number] Ordering Dr: Maximo Meadows MD PROCEDURE: BRAIN W/WO CONTRAST (MRIBRWW), 05/24/2024 REASON FOR EXAM: NEW NYSTAGMUS DIPLOPIA COMPARISON: None TECHNIQUE: Multisequence multiplanar MRI brain was performed with and without intravenous contrast. IV contrast: 15 mL Clariscan. 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 No mass or appreciable intracranial hemorrhage. Advanced patchy supratentorial white matter and deep blankenship matter signal abnormalities, nonspecific but compatible with chronic microvascular ischemic changes. Mild/moderate cerebral atrophy. Prominent basal ganglia likely perivascular spaces. Cerebellum: Unremarkable. Brainstem: No evidence of acute infarct. Punctate lacunar infarct versus prominent perivascular space within the RIGHT janay. Ventricles/extra-axia l spaces: Mildly prominent, proportionate to the degree of volume loss. Major flow voids: Grossly unremarkable within limits of nondedicated technique. Paranasal sinuses: LEFT mastoidectomy. Moderate mucosal thickening in the RIGHT sphenoid sinus. Mild mucosal thickening in the LEFT sphenoid sinus. Patchy opacification and moderate mucosal thickening in the ethmoid air cells and GKDH-pyokpki-pqes-RIG HT frontal recesses. Trace to mild mucosal thickening along the inferior maxillary sinuses. Scalp/calvarium: Unremarkable. Orbits: Bilateral cataract surgery. Other: No abnormal enhancement. Rightward nasal septal deviation. MRI/Brain W/WO Contrast IMPRESSION: 1. 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 2. RIGHT sphenoid and ethmoid predominant paranasal sinus disease. 3. Additional description as above. Findings in #1 were discussed by telephone with Dori SEBASTIAN at 8:47 am [facility] on 05/24/2024. Reading Location: [facility] CC: Dr. Maximo Meadows MD; Dr. Romulo Awan MD Professional Bondsman: Signed Normal [facility] Magnetic resonance imaging r eportOrdered By: Victoriano Peñaloza on 05-24-2024 Study report [facility] [address] [place], [place] [address] Brain W/WO Contrast MR#: [id number] Acct: [id number] Name: LATHA FERRARA I Rep #: [id number] : 1940 F 84 From: Radha Peñaloza MD PCP: Dr. Romulo Awan MD Status: R EG CLI Study:Brain W/WO Contrast Date of Exam: 05/24/24 Exam# [id number] Ordering Dr: Nahomy Meadows MD PROCEDURE: BRAIN W/WO CONTRAST (MRIBRWW), 05/24/2024 REASON FOR EXAM: NEW NYSTAGMUS DIPLOPIA COMPARISON: None TECHNIQUE: Multisequence multiplanar MRI brain was performed with and without intravenous contrast. IV contrast: 15 mL Clariscan. 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 No mass or appreciable intracranial hemorrhage. Advanced patchy supratentorial white matter and deep blankenship matter signal abnormalities, nonspecific but compatible with chronic microvascular ischemic changes. Mild/moderate cerebral atrophy. Prominent basal ganglia likely perivascular spaces. Cerebellum: Unremarkable. Brainstem: No evidence of acute infarct. Punctate lacunar infarct versus prominent perivascular space within the RIGHT janay. Ventricles/extra-axia l spaces: Mildly prominent, proportionate to the degree of volume loss. Major flow voids: Grossly unremarkable within limits of nondedicated technique. Paranasal sinuses: LEFT mastoidectomy. Moderate mucosal thickening in the RIGHTsphenoid sinus. Mild mucosal thickening in the LEFT sphenoid sinus. Patchy opacification and moderate mucosal thickening in the ethmoid air cells and UJNB-qqbchoh-trxb-RIG HT frontal recesses. Trace to mild mucosal thickening along the inferior maxillarysinuses. Scalp/calvarium: Unremarkable. Orbits: Bilateral cataract surgery. Other: No abnormal enhancement. Rightward nasal septal deviation. MRI/Brain W/WO Contrast IMPRESSION: 1. 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 2. RIGHT sphenoid and ethmoid predominant paranasal sinus disease. 3. Additional description as above. Findings in #1 were discussed by telephone with Dori SEBASTIAN at 8:47 am [facility] on 05/24/2024. Reading Location: [id number] CC: Dr. Maximo Meadows MD; Dr. Romulo Awan MD ~ Professional Bondsman: Signed [facility] MRI KIDNEY WO/W IVCONon MRI KIDNEY WO/W IVCON * * *Final Report* * * DATE OF EXAM: Apr 10 2024 8:55AM [facility] 0721 - MRI KIDNEY WO/W IVCON / PROCEDURE REASON: multiple diagnoses * * * * Physician Interpretation * * * * EXAMINATION: MRI ABDOMEN WITHOUT AND WITH IV CONTRAST CLINICAL HISTORY: Complex right renal cyst TECHNIQUE: Pulse sequences included: axial precontrast T1 weighted in- and qgl-xx-aaoxt, axial and coronal HASTE, axial DWI with creation of ADC map; axial and coronal T1-VIBE before and after the administration of intravenous gadolinium chelate. Multiple post processing techniques were performed. MQ: MRKid_1 Contrast: IV administration of 7.5 ml of Elucirem COMPARISON: CT scans of 04/02/2024. RESULT: Kidneys, adrenals and ureters: Right kidney: 3.8 x 3.1 x 3.7 cm right renal cyst containing thin enhancing septation is seen. No solid component, wall thickening or enhancing/mural nodule. Additional Bosniak 1 cyst ,of 1.4 cm Right renal vasculature - Arterial: single. No early branch (< 1cm). - Venous: single. Right ureter: Single ureter. No hydronephrosis. Right adrenal: Normal, no nodules or thickening Left kidney: No mass. Left renal vasculature - Arterial: single. No early branch (< 1cm). - Venous: conventional, anterior to the aorta. Left ureter: Single ureter. No hydronephrosis. Left adrenal: Normal, no nodules or thickening Retroperitoneal lymphadenopathy and IV involvement: None Abdomen: Liver: Normal morphology. No hepatic steatosis. No mass. Biliary: No bile duct dilation. Gallbladder is unremarkable Spleen: No mass. No splenomegaly. Pancreas: No mass or duct dilation. GI tract: No dilation or wall thickening. Small gastric diverticulum Lymph nodes (other): No abdominal or pelvic lymphadenopathy. Mesentery/Peritoneum: No ascites or mass. Retroperitoneum: No mass. Vasculature: The celiac axis and SMA are patent. The portal vein and branches, splenic vein, SMV, and hepatic veins are patent. The aorta is normal in caliber Bones/Soft Tissues: No significant finding. Lower thorax: Unremarkable. IMPRESSION: Bosniak 2F right renal cyst. Follow-up sonographically in 6-12 months recommended. No suspicious or enhancing renal lesion. No adenopathy or ascites Professional Bondsman: MILLI Transcribe Date/Time: Apr 11 2024 10:27A Dictated by : JAYNA HERNANDEZ MD This examination was interpreted and the report reviewed and electronically signed by: JAYNA HERANNDEZ MD on Apr 11 2024 10:38AM EST [id number] Normal [facility] Urinalysis complete panel (U )on 04-10-2024 BACTERIA UL 4641.5 uL High Negative [facility] Comment on above: Order Comment: Speci men Type: URINE SPECIMENOrdering Facility: [facility] Address: [address] [place] [address] Performed By: #### 2 4356-8 ####[facility] LABCLIA [id number] [place] [address] [place] Bilirubin Ql (U) Negative Normal Negative [facility] Comment on above: Order Comment: Speci men Type: URINE SPECIMENOrdering Facility: [facility] Address: [address] [place] [address] Performed By: #### 2 4356-8 ####[facility] LABCLIA [id number] [place] [address] [place] Clarity (Unsp spec) Clear Normal Clear [facility] Comment on above: Order Comment: Speci men Type: URINE SPECIMENOrdering Facility: [facility] Address: [address] [place] [address] Performed By: #### 2 4356-8 ####[facility] LABCLIA [id number] [place] [address] [place] Color (U) Yellow Normal Yellow [facility] Comment on above: Order Comment: Speci men Type: URINE SPECIMENOrdering Facility: [facility] Address: [address] [place] [address] Performed By: #### 2 4356-8 ####[facility] LABCLIA [id number] [place] [address] [place] Epithelial cells LM.HPF (Urine sed) [#/Area] None Seen Normal [facility] Comment on above: Order Comment: Speci men Type: URINE SPECIMENOrdering Facility: [facility] Address: [address] [place] [address] Performed By: #### 2 4356-8 ####[facility] LABCLIA [id number] [place] [address] [place] Glucose Test strip (U) [Mass/Vol] Negative Normal Negative [facility] Comment on above: Order Comment: Speci men Type: URINE SPECIMENOrdering Facility: [facility] Address: [address] [place] [address] Performed By: #### 2 4356-8 ####[facility] LABCLIA [id number] [place] [address] [place] Hemoglobin Ql (U) 2+ Abnormal Negative [facility] Comment on above: Order Comment: Speci men Type: URINE SPECIMENOrdering Facility: [facility] Address: [address] [place] [address] Performed By: #### 2 4356-8 ####[facility] LABCLIA [id number] [place] [address] [place] Hyaline casts (Urine sed) [#/Area] 1-3 /LPF Abnormal 0 /LPF [facility] Comment on above: Order Comment: Speci men Type: URINE SPECIMENOrdering Facility: [facility] Address: [address] [place] [address] Performed By: #### 2 4356-8 ####[facility] LABCLIA [id number] [place] [address] [place] Ketones Ql (U) Negative Normal Negative [facility] Comment on above: Order Comment: Speci men Type: URINE SPECIMENOrdering Facility: [facility] Address: [address] [place] [address] Performed By: #### 2 4356-8 ####[facility] LABCLIA [id number] [place] [address] [place] Leukocyte esterase Test strip Ql (U) 1+ Abnormal Negative [facility] Comment on above: Order Comment: Speci men Type: URINE SPECIMENOrdering Facility: [facility] Address: [address] [place] [address] Performed By: #### 2 4356-8 ####[facility] LABCLIA [id number] [place] [address] [place] Nitrite Ql (U) Negative Normal Negative [facility] Comment on above: Order Comment: Speci men Type: URINE SPECIMENOrdering Facility: [facility] Address: [address] [place] [address] Performed By: #### 2 4356-8 ####[facility] LABIA [id number] [place] [address] [place] pH (U) 5.5 [pH] Normal <8.5 [facility] Comment on above: Order Comment: Speci men Type: URINE SPECIMENOrdering Facility: [facility] Address: [address] [place] [address] Performed By: #### 2 4356-8 ####[facility] LABIA [id number] [place] [address] [place] Protein (U) [Mass/Vol] Negative Normal Negative [facility] Comment on above: Order Comment: Speci men Type: URINE SPECIMENOrdering Facility: [facility] Address: [address] [place] [address] Performed By: #### 2 4356-8 ####[facility] LABIA [id number] [place] [address] [place] RBC LM.HPF (Urine sed) [#/Area] 0-2 /HPF Normal 0-2 /HPF [facility] Comment on above: Order Comment: Speci men Type: URINE SPECIMENOrdering Facility: [facility] Address: [address] [place] [address] Performed By: #### 2 4356-8 ####[facility] LABIA [id number] [place] [address] [place] Specific gravity (U) [Rel density] 1.013 Normal 1.005-1.030 [facility] Comment on above: Order Comment: Speci men Type: URINE SPECIMENOrdering Facility: [facility] Address: [address] [place] [address] Performed By: #### 2 4356-8 ####[facility] LABIA [id number] [place] [address] [place] Urobilinogen Ql (U) 0.2 EU/dL Normal 0.2-1.0 EU/dL [facility] Comment on above: Order Comment: Speci men Type: URINE SPECIMENOrdering Facility: [facility] Address: [address] [place] [address] Performed By: #### 2 4356-8 ####[facility] LABIA [id number] [place] [address] [place] WBC LM.HPF (Urine sed) [#/Area] 6-10 /HPF Abnormal 0-5 /HPF [facility] Comment on above: Order Comment: Speci men Type: URINE SPECIMENOrdering Facility: [facility] Address: [address] [place] [address] Performed By: #### 2 4356-8 ####[facility] [id number] [place] [address] [place] CNPGloria 04-09-2024 [facility] Telephone (INTWS) LATHA FERRARA I ([id number]) 1940 F [facility] Date Time Provider Department 04/09/24 CHELSEY MORAWS During your visit today, we recorded the following information about you: Kim Gonzalez LPN 04/09/2024 8:39 AM Signed ----- Message from Chelsey Mora APRN.ENVIR[employer] HEALTH SANITARIAN sent at 04/09/2024 8:28 AM EST ----- Please let the patient know the urine culture showed mixed bacteria which typically indicates contamination during collection. I have ordered another urine test, she can have done tomorrow when she is here for the MRI Chelsey Mora APRN.Kim De La Rosa LPN 04/09/2024 8:41 AM Signed Latha notified of below results/recommendatio n, will repeat tomorrow. Kim Gonzalez LPN Allergies As of Date: 04/09/2024 Noted Allergy Reaction PLENDIL (FELODIPINE) 01/17/2005 2 - Rash 12 - Shortness of Breath CARDIZEM (DILTIAZEM HCL) 07/23/2010 14 - Other: See Comments Comments: heart racing DEMEROL (MEPERIDINE (PF)) 10/14/2016 14 - Other: See Comments Comments: received 100mg for last colonoscopy and would not wake up- needed to use Narcan HYDROCHLOROTHIAZIDE 02/06/2019 16 - Unknown LANOLIN 01/17/2005 Comments: topical LATEX 01/17/2005 NEOMYCIN 02/17/2021 14 - Other: See Comments NEOSPORIN (NEOMYCIN-BACITRACIN- PO*01/17/2005 THIMEROSAL 12/03/2009 14 - Other: See Comments Comments: Pt. was tested in Allergy and had a reaction (rash) from skin test. Date Reviewed: 04/02/2024 Reviewed by: Meeta Wood, RT(R) - Fully Assessed Reason for Visit: Results [95] Prescriptions as of 04/09/2024 - terazosin (HYTRIN) 2 mg capsule Take 1 capsule by mouth daily at bedtime. - fluticasone furoate (ARNUITY ELLIPTA) 100 mcg/actuation inhaler Inhale 1 Puff as instructed once daily. - metoprolol succinate ER (TOPROL XL) 25 mg 24 hr tablet Take 1 tablet by mouth once daily. - traMADol (ULTRAM) 50 mg tablet Take 50 mg by mouth three times daily as needed. - benazepril (LOTENSIN) 20 mg tablet Take 2 tablets by mouth once daily. - omeprazole (PRILOSEC) 20 mg capsule Take 20 mg by mouth once daily. - amLODIPine (NORVASC) 10 mg tablet Take 10 mg by mouth once daily. - BENEFIBER, WHEAT DEXTRIN, ORAL Take by mouth. - potassium chloride SR (MICRO-K) 10 mEq CR capsule Take 10 mEq by mouth once daily. - OTEZLA 30 mg tablet Take 1 tablet by mouth twice daily. Per Dr. Mejia - VIT A/C/E AC/ZNOX/CUPRIC OXIDE (EYE VITAMIN AND MINERALS ORAL) Take 1 tablet by mouth twice daily. 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/2010 07/06/2015 Mild intermittent asthma without complication [*12/23/2014 Essential hypertension with goal blood pressure*07/06/2015 BMI 30.0-30.9,adult [Z68.30] 07/06/2015 Primary atypical carcinoid tumor of right lung *07/06/2015 12/15/2016 Primary osteoarthritis involving multiple joint*12/09/2015 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] 12/09/2015 Lymphocytic colitis [K52.832] 11/30/2020 Chronic kidney insufficiency, stage 2 (mild) [N*12/02/2021 Dupuytren's contracture of left hand [M72.0] 12/02/2021 Encounter Status:Closed by KIM GONZALEZ on 04/09/24 Normal [facility] Bacteria Ur Culton 5 Bacteria identified Cx Nom (U) ORGANISM ID: 1 >=100,000 CFU/ml Mixed microbiota No further workup. Mixed microbiota can be due to???urine???contamin ation with skin bacteria at time of collection or presence of a long-term urinary catheter. If a new culture is needed, please consider re-education of the patient on proper midstream co llection technique or straight catheterization for???urine???collect ion. Normal [facility] Comment on above: Performed By: #### 6 30-4, 13123-7 ####[facility] LABCLIA [id number] [place] [address] [place] Urinalysis complete panel (U )on 04-05-2024 BACTERIA UL 2706.2 uL High Negative [facility] Comment on above: Order Comment: Speci men Type: URINE SPECIMENOrdering Facility: [facility] Address: [address] [place] [address] Performed By: #### 6 30-4, 44635-3 ####[facility] LABCLIA [id number] [place] [address] [place] Bilirubin Ql (U) Negative Normal Negative [facility] Comment on above: Order Comment: Speci men Type: URINE SPECIMENOrdering Facility: [facility] Address: [address] [place] [address] Performed By: #### 6 30-4, 75707-1 ####[facility] LABCLIA [id number] [place] [address] [place] Clarity (Unsp spec) Clear Normal Clear [facility] Comment on above: Order Comment: Speci men Type: URINE SPECIMENOrdering Facility: [facility] Address: [address] [place] [address] Performed By: #### 6 30-4, 25702-0 ####[facility] LABCLIA [id number] [place] [address] [place] Color (U) Yellow Normal Yellow [facility] Comment on above: Order Comment: Speci men Type: URINE SPECIMENOrdering Facility: [facility] Address: [address] [place] [address] Performed By: #### 6 30-4, 52657-3 ####[facility] LABCLIA [id number] [address] [place] Epithelial cells LM.HPF (Urine sed) [#/Area] Few Normal [facility] Comment on above: Order Comment: Speci men Type: URINE SPECIMENOrdering Facility: [facility] Address: [address] [place] [address] Performed By: #### 6 30-4, 79663-5 ####[facility] LABCLIA [id number] [place] [address] [place] Glucose Test strip (U) [Mass/Vol] Negative Normal Negative [facility] Comment on above: Order Comment: Speci men Type: URINE SPECIMENOrdering Facility: [facility] Address: [address] [place] [address] Performed By: #### 6 30-4, 98997-1 ####[facility] LABCLIA [id number] [place] [address] [place] Hemoglobin Ql (U) Negative Normal Negative [facility] Comment on above: Order Comment: Speci men Type: URINE SPECIMENOrdering Facility: [facility] Address: [address] [place] [address] Performed By: #### 6 30-4, 98002-9 ####[facility] LABCLIA [id number] [place] [address] [place] Hyaline casts (Urine sed) [#/Area] 0 /[LPF] Normal 0 /LPF [facility] Comment on above: Order Comment: Speci men Type: URINE SPECIMENOrdering Facility: [facility] Address: [address] [place] [address] Performed By: #### 6 30-4, 00400-4 ####[facility] LABCLIA [id number] [place] [address] [place] Ketones Ql (U) Negative Normal Negative [facility] Comment on above: Order Comment: Speci men Type: URINE SPECIMENOrdering Facility: [facility] Address: [facility] [place] [address] Performed By: #### 6 30-4, 79737-7 ####[facility] LABCLIA [id number] [place] [address] [place] Leukocyte esterase Test strip Ql (U) 2+ Abnormal Negative [facility] Comment on above: Order Comment: Speci men Type: URINE SPECIMENOrdering Facility: [facility] Address: [address] [place] [address] Performed By: #### 6 30-4, 46153-2 ####[facility] LABCLIA [id number] [place] [address] [place] Nitrite Ql (U) Negative Normal Negative [facility] Comment on above: Order Comment: Speci men Type: URINE SPECIMENOrdering Facility: [facility] Address: [address] [place] [address] Performed By: #### 6 30-4, 70081-1 ####[facility] LABCLIA [id number] [place] [address] [place] pH (U) 5.5 [pH] Normal <8.5 [facility] Comment on above: Order Comment: Speci men Type: URINE SPECIMENOrdering Facility: [facility] Address: [address] [place] [address] Performed By: #### 6 30-4, 94267-9 ####[facility] LABCLIA [id number] [place] [address] [place] Protein (U) [Mass/Vol] Negative Normal Negative [facility] Comment on above: Order Comment: Speci men Type: URINE SPECIMENOrdering Facility: [facility] Address: [address] [place] [address] Performed By: #### 6 30-4, 77888-9 ####[facility] LABIA [id number] [place] [address] [place] RBC LM.HPF (Urine sed) [#/Area] 0-2 /HPF Normal 0-2 /HPF [facility] Comment on above: Order Comment: Speci men Type: URINE SPECIMENOrdering Facility: [facility] Address: [address] [place] [address] Performed By: #### 6 30-4, 36671-0 ####[facility] [id number] [place] [address] [place] Specific gravity (U) [Rel density] 1.012 Normal 1.005-1.030 [facility] Comment on above: Order Comment: Speci men Type: URINE SPECIMENOrdering Facility: [facility] Address: [address] [place] [address] Performed By: #### 6 30-4, 68437-0 ####[facility] [id number] [place] [address] [place] Urobilinogen Ql (U) 0.2 EU/dL Normal 0.2-1.0 EU/dL [facility] Comment on above: Order Comment: Speci men Type: URINE SPECIMENOrdering Facility: [facility] Address: [address] [place] [address] Performed By: #### 6 30-4, 24220-5 ####[facility] [id number] [place] [address] [place] WBC LM.HPF (Urine sed) [#/Area] 11-20 /HPF Abnormal 0-5 /HPF [facility] Comment on above: Order Comment: Speci men Type: URINE SPECIMENOrdering Facility: [facility] Address: [address] [place] [address] Performed By: #### 6 30-4, 36319-3 ####[facility] LABIA [id number] [address] [place] [address] [place] CNCOon 04-03-2024 CNCO Letter Text Normal [facility] CNPNon 04-03-2024 MAHAD Telephone (INTMWS) LATHA FERRARA I ([id number]) 1940 F [facility] Date Time Provider Department 04/03/24 CHELSEY MORA During your visit today, we recorded the following information about you: Kim Gonzalez LPN 04/03/2024 8:56 AM Signed ----- Message from Chelsey Mora APRN.ENVIRONMENTAL HEALTH SANITARIAN sent at 04/03/2024 8:39 AM EST ----- Please let the patient know the CT of the abdomen was negative for diverticulitis or other issues in the GI tract. However there were a couple incidental findings that are not the cause of her symptoms. There was a cyst on the right kidney that needs further evaluation with MRI. Findings of the bladder indicate possible urinary tract infection. She will need to have urinalysis to evaluate further. Has she had any further episodes of bleeding? Chelsey Mora APRN.Kim De La Rosa LPN 04/03/2024 9:13 AM Signed Patient notified of below results/recommendatio ns. Latha has not had any more episodes of bleeding. Please order urinalysis AND MRI, Patient will come in to lab. Let Patient know PSS will be contacting her to schedule MRI. Giovanna Ware LPN 04/03/2024 11:04 AM Signed Spoke with patient and scheduled MRI. Giovanna Chan Allergies As of Date: 04/03/2024 Noted Allergy Reaction PLENDIL (FELODIPINE) 01/17/2005 2 - Rash 12 - Shortness of Breath CARDIZEM (DILTIAZEM HCL) 07/23/2010 14 - Other: See Comments Comments: heart racing DEMEROL (MEPERIDINE (PF)) 10/14/2016 14 - Other: See Comments Comments: received 100mg for last colonoscopy and would not wake up- needed to use Narcan HYDROCHLOROTHIAZIDE 02/06/2019 16 - Unknown LANOLIN 01/17/2005 Comments: topical LATEX 01/17/2005 NEOMYCIN 02/17/2021 14 - Other: See Comments NEOSPORIN (NEOMYCIN-BACITRACIN- PO*01/17/2005 THIMEROSAL 12/03/2009 14 - Other: See Comments Comments: Pt. was tested in Allergy and had a reaction (rash) from skin test. Date Reviewed: 04/02/2024 Reviewed by: Meeta Wood RT(R) - Fully Assessed Reason for Visit: Results [95] Primary Visit Diagnosis:Left lower quadrant abdominal pain [R10.32] Other Visit Diagnoses:Renal cyst [N28.1] Acquired cyst of kidney [N28.1] Order(s):URINALYSIS (WITH MICROSCOPIC) WITH CULTURE IF INDICATED [SQUACII] Order #: [id number] FUTURE MRI KIDNEY WO/W IVCON [[id number]] Order #: [id number] FUTURE iv contrast (will be provided with radiology test)MRI Kidney Inject, intravenously, once for 1 dose. No IV access, insert saline lock prior to the beginning of sedation, infusion, injection of imaging exam. Discontinue saline lock post exam. If Pt. has a central line or IVAD, may access for administration according to line specific nursing protocol. Once exam is complete flush line and de-access according to line specific nursing protocol in the MR contrast administration guidelines link.Disp: 1 EachRfl: 0 Prescriptions as of 04/03/2024 - iv contrast (will be provided with radiology test) MRI Kidney Inject, intravenously, once for 1 dose. No IV access, insert saline lock prior to the beginning of sedation, infusion, injection of imaging exam. Discontinue saline lock post exam. If Pt. has a central line or IVAD, may access for administration according to line specific nursing protocol. Once exam is complete flush line and de-access according to line specific nursing protocol in the MR contrast administration guidelines link. - terazosin (HYTRIN) 2 mg capsule Take 1 capsule by mouth daily at bedtime. - enteric contrast (will be provided with radiology test) For CT ABD/PEL W IVCON Routine order Administer, As Directed One Time Only, via Oral, Rectal, both Oral and Rectal, Enteric Tube, Stoma or Indwelling Catheter, Enteric Contrast as designated per enteric contrast guidelines - fluticasone furoate (ARNUITY ELLIPTA) 100 mcg/actuation inhaler Inhale 1 Puff as instructed once daily. - metoprolol succinate ER (TOPROL XL) 25 mg 24 hr tablet Take 1 tablet by mouth once daily. - traMADol (ULTRAM) 50 mg tablet Take 50 mg by mouth three times daily as needed. - benazepril (LOTENSIN) 20 mg tablet Take 2 tablets by mouth once daily. - omeprazole (PRILOSEC) 20 mg capsule Take 20 mg by mouth once daily. - amLODIPine (NORVASC) 10 mg tablet Take 10 mg by mouth once daily. - BENEFIBER, WHEAT DEXTRIN, ORAL Take by mouth. - potassium chloride SR (MICRO-K) 10 mEq CR capsule Take 10 mEq by mouth once daily. - OTEZLA 30 mg tablet Take 1 tablet by mouth twice daily. Per Dr. Mejia - VIT A/C/E AC/ZNOX/CUPRIC OXIDE (EYE VITAMIN AND MINERALS ORAL) Take 1 tablet by mouth twice daily. Problem List As Of Date 04/03/2024 Noted Resolved Essential hypertension [I10] 07/06/2015 Hyperlipidemia [E78.5] 07/06/2015 Asthma [J45.909] 07/06/2015 Hemorrhage of rectum and anus [K62.5] 12/09/2015 RHINITIS CHRONIC [J31.0] 04/04/2008 N (more content not included)... Normal [facility] CBC panel Auto (Bld)on 04-02 Erythrocyte distribution width (RBC) [Ratio] 13.9 % 11.5 - 15.0 % [facility] Hematocrit (Bld) [Volume fraction] 41.2 % 36.0 - 46.0 % [facility] Hemoglobin (Bld) [Mass/Vol] 13.4 g/dL 11.5 - 15.5 g/dL [facility] Interpretation and review of laboratory results Abnormal [facility] MCH (RBC) [Entitic mass] 29.3 pg 26.0 - 34.0 pg [facility] MCHC (RBC) [Mass/Vol] 32.5 g/dL 30.5 - 36.0 g/dL [facility] MCV (RBC) [Entitic vol] 90.2 fL 80.0 - 100.0 fL [facility] Nucleated RBC (Bld) [#/Vol] NINF [facility] Platelet mean volume (Bld) [Entitic vol] 11.6 fL 9.0 - 12.7 fL [facility] Platelets (Bld) [#/Vol] 244 10*3/uL [facility] RBC (Bld) [#/Vol] 4.57 10*6/uL 3.90 - 5.2 0 m/uL [facility] WBC (Bld) [#/Vol] 15.17 10*3/uL High [facility] Erythrocyte distribution width (RBC) [Ratio] 13.9 % Normal 11.5-15.0 [facility] Comment on above: Order Comment: Speci men Type: BLOOD SPECIMENOrdering Facility: [facility] Address: [address] [place] [address] Performed By: #### 5 8410-2 ####[facility] HOSPITALJACKY [id number] [address] OF [facility] Hematocrit (Bld) [Volume fraction] 41.2 % Normal 36.0-46.0 [facility] Comment on above: Order Comment: Speci men Type: BLOOD SPECIMENOrdering Facility: [facility] Address: [address] [place] [address] Performed By: #### 5 8410-2 ####[facility]ENTERWJACKY [id number] [address] OF [facility] Hemoglobin (Bld) [Mass/Vol] 13.4 g/dL Normal 11.5-15.5 [facility] Comment on above: Order Comment: Speci men Type: BLOOD SPECIMENOrdering Facility: [facility] Address: [address] [place] [address] Performed By: #### 5 8410-2 ####[facility] HOSPITALCONSTANCELIA [id number] [place] [address] [place] MCH (RBC) [Entitic mass] 29.3 pg Normal 26.0-34.0 [facility] Comment on above: Order Comment: Speci men Type: BLOOD SPECIMENOrdering Facility: [facility] Address: [address] [place] [address] Performed By: #### 5 8410-2 ####[facility]ITALNC[facility] [id number] [place] [address] [place] MCHC (RBC) [Mass/Vol] 32.5 g/dL Normal 30.5-36.0 [facility] Comment on above: Order Comment: Speci men Type: BLOOD SPECIMENOrdering Facility: [facility] Address: [address] [place] [address] Performed By: #### 5 8410-2 ####[facility] HOSPITALNCMELISAA [id number] [place] [address] [place] MCV (RBC) [Entitic vol] 90.2 fL Normal 80.0-100.0 [facility] Comment on above: Order Comment: Speci men Type: BLOOD SPECIMENOrdering Facility: [facility] Address: [address] [place] [address] Performed By: #### 5 8410-2 ####[facility] HOSPITALNCLIA [id number] [place] [address] [place] Nucleated RBC (Bld) [#/Vol] 10*3/uL Normal <0.01 [facility] Comment on above: Order Comment: Speci men Type: BLOOD SPECIMENOrdering Facility: [facility] Address: [address] [place] [address] Performed By: #### 5 8410-2 ####[facility] HOSPITALNCLIA [id number] [place] [address] [place] Platelet mean volume (Bld) [Entitic vol] 11.6 fL Normal 9.0-12.7 [facility] Comment on above: Order Comment: Speci men Type: BLOOD SPECIMENOrdering Facility: [facility] Address: [address] [place] [address] Performed By: #### 5 8410-2 ####[facility] DOMINIC ANTONIONCLIA [id number] [place] [address] [place] Platelets (Bld) [#/Vol] 244 10*3/uL Normal 150-400 [facility] Comment on above: Order Comment: Speci men Type: BLOOD SPECIMENOrdering Facility: [facility] Address: [address] [place] [address] Performed By: #### 5 8410-2 ####[facility] HOSPITALNCLIA [id number] [place] [address] [place] RBC (Bld) [#/Vol] 4.57 10*6/uL Normal 3.90-5.20 [facility] Comment on above: Order Comment: Speci men Type: BLOOD SPECIMENOrdering Facility: [facility] Address: [address] [place] [address] Performed By: #### 5 8410-2 ####[facility] HOSPITALNCLIA [id number] [place] [address] [place] WBC (Bld) [#/Vol] 15.17 10*3/uL High 3.70-11.00 [facility] Comment on above: Order Comment: Speci men Type: BLOOD SPECIMENOrdering Facility: [facility] Address: [address] [place] [address] Performed By: #### 5 8410-2 ####[facility] HOSPITALNCLIA [id number] [place] [address] [place] CNOVon 04-02-2024 CNOV Office Visit (INTMWS ) LATHA FERRARA I ([id number]) 1940 F [facility] Date Time Provider Department 04/02/24 12:20 PM CHELSEY MORA INTMWS During your visit today, we recorded the following information about you: Pulse Respiration Blood pressure Weight 52/minute 14/minute 124/60 74 kg Chelsey Mora, [employer].ENVIRONMENTAL HEALTH SANITARIAN 04/02/2024 12:49 PM Signed CC: Patient presents with: Rectal Problem: X 1 days HPI Latha Ferrara is a 84 year old female who presents today for above. Patient reports a few episodes since early this AM of bright red blood in the toilet and on the paper when she wiped. She noted a small blood clot in the toilet once as well. She had severe abdominal cramping with the first episode of bleeding along with nausea and diaphoresis. Since then abdominal cramping has been mild. She has been more constipated than usual. Denies any blood mixed in the stool or dark/tarry stools. Denies fever, chills, nausea, vomiting, diarrhea, loss of appetite, unintentional weight loss. PMH includes chronic diarrhea and lymphocytic colitis. She has a small external hemorrhoid that is not painful or swollen. Denies history of GI bleeding. She is not on any blood thinners. Last colonoscopy in 2020 was normal. Review of Systems Respiratory: Negative for shortness of breath. Cardiovascular: Negative for palpitations and leg swelling. Genitourinary: Negative for decreased urine volume. Neurological: Negative for dizziness, syncope, weakness, light-headedness and headaches. 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 In [place], Sees [facility]UL[facility] Dr Saenz. Annual CT scans normal Primary osteoarthritis involving multiple joints 12/09/2015 Psoriatic arthropathy (HCC) 12/09/2015 Snoring Unspecified asthma(493.90) Unspecified essential hypertension PAST SURGICAL HISTORY Procedure Laterality Date COLONOSCOPY FLX DX W/COLLJ SPEC WHEN PFRMD 05/18/1998 Colonoscopy COLONOSCOPY FLX DX W/COLLJ SPEC WHEN PFRMD 05/08/2006 COLONOSCOPY GEN ANES 09/01/2020 EGD 09/01/2020 MASTOIDECTOMY Left 1943 RMVL LUNG OTHER THAN PNEUMONECTOMY 1 LOBE LOBECT 09/16/2009 right middle lobe removed TONSILLECTOMY HX 1947 TOTAL ABDOMINAL HYSTERECT W/WO RMVL TUBE OVARY 07/1999 Hysterectomy, RAY TUBAL LIGATION HX 1971 ALLERGIES Plendil [Felodipine], Cardizem [Diltiazem Hcl], Demerol [Meperidine (Pf)], Hydrochlorothiazide, Lanolin, Latex, Neomycin, Neosporin [Neomycin-Bacitracin- Polymyxin], and Thimerosal MEDICATIONS fluticasone furoate (ARNUITY ELLIPTA) 100 mcg/actuation inhaler Inhale 1 Puff as instructed once daily. terazosin (HYTRIN) 2 mg capsule Take 1 [...] by mouth twice daily. Per Dr. Mejia VIT A/C/E AC/ZNOX/CUPRIC OXIDE (EYE VITAMIN AND MINERALS ORAL) Take 1 tablet by mouth twice daily. FAMILY HISTORY Problem Relation Age of Onset Cancer Mother skin, non melanoma Heart Mother 89 ? arrhythmia Heart Father 68 [place] Diabetes Maternal Grandmother Diabetes Paternal Grandmother Heart Paternal Grandmother Diabetes Maternal Grandfather Social History Tobacco Use Smoking status: Never Smokeless tobacco: Never Vaping Use Vaping status: Never Used Substance Use Topics Alcohol use: No Drug use: No BP 124/60 Pulse (!) 52 Resp 14 Wt 74 kg (163 lb 2.3 oz) SpO2 96% BMI 31.00 kg/m? Physical Exam Vitals reviewed. Constitutional: General: She is not in acute distress. Appearance: Normal appearance. She is not ill-appearing. HENT: Mouth/Throat: Mouth: Mucous membranes are moist. Eyes: Conjunctiva/sclera: Conjunctivae normal. Cardiovascular: Rate and Rhythm: Regular rhythm. Bradycardia present. (more content not included)... Normal [facility]02[facility]2024 [facility] LATHA FERRARA I ([id number]) 1940 [facility] Date Time Provider Department 04/02/24 CHELSEY MORA [facility] During your visit today, we recorded the following information about you: Maria Alejandra Mckeon LPN 04/02/2024 11:18 AM Signed Taryn with Dr. Saenz's office calls to report pt is there for a follow up appt and mentioned she has had bright red bloody stools yesterday and this morning. Pt's vitals: 144/72 P50. Palpation of abdomen did not show any tenderness. No fever. Appt scheduled today with NP. Maria Alejandra Mckeon LPN Allergies As of Date: 04/02/2024 Noted Allergy Reaction PLENDIL (FELODIPINE) 01/17/2005 2 - Rash 12 - Shortness of Breath CARDIZEM (DILTIAZEM HCL) 07/23/2010 14 - Other: See Comments Comments: heart racing DEMEROL (MEPERIDINE (PF)) 10/14/2016 14 - Other: See Comments Comments: received 100mg for last colonoscopy and would not wake up- needed to use Narcan HYDROCHLOROTHIAZIDE 02/06/2019 16 - Unknown LANOLIN 01/17/2005 Comments: topical LATEX 01/17/2005 NEOMYCIN 02/17/2021 14 - Other: See Comments NEOSPORIN (NEOMYCIN-BACITRACIN- PO*01/17/2005 THIMEROSAL 12/03/2009 14 - Other: See Comments Comments: Pt. was tested in Allergy and had a reaction (rash) from skin test. Date Reviewed: 04/02/2024 Reviewed by: Meeta Wood, RT(R) - Fully Assessed Reason for Visit: Rectal Problem [93] Prescriptions as of 04/29/2024 - terazosin (HYTRIN) 2 mg capsule Take 1 capsule by mouth daily at bedtime. - fluticasone furoate (ARNUITY ELLIPTA) 100 mcg/actuation inhaler Inhale 1 Puff as instructed once daily. - metoprolol succinate ER (TOPROL XL) 25 mg 24 hr tablet Take 1 tablet by mouth once daily. - traMADol (ULTRAM) 50 mg tablet Take 50 mg by mouth three times daily as needed. - benazepril (LOTENSIN) 20 mg tablet Take 2 tablets by mouth once daily. - omeprazole (PRILOSEC) 20 mg capsule Take 20 mg by mouth once daily. - amLODIPine (NORVASC) 10 mg tablet Take 10 mg by mouth once daily. - BENEFIBER, WHEAT DEXTRIN, ORAL Take by mouth. - potassium chloride SR (MICRO-K) 10 mEq CR capsule Take 10 mEq by mouth once daily. - OTEZLA 30 mg tablet Take 1 tablet by mouth twice daily. Per Dr. Mejia - VIT A/C/E AC/ZNOX/CUPRIC OXIDE (EYE VITAMIN AND MINERALS ORAL) Take 1 tablet by mouth twice daily. 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] 07/07/2010 07/06/2015 Mild intermittent asthma without complication [*12/23/2014 Essential hypertension with goal blood pressure*07/06/2015 BMI 30.0-30.9,adult [Z68.30] 07/06/2015 Primary atypical carcinoid tumor of right lung *07/06/2015 12/15/2016 Primary osteoarthritis involving multiple joint*12/09/2015 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] 12/09/2015 Lymphocytic colitis [K52.832] 11/30/2020 Chronic kidney insufficiency, stage 2 (mild) [N*12/02/2021 Dupuytren's contracture of left hand [M72.0] 12/02/2021 Encounter Status:Closed by MARIA ALEJANDRA MCKEON on 04/29/24 [facility] [address] ABD/PEL W IVCONon 025 CT ABD/PEL W IVCON * * *Final Report* * * DATE OF EXAM: Apr 02 2024 2:53PM [facility] 0530 - CT ABD/PEL W IVCON / PROCEDURE REASON: multiple diagnoses * * * * Physician Interpretation * * * * EXAMINATION: CT ABDOMEN AND PELVIS WITH IV CONTRAST CLINICAL HISTORY: Left lower quadrant pain. Rectal bleeding. TECHNIQUE: CT of the abdomen and pelvis was performed using standard technique, scanning from just above the dome of the diaphragm to the symphysis pubis. MQ: CTAP_3 Contrast: IV: 100 ml of Omnipaque 350 Oral: 10 ml of Omni 240 10-25ml diluted with water CT Radiation dose: Integrated Dose-length product (DLP) for this visit = 582 mGy*cm. CT Dose Reduction Employed: Automated exposure control(AEC) and iterative recon COMPARISON: None. RESULT: Liver: No mass. Biliary: No bile duct dilation. Gallbladder present without evidence of radiopaque stones or wall thickening. Spleen: Subcentimeter calcified splenic granulomas. No splenomegaly. Pancreas: A few coarse calcifications scattered within the pancreas, a finding which may reflect the sequela of remote pancreatitis. No pancreatic ductal dilation. No CT evidence of acute peripancreatic inflammatory change. Adrenals: No mass. Kidneys: Scattered bilateral renal cortical scarring. 3 cm mildly complex right renal cystic lesion with an internal septation and a 3 mm focus of nodularity along its superior aspect. One centimeter additional simple right renal cyst. Mild fullness of the bilateral ureters. GI tract: Small hiatal hernia. No dilation or wall thickening. A few scattered uncomplicated colonic diverticuli. Lymph nodes: No abdominal or pelvic lymphadenopathy. Mesentery/Peritoneum: No ascites. Vasculature: Arterial atherosclerotic calcification of the vasculature. Patent mesenteric vasculature. Pelvis: Mural thickening of the partially distended urinary bladder. No mass or ascites Bones/Soft Tissues: Small fat-containing umbilical hernia. Multilevel degenerative changes. Lower thorax: Coronary artery calcifications. Mild atelectatic changes. Localizer images: No additional findings. IMPRESSION: 1. Mildly complex right renal cystic lesion. Follow-up to document stability is advised. 2. Few scattered uncomplicated colonic diverticuli. 3. Mural thickening of the urinary bladder may be related to incomplete distention, however correlate with urinalysis to exclude cystitis. 4. Additional incidental findings as described. ACTIONABLE RESULT: FOLLOW-UP Acuity: Actionable Findings: Kidneys/Ureters/Bladd er Routing Code: GU_1 Recommendation: Unlisted Recommendation (see report) Time Frame: At the discretion of the clinical team. COMMUNICATION: Results will be communicated with the ordering provider via [employer] staff message or phone message by [facility] within 2 business days of report finalization. --END OF FINDING-- Professional Bondsman: MILLI Transcribe Date/Time: Apr 02 2024 3:14P Dictated by : HECTOR DOUGLASS MD This examination was interpreted and the report reviewed and electronically signed by: HECTOR DOUGLASS MD on Apr 02 2024 3:21PM EST [id number] ACTIONABLE Invalid Interpretation Code [facility] CT Abdomen and Pelvis W cont rast IVOrdered By: [facility]cf Provider on 04-02-2024 Interpretation and review of laboratory results Abnormal [facility] Radiology Result ACTIONABLE Abnormal [facility] Comment on above: This report contains an incidental or actionable finding. This finding may be a new finding separate from the reason your provider ordered the imaging test or it may be an already known finding that needs additional or continued follow-up. Because of this incidental or actionable finding, you may need another test (imaging or a different type of test). Please contact your provider for the next steps. [facility] CT Abdomen and Pelvis W erick vega Sophia 04-02-2024 IMPRESSION: 1. Mildly complex right renal cystic lesion. Follow-up to document stability is advised. 2. Few scattered uncomplicated colonic diverticuli. 3. Mural thickening of the urinary bladder may be related to incomplete distention, however correlate with urinalysis to exclude cystitis. 4. Additional incidental findings as described. ACTIONABLE RESULT: FOLLOW-UP Acuity: Actionable Findings: Kidneys/Ureters/Bladd er Routing Code: GU_1 Recommendation: Unlisted Recommendation (see report) Time Frame: At the discretion of the clinical team. COMMUNICATION: Results will be communicated with the ordering provider via [employer] staff message or phone message by [facility] within 2 business days of report finalization. --END OF FINDING-- Professional Bondsman: MILLI Transcribe Date/Time: Apr 02 2024 3:14P Dictated by : HECTOR DOUGLASS MD This examination was interpreted and the report reviewed and electronically signed by: HECTOR DOUGLASS MD on Apr 02 2024 3:21PM [facility] DIVISION OF RADIOLOGY * * *Final Report* * * DATE OF EXAM: Apr 02 2024 2:53PM [facility] 0530 - CT ABD/PEL W IVCON / PROCEDURE REASON: multiple diagnoses * * * * Physician Interpretation * * * * EXAMINATION: CT ABDOMEN AND PELVIS WITH IV CONTRAST CLINICAL HISTORY: Left lower quadrant pain. Rectal bleeding. TECHNIQUE: CT of the abdomen and pelvis was performed using standard technique, scanning from just above the dome of the diaphragm to the symphysis pubis. MQ: CTAP_3 Contrast: IV: 100 ml of Omnipaque 350 Oral: 10 ml of Omni 240 10-25ml diluted with water CT Radiation dose: Integrated Dose-length product (DLP) for this visit = 582 mGy*cm. CT Dose Reduction Employed: Automated exposure control(AEC) and iterative recon COMPARISON: None. RESULT: Liver: No mass. Biliary: No bile duct dilation. Gallbladder present without evidence of radiopaque stones or wall thickening. Spleen: Subcentimeter calcified splenic granulomas. No splenomegaly. Pancreas: A few coarse calcifications scattered within the pancreas, a finding which may reflect the sequela of remote pancreatitis. No pancreatic ductal dilation. No CT evidence of acute peripancreatic inflammatory change. Adrenals: No mass. Kidneys: Scattered bilateral renal cortical scarring. 3 cm mildly complex right renal cystic lesion with an internal septation and a 3 mm focus of nodularity along its superior aspect. One centimeter additional simple right renal cyst. Mild fullness of the bilateral ureters. GI tract: Small hiatal hernia. No dilation or wall thickening. A few scattered uncomplicated colonic diverticuli. Lymph nodes: No abdominal or pelvic lymphadenopathy. Mesentery/Peritoneum: No ascites. Vasculature: Arterial atherosclerotic calcification of the vasculature. Patent mesenteric vasculature. Pelvis: Mural thickening of the partially distended urinary bladder. No mass or ascites Bones/Soft Tissues: Small fat-containing umbilical hernia. Multilevel degenerative changes. Lower thorax: Coronary artery calcifications. Mild atelectatic changes. Localizer images: No additional findings. DIVISION OF RADIOLOGY Provider, [facility] - 04/02/2024 * * *Final Report* * * DATE OF EXAM: Apr 02 2024 2:53PM [facility] 0530 - CT ABD/PEL W IVCON / PROCEDURE REASON: multiple diagnoses * * * * Physician Interpretation * * * * EXAMINATION: CT ABDOMEN AND PELVIS WITH IV CONTRAST CLINICAL HISTORY: Left lower quadrant pain. Rectal bleeding. TECHNIQUE: CT of the abdomen and pelvis was performed using standard technique, scanning from just above the dome of the diaphragm to the symphysis pubis. MQ: CTAP_3 Contrast: IV: 100 ml of Omnipaque 350 Oral: 10 ml of Omni 240 10-25ml diluted with water CT Radiation dose: Integrated Dose-length product (DLP) for this visit = 582 mGy*cm. CT Dose Reduction Employed: Automated exposure control(AEC) and iterative recon COMPARISON: None. RESULT: Liver: No mass. Biliary: No bile duct dilation. Gallbladder present without evidence of radiopaque stones or wall thickening. Spleen: Subcentimeter calcified splenic granulomas. No splenomegaly. Pancreas: A few coarse calcifications scattered within the pancreas, a finding which may reflect the sequela of remote pancreatitis. No pancreatic ductal dilation. No CT evidence of acute peripancreatic inflammatory change. Adrenals: No mass. Kidneys: Scattered bilateral renal cortical scarring. 3 cm mildly complex right renal cystic lesion with an internal septation and a 3 mm focus of nodularity along its superior aspect. One centimeter additional simple right renal cyst. Mild fullness of the bilateral ureters. GI tract: Small hiatal hernia. No dilation or wall thickening. A few scattered uncomplicated colonic diverticuli. Lymph nodes: No abdominal or pelvic lymphadenopathy. Mesentery/Peritoneum: No ascites. Vasculature: Arterial atherosclerotic calcification of the vasculature. Patent mesenteric vasculature. Pelvis: Mural thickening of the partially distended urinary bladder. No mass or ascites Bones/Soft Tissues: Small fat-containing umbilical hernia. Multilevel degenerative changes. Lower thorax: Coronary artery calcifications. Mild atelectatic changes. Localizer images: No additional findings. IMPRESSION IMPRESSION: 1. Mildly complex right renal cystic lesion. Follow-up to document stability is advised. 2. Few scattered uncomplicated colonic diverticuli. 3. Mural thickening of the urinary bladder may be related to incomplete distention, however correlate with urinalysis to exclude cystitis. 4. Additional incidental findings as described. ACTIONABLE RESULT: FOLLOW-UP Acuity: Actionable Findings: Kidneys/Ureters/Bladd er Routing Code: GU_1 Recommendation: Unlisted Recommendation (see report) Time Frame: At the discretion of the clinical team. COMMUNICATION: Results will be communicated with the ordering provider via [employer] An[employer] staff message or phone message by [facility] within 2 business days of report finalization. --END OF FINDING-- Professional Bondsman: MILLI Transcribe Date/Time: Apr 02 2024 3:14P Dictated by : HECTOR DOUGLASS MD This examination was interpreted and the report reviewed and electronically signed by: HECTOR DOUGLASS MD on Apr 02 2024 3:21PM EST [facility] Radiology Study observation (narrative) [facility] Comprehensive metabolic 2000 panelOrdered By: Rebecca Alvarez on 04-02-2024 Albumin [Mass/Vol] 4.1 g/dL 3.9 - 4.9 g/dL [facility] ALP [Catalytic activity/Vol] 112 U/L 34 - 123 U/L [facility] ALT [Catalytic activity/Vol] 11 U/L 7 - 38 U[facility] Anion gap [Moles/Vol] 14 mmol/L 8 - 15 mmol/L [facility] AST [Catalytic activity/Vol] 51 U/L High 13 - 35 U/L [facility] Bilirubin [Mass/Vol] 0.5 mg/dL 0.2 - 1 .3 mg/dL [facility] Calcium [Mass/Vol] 9.8 mg/dL 8.5 - 10. 2 mg/dL [facility] Chloride [Moles/Vol] 101 mmol/L 98 - 10 7 mmol/L [facility] CO2 [Moles/Vol] 23 mmol/L 22 - 30 mmol/L [facility] Creatinine [Mass/Vol] 0.87 mg/dL 0.58 - 0.96 mg/dL [facility] GFR/1.73 sq M.predicted among non-blacks MDRD (S/P/Bld) [Vol rate/Area] 66 mL/min/{1.73_m2} - PINF [facility] Comment on above: Estimated Glomerular Filtration Rate (eGFR) is calculated using the 2020 CKD-EPI creatinine equation. This equation utilizes serum creatinine, sex, and age as parameters. The creatinine assay has traceable calibration to isotope dilution-mass spectrometry. Refer to KDIGO guidelines for clinical interpretation. In patients with unstable renal function, e.g. those with acute kidney injury, the eGFR may not accurately reflect actual GFR. Glucose [Mass/Vol] 107 mg/dL High 74 - 99 mg/dL [facility] Comment on above: The [place] Diabete s Association (ADA) provides guidance for cutoff values for fasting glucose and random glucose. The ADA defines fasting as no caloric intake for at least 8 hours. Fasting plasma glucose results between 100 to 125 mg/dL indicate increased risk for diabetes (prediabetes). Fasting plasma glucose results greater than or equal to 126 mg/dL meet the criteria for diagnosis of diabetes. In the absence of unequivocal hyperglycemia, results should be confirmed by repeat testing. In a patient with classic symptoms of hyperglycemia or hyperglycemic crisis, random plasma glucose results greater than or equal to 200 mg/dL meet the criteria for diagnosis of diabetes. Reference: Standards of Medical Care in Diabetes 2016, [place] Diabetes Association. Diabetes Care. 2016.39(Suppl 1). Interpretation and review of laboratory results Abnormal [facility] Potassium [Moles/Vol] 4.2 mmol/L 3.7 - 5.1 mmol/L [facility] Protein [Mass/Vol] 7.6 g/dL 6.3 - 8.0 g/dL [facility] Sodium [Moles/Vol] 138 mmol/L 136 - 144 mmol/L [facility] Urea nitrogen [Mass/Vol] 12 mg/dL 7 - 21 mg/dL [facility] Comprehensive metabolic 2000 panelon 04-02-2024 Albumin [Mass/Vol] 4.1 g/dL Normal 3.9-4.9 [facility] Comment on above: Order Comment: Speci men Type: BLOOD SPECIMENOrdering Facility: [facility] Address: [address] [place] [address] Performed By: #### 2 4323-8 ####[facility] MILLTOWNCLIA [id number] [place] [address] [place] ALP [Catalytic activity/Vol] 112 U/L Normal 34-123 [facility] Comment on above: Order Comment: Speci men Type: BLOOD SPECIMENOrdering Facility: [facility] Address: [address] [place] [address] Performed By: #### 2 4323-8 ####[facility]ENTERWNCLIA [id number] [place] [address] [place] ALT [Catalytic activity/Vol] 11 U/L Normal 7-38 [facility] Comment on above: Order Comment: Speci men Type: BLOOD SPECIMENOrdering Facility: [facility] Address: [address] [place] [address] Performed By: #### 2 4323-8 ####[facility]ITALNCLIA [id number] [place] [address] [place] Anion gap [Moles/Vol] 14 mmol/L Normal 8-15 [facility] Comment on above: Order Comment: Speci men Type: BLOOD SPECIMENOrdering Facility: [facility] Address: [address] [place] [address] Performed By: #### 2 4323-8 ####[facility]ENTERWNCLIA [id number] [place] [address] [place] AST [Catalytic activity/Vol] 51 U/L High 13-35 [facility] Comment on above: Order Comment: Speci men Type: BLOOD SPECIMENOrdering Facility: [facility] Address: [address] [place] [address] Performed By: #### 2 4323-8 ####[facility] DOMINIC MOTTALIA [id number] [place] [address] [place] Bilirubin [Mass/Vol] 0.5 mg/dL Normal 0.2-1.3 [facility] Comment on above: Order Comment: Speci men Type: BLOOD SPECIMENOrdering Facility: [facility] Address: [address] [place] [address] Performed By: #### 2 4323-8 ####[facility] CENTERLYNDAA [id number] [place] [address] [place] Calcium [Mass/Vol] 9.8 mg/dL Normal 8.5-10.2 [facility] Comment on above: Order Comment: Speci men Type: BLOOD SPECIMENOrdering Facility: [facility] Address: [address] [place] [address] Performed By: #### 2 4323-8 ####[facility] ANGIEDOVERNCMELISAA [id number] [place] [address] [place] Chloride [Moles/Vol] 101 mmol/L Normal 98-107 [facility] Comment on above: Order Comment: Speci men Type: BLOOD SPECIMENOrdering Facility: [facility] Address: [address] [place] [address] Performed By: #### 2 4323-8 ####[facility]ITALNCLIA [id number] [place] [address] [place] CO2 [Moles/Vol] 23 mmol/L Normal 22-30 [facility] Comment on above: Order Comment: Speci men Type: BLOOD SPECIMENOrdering Facility: [facility] Address: [address] [place] [address] Performed By: #### 2 4323-8 ####[facility]OSPITALNCLI [id number] [place] [address] [place] Creatinine [Mass/Vol] 0.87 mg/dL Normal 0.58-0.96 [facility] Comment on above: Order Comment: Speci men Type: BLOOD SPECIMENOrdering Facility: [facility] Address: [address] [place] [address] Performed By: #### 2 4323-8 ####[facility] [id number] [place] [address] [place] Creatinine and Glomerular filtration rate.predicted panel (S/P/Bld) 66 mL/min/1.73m??? Normal >=60 [facility] Comment on above: Order Comment: Marcia [facility] Type: BLOOD SPECIMENOrdering Facility: [facility] Address: [address] [place] [address] Result Comment: Deepa mated Glomerular Filtration Rate (eGFR) is calculated using the 2020 CKD-EPI creatinine equation. This equation utilizes serum creatinine, sex, and age as parameters. The creatinine assay has traceable calibration to isotope dilution-mass spectrometry. Refer to KDIGO guidelines for clinical interpretation. In patients with unstable renal function, e.g. those with acute kidney injury, the eGFR may not accurately reflect actual GFR. Performed By: #### 2 4323-8 ####[facility] [id number] [place] [address] [place] Glucose [Mass/Vol] 107 mg/dL High 74-99 [facility] Comment on above: Order Comment: Speci men Type: BLOOD SPECIMENOrdering Facility: [facility] Address: [address] [place] [address] Result Comment: The [place] Diabetes Association (ADA) provides guidance for cutoff values for fasting glucose and random glucose. The ADA defines fasting as no caloric intake for at least 8 hours. Fasting plasma glucose results between 100 to 125 mg/dL indicate increased risk for diabetes (prediabetes). Fasting plasma glucose results greater than or equal to 126 mg/dL meet the criteria for diagnosis of diabetes. In the absence of unequivocal hyperglycemia, results should be confirmed by repeat testing. In a patient with classic symptoms of hyperglycemia or hyperglycemic crisis, random plasma glucose results greater than or equal to 200 mg/dL meet the criteria for diagnosis of diabetes. Reference: Standards of Medical Care in Diabetes 2016, [place] Diabetes Association. Diabetes Care. 2016.39(Suppl 1). Performed By: #### 2 4323-8 ####[facility] MILLTOWCONSTANCELIA [id number] [place] [address] [place] Potassium [Moles/Vol] 4.2 mmol/L Normal 3.7-5.1 [facility] Comment on above: Order Comment: Speci men Type: BLOOD SPECIMENOrdering Facility: [facility] Address: [address] [place] [address] Performed By: #### 2 4323-8 ####[facility] CENTERWOHLIA [id number] [place] [address] [place] Protein [Mass/Vol] 7.6 g/dL Normal 6.3-8.0 [facility] Comment on above: Order Comment: Speci men Type: BLOOD SPECIMENOrdering Facility: [facility] Address: [address] [place] [address] Performed By: #### 2 4323-8 ####[facility]OSPITALCONSTANCELIA [id number] [place] [address] [place] Sodium [Moles/Vol] 138 mmol/L Normal 136-144 [facility] Comment on above: Order Comment: Speci men Type: BLOOD SPECIMENOrdering Facility: [facility] Address: [address] [place] [address] Performed By: #### 2 4323-8 ####[facility]ENTERWNCLIA [id number] [place] [address] [place] Urea nitrogen [Mass/Vol] 12 mg/dL Normal 7-21 [facility] Comment on above: Order Comment: Speci men Type: BLOOD SPECIMENOrdering Facility: [facility] Address: [address], [place] [id number] Performed By: #### 2 4323-8 ####[facility] DOMINIC SANDHU [id number] [address] OF [facility] CNOVon 12-12-2023 CNOV Office Visit (INTMWS ) LATHA FERRARA I ([id number]) 1940 F VARUN Date Time Provider Department 12/12/23 8:40 AM CHELSEY MORA INTMWS During your visit today, we recorded the following information about you: Pulse Respiration Blood pressure Weight 56/minute 16/minute 128/80 73.2 kg Chelsey Mora, [employer].ENVIRONMENTAL HEALTH SANITARIAN 12/12/2023 9:03 AM Signed CC: Patient presents with: F/U 6 months HPI Latha Ivan Ferrara is a 83 year old female who presents today for above. Denies any concerns or issues today. Taking all of her medications as prescribed, denies side effects. Restaurant General Manager lowered Metoprolol from 100 to 25 mg daily due to bradycardia. Patient denies dizziness, lightheadedness, feeling faint, fatigue or passing out. She is following up with specialists routinely including health physics technician for RA, car supplier for asthma, and pain management for chronic hip and back pain. She had hip and spine injections by Dr. Pfeiffer that were successful at keeping pain manageable. She is due for repeat injections and will be scheduling soon. Checks BP at home daily, average in the 110's/70's. Review of Systems Constitutional: Negative for chills, diaphoresis and fever. Respiratory: Negative for cough, shortness of breath and wheezing. Cardiovascular: Negative for chest pain, palpitations and leg swelling. 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 In [place], Sees PULM Dr Saenz. Annual CT scans [...] Hcl], Demerol [Meperidine (Pf)], Hydrochlorothiazide, Lanolin, Latex, Neomycin, Neosporin [Neomycin-Bacitracin- Polymyxin], and Thimerosal MEDICATIONS ARNUITY ELLIPTA 200 mcg/actuation inhaler 1 PUFF DAILY FOLLOWED BY [facility] terazosin (HYTRIN) 2 mg capsule Take 1 [...] (FLONASE) 50 mcg/actuation nasal spray Use 1 [place] in each nostril once daily. USE DIRECTED COMPRESSOR, FOR NEBULIZER As directed FAMILY HISTORY Problem Relation Age of Onset Cancer Mother skin, non melanoma Heart Mother 89 ? arrhythmia Heart Father 68 [place] Diabetes Maternal Grandmother Diabetes Paternal Grandmother Heart Paternal Grandmother Diabetes Maternal Grandfather Social History Tobacco Use Smoking status: Never Smokeless tobacco: Never Vaping Use Vaping status: Never Used Substance Use Topics Alcohol use: No Drug use: No BP 146/68 Pulse (!) 49 Resp 16 Wt 73.2 kg (161 lb 6 oz) SpO2 94% BMI 30.67 kg/m? Physical Exam Vitals reviewed. Constitutional: Appearance: Normal appearance. Cardiovascular: Rate and Rhythm: Regular rhythm. Bradycardia present. Heart sounds: Normal heart sounds. No murmur heard. Pulmonary: Effort: Pulmonary effort is normal. Breath sounds: Normal ashleigh (more content not included)... Normal [facility] HbA1c (Bld)on 12-12-2023 Average glucose Estimated from glycated hemoglobin (Bld) [Mass/Vol] 117 mg/dL Normal [facility] Comment on above: Order Comment: Speci men Type: BLOOD SPECIMENOrdering Facility: [facility] Address: [address] [place] [address] Result Comment: eAG: (Estimated average glucose) is a calculated value from HgbA1c and is new accounts banking representative of the average blood glucose level in the last 2-3 month period. Performed By: #### 5 5454-3 ####[facility] LABCLIA [id number] [facility] [id number] [address] [place] HbA1c (Bld) [Mass fraction] 5.7 % High 4.3-5.6 [facility] Comment on above: Order Comment: Matteoi men Type: BLOOD SPECIMENOrdering Facility: [facility] Address: [address] [place] [address] Result Comment: Amer ican Diabetes Association guidelines indicate that patients with HgbA1c in the range 5.7-6.4% are at increased risk for development of diabetes, and intervention by lifestyle modification may be beneficial. HgbA1c greater or equal to 6.5% is considered diagnostic of diabetes. Performed By: #### 5 5454-3 ####[facility] LABCLIA [id number] [place] [address] [place] Lipid 1996 panelon 4 Cholesterol [Mass/Vol] 213 mg/dL High <200 [facility] Comment on above: Order Comment: Marcia fleming Type: BLOOD SPECIMENOrdering Facility: [facility] Address: [address] [place] [address] Result Comment: <200 mg/dL, Desirable 200-239 mg/dL, Borderline high >239 mg/dL, High Performed By: #### 2 4331-1 ####[facility] LABCLIA [id number] [address] [place] Cholesterol in HDL [Mass/Vol] 39 mg/dL Low >39 [facility] Comment on above: Order Comment: Marcia bernadette Type: BLOOD SPECIMENOrdering Facility: [facility] Address: [address] [place] [address] Result Comment: 40-5 9 mg/dL, Acceptable >59 mg/dL, High: Negative risk factor for coronary heart disease <40 mg/dL, Low: Positive risk factor for coronary heart disease Performed By: #### 2 4331-1 ####[facility] LABCLIA [id number] [address] [place] Cholesterol in LDL [Mass/Vol] 137 mg/dL High <100 [facility] Comment on above: Order Comment: Speci men Type: BLOOD SPECIMENOrdering Facility: [facility] Address: [address] [place] [address] Result Comment: <100 mg/dL, Optimal 100-129 mg/dL, Near optimal/above optimal 130-159 mg/dL, Borderline high 160-189 mg/dL, High >189 mg/dL, Very high Secondary prevention optimal LDL Cholesterol levels are recommended to be < 70 mg/dL Performed By: #### 2 4331-1 ####[facility] LABCLIA [id number] [place] [address] [place] Cholesterol in LDL/Cholesterol in HDL [Mass ratio] 3.51 {ratio} High <2.54 [facility] Comment on above: Order Comment: Marcia men Type: BLOOD SPECIMENOrdering Facility: [facility] Address: [address] [place] [address] Result Comment: Berhane cosme: 1. National Cholesterol Education Program ATP III Guideline At-A-Glance Quick Desk Reference: National Heart, Lung, and Blood Garrett. National Institutes of Health. 2001: NIH Publication No. 01-3305. 2. An International Atherosclerosis Society position paper: global recommendations for the management of dyslipidemia: executive summary, Atherosclerosis. 2014: 232(2):410-413. Performed By: #### 2 4331-1 ####[facility] LABIA [id number] [place] [address] [place] Cholesterol in VLDL [Mass/Vol] 37 mg/dL High <30 [facility] Comment on above: Order Comment: Marcia men Type: BLOOD SPECIMENOrdering Facility: [facility] Address: [address] [place] [address] Performed By: #### 2 4331-1 ####[facility] LABIA [id number] [place] [address] [place] Cholesterol non HDL [Mass/Vol] 174 mg/dL High <130 [facility] Comment on above: Order Comment: Marcia fleming Type: BLOOD SPECIMENOrdering Facility: [facility] Address: [address] [place] [address] Result Comment: <130 mg/dL, Optimal 130-159 mg/dL, Near optimal/above optimal 160-189 mg/dL, Borderline high 190-219 mg/dL, High >219 mg/dL, Very high Secondary prevention optimal non HDL Cholesterol levels are recommended to be <100 mg/dL Performed By: #### 2 4331-1 ####[facility] LABCLIA [id number] [place] [address] [place] Cholesterol.total/Chol esterol in HDL [Mass ratio] 5.46 {ratio} High <5.10 [facility] Comment on above: Order Comment: Speci men Type: BLOOD SPECIMENOrdering Facility: [facility] Address: [address] [place] [address] Performed By: #### 2 4331-1 ####[facility] LABCLIA [id number] [place] [address] [place] FASTING TIME 12 hrs Normal [facility] Comment on above: Order Comment: Speci men Type: BLOOD SPECIMENOrdering Facility: [facility] Address: [address] [place] [address] Performed By: #### 2 4331-1 ####[facility] LABCLIA [id number] [place] [address] [place] Triglyceride [Mass/Vol] 187 mg/dL High <150 [facility] Comment on above: Order Comment: Speci men Type: BLOOD SPECIMENOrdering Facility: [facility] Address: [address] [place] [address] Result Comment: <150 mg/dL, Normal 150-199 mg/dL, Borderline high 200-499 mg/dL, High >499 mg/dL, Very high Performed By: #### 2 4331-1 ####[facility] LABCLIA [id number] [place] [address] [place] CBC W/Diff, Automatedon 08-0 -2023 Absolute Lymph 2.12 X10 3/uL Normal 0.83-4.51 [facility] Comment on above: Performed By: #### L 500.4050, L100.0100 #### [facility] [address] [place], [address] Absolute Neut 5.3 X10 3/uL Normal 2.0-7.7 [facility] Comment on above: Performed By: #### L 500.4050, L100.0100 #### [facility] [address] [place], [address] Basophils/100 WBC (Bld) 0.3 % Normal 0-1 [facility] Comment on above: Performed By: #### L 500.4050, L100.0100 #### [facility] [address] [place], [address] Eosinophils/100 WBC (Bld) 6.5 % High 0-5 [facility] Comment on above: Performed By: #### L 500.4050, L100.0100 #### [facility] [address] [place], [address] Erythrocyte distribution width (RBC) [Ratio] 15.4 % High 11.6-14.6 [facility] Comment on above: Performed By: #### L 500.4050, L100.0100 #### [facility] [address] [place], [address] Hematocrit (Bld) [Volume fraction] 40.5 % Normal 37-47 [facility] Comment on above: Performed By: #### L 500.4050, L100.0100 #### [facility] [address] [place], [address] Hemoglobin (Bld) [Mass/Vol] 12.8 g/dL Normal 12.0-15.0 [facility] Comment on above: Performed By: #### L 500.4050, L100.0100 #### [facility] [address] [place], [address] IG% 0.300 Normal 0.0-0.9 [facility] Comment on above: Result Comment: IG% - Immature Granulocytes (promyelocytes, myelocytes and metamyelocytes) > 1% indicates that a LEFT SHIFT is Present. Performed By: #### L 500.4050, L100.0100 #### [facility] [address] [place], [address] Lymphocytes/100 WBC (Bld) 22.9 % Normal 19-41 [facility] Comment on above: Performed By: #### L 500.4050, L100.0100 #### [facility] [address] [place], [address] MCH (RBC) [Entitic mass] 28.1 pg Normal 27.0-32.0 [facility] Comment on above: Performed By: #### L 500.4050, L100.0100 #### [facility] [address] [place], [address] MCHC (RBC) [Mass/Vol] 31.6 g/dL Low 32-36 [facility] Comment on above: Performed By: #### L 500.4050, L100.0100 #### [facility] [address] [place], [address] MCV (RBC) [Entitic vol] 88.8 fL Normal 81-99 [facility] Comment on above: Performed By: #### L 500.4050, L100.0100 #### [facility] [address] [place], [address] Monocytes/100 WBC (Bld) 12.2 % High 0-10 [facility] Comment on above: Performed By: #### L 500.4050, L100.0100 #### [facility] [address] [place], [address] Neutrophils/100 WBC (Bld) 57.8 % Normal 47-70 [facility] Comment on above: Performed By: #### L 500.4050, L100.0100 #### [facility] [address] [place], [address] Nucleated RBC (Bld) [#/Vol] 0 10*3/uL Normal 0-5 [facility] Comment on above: Performed By: #### L 500.4050, L100.0100 #### [facility] [address] [place], [address] Platelet mean volume (Bld) [Entitic vol] 11.9 fL Normal 6.2-12.0 [facility] Comment on above: Performed By: #### L 500.4050, L100.0100 #### [facility] [address] [place], [address] Platelets (Bld) [#/Vol] 263 10*3/uL Normal 150-450 [facility] Comment on above: Performed By: #### L 500.4050, L100.0100 #### [facility] [address] [place], [address] RBC (Bld) [#/Vol] 4.56 10*6/uL Normal 4.2-5.4 [facility] Comment on above: Performed By: #### L 500.4050, L100.0100 #### [facility] [address] [place], [address] RDW SD 50.6 fl High 35.1-43.9 [facility] Comment on above: Performed By: #### L 500.4050, L100.0100 #### [facility] [address] [place], [address] WBC (Bld) [#/Vol] 9.2 10*3/uL Normal 4.4-11.0 [facility] Comment on above: Performed By: #### L 500.4050, L100.0100 #### [facility] [address] [place], [address] Comprehensive Metabolic Prof ilon 10-10-2023 Albumin [Mass/Vol] 3.0 g/dL Low 3.2-5.0 [facility] Comment on above: Performed By: #### L 500.4050, L100.0100 #### [facility] [address] [place], [address] Albumin/Globulin [Mass ratio] 0.8 {ratio} Low 0.9-2.4 [facility] Comment on above: Performed By: #### L 500.4050, L100.0100 #### [facility] [address] [place], [address] ALK P 111 U/L Normal 45-117 [facility] Comment on above: Performed By: #### L 500.4050, L100.0100 #### [facility] [address] [place], [address] ALT [Catalytic activity/Vol] 11 U/L Low 13-56 [facility] Comment on above: Performed By: #### L 500.4050, L100.0100 #### [facility] [address] [place], [address] AST [Catalytic activity/Vol] 58 U/L High 15-37 [facility] Comment on above: Performed By: #### L 500.4050, L100.0100 #### [facility] [address] [place], [address] Bilirubin [Mass/Vol] 0.50 mg/dL Normal 0.20-1.00 [facility] Comment on above: Result Comment: For patients on eltrombopag therapy, use of Dimension [place] TBIL is not recommended. Performed By: #### L 500.4050, L100.0100 #### [facility] [address] [place], [address] BUN/CRE 21.8 RATIO High 10-20 [facility] Comment on above: Performed By: #### L 500.4050, L100.0100 #### [facility] [address] [place], [address] CA,Total 9.0 mg/dL Normal 8.5-10.1 [facility] Comment on above: Performed By: #### L 500.4050, L100.0100 #### [facility] [address] [place], [address] Chloride [Moles/Vol] 106 mmol/L Normal 98-107 [facility] Comment on above: Performed By: #### L 500.4050, L100.0100 #### [facility] [address] [place], [address] CO2 [Moles/Vol] 26.0 mmol/L Normal 21.0-32.0 [facility] Comment on above: Performed By: #### L 500.4050, L100.0100 #### [facility] [address] [place], [address] Creatinine [Mass/Vol] 1.10 mg/dL High 0.55-1.02 [facility] Comment on above: Result Comment: The validity of the calculated GFR GFRAA in patients over 70 years has not been determined. Clinical correlation is essential. Performed By: #### L 500.4050, L100.0100 #### [facility] [address] [place], [address] EST GFR - AA 61 mL/min Normal >60 [facility] Comment on above: Result Comment: Afri can [place] GFR Calc Performed By: #### L 500.4050, L100.0100 #### [facility] [address] [place], [address] GAP 7 Normal 5-15 [facility] Comment on above: Performed By: #### L 500.4050, L100.0100 #### [facility] [address] [place], [address] GFR/1.73 sq M.predicted among non-blacks MDRD (S/P/Bld) [Vol rate/Area] 51 mL/min/{1.73_m2} Low >60 [facility] Comment on above: Result Comment: Non- GFR Calc Performed By: #### L 500.4050, L100.0100 #### [facility] [address] [place], [address] Globulin (S) [Mass/Vol] 4.0 g/dL Normal 2.2-4.2 [facility] Comment on above: Performed By: #### L 500.4050, L100.0100 #### [facility] [address] [place], [address] Glucose [Mass/Vol] 104 mg/dL Normal 74-106 [facility] Comment on above: Result Comment: Fast ing Glucose result from 100 to 125 mg/dL suggests IMPAIRED HOMEOSTASIS per A.D.A. criteria. Performed By: #### L 500.4050, L100.0100 #### [facility] [address] [place], [address] Potassium [Moles/Vol] 4.5 mmol/L Normal 3.5-5.1 [facility] Comment on above: Performed By: #### L 500.4050, L100.0100 #### [facility] [address] [place], [address] Sodium [Moles/Vol] 139 mmol/L Normal 136-145 [facility] Comment on above: Performed By: #### L 500.4050, L100.0100 #### [facility] [address] [place], [address] T PROT 7.0 g/dL Normal 6.4-8.2 [facility] Comment on above: Performed By: #### L 500.4050, L100.0100 #### [facility] [address] [place], [address] Urea nitrogen [Mass/Vol] 24 mg/dL High 7-18 [facility] Comment on above: Performed By: #### L 500.4050, L100.0100 #### [facility] [address] [place], [address] Cardiology Visit Reporton Cardiology Visit Report [facility] [address] [place], [place] [address] OFFICE VISIT Date of Service: 08/10/23 MR#: [id number] Acct: [id number] Name: LATHA FERRARA I Rep #: [id number] : 1940 Provider: Dr. Larry Manuel MD Age/Sex: 83/F Location[place] [facility] Status: Signed HPI HPI History of Present Illness Details: This is a 83-year-old female who presents here today for a cardiovascular follow-up. She has a history of hypertension, hyperlipidemia, asthma, and recently diagnosed with EMMIE. From a cardiac standpoint, the patient is doing well. She does use a cane to help with ambulation. She denies any palpitations, chest pain, pressure or heaviness. She denies SOB, Orthopnea, and PND. She does wear a Bipap. She does not have bleeding issues; no blood in urine, stool or nosebleeds. She denies any decrease in energy level, myalgias, or claudication. She does not have edema, or sudden weight gain. She denies dizziness, lightheadedness, syncopal or near syncopal episodes, and headaches. Intake Vital Signs 05/27/22 13:12 03/16/23 09:50 08/10/23 09:41 Height 5 ft 2 in 5 ft 1 in 5 ft 1 in Weight: 158 lb 4 oz BMI 29.9 BP 117/73 Blood Pressure Location Lt brachial Position Sitting Respiration 16 Pulse 52 L Pulse Source Monitor Intake Visit Reasons: 1 Y FU [employer] Required: No Accompanied by: Self Is patient in pain?: No Allergies felodipine (From Plendil) Allergy (Verified 08/10/23 09:46) rash/dyspnea meperidine (From Demerol) Allergy (Verified 08/10/23 09:46) over sedation thimerosal Allergy (Verified 08/10/23 09:46) rash diltiazem (From Cardizem) Adverse Reaction (Verified 08/10/23 09:46) tachycardia hydrochlorothiazide Adverse Reaction (Verified 08/10/23 09:46) azotemia lanolin Adverse Reaction (Verified 08/10/23 09:46) unknown latex Adverse Reaction (Verified 08/10/23 09:46) Unknown neomycin Adverse Reaction (Verified 08/10/23 09:46) unknown Medications ???Medication ???Instructions ???Recorded ???Confirmed ???Type apremilast 30 mg tablet (Otezla) 30 mg PO BID 02/04/19 08/10/23 History vit A 7,160 unit-vit C 113 mg-vit 1 tab PO BID 02/04/19 08/10/23 History E 100 [id number] tablet acetaminophen 500 mg tablet 500 mg PO Q6H PRN Pain 05/15/19 08/10/23 History (Tylenol Extra Strength) tizanidine 4 mg tablet 4 mg PO TID PRN Pain 04/28/20 08/10/23 History terazosin 2 mg capsule 2 mg PO DAILY 05/27/22 08/10/23 History tramadol 50 mg tablet 50 mg PO TID PRN 05/27/22 08/10/23 History benazepril 20 mg tablet (Lotensin) 20 mg PO BID #180 tabs 09/16/22 08/10/23 Rx amlodipine 10 mg tablet 10 mg PO DAILY #90 tabs 03/16/23 08/10/23 Rx metoprolol succinate 25 mg 25 mg PO DAILY #90 tabs 06/15/23 08/10/23 Rx tablet,extended release 24 hr fluticasone furoate 200 1 inh inhalation DAILY 08/10/23 08/10/23 History mcg/actuation blister powder for inhalation (Arnuity Ellipta) potassium chloride 10 mEq 20 meq (2 x 10 mEq) PO DAILY This 08/10/23 08/10/23 Rx capsule,extended release is a dose increase #180 caps Nurse's Note: Patient states no changes in meds [facility] Medical History EMMIE (obstructive sleep apnea) Colitis 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 Osteoarthritis Obesity Essential (primary) hypertension Asthma Surgical History S/P right rotator cuff repair History of carpal tunnel release History of hysterectomy History of lobectomy of lung (2009) Social History Smoking Status: Never smoker alcohol intake: never ROS Const Const: Positive for difficulty sleeping (has EMMIE-uses BIPAP); Negative for fatigue, weakness, headache(s) or daytime sleepiness ENT ENT: Negative for headache(s), dizziness or Nosebleed/epistaxis Cardio Chest Pain: No Palpitations: No Edema: None Resp Respiratory: Negative for SOB with activity, SOB at rest, SOB orthopnea SOB lying down or Cough GI GI: Negative nausea, vomiting or heartburn Neuro Neuro: Negative for dizziness, lightheadedness, near syncope, headache(s) or weakness Endo Endo: Negative for fatigue Cardiology Exam Const Appearance: cooperative and no acute distress Nutritional Appearance: overweight Orientation: alert and oriented x3 Head Head: normal to inspection Ears: hearing grossly normal bilaterally Nose: external nose normal Face and Sinus: face symmetric Eyes General: appearance normal, both eyes and all related structures Eyelids: eyelids normal Conjunctivae: conjunctivae normal Pupils: PERRL and (more content not included)... Normal [facility] Absolute lymphocyte countOrd ered By: Ashely Mejia on 04-24-2023 Lymphocytes Auto (Unsp spec) [#/Vol] 2.59 10*3/uL 0.83-4.51 [facility] Automated lymphocyte count a s percentage of total leukocytesOrdered By: Ashely Mejia on 04-24-2023 Lymphocytes/100 WBC Auto (Unsp spec) 24.9 % 19-41 [facility] Basophil percentageOrdered B y: Ashely Mejia on 04-24-2023 Basophils/100 WBC (Bld) 0.8 % 0-1 [facility] Bilirubin [Mass/Vol] 0.40 mg/dL 0.20-1.00 [facility] Comment on above: For patients on eltr ombopag therapy, use of Dimension [place] TBIL is not recommended. Chloride [Moles/Vol] 105 mmol/L 98-107 [facility] Eosinophils/100 WBC (Bld) 6.8 % 0-5 [facility] Glucose [Mass/Vol] 110 mg/dL 74-106 [facility] Comment on above: Fasting Glucose resu lt from 100 to 125 mg/dL suggests IMPAIRED HOMEOSTASIS per A.D.A. criteria. Hemoglobin (Bld) [Mass/Vol] 12.4 g/dL 12.0-15.0 [facility] Monocytes/100 WBC (Bld) 12.5 % 0-10 [facility] Neutrophils (Bld) [#/Vol] 5.7 10*3/uL 2.0-7.7 [facility] Neutrophils/100 WBC (Bld) 54.8 % 47-70 [facility] Potassium [Moles/Vol] 4.1 mmol/L 3.5-5.1 [facility] Protein [Mass/Vol] 7.2 g/dL 6.4-8.2 [facility] Sodium [Moles/Vol] 137 mmol/L 136-145 [facility] WBC (Bld) [#/Vol] 10.4 10*3/uL 4.4-11.0 [facility] Determination of erythrocyte mean corpuscular volume (MCV)Ordered By: Ashely Mejia on 04-24-2023 MCV (RBC) [Entitic vol] 93.2 fL 81-99 [facility] Erythrocyte distribution wid th ratioOrdered By: Ashely Mejia on 04-24-2023 Erythrocyte distribution width (RBC) [Ratio] 13.9 % 11.6-14.6 [facility] Erythrocyte distribution wid th standard deviationOrdered By: Ashely Mejia on 04-24-2023 Erythrocyte distribution width (RBC) [Entitic vol] 47.0 fL 35.1-43.9 [facility] Hematocrit Auto (Bld) [Volum e fraction]Ordered By: Ashely Mejia on 04-24-2023 Hematocrit (Bld) [Volume fraction] 39.9 % 37-47 [facility] Immature granulocytes/100 WB C Auto (Bld)Ordered By: Ashely Mejia on 04-24-2023 Immature granulocytes/100 WBC (Bld) 0.200 % 0.0-0.9 [facility] Comment on above: IG% - Immature Granu locytes (promyelocytes, myelocytes and metamyelocytes) > 1% indicates that a LEFT SHIFT is Present. Laboratory - Chemistry and C hemistry - challengeOrdered By: Ashely Mejia on 04-24-2023 Albumin/Globulin [Mass ratio] 0.8 {ratio} 0.9-2.4 [facility] ALP [Catalytic activity/Vol] 131 U/L 45-117 [facility] ALT [Catalytic activity/Vol] 16 U/L 13-56 [facility] CO2 [Moles/Vol] 29.0 mmol/L 21.0-32.0 [facility] Globulin (S) [Mass/Vol] 4.1 g/dL 2.2-4.2 [facility] Urea nitrogen/Creatinine [Mass ratio] 14.6 mg/mg 10-20 [facility] - Hematology and Cell countsOrdered By: Ashely Mejia on 04-24-2023 MCH (RBC) [Entitic mass] 29.0 pg 27.0-32.0 [facility] MCHC (RBC) [Mass/Vol] 31.1 g/dL 32-36 [facility] Nucleated RBC/100 WBC (Bld) [Ratio] 0 % 0-5 [facility] Platelet mean volume (Bld) [Entitic vol] 12.8 fL 6.2-12.0 [facility] Platelets (Bld) [#/Vol] 253 10*3/uL 150-450 [facility] No Panel InformationOrdered By: Ashely Mejia on 04-24-2023 Estimated GFR (MDRD) Amer 66 mL/min >60 [facility] Comment on above: GFR Calc Estimated GFR (MDRD) Non-Af Amer 55 mL/min >60 [facility] Comment on above: Non- GFR Calc RBC Auto (Bld) [#/Vol]Ordere d By: Ashely Mejia on 04-24-2023 RBC (Bld) [#/Vol] 4.28 10*6/uL 4.2-5.4 [facility] Serum or plasma calcium kimmy urement (mass/volume)Ordered By: Ashely Mejia on 04-24-2023 Calcium [Mass/Vol] 8.8 mg/dL 8.5-10.1 [facility] Serum or plasma creatinine m easurement (mass/volume)Ordered By: Ashely Mejia on 04-24-2023 Creatinine [Mass/Vol] 1.03 mg/dL 0.55-1.02 [facility] Comment on above: The validity of the calculated GFR & GFRAA in patients over 70 years has not been determined. Clinical correlation is essential. Serum or plasma urea nitroge n measurement (mass/volume)Ordered By: Ashely Mejia on 04-24-2023 Urea nitrogen [Mass/Vol] 15 mg/dL 7-18 [facility] Thin prep Papanicolaou smear with manual screeningOrdered By: Ashely Mejia on 04-24-2023 Thin prep Papanicolaou smear with manual screening 3.1 g/dL 3.2-5.0 [facility] Thin prep Papanicolaou smear with manual screening 68 U/L 15-37 [facility] Thin prep Papanicolaou smear with manual screening 3 5-15 [facility] Absolute lymphocyte countOrd ered By: Ashely Mejia on 10-21-2022 Lymphocytes Auto (Unsp spec) [#/Vol] 2.09 10*3/uL 0.83-4.51 [facility] Basophil percentageOrdered B y: Ashely Mejia on 10-21-2022 Basophils/100 WBC (Bld) 0.6 % 0-1 [facility] Bilirubin [Mass/Vol] 0.50 mg/dL 0.20-1.00 [facility] Comment on above: For patients on eltr ombopag therapy, use of Dimension [place] TBIL is not recommended. Chloride [Moles/Vol] 105 mmol/L 98-107 [facility] Eosinophils/100 WBC (Bld) 7.5 % 0-5 [facility] Glucose [Mass/Vol] 99 mg/dL 74-106 [facility] Neutrophils (Bld) [#/Vol] 4.8 10*3/uL 2.0-7.7 [facility] Neutrophils/100 WBC (Bld) 56.0 % 47-70 [facility] Potassium [Moles/Vol] 4.1 mmol/L 3.5-5.1 [facility] Protein [Mass/Vol] 6.9 g/dL 6.4-8.2 [facility] Sodium [Moles/Vol] 138 mmol/L 136-145 [facility] WBC (Bld) [#/Vol] 8.7 10*3/uL 4.4-11.0 [facility] Blood erythrocytes count (nu mber/volume)Ordered By: Ashely Mejia on 10-21-2022 RBC (Bld) [#/Vol] 4.09 10*6/uL 4.2-5.4 [facility] Blood hemoglobin measurement (mass/volume)Ordered By: Ashely Mejia on 10-21-2022 Hemoglobin (Bld) [Mass/Vol] 12.3 g/dL 12.0-15.0 [facility] Blood lymphocytes/100 leukoc ytesOrdered By: Ashely Mejia on 10-21-2022 Lymphocytes/100 WBC (Bld) 24.1 % 19-41 [facility] Blood monocytes/100 leukocyt esOrdered By: Ashely Mejia on 10-21-2022 Monocytes/100 WBC (Bld) 11.5 % 0-10 [facility] Blood platelet mean volumeOr dered By: Ashely Mejia on 10-21-2022 Platelet mean volume (Bld) [Entitic vol] 11.9 fL 6.2-12.0 [facility] Determination of erythrocyte mean corpuscular volume (MCV)Ordered By: Ashely Mejia on 10-21-2022 MCV (RBC) [Entitic vol] 93.6 fL 81-99 [facility] Hematocrit Auto (Bld) [Volum e fraction]Ordered By: Ashely Mejia on 10-21-2022 Hematocrit (Bld) [Volume fraction] 38.3 % 37-47 [facility] - Chemistry and C hemistry - challengeOrdered By: Ashely Mejia on 10-21-2022 ALP [Catalytic activity/Vol] 107 U/L 45-117 [facility] ALT [Catalytic activity/Vol] 15 U/L 13-56 [facility] CO2 [Moles/Vol] 29.0 mmol/L 21.0-32.0 [facility] Globulin (S) [Mass/Vol] 3.9 g/dL 2.2-4.2 [facility] Urea nitrogen/Creatinine [Mass ratio] 16.6 mg/mg 10-20 [facility] - Hematology and Cell countsOrdered By: Ashely Mejia on 10-21-2022 Erythrocyte distribution width (RBC) [Entitic vol] 46.3 fL 35.1-43.9 [facility] Erythrocyte distribution width (RBC) [Ratio] 13.4 % 11.6-14.6 [facility] Immature granulocytes/100 WBC (Bld) 0.300 % 0.0-0.9 [facility] Comment on above: IG% - Immature Granu locytes (promyelocytes, myelocytes and metamyelocytes) > 1% indicates that a LEFT SHIFT is Present. MCH (RBC) [Entitic mass] 30.1 pg 27.0-32.0 [facility] Nucleated RBC/100 WBC (Bld) [Ratio] 0 % 0-5 [facility] MCHC Auto (RBC) [Mass/Vol]Or dered By: Ashely Mejia on 10-21-2022 MCHC (RBC) [Mass/Vol] 32.1 g/dL 32-36 [facility] No Panel InformationOrdered By: Ashely Mejia on 10-21-2022 Estimated GFR (MDRD) Amer 72 mL/min >60 [facility] Comment on above: GFR Calc Estimated GFR (MDRD) Non-Af Amer 59 mL/min >60 [facility] Comment on above: Non- GFR Calc Platelets bldOrdered By: Bev Mejia on 10-21-2022 Platelets (Bld) [#/Vol] 224 10*3/uL 150-450 [facility] Serum or plasma albumin kimmy urement (mass/volume)Ordered By: Ashely Mejia on 10-21-2022 Albumin [Mass/Vol] 3.0 g/dL 3.2-5.0 [facility] Serum or plasma albumin/glob ulin mass ratioOrdered By: Ashely Mejia on 10-21-2022 Albumin/Globulin [Mass ratio] 0.8 {ratio} 0.9-2.4 [facility] Serum or plasma calcium kimmy urement (mass/volume)Ordered By: Ashely Mejia on 10-21-2022 Calcium [Mass/Vol] 9.0 mg/dL 8.5-10.1 [facility] Serum or plasma creatinine m easurement (mass/volume)Ordered By: Ashely Mejia on 10-21-2022 Creatinine [Mass/Vol] 0.96 mg/dL 0.55-1.02 [facility] Comment on above: The validity of the calculated GFR & GFRAA in patients over 70 years has not been determined. Clinical correlation is essential. Serum or plasma urea nitroge n measurement (mass/volume)Ordered By: Ashely Mejia on 10-21-2022 Urea nitrogen [Mass/Vol] 16 mg/dL 7-18 [facility] Thin prep Papanicolaou smear with manual screeningOrdered By: Ashely Mejia on 10-21-2022 Thin prep Papanicolaou smear with manual screening 75 U/L 15-37 [facility] Thin prep Papanicolaou smear with manual screening 4 5-15 [facility] Absolute lymphocyte countOrd ered By: Dr. Mejia on 04-30-2022 Lymphocytes Auto (Unsp spec) [#/Vol] 2.61 10*3/uL 0.83-4.51 [facility] Basophil percentageOrdered B y: Dr. Mejia on 04-30-2022 Basophils/100 WBC (Bld) 0.6 % 0-1 [facility] Bilirubin [Mass/Vol] 0.70 mg/dL 0.20-1.00 [facility] Comment on above: For patients on eltr ombopag therapy, use of Dimension [place] TBIL is not recommended. Chloride [Moles/Vol] 105 mmol/L 98-107 [facility] Eosinophils/100 WBC (Bld) 6.6 % 0-5 [facility] Glucose [Mass/Vol] 113 mg/dL 74-106 [facility] Comment on above: Fasting Glucose resu lt from 100 to 125 mg/dL suggests IMPAIRED HOMEOSTASIS per A.D.A. criteria. Neutrophils (Bld) [#/Vol] 5.2 10*3/uL 2.0-7.7 [facility] Neutrophils/100 WBC (Bld) 52.8 % 47-70 [facility] Potassium [Moles/Vol] 4.2 mmol/L 3.5-5.1 [facility] Protein [Mass/Vol] 7.6 g/dL 6.4-8.2 [facility] Sodium [Moles/Vol] 140 mmol/L 136-145 [facility] WBC (Bld) [#/Vol] 9.8 10*3/uL 4.4-11.0 [facility] Blood erythrocytes count (nu mber/volume)Ordered By: Dr. Mejia on 04-30-2022 RBC (Bld) [#/Vol] 4.64 10*6/uL 4.2-5.4 [facility] Blood hemoglobin measurement (mass/volume)Ordered By: Dr. Mejia on 04-30-2022 Hemoglobin (Bld) [Mass/Vol] 14.0 g/dL 12.0-15.0 [facility] Blood lymphocytes/100 leukoc ytesOrdered By: Dr. Mejia on 04-30-2022 Lymphocytes/100 WBC (Bld) 26.8 % 19-41 [facility] Blood monocytes/100 leukocyt esOrdered By: Dr. Mejia on 04-30-2022 Monocytes/100 WBC (Bld) 12.9 % 0-10 [facility] Blood platelet mean volumeOr dered By: Dr. Meija on 04-30-2022 Platelet mean volume (Bld) [Entitic vol] 12.0 fL 6.2-12.0 [facility] Determination of erythrocyte mean corpuscular volume (MCV)Ordered By: Dr. Mejia on 04-30-2022 MCV (RBC) [Entitic vol] 92.0 fL 81-99 [facility] Hematocrit Auto (Bld) [Volum e fraction]Ordered By: Dr. Mejia on 04-30-2022 Hematocrit (Bld) [Volume fraction] 42.7 % 37-47 [facility] Laboratory - Chemistry and C hemistry - challengeOrdered By: Dr. Mejia on 04-30-2022 ALP [Catalytic activity/Vol] 108 U/L 45-117 [facility] ALT [Catalytic activity/Vol] 17 U/L 13-56 [facility] CO2 [Moles/Vol] 26.0 mmol/L 21.0-32.0 [facility] Globulin (S) [Mass/Vol] 4.2 g/dL 2.2-4.2 [facility] Urea nitrogen/Creatinine [Mass ratio] 16.8 mg/mg 10-20 [facility] Laboratory - Hematology and Cell countsOrdered By: Dr. Mejia on 04-30-2022 Erythrocyte distribution width (RBC) [Entitic vol] 44.2 fL 35.1-43.9 [facility] Erythrocyte distribution width (RBC) [Ratio] 13.1 % 11.6-14.6 [facility] Immature granulocytes/100 WBC (Bld) 0.300 % 0.0-0.9 [facility] Comment on above: IG% - Immature Granu locytes (promyelocytes, myelocytes and metamyelocytes) > 1% indicates that a LEFT SHIFT is Present. MCH (RBC) [Entitic mass] 30.2 pg 27.0-32.0 [facility] Nucleated RBC/100 WBC (Bld) [Ratio] 0 % 0-5 [facility] MCHC Auto (RBC) [Mass/Vol]Or dered By: Dr. Mejia on 04-30-2022 MCHC (RBC) [Mass/Vol] 32.8 g/dL 32-36 [facility] No Panel InformationOrdered By: Dr. Mejia on 04-30-2022 Estimated GFR (MDRD) Amer 53 mL/min >60 [facility] Comment on above: GFR Calc Estimated GFR (MDRD) Non-Af Amer 44 mL/min >60 [facility] Comment on above: Non- GFR Calc Platelets bldOrdered By: Dr. Mejia on 04-30-2022 Platelets (Bld) [#/Vol] 238 10*3/uL 150-450 [facility] Serum or plasma albumin kimmy urement (mass/volume)Ordered By: Dr. Mejia on 04-30-2022 Albumin [Mass/Vol] 3.4 g/dL 3.2-5.0 [facility] Serum or plasma albumin/glob ulin mass ratioOrdered By: Dr. Mejia on 04-30-2022 Albumin/Globulin [Mass ratio] 0.8 {ratio} 0.9-2.4 [facility] Serum or plasma calcium kimmy urement (mass/volume)Ordered By: Dr. Mejia on 04-30-2022 Calcium [Mass/Vol] 9.5 mg/dL 8.5-10.1 [facility] Serum or plasma creatinine m easurement (mass/volume)Ordered By: Dr. Mejia on 04-30-2022 Creatinine [Mass/Vol] 1.25 mg/dL 0.55-1.02 [facility] Comment on above: The validity of the calculated GFR & GFRAA in patients over 70 years has not been determined. Clinical correlation is essential. Serum or plasma urea nitroge n measurement (mass/volume)Ordered By: Dr. Mejia on 04-30-2022 Urea nitrogen [Mass/Vol] 21 mg/dL 7-18 [facility] Thin prep Papanicolaou smear with manual screeningOrdered By: Dr. Mejia on 04-30-2022 Thin prep Papanicolaou smear with manual screening 74 U/L 15-37 [facility] Thin prep Papanicolaou smear with manual screening 9 5-15 [facility] Absolute lymphocyte counton 10-29-2021 Lymphocytes Auto (Unsp spec) [#/Vol] 2.61 10*3/uL 0.83-4.51 [facility] Work Phone: Basophil percentageon 2021 Basophils/100 WBC (Bld) 0.6 % 0-1 [facility] Work Phone: Bilirubin [Mass/Vol] 0.60 mg/dL 0.20-1.00 [facility] Work Phone: Comment on above: For patients on eltr ombopag therapy, use of Dimension [place] TBIL is not recommended. Chloride [Moles/Vol] 106 mmol/L 98-107 [facility] Work Phone: Eosinophils/100 WBC (Bld) 8.4 % 0-5 [facility] Work Phone: Glucose [Mass/Vol] 102 mg/dL 74-106 [facility] Work Phone: Comment on above: Fasting Glucose resu lt from 100 to 125 mg/dL suggests IMPAIRED HOMEOSTASIS per A.D.A. criteria. Neutrophils (Bld) [#/Vol] 4.2 10*3/uL 2.0-7.7 [facility] Work Phone: Neutrophils/100 WBC (Bld) 48.4 % 47-70 [facility] Work Phone: Potassium [Moles/Vol] 4.1 mmol/L 3.5-5.1 [facility] Work Phone: Protein [Mass/Vol] 7.6 g/dL 6.4-8.2 [facility] Work Phone: Sodium [Moles/Vol] 140 mmol/L 136-145 [facility] Work Phone: WBC (Bld) [#/Vol] 8.8 10*3/uL 4.4-11.0 [facility] Work Phone: Blood erythrocytes count (nu mber/volume)on 10-29-2021 RBC (Bld) [#/Vol] 4.58 10*6/uL 4.2-5.4 [facility] Work Phone: Blood hemoglobin measurement (mass/volume)on 10-29-2021 Hemoglobin (Bld) [Mass/Vol] 13.6 g/dL 12.0-15.0 [facility] Work Phone: Blood lymphocytes/100 leukoc yteson 10-29-2021 Lymphocytes/100 WBC (Bld) 29.7 % 19-41 [facility] Work Phone: Blood monocytes/100 leukocyt eson 10-29-2021 Monocytes/100 WBC (Bld) 12.6 % 0-10 [facility] Work Phone: Blood platelet mean volumeon 10-29-2021 Platelet mean volume (Bld) [Entitic vol] 12.5 fL 6.2-12.0 [facility] Work Phone: [phone] Determination of erythrocyte mean corpuscular volume (MCV)on 10-29-2021 MCV (RBC) [Entitic vol] 92.1 fL 81-99 [facility] Work Phone: [phone] Hematocrit Auto (Bld) [Volum e fraction]on 10-29-2021 Hematocrit (Bld) [Volume fraction] 42.2 % 37-47 [facility] Work Phone: [phone] Laboratory - Chemistry and C hemistry - challengeon 10-29-2021 ALP [Catalytic activity/Vol] 118 U/L 45-117 [facility] Work Phone: [phone] ALT [Catalytic activity/Vol] 20 U/L 13-56 [facility] Work Phone: [phone] CO2 [Moles/Vol] 27.0 mmol/L 21.0-32.0 [facility] Work Phone: [phone] Globulin (S) [Mass/Vol] 4.2 g/dL 2.2-4.2 [facility] Work Phone: [phone] Urea nitrogen/Creatinine [Mass ratio] 18.3 mg/mg 10-20 [facility] Work Phone: [phone] Laboratory - Hematology and Cell countson 10-29-2021 Erythrocyte distribution width (RBC) [Entitic vol] 46.8 fL 35.1-43.9 [facility] Work Phone: [phone] Erythrocyte distribution width (RBC) [Ratio] 13.8 % 11.6-14.6 [facility] Work Phone: [phone] Immature granulocytes/100 WBC (Bld) 0.300 % 0.0-0.9 [facility] Work Phone: [phone] Comment on above: IG% - Immature Granu locytes (promyelocytes, myelocytes and metamyelocytes) > 1% indicates that a LEFT SHIFT is Present. MCH (RBC) [Entitic mass] 29.7 pg 27.0-32.0 [facility] Work Phone: Nucleated RBC/100 WBC (Bld) [Ratio] 0 % 0-5 [facility] Work Phone: MCHC Auto (RBC) [Mass/Vol]on 10-29-2021 MCHC (RBC) [Mass/Vol] 32.2 g/dL 32-36 [facility] Work Phone: No Panel Informationon 10-29 Estimated GFR (MDRD) Amer 66 mL/min >60 [facility] Work Phone: Comment on above: GFR Calc Estimated GFR (MDRD) Non-Af Amer 54 mL/min >60 [facility] Work Phone: Comment on above: Non- GFR Calc Platelets bldon 10-29-2021 Platelets (Bld) [#/Vol] 235 10*3/uL 150-450 [facility] Work Phone: Serum or plasma albumin kimmy urement (mass/volume)on 10-29-2021 Albumin [Mass/Vol] 3.4 g/dL 3.2-5.0 [facility] Work Phone: Serum or plasma albumin/glob ulin mass ratioon 10-29-2021 Albumin/Globulin [Mass ratio] 0.8 {ratio} 0.9-2.4 [facility] Work Phone: Serum or plasma calcium kimmy urement (mass/volume)on 10-29-2021 Calcium [Mass/Vol] 9.4 mg/dL 8.5-10.1 [facility] Work Phone: Serum or plasma creatinine m easurement (mass/volume)on 10-29-2021 Creatinine [Mass/Vol] 1.04 mg/dL 0.55-1.02 [facility] Work Phone: Comment on above: The validity of the calculated GFR & GFRAA in patients over 70 years has not been determined. Clinical correlation is essential. Serum or plasma urea nitroge n measurement (mass/volume)on 10-29-2021 Urea nitrogen [Mass/Vol] 19 mg/dL 7-18 [facility] Work Phone: Thin prep Papanicolaou smear with manual screeningon 10-29-2021 Thin prep Papanicolaou smear with manual screening 80 U/L 15-37 [facility] Work Phone: Thin prep Papanicolaou smear with manual screening 7 5-15 [facility] Work Phone: XR Chest PA and Lateralon IMPRESSION: Postsurgical change. No acute cardiopulmonary disease identified. Professional Bondsman: MILLI Transcribe Date/Time: Feb 24 2021 5:40P Dictated by : LAITH REBOLLEDO MD This examination was interpreted and the report reviewed and electronically signed by: LAITH REBOLLEDO MD on Feb 24 2021 5:41PM [facility] DIVISION OF RADIOLOGY * * *Final Report* * * DATE OF EXAM: Feb 24 2021 5:31PM WOX [id number] - XR CHEST 2V FRONTAL/LAT / PROCEDURE REASON: multiple diagnoses * * * * Physician Interpretation * * * * EXAMINATION: CHEST RADIOGRAPH (2 VIEW FRONTAL & LATERAL) CLINICAL HISTORY: Moderate persistent asthma without complication Leukocytosis, unspecified type MQ: XC2_6 EXAM DATE/TIME: 02/24/2021 5:31 PM COMPARISON: July 2012 RESULT: Lines, tubes, and devices: None. Lungs and pleura: Postsurgical change involving the right lung. No confluent infiltrate, effusion, or pneumothorax identified. Cardiomediastinal silhouette: Normal cardiomediastinal silhouette. Atherosclerotic calcifications involving the aortic arch. Bones and soft tissues: Unremarkable. DIVISION OF RADIOLOGY Provider, [facility] - 02/24/2021 * * *Final Report* * * DATE OF EXAM: Feb 24 2021 5:31PM WOX [id number] - XR CHEST 2V FRONTAL/LAT / PROCEDURE REASON: multiple diagnoses * * * * Physician Interpretation * * * * EXAMINATION: CHEST RADIOGRAPH (2 VIEW FRONTAL & LATERAL) CLINICAL HISTORY: Moderate persistent asthma without complication Leukocytosis, unspecified type MQ: XC2_6 EXAM DATE/TIME: 02/24/2021 5:31 PM COMPARISON: July 2012 RESULT: Lines, tubes, and devices: None. Lungs and pleura: Postsurgical change involving the right lung. No confluent infiltrate, effusion, or pneumothorax identified. Cardiomediastinal silhouette: Normal cardiomediastinal silhouette. Atherosclerotic calcifications involving the aortic arch. Bones and soft tissues: Unremarkable. IMPRESSION IMPRESSION: Postsurgical change. No acute cardiopulmonary disease identified. Professional Bondsman: MILLI Transcribe Date/Time: Feb 24 2021 5:40P Dictated by : LAITH REBOLLEDO MD This examination was interpreted and the report reviewed and electronically signed by: LAITH REBOLLEDO MD on Feb 24 2021 5:41PM EST [facility] Radiology Study observation (narrative) [facility] XR Chest PA and LateralOrder ed By: [facility] Provider on 02-24-2021 [facility] XR Shoulder - right 2 Viewso n 05-27-2020 IMPRESSION: Degenerative changes as discussed Professional Bondsman: MILLI Transcribe Date/Time: May 27 2020 1:35P Dictated by : SUELLEN JOINER DO This examination was interpreted and the report reviewed and electronically signed by: SUELLEN JOINER DO on May 27 2020 1:36PM EST DIVISION OF RADIOLOGY * * *Final Report* * * DATE OF EXAM: May 27 2020 12:53PM WOX [id number] - XR SHOULDER 2V AP/TRUE AP RT / PROCEDURE REASON: multiple diagnoses * * * * Physician Interpretation * * * * RIGHT shoulder EXAM DATE/TIME: 05/27/2020 12:53 PM HISTORY: 80 years old Clinical information: Chronic right shoulder pain Chronic right shoulder pain Chronic diffuse right shoulder pain with limited range of motion x 1 year. no injury. TECHNIQUE: Images: XR SHOULDER 2V AP/TRUE AP RT Comparison: None. RESULT: Findings: Severe narrowing of the AC joint. Marked narrowing of the glenohumeral joint. Mild spurring along the inferior lateral margin of the glenoid and inferior medial humeral head is noted. Bone density appears well-preserved. No fractures or dislocations are seen. Degenerative changes in the lower cervical and thoracic spine. Extensive postsurgical changes in the RIGHT hilar region DIVISION OF RADIOLOGY Provider, [facility] - 05/27/2020 * * *Final Report* * * DATE OF EXAM: May 27 2020 12:53PM WOX [id number] - XR SHOULDER 2V AP/TRUE AP RT / PROCEDURE REASON: multiple diagnoses * * * * Physician Interpretation * * * * RIGHT shoulder EXAM DATE/TIME: 05/27/2020 12:53 PM HISTORY: 80 years old Clinical information: Chronic right shoulder pain Chronic right shoulder pain Chronic diffuse right shoulder pain with limited range of motion x 1 year. no injury. TECHNIQUE: Images: XR SHOULDER 2V AP/TRUE AP RT Comparison: None. RESULT: Findings: Severe narrowing of the AC joint. Marked narrowing of the glenohumeral joint. Mild spurring along the inferior lateral margin of the glenoid and inferior medial humeral head is noted. Bone density appears well-preserved. No fractures or dislocations are seen. Degenerative changes in the lower cervical and thoracic spine. Extensive postsurgical changes in the RIGHT hilar region IMPRESSION IMPRESSION: Degenerative changes as discussed Professional Bondsman: MILLI Transcribe Date/Time: May 27 2020 1:35P Dictated by : SUELLEN JOINER DO This examination was interpreted and the report reviewed and electronically signed by: SUELLEN JOINER DO on May 27 2020 1:36PM [facility] Radiology Study observation (narrative) [facility] XR Shoulder - right 2 ViewsO rdered By: [facility] Provider on 05-27-2020 [facility] CNNURSEon 05-07-2020 CNN[facility] Nurse Visit (DEVI) LATHA FERRARA I ([id number]) 1940 F VARUN Date Time Provider Department 05/07/20 KAYDEN LAMAS JR During your visit today, we recorded the following information about you: Allergies As of Date: 05/07/2020 Noted Allergy Reaction PLENDIL (FELODIPINE) 01/17/2005 2 - Rash 12 - Shortness of Breath CARDIZEM (DILTIAZEM HCL) 07/23/2010 14 - Other: See Comments Comments: heart racing DEMEROL (MEPERIDINE (PF)) 10/14/2016 14 - Other: See Comments Comments: received 100mg for last colonoscopy and would not wake up- needed to use Narcan LANOLIN 01/17/2005 Comments: topical LATEX 01/17/2005 NEOSPORIN (NEOMYCIN-BACITRACIN- PO*01/17/2005 THIMEROSAL 12/03/2009 14 - Other: See Comments Comments: Pt. was tested in Allergy and had a reaction (rash) from skin test. Date Reviewed: 11/18/2019 Reviewed by: Susie Heath Outside Upholsterer - Fully Assessed Order(s):A [facility] SARS-COV-2 VACCINE 2D DOSE APPT [[id number]] Order #: [id number] Prescriptions as of 05/07/2020 Sig: POTASSIUM CHLORIDE ER 10 MEQ * Take 10 mEq by mouth once alexandra* TRAMADOL 50 MG TABLET Take 50 mg by mouth three pamela* DICLOFENAC 1 % TOPICAL GEL Apply 4 g to affected area fo* X TIZANIDINE 4 MG TABLET Take 4 mg by mouth three time* Patient not taking: Reported on 05/27/2020 BENAZEPRIL 20 MG TABLET Take 2 tablets by mouth once * METOPROLOL SUCCINATE ER 100 M* Take 100 mg by mouth once alexandra* AMLODIPINE 5 MG TABLET Take 10 mg by mouth daily at * RANITIDINE 150 MG CAPSULE Take 150 mg by mouth as neede* OTEZLA 30 MG TABLET Take 1 tablet by mouth twice * BUDESONIDE 180 MCG/ACTUATION * Inhale 1 Puff as instructed o* EYE VITAMIN AND MINERALS ORAL Take 1 tablet by mouth twice * FLUTICASONE PROPIONATE 50 MCG* Use 1 [place] in each nostril o* Patient taking differently: Use 1 [place] in each nostril a* COMPRESSOR, FOR NEBULIZER As directed Problem List As Of Date 05/07/2020 Noted Resolved Essential hypertension [I10] 07/06/2015 Hyperlipidemia [E78.5] 07/06/2015 Asthma [J45.909] 07/06/2015 Hemorrhage of rectum and anus [K62.5] 12/09/2015 RHINITIS CHRONIC [J31.0] 04/04/2008 Nonspecific elevation of levels of transaminase*05/07/19 09 Impaired Fasting Glucose [R73.01] 04/30/2009 Lung cancer (HCC) [C34.90] 12/03/2009 07/06/2015 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] 07/07/2010 07/06/2015 Moderate persistent asthma without complication*12/24/19 15 Essential hypertension with goal blood pressure*07/06/2015 BMI 30.0-30.9,adult [Z68.30] 07/06/2015 Primary atypical carcinoid tumor of right lung *07/06/2015 12/15/2016 Primary osteoarthritis involving multiple joint*12/09/2015 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] 12/09/2015 Encounter Status:Open [facility] Vital Signs Date Time Vital Sign Value Performing Clinician Lissette lopez 08-05-2024 10:20-0400 Diastolic blood pressure 68 mm[Hg] Porter Underwood MD Work Phone: [facility] 08-05-2024 10:20-0400 Systolic blood pressure 132 mm[Hg] Porter Underwood MD Work Phone: [facility] 07-17-2024 11:14-0400 Body mass index (BMI) [Ratio] 29.83 kg/m2 Porter Underwood MD Work Phone: [facility] 07-17-2024 11:14-0400 Body weight 74.48 kg Porter Underwood MD Work Phone: [facility] 07-17-2024 11:14-0400 Diastolic blood pressure 78 mm[Hg] Porter Underwood MD Work Phone: [facility] 07-17-2024 11:14-0400 Systolic blood pressure 132 mm[Hg] Porter Underwood MD Work Phone: [facility] 06-11-2024 08:57-0400 Body height 158 cm Chelsey Morgan [employer] Work Phone: [facility] 06-11-2024 08:57-0400 Body mass index (BMI) [Ratio] 29.24 kg/m2 Chelsey Morgan [employer] HE[employer]IT[employer]IAN Work Phone: [facility] 06-11-2024 08:57-0400 Body weight 73 kg Chelsey Morgan [employer] HE[employer]IT[employer] Work Phone: [facility] 06-11-2024 08:57-0400 Diastolic blood pressure 74 mm[Hg] Chelsey Morgan [employer] HE[employer]IT[employer]IAN Work Phone: [facility] 06-11-2024 08:57-0400 Heart rate 42 /min Chelsey Morgan [employer] HE[employer]IT[employer] Work Phone: [facility] 06-11-2024 08:57-0400 Respiratory rate 12 /min Chelsey Morgan [employer]IT[employer] Work Phone: [facility] 06-11-2024 08:57-0400 SaO2% (BldA) [Mass fraction] 98 % Chelsey Morgan [employer]IT[employer] Work Phone: [facility] 06-11-2024 08:57-0400 Systolic blood pressure 118 mm[Hg] Chelsey Morgan [employer] HE[employer]IT[employer] Work Phone: [facility] 04-02-2024 12:15-0500 Body mass index (BMI) [Ratio] 31 kg/m2 Chelsey Morgan [employer]IT[employer] Work Phone: [facility] 04-02-2024 12:15-0500 Body weight 74 kg Chelsey Morgan [employer] HE[employer]IT[employer] Work Phone: [facility] 04-02-2024 12:15-0500 Diastolic blood pressure 60 mm[Hg] Chelsey Morgan [employer] HE[employer]ITARIAN Work Phone: [facility] 04-02-2024 12:15-0500 Heart rate 52 /min Chelsey Morgan [employer] HE[employer] SANITARIAN Work Phone: [facility] 04-02-2024 12:15-0500 Respiratory rate 14 /min Chelsey Morgan [employer] HE[employer]ITARIAN Work Phone: [facility] 04-02-2024 12:15-0500 SaO2% (BldA) [Mass fraction] 96 % Chelsey Morgan [employer] HE[employer]ITARIAN Work Phone: [facility] 04-02-2024 12:15-0500 Systolic blood pressure 124 mm[Hg] Chelsey Morgan [employer] HE[employer]IT[employer]IAN Work Phone: [facility] 12-12-2023 08:57-0400 Diastolic blood pressure 80 mm[Hg] Chelsey Morgan [employer] HE[employer] SANITARIAN Work Phone: [facility] 12-12-2023 08:57-0400 Heart rate 56 /min Chelsey Morgan [employer] HE[employer]IT[employer] Work Phone: [facility] 12-12-2023 08:57-0400 Systolic blood pressure 128 mm[Hg] Chelsey Morgan [employer] HE[employer]ITARIAN Work Phone: [facility] 12-12-2023 08:44-0400 Body mass index (BMI) [Ratio] 30.67 kg/m2 Chelsey Morgan [employer] HE[employer]IT[employer] Work Phone: [facility] 12-12-2023 08:44-0400 Body weight 73.2 kg Chelsey Morgan [employer] HE[employer]IT[employer]IAN Work Phone: [facility] 12-12-2023 08:44-0400 Respiratory rate 16 /min Chelsey Morgan [employer] HE[employer]IT[employer]IAN Work Phone: [facility] 12-12-2023 08:44-0400 SaO2% (BldA) [Mass fraction] 94 % Chelsey Morgan [employer] HE[employer]IT[employer]IAN Work Phone: [facility] 06-09-2023 10:55-0400 Body height 154.5 cm Chelsey Morgan [employer] HE[employer] SANITARIAN Work Phone: [facility] 06-09-2023 10:55-0400 Body weight 70.76 kg Chelsey Morgan [employer] HE[employer]IT[employer]IAN Work Phone: [facility] 06-09-2023 10:55-0400 Diastolic blood pressure 64 mm[Hg] Chelsey Morgan [employer] HE[employer]IT[employer]IAN Work Phone: [facility] 06-09-2023 10:55-0400 Heart rate 68 /min Chelsey Morgan [employer] HE[employer]IT[employer]IAN Work Phone: [facility] 06-09-2023 10:55-0400 Respiratory rate 14 /min Chelseydiaz Mora [employer] HE[employer]IT[employer]IAN Work Phone: [facility] 06-09-2023 10:55-0400 SaO2% (BldA) [Mass fraction] 95 % Chelseydiaz Mora [employer] HE[employer]IT[employer]IAN Work Phone: [facility] 06-09-2023 10:55-0400 Systolic blood pressure 114 mm[Hg] Chelsey Mora [employer] HE[employer]IT[employer]IAN Work Phone: [facility] 03-16-2023 10:04-0500 Diastolic blood pressure 60 mm[Hg] Dr. Romulo Awan Work Phone: [facility] 03-16-2023 10:04-0500 Systolic blood pressure 120 mm[Hg] Dr. Romulo Awan Work Phone: [phone] [place] [address] 03-16-2023 09:50-0500 Body height 154.[address] Romulo Awan Work Phone: 4([phone] [place] [address] 03-16-2023 09:50-0500 Body mass index (BMI) [Ratio] 29.2 kg/m2 Dr. Romulo Awan Work Phone: 2(549)[phone] [place] [address] 03-16-2023 09:50-0500 Body weight 70.[address] Romulo Awan Work Phone: 9(153)[phone] [place] [address] 03-16-2023 09:50-0500 Heart rate 66 /min Dr. Romulo Awan Work Phone: 7(666)[phone] [place] [address] 03-16-2023 09:50-0500 Respiratory rate 18 /min Dr. Romulo Awan Work Phone: 0(603)[phone] [place] [address] 03-16-2023 09:50-0500 SaO2% (BldA) [Mass fraction] 95 % Dr. Romulo Awan Work Phone: [phone] [place] [address] 09-16-2022 09:10-0400 Body height 154.[address] Romulo Awan Work Phone: [facility] 09-16-2022 09:10-0400 Body mass index (BMI) [Ratio] 28.9 kg/m2 Dr. Romulo Awan Work Phone: [facility] 09-16-2022 09:10-0400 Body weight 69.[address] Romulo Awan Work Phone: 6([phone] [place] [address] 09-16-2022 09:10-0400 Diastolic blood pressure 67 mm[Hg] Dr. Romulo Awan Work Phone: [phone] [place] [address] 09-16-2022 09:10-0400 Heart rate 58 /min Dr. Romulo Awan Work Phone: 2(297)[phone] [place] [address] 09-16-2022 09:10-0400 Respiratory rate 18 /min Dr. Romulo Awan Work Phone: 3(323)[phone] [place] [address] 09-16-2022 09:10-0400 SaO2% (BldA) [Mass fraction] 97 % Dr. Romulo Awan Work Phone: 0(510)[phone] [place] [address] 09-16-2022 09:10-0400 Systolic blood pressure 116 mm[Hg] Dr. Romulo Awan Work Phone: 9(534)[phone] [place] [address] 07-12-2022 11:44-0400 Body mass index (BMI) [Ratio] 28.9 kg/m2 Dr. Romulo Awan Work Phone: 1(966)[phone] [place] [address] 07-12-2022 11:44-0400 Body temperature 96.8 [degF] Dr. Romulo Awan Work Phone: 6(002)[phone] [place] [address] 07-12-2022 11:44-0400 Body weight 69.[address] Romulo Awan Work Phone: 5(521)[phone] [place] [address] 07-12-2022 11:44-0400 Diastolic blood pressure 60 mm[Hg] Dr. Romulo Awan Work Phone: 6(738)146-321394 [place] [address] 07-12-2022 11:44-0400 Heart rate 68 /min Dr. Romulo Awan Work Phone: [facility] 07-12-2022 11:44-0400 Respiratory rate 16 /min Dr. Romulo Awan Work Phone: [facility] 07-12-2022 11:44-0400 SaO2% (BldA) [Mass fraction] 97 % Dr. Romulo Awan Work Phone: [facility] 07-12-2022 11:44-0400 Systolic blood pressure 142 mm[Hg] Dr. Romulo Awan Work Phone: [facility] 06-01-2022 13:15-0400 Diastolic blood pressure 64 mm[Hg] Chelsey Older [employer].ENVIRONMENTAL HEALTH SANITARIAN Work Phone: [facility] 06-01-2022 13:15-0400 Systolic blood pressure 140 mm[Hg] Chelsey Older [employer].ENVIRONMENTAL HEALTH SANITARIAN Work Phone: [facility] 06-01-2022 12:50-0400 Body height 155 cm Chelsey Older [employer].ENVIRONMENTAL HEALTH SANITARIAN Work Phone: [facility] 06-01-2022 12:50-0400 Body weight 71.22 kg Chelsey Older [employer].ENVIRONMENTAL HEALTH SANITARIAN Work Phone: [facility] 06-01-2022 12:50-0400 Heart rate 52 /min Chelsey Older [employer].ENVIRONMENTAL HEALTH SANITARIAN Work Phone: [facility] 06-01-2022 12:50-0400 Respiratory rate 12 /min Chelsey Older [employer].ENVIRONMENTAL HEALTH SANITARIAN Work Phone: [facility] 05-27-2022 13:12-0400 Body height 157.[address] Romulo Awan Work Phone: [facility] 05-27-2022 13:12-0400 Diastolic blood pressure 50 mm[Hg] Dr. Romulo Awan Work Phone: [facility] 05-27-2022 13:12-0400 Systolic blood pressure 148 mm[Hg] Dr. Romulo Awan Work Phone: [facility] 05-27-2022 13:12-0400 Body mass index (BMI) [Ratio] 29.2 kg/m2 Dr. Romulo Awan Work Phone: [facility] 05-27-2022 13:12-0400 Body weight 72.[address] Romulo Awan Work Phone: [facility] 05-27-2022 13:12-0400 Heart rate 52 /min Dr. Romulo Awan Work Phone: [facility] 05-27-2022 13:12-0400 Respiratory rate 18 /min Dr. Romulo Awan Work Phone: [facility] 05-27-2022 13:12-0400 SaO2% (BldA) [Mass fraction] 97 % Dr. Romulo Awan Work Phone: [facility] 05-31-2021 09:20-0400 Diastolic blood pressure 64 mm[Hg] Chelsey Older [employer].ENVIRONMENTAL HEALTH SANITARIAN Work Phone: [facility] 05-31-2021 09:20-0400 Systolic blood pressure 126 mm[Hg] Chelsey Older [employer].ENVIRONMENTAL HEALTH SANITARIAN Work Phone: [facility] 05-31-2021 09:01-0400 Body weight 67.13 kg Chelsey Older [employer].ENVIRONMENTAL HEALTH SANITARIAN Work Phone: [facility] 05-31-2021 09:01-0400 Heart rate 52 /min Chelsey Older [employer].ENVIRONMENTAL HEALTH SANITARIAN Work Phone: [facility] 05-31-2021 09:01-0400 Respiratory rate 14 /min Chelsey Older [employer].ENVIRONMENTAL HEALTH SANITARIAN Work Phone: [facility] 05-31-2021 09:01-0400 SaO2% (BldA) [Mass fraction] 98 % Chelsey Older [employer].ENVIRONMENTAL HEALTH SANITARIAN Work Phone: [facility] Encounters Encounter Date Encounter Type Care Provider Facility Start: 09-02-2024 End: 09-02-2024 Refill Porter Underwood MD Work Phone: OB/Gynecology Comment on above: Refill Request Start: 08-05-2024 End: 08-05-2024 Patient encounter procedure Porter Underwood MD Work Phone: OB/Gynecology Comment on above: Vulvar dermatitis (P rimary Dx) Start: 08-05-2024 End: 08-05-2024 ambulatory PORTER UNDERWOOD Facility:[facility] Start: 07-17-2024 End: 07-17-2024 Patient encounter procedure Porter Underwood MD Work Phone: OB/Gynecology Comment on above: Encounter for gyneco logical examination (general) (routine) without abnormal findings (Primary Dx); Encounter for screening mammogram for breast cancer; Contact dermatitis, unspecified contact dermatitis type, unspecified trigger; Chronic vulvitis; Encounter for screening mammogram for malignant neoplasm of breast Start: 07-17-2024 End: 07-17-2024 Patient encounter status Porter Underwood MD Work Phone: [facility] Start: 07-17-2024 End: 07-17-2024 ambulatory PORTER UNDERWOOD Facility:[facility] Start: 07-17-2024 Encounter for gynecological examination (general) (routine) without abnormal findings PORTER UNDERWOOD [facility] Start: 06-12-2024 End: 08-12-2024 Follow-up encounter Chelsey Mora APRN.ENVIRONMENTAL HEALTH SANITARIAN Work Phone: [facility] [place] Start: 06-12-2024 End: 06-12-2024 Telephone encounter Romulo Awan MD Work Phone: [facility] [place] Comment on above: Patient Request Start: 06-11-2024 End: 06-11-2024 ambulatory CHELSEY MORA Facility:[facility] Start: 06-11-2024 End: 06-11-2024 Patient encounter procedure Chelsey Mora APRN.ENVIRONMENTAL HEALTH SANITARIAN Work Phone: [facility] [place] Comment on above: Medicare annual well ness visit, subsequent (Primary Dx); 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 Compa murphy MD [facility] Start: 06-05-2024 End: 06-05-[address] Romulo Awan MD Work Phone: [facility] Work Phone: Start: 06-05-2024 End: 06-05-[address] Maximo Meadows MD -Cardiovascular Services Work Phone: Start: 06-05-2024 End: 06-05-2024 ambulatory Maximo Meadows Facility:[facility] Start: 05-24-2024 End: 05-24-[address] Romulo Awan MD Work Phone: [facility] Work Phone: Start: 05-24-2024 End: 05-24-[address] Maximo Meadows MD -[facility] Work Phone: Start: 05-24-2024 End: 05-24-2024 ambulatory Maximo Meadows Facility:[facility] Start: 04-15-2024 End: 04-15-2024 Follow-up encounter Chelsey Mora APRN.CNP Work Phone: [facility] [place] Start: 04-10-2024 End: 04-10-2024 Subsequent hospital visit by physician [facility] (I-Stat/1.5t) Work Phone: Radiology Comment on above: Renal cyst [N28.1] Start: 04-10-2024 End: 04-10-2024 ambulatory ROMULO AWAN Facility:[facility] Start: 04-09-2024 End: 04-09-2024 Telephone encounter Chelsey Mora APRN.ENVIRONMENTAL HEALTH SANITARIAN Work Phone: [facility] [place] Comment on above: Results Left lower quadrant abdominal pain (Primary Dx) Start: 04-05-2024 End: 04-05-2024 ambulatory ROMULO Sanders AWAN Facility:[facility] Start: 04-03-2024 End: 04-03-2024 Telephone encounter Chelsey Mora APRN.ENVIRONMENTAL HEALTH SANITARIAN Work Phone: [facility] [place] Comment on above: Results Start: 04-02-2024 End: 04-02-2024 ambulatory ROMULO Sanders AWAN Facility:[facility] Start: 04-02-2024 End: 04-29-2024 Telephone encounter Chelsey Mora APRN.ENVIRONMENTAL HEALTH SANITARIAN Work Phone: [facility] [place] Comment on above: Rectal Problem Start: 04-02-2024 End: 04-02-2024 Subsequent hospital visit by physician [facility] Cat Scan Comment on above: Left lower quadrant abdominal pain [R10.32] Start: 04-02-2024 End: 04-02-2024 ambulatory ROMULO GIRONZ Facility:[facility] Start: 04-02-2024 End: 04-02-2024 Patient encounter procedure Chelsey Mora APRN.ENVIRONMENTAL HEALTH SANITARIAN Work Phone: [facility] [place] Comment on above: Rectal bleeding (Yesenia benoit Dx); Left lower quadrant abdominal pain; Constipation, unspecified constipation type Start: 12-12-2023 End: 12-12-2023 ambulatory ROMULO Sanders AWAN Facility:[facility] Start: 12-12-2023 End: 12-12-2023 Patient encounter procedure Chelsey Mora APRN.ENVIRONMENTAL HEALTH SANITARIAN Work Phone: [facility] [place] Comment on above: Essential hypertensi on with goal blood pressure less than 130/80 (Primary Dx); Impaired fasting glucose; Mild intermittent asthma without complication; Psoriatic arthropathy (HCC); Chronic kidney insufficiency, stage 2 (mild) Start: 10-10-2023 End: 10-10-2023 ambulatory Romulo Awan Facility:[facility] Start: 08-10-2023 End: 08-10-2023 ambulatory Larry Manuel Facility:[facility] Start: 06-09-2023 End: 06-09-2023 Patient encounter procedure Chelsey Mora APRN.CNP Work Phone: [facility] [place] Comment on above: Medicare annual well ness visit, subsequent (Primary Dx); Essential hypertension with goal blood pressure less than 130/80; Psoriatic arthropathy (HCC) Start: 05-10-2023 End: 05-10-[address] Romulo Awan Work Phone: [facility] Work Phone: Start: 05-10-2023 End: 05-10-[address] Romulo Awan [facility]: Start: 04-24-2023 End: 04-24-[address] Romulo Awan Work Phone: [facility] Work Phone: Start: 04-24-2023 End: 04-24-[address] Romulo Awan Work Phone: [facility] Work Phone: Start: 03-16-2023 End: 03-16-[address] Romulo Awan Work Phone: [facility] Work Phone: Start: 10-21-2022 End: 10-21-[address] Romulo Awan Work Phone: [facility] Work Phone: Start: 10-21-2022 End: 10-21-[address] Romulo Awan Work Phone: [facility] Work Phone: Start: 09-16-2022 End: 09-16-[address] Romulo Awan Work Phone: [facility] Work Phone: Start: 07-12-2022 End: 07-12-[address] Romulo Awan Work Phone: [facility] Work Phone: Start: 06-07-2022 End: 06-07-[address] Romulo Awan Work Phone: [facility] Work Phone: Start: 06-07-2022 End: 06-07-[address] Romulo Awan Work Phone: [facility]-Pulmonary Services/Neurology Start: 06-01-2022 End: 06-01-2022 Patient encounter procedure Chelsey Sanford APRN.CNP Work Phone: [facility] [place] Comment on above: Medicare annual well ness visit, subsequent (Primary Dx); Essential hypertension with goal blood pressure less than 130/80; Impaired fasting glucose; Psoriatic arthropathy (HCC) Start: 05-27-2022 End: 05-27-[address] Romulo Awan Work Phone: [facility] Start: 04-30-2022 End: 04-30-2022 ambulatory [facility] Work Phone: Start: 04-30-2022 End: 04-30-2022 Patient encounter procedure [facility]-Laboratory Start: 01-10-2022 End: 01-10-2022 ambulatory [facility] Work Phone: Start: 01-10-2022 End: 01-10-2022 Patient encounter procedure [facility]-Radiology, [place] Start: 12-14-2021 Telephone encounter Romulo deutsch MD Work Phone: [facility] [place] Comment on above: bp update/need for m edication Start: 10-29-2021 End: 10-29-2021 ambulatory [facility] Work Phone: Start: 10-29-2021 End: 10-29-2021 Patient encounter procedure [facility] Start: 05-31-2021 End: 05-31-2021 Patient encounter procedure Chelsey Sanford APRN.ENVIRONMENTAL HEALTH SANITARIAN Work Phone: [facility] [place] Comment on above: Essential hypertensi on with goal blood pressure less than 130/80 (Primary Dx); Mild intermittent asthma without complication; Lymphocytic colitis; Psoriatic arthropathy (HCC); Overweight (BMI 25.0-29.9) Start: 02-24-2021 End: 02-24-2021 Subsequent hospital visit by physician [facility] Work Phone: Radiology Comment on above: Moderate persistent asthma without complication [J45.40] Start: 05-27-2020 End: 05-27-2020 Subsequent hospital visit by physician [facility] Work Phone: Radiology Comment on above: Chronic right should er pain [M25.511, G89.29] Procedures Date Procedure Procedure Detail Performing Clinician Start: 06-11-2024 Adult depression screening assessment Chelsey Mora APRN.ENVIRONMENTAL HEALTH SANITARIAN Work Phone: Start: 05-24-2024 MRI of brain with contrast Dr. Romulo Awan MD Work Phone: Start: 04-02-2024 Ct abdomen & pelvis w/contrast material Chelsey Mora APRN.ENVIRONMENTAL HEALTH SANITARIAN Work Phone: Start: 06-09-2023 Adult depression screening assessment [facility] [place] Work Phone: Start: 05-10-2023 Radiologic examinati on of knee Dr. Romulo Awan Work Phone: Start: 01-10-2022 Plain chest X-ray Start: 02-24-2021 Radiologic exam ches t 2 views Romulo Awan MD Work Phone: Start: 05-27-2020 Radex shoulder compl ete minimum 2 views Romulo Awan MD Work Phone: Start: 05-27-2020 Adult depression screening assessment Chelsey Sanford APRNKarolynENVIRONMENTAL HEALTH SANITARIAN Work Phone: Plan of Treatment Date Care Activity Detail Author Start: 06-12-2027 Diabetes Screening Diabetes Screenin g [facility] Start: 04-02-2027 Diabetes Screening Diabetes Screenin g [facility] Start: 12-11-2026 Diabetes Screening Diabetes Screenin g [facility] Start: 06-11-2025 Anxiety Screening Anxiety Screening [facility] Start: 06-11-2025 Depression Screening Depression Scre ening [facility] Start: 06-11-2025 Medicare Annual Well ness Visit Medicare Annual Wellness Visit [facility] Start: 06-11-2025 Shingrix Vaccine (1 of 2) Shingrix Vaccine (1 of 2) [facility] Comment on above: Postponed from 08/07 (Declined at this time) Start: 06-11-2025 Urine microalbumin profile DTaP,Tdap,Td Vaccine (2 - Td or Tdap) [facility] Comment on above: Postponed from 01/25 (Declined at this time) Start: 06-09-2025 Diabetes Screening Diabetes Screenmd henok [facility] Start: 12-13-2024 End: 12-13-2024 Patient encounter procedure 12/13/2024 8:40 AM EDT Office Visit [facility] [place] [address] [place], [place] [id number] Romulo Awan MD [address] [place] [address] follow up 6 months [facility] [place] Comment on above: follow up 6 months Start: 12-11-2024 Covid-19 Vaccine ( season) Covid-19 Vaccine () [facility] Comment on above: Postponed from 11/04 (Declined at this time) Start: 12-11-2024 End: 07-11-2025 US Kidney - bilateral and Urinary bladder US KIDNEY/BLADDER Radiology Routine Acquired complex cyst of kidney, Right. Expected: 12/11/2024 (Approximate), Expires: 07/11/2025 [facility] Comment on above: Expected: 12/11/2024 (Approximate), Expires: 07/11/2025 Start: 12-11-2024 End: 12-11-2024 Patient encounter procedure 12/11/2024 9:15 AM EDT Appointment Radiology [address] [place] [address] Renal cyst [N28.1] Radiology Comment on above: Renal cyst [N28.1] Start: 09-02-2024 Influenza vaccination Influenza Vacc ine (#1) [facility] Comment on above: Postponed from 11/04 (Currently Scheduled) Start: 08-05-2024 End: 08-05-2024 Patient encounter procedure 08/05/2024 10:10 AM EDT Office Visit OB/Gynecology [address] [place] [address] Porter Underwood MD [address] [place] [address] follow up OB/Gynecology Comment on above: follow up Start: 06-11-2024 End: 09-10-2024 Comprehensive metabolic 2000 panel - Serum or Plasma [facility] Comment on above: Expected: 06/11/2024 , Expires: 09/10/2024 Start: 06-11-2024 End: 09-10-2024 Hemoglobin A1c in Blood [facility] Comment on above: Expected: 06/11/2024 , Expires: 09/10/2024 Start: 06-11-2024 End: 09-10-2024 Lipid 1996 panel - Serum or Plasma [facility] Work Phone: Comment on above: Expected: 06/11/2024 , Expires: 09/10/2024 Start: 06-11-2024 End: 06-11-2024 Patient encounter procedure 06/11/2024 9:00 AM EDT Office Visit [facility] [place] [address] [facility] [place] [address] Chelsey Mora, [employer]BER [employer]NER.ENVIRONMENTAL HEALTH SANITARIAN [address] [address] Medicare Wellness ; 6 month follow up [facility] [place] Comment on above: Medicare Wellness ; 6 month follow up Start: 06-08-2024 Anxiety Screening Anxiety Screening [facility] Start: 06-08-2024 Covid-19 Vaccine () Covid-19 Vaccine () [facility] Comment on above: Postponed from 11/04 (Declined at this time) Start: 06-08-2024 Depression Screening Depression Scre ening [facility] Start: 06-08-2024 Shingrix Vaccine (1 of 2) Shingrix Vaccine (1 of 2) [facility] Comment on above: Postponed from 08/07 (Declined at this time) Start: 06-08-2024 Urine microalbumin profile DTaP,Tdap,Td Vaccine (2 - Td or Tdap) [facility] Comment on above: Postponed from 01/25 (Declined at this time) Start: 04-10-2024 End: 04-10-2024 Patient encounter procedure 04/10/2024 8:30 AM EST Appointment Radiology [address] [facility] [place] [address] Renal cyst [N28.1] Radiology Comment on above: Renal cyst [N28.1] Start: 04-09-2024 End: 07-09-2024 Urinalysis complete panel - Urine URINALYSIS (WITH MICROSCOPIC) WITH CULTURE IF INDICATED Lab Routine Left lower quadrant abdominal pain Expected: 04/09/2024, Expires: 07/09/2024 [facility] Work Phone: Comment on above: Expected: 04/09/2024 , Expires: 07/09/2024 Start: 04-05-2024 End: 04-05-2024 ambulatory 04/05/2024 8:45 AM EST Results Only [facility] [address] [facility] [place] [address] [facility] Start: 04-03-2024 End: 07-03-2024 Urinalysis complete panel - Urine URINALYSIS (WITH MICROSCOPIC) WITH CULTURE IF INDICATED Lab Routine Left lower quadrant abdominal pain Expected: 04/03/2024, Expires: 07/03/2024 [facility] Work Phone: Comment on above: Expected: 04/03/2024 , Expires: 07/03/2024 Start: 03-19-2024 DIABETES SCREEN DIABETES SCREEN [facility] Start: 03-06-2024 Advance Directive Discussion Advance Directive Discussion [facility] Start: 12-12-2023 End: 03-12-2024 Hemoglobin A1c in Blood [facility] Comment on above: Expected: 12/12/2023 , Expires: 03/12/2024 Start: 12-12-2023 End: 03-12-2024 Lipid 1996 panel - Serum or Plasma [facility] Work Phone: Comment on above: Expected: 12/12/2023 , Expires: 03/12/2024 Start: 12-11-2023 End: 12-11-2023 Patient encounter procedure 12/11/2023 9:00 AM EDT Office Visit [facility] [place] [address] [place], [place] [address] Chelsey Mora, [employer]BER [employer]NER.ENVIRONMENTAL HEALTH SANITARIAN [address] [place], [place] [address] 6 month follow up [facility] [place] Comment on above: 6 month follow up Start: 11-05-2023 Covid-19 Vaccine ( season) Covid-19 Vaccine ( season) [facility] Start: 11-05-2023 Influenza vaccination Influenza Vacc ine (#1) [facility] Start: 06-02-2023 SHINGRIX VACCINE (1 of 2) SHINGRIX VACCINE (1 of 2) [facility] Comment on above: Postponed from 08/07 (Declined at this time) Start: 03-06-2023 Advance Directive Discussion Advance Directive Discussion [facility] Start: 03-06-2023 Behavioral Health Screening Behavioral Health Screening [facility] Start: 01-25-2023 Urine microalbumin profile DTAP,TDAP,TD (2 - Td or Tdap) [facility] Start: 12-02-2022 ANNUAL PCP TEAM SENIOR TELLER MARÍA DISEASE VISIT ANNUAL PCP TEAM CHRONIC DISEASE VISIT [facility] Start: 06-01-2022 End: 08-01-2022 Hemoglobin A1c in Blood HGB A1C Lab Routine Impaired fasting glucose Expected: 06/01/2022, Expires: 08/01/2022 [facility] Work Phone: Comment on above: Expected: 06/01/2022 , Expires: 08/01/2022 Start: 06-01-2022 End: 08-01-2022 Lipid 1996 panel - Serum or Plasma LIPID PANEL BASIC Lab Routine Essential hypertension with goal blood pressure less than 130/80 Expected: 06/01/2022, Expires: 08/01/2022 [facility] Work Phone: Comment on above: Expected: 06/01/2022 , Expires: 08/01/2022 Start: 05-31-2022 ANNUAL PCP TEAM SENIOR TELLER MARÍA DISEASE VISIT ANNUAL PCP TEAM CHRONIC DISEASE VISIT [facility] Start: 05-31-2022 BP CONTROLLED (<130/80) BP CONTROLLE D (<130/80) [facility] Start: 03-19-2022 SERUM CREATININE SERUM CREATININE Cl [facility] Start: 11-16-2021 COVID-19 VACCINE (5 - Booster for Pfizer series) COVID-19 VACCINE (5 - Booster for Pfizer series) [facility] Start: 11-04-2021 Influenza vaccination INFLUENZA (#1) [facility] Start: 05-27-2021 Adult depression screening assessment DEPRESSION SCREENING [facility] Start: 03-23-2021 COVID-19 VACCINE (4 - Booster for Pfizer series) COVID-19 VACCINE (4 - Booster for Pfizer series) [facility] Start: 03-06-2021 DEPRESSION ASSESSMENT DEPRESSION ASS ESSMENT [facility] Start: 07-05-2019 BP CONTROLLED (<130/80) BP CONTROLLE D (<130/80) [facility] Start: 08-08-2011 SHINGRIX VACCINE (1 of 2) SHINGRIX VACCINE (1 of 2) [facility] Start: 08-08-2011 SHINGRIX VACCINE (2 of 3) SHINGRIX VACCINE (2 of 3) [facility] End: 08-16-2025 DBT Breast - bilateral screening FCO SCREENING W [facility] Radiology Routine Encounter for screening mammogram for malignant neoplasm of breast 1 Occurrences starting 07/17/2024 until 08/16/2025 [facility] Work Phone: Comment on above: 1 Occurrences starti ng 07/17/2024 until 08/16/2025 End: 05-03-2025 MR Kidney WO and W contrast IV MRI KIDNEY WO/W IVCON Radiology Routine Renal cyst Acquired cyst of kidney 1 Occurrences starting 04/03/2024 until 05/03/2025 [facility] Comment on above: 1 Occurrences starti ng 04/03/2024 until 05/03/2025 MR Kidney WO and W contrast IV MRI KIDNEY WO/W IVCON Radiology Routine Renal cyst Acquired cyst of kidney 04/10/2024 9:02 AM EST [facility] Work Phone: [facility] Immunizations Immunization Date Immunization Notes Care Provider Leilani [email or web address] 01-25-2024 influenza, high dose seasonal, preservative-free Porter Underwood MD Work Phone: [facility] 01-20-2023 influenza (aIIV4) vaccine, age 65+ yr, quadrivalent, PF (FLUAD QUAD) Porter Underwood MD Work Phone: [facility] 01-20-2023 respiratory syncytia l virus (RSV) vaccine, adjuvanted (AREXVY) Porter Underwood MD Work Phone: [facility] 01-20-2023 influenza virus vaccine, unspecified formulation [facility] [place] Work Phone: [facility] 12-27-2021 Covid Pfizer Bivalen t Booster [facility] 12-27-2021 influenza (aIIV4) vaccine, age 65+ yr, quadrivalent, PF (FLUAD QUAD) Chelsey Mora [employer]BER [employer] TINNER.ENVIRONMENTAL HEALTH SANITARIAN Work Phone: [facility] 12-27-2021 influenza, injectabl e, quadrivalent, preservative free Dr. Romulo Awan Work Phone: [facility] 12-27-2021 influenza, seasonal, injectable [facility] 11-30-2020 influenza, high-dose , quadrivalent vaccine (FLUZONE HIGH DOSE QUADRIVALENT) Chelsey Sanford [employer]UMBER AND TINNER.ENVIRONMENTAL HEALTH SANITARIAN Work Phone: [facility] 05-07-2020 COVID-19 vaccine, ag e 12+ yr (PFIZER-BIONTECH - PURPLE TOP) Chelsey Older PLUMBER AND TINNER.ENVIRONMENTAL HEALTH SANITARIAN Work Phone: [facility] 04-16-2020 COVID-19 vaccine, ag e 12+ yr (PFIZER-BIONTECH - PURPLE TOP) Chelsey Older [employer]UMBER [employer]NER.ENVIRONMENTAL HEALTH SANITARIAN Work Phone: [facility] 01-07-2020 influenza (HD-IIV4) vaccine, age 65+ yr, high dose, quadrivalent, PF (FLUZONE HIGH-DOSE) Chelsey Morgan [employer]BER [employer]NER.ENVIRONMENTAL HEALTH SANITARIAN Work Phone: [facility] 12-25-2018 influenza, high dose seasonal, preservative-free Chelsey Older [employer].ENVIRONMENTAL HEALTH SANITARIAN Work Phone: [facility] Work Phone: 12-25-2017 influenza, high dose seasonal, preservative-free Chelsey Older [employer].ENVIRONMENTAL HEALTH SANITARIAN Work Phone: [facility] Work Phone: 12-15-2016 influenza, high dose seasonal, preservative-free Chelsey Older [employer].ENVIRONMENTAL HEALTH SANITARIAN Work Phone: [facility] 12-09-2015 influenza, high dose seasonal, preservative-free Chelsey Older [employer].ENVIRONMENTAL HEALTH SANITARIAN Work Phone: [facility] 12-23-2014 pneumococcal conjuga te vaccine, 13 valent Chelsey Older [employer].ENVIRONMENTAL HEALTH SANITARIAN Work Phone: [facility] 12-04-2014 influenza, high dose seasonal, preservative-free Chelsey Older [employer].ENVIRONMENTAL HEALTH SANITARIAN Work Phone: [facility] 12-30-2013 influenza, seasonal, injectable Chelsey Older [employer].ENVIRONMENTAL HEALTH SANITARIAN Work Phone: [facility] 01-25-2013 tetanus toxoid, redu jose d diphtheria toxoid, and acellular pertussis vaccine, adsorbed Chelsey Older [employer].ENVIRONMENTAL HEALTH SANITARIAN Work Phone: [facility] 06-13-2011 zoster vaccine, live Chelsey Old er [employer].ENVIRONMENTAL HEALTH SANITARIAN Work Phone: [facility] 12-03-2009 influenza virus vaccine, unspecified formulation Chelsey Older [employer].ENVIRONMENTAL HEALTH SANITARIAN Work Phone: [facility] 12-03-2008 pneumococcal conjuga te vaccine, 7 valent Chelsey Older [employer].ENVIRONMENTAL HEALTH SANITARIAN Work Phone: [facility] Work Phone: 12-03-2008 pneumococcal polysaccharide vaccine, 23 valent Romulo Awan MD Work Phone: [facility] 04-04-2008 tetanus and diphther ia toxoids, adsorbed, preservative free, for adult use (2 Lf of tetanus toxoid and 2 Lf of diphtheria toxoid) Chelsey Older [employer].[facility] Work Phone: [facility] 01-15-2008 influenza virus vaccine, unspecified formulation Chelsey Older [employer]NER.ENVIRONMENTAL HEALTH SANITARIAN Work Phone: [facility] 01-30-2006 influenza virus vaccine, unspecified formulation Chelsey Older [employer]NER.[facility] Work Phone: [facility] Work Phone: Payers Date Payer Category Payer Self-pay [id number] 2015 Private Health Insurance HUMANA HUMANA MEDICARE SUPPLEMENT [id number] 2015-Present [phone] [address] [address] [place] [address] Indemnity [id number] 2015 Private Health Insurance [id number] 2015 Private Health Insurance [id number] 2004 Medicare MEDICARE MEDICAR E A AND B [id number] 2004-Present [phone] [address] [address] [place] [address] Medicare [id number] 2004 Medicare [id number] 2004 Medicare [id number] Unknown [id number] Unknown [id number] Unknown [id number] Unknown [id number] Unknown [id number] Social History Date Type Detail Facility Start: 12-02-2021 End: 03-16-2023 Tobacco smoking status NHIS Never smoked tobacco [facility] Work Phone: Start: 05-31-2021 End: 07-17-2024 Alcohol intake Current non-drinker of alcohol (finding) [facility] Start: 1940 Sex Assigned At Not on file [facility] Start: 04-29-2021 End: 03-16-2023 Tobacco smoking status CAIS Unknown if ever smoked [facility] Start: 1940 Sex Assigned At Female [facility] Start: 06-13-2011 End: 12-02-2021 Tobacco use and exposure Smokeless tobacco non-user [facility] Work Phone: Start: 04-27-2020 End: 12-02-2021 Exposure to SARS-CoV-2 (event) Not sure [facility] Work Phone: Start: 12-02-2022 End: 06-09-2023 [facility] Start: 12-02-2022 End: 06-09-2023 Alcohol Use Disorder Identification Test - Consumption [AUDIT-C] [facility] How often to you hav e a drink containing alcohol? Never [facility] How many standard dr inks containing alcohol do you have on a typical day? Patient does not drink [facility] Start: 04-03-2024 Gender identity Identifies as female gender (finding) [facility] Start: 04-03-2024 Sexual orientation Heterosexual (finding) [facility] Start: 05-31-2024 End: 06-11-2024 Sex Female (finding) [facility] Functional Status Date Assessment Result Facility 06-11-2024 Total score [AUDIT-C] 0 06/12/19 25 9:19 AM EDT Chelsey Mora, [employer].[facility] 01-04-2019 Are you deaf, or do you have serious difficulty hearing No 01/04/2019 1:39 PM Romulo Ignacio MD No [facility] 01-04-2019 Are you blind, or do you have serious difficulty seeing, even when wearing glasses No 01/04/2019 1:39 PM Romulo Ignacio MD No [facility] 01-04-2019 Do you have serious difficulty walking or climbing stairs No 01/04/2019 1:39 PM Romulo Ignacio MD No [facility] 01-04-2019 Do you have difficul ty dressing or bathing No 01/04/2019 1:39 PM Romulo Ignacio MD No [facility] 01-04-2019 Because of a physica l, mental, or emotional condition, do you have difficulty doing errands alone such as visiting a physician's office or shopping No 01/04/2019 1:39 PM Romulo Ignacio MD No [facility] Mental Status Date Assessment Result Facility 01-04-2019 Because of a physica l, mental, or emotional condition, do you have serious difficulty concentrating, remembering, or making decisions No 01/04/2019 1:39 PM Romulo Ignacio MD No [facility] Clinical Notes 07-06-2015 to 08-05-2024 Porter Underwood MD - 08/05/2024 10:16 AM Porter Boyd MD - 07/17/2024 11:05 AM EDTTelephone Encounter - Emerita Glynn RN - 06/12/2024 3:55 PM EDTPatient Instructions Note Date & Type Note Facility 08-05-2024 Note HNO ID: [id number] Author: PORTER UNDERWOOD MD Service: ? Author Type: Physician Type: Progress Notes Filed: 08/05/2024 10:59 Note Text: Latha Ferrara is a 84 year old female who presents for problem visit f/u to determine impact of steroid therapy vulvar inflammation. . HPI: severe vulvar irritation/inflammation OB History No obstetric history on file. Body Die Maker History LMP: Postmenopausal Age at Menarche: Age at First : Age at Menopause: Body Die Maker History Comments: Sexual Activity: Yes; Male Contraception: No contraception data on record PAST MEDICAL HISTORY Diagnosis Date Age-related macular degeneration 06/11/2024 Calculus of gallbladder without mention of cholecystitis or obstruction Carpal tunnel syndrome Chronic kidney insufficiency, stage 2 (mild) 12/02/2021 Disturbance of skin sensation Essential hypertension with goal blood pressure less than 140/90 07/06/2015 External hemorrhoids without mention of complication Generalized osteoarthrosis, unspecified site Hemorrhage of rectum and anus Lymphocytic colitis Nonspecific elevation of levels of transaminase or lactic acid dehydrogenase (LDH) 05/06/2008 Other and unspecified hyperlipidemia 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 In [place], Sees [facility] Dr Saenz. Annual CT scans normal Primary osteoarthritis involving multiple joints 12/09/2015 Psoriatic arthropathy (HCC) 12/09/2015 [facility]INIT[facility] CHRONIC 04/04/2008 Snoring Unspecified asthma(493.90) Unspecified essential hypertension PAST [...] OVARY 07/1999 Hysterectomy, RAY TUBAL LIGATION HX 1972 FAMILY HISTORY Problem Relation Age of Onset Cancer Mother skin, non melanoma Heart Mother 89 ? arrhythmia Heart Father 68 [place] Diabetes Maternal Grandmother Diabetes Paternal Grandmother Heart Paternal Grandmother Diabetes Maternal Grandfather Social History Tobacco Use Smoking status: Never Smokeless tobacco: Never Vaping Use Vaping status: Never Used Substance Use Topics Alcohol use: No Drug use: No Current Outpatient Medications Medication Sig clobetasol (TEMOVATE) 0.05 % ointment Apply 1 application to affected area two times a day. TO AFFECTED AREA. aspirin, enteric coated (ECOTRIN LOW STRENGTH) 81 mg EC tablet Take 1 tablet by mouth once daily. atorvastatin (LIPITOR) 10 mg tablet Take 1 tablet by mouth once daily. terazosin (HYTRIN) 2 mg capsule Take 1 capsule by mouth daily at bedtime. fluticasone furoate (ARNUITY ELLIPTA) 100 mcg/actuation inhaler Inhale 1 Puff as instructed once daily. metoprolol succinate ER (TOPROL XL) 25 mg [...] by mouth twice daily. Per Dr. Mejia VIT A/C/E AC/ZNOX/CUPRIC OXIDE (EYE VITAMIN AND MINERALS ORAL) Take 1 tablet by mouth twice daily. No current facility-administered medications for this visit. Allergies As of Date: 08/05/2024 Allergen Noted Reaction PLENDIL [FELODIPINE] 01/17/2005 Rash and Shortness of Breath CARDIZEM [DILTIAZEM HCL] 07/23/2010 Other: See Comments DEMEROL [MEPERIDINE (PF)] 10/14/2016 Other: See Comments HYDROCHLOROTHIAZIDE 02/06/2019 Unknown LANOLIN 01/17/2005 LATEX 01/17/2005 NEOMYCIN 02/17/2021 Other: See Comments NEOSPORIN [[id number]* 5 THIMEROSAL 12/03/2009 Other: See Comments Fully Assessed 08/05/2024 REVIEW OF SYSTEMS Abdomen: No bloating, early satiety, indigestion, or increased flatulence. No abdominal pain, nausea, vomiting, diarrhea, or constipation. Bladder: No dysuria, gross hematuria, urinary frequency, urinary urgency, or incontinence. Breast: No breast lumps, nipple d/c, overlying skin changes, redness or skin retraction. Expanded ROS: N/A Allergies and current medication updated:Yes SENSITIVE EXAM: The sensitive examination was discussed with the Patient or Patient's Authorized Resist Coater Developer. As applicable, any other physician, advance practice provider, medical student, or other health professional student that will be observing or involved in the sensitive exa (more content not included)... [facility] 08-05-2024 History of Present illness Narrative Latha Ferrara is a 84 year old female who presents for problem visit f/u to determine impact of steroid therapy vulvar inflammation. . HPI: severe vulvar irritation/inflammation OB History No obstetric history on file. Body Die Maker History LMP: Postmenopausal Age at Menarche: Age at First : Age at Menopause: Body Die Maker History Comments: Sexual Activity: Yes; Male Contraception: No contraception data on record PAST MEDICAL HISTORY Diagnosis Date Age-related macular degeneration 06/11/2024 Calculus of gallbladder without mention of cholecystitis or obstruction Carpal tunnel syndrome Chronic kidney insufficiency, stage 2 (mild) 12/02/2021 Disturbance of skin sensation Essential hypertension with goal blood pressure less than 140/90 07/06/2015 External hemorrhoids without mention of complication Generalized osteoarthrosis, unspecified site Hemorrhage of rectum and anus Lymphocytic colitis Nonspecific elevation of levels of transaminase or lactic acid dehydrogenase (LDH) 05/06/2008 Other and unspecified hyperlipidemia 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 In [place], Sees [facility] Sa[facility]. Annual CT scans normal Primary osteoarthritis involving multiple joints 12/09/2015 Psoriatic arthropathy (HCC) 12/09/2015 [facility] CHRONIC 04/04/2008 Snoring Unspecified asthma(493.90) Unspecified essential hypertension PAST SURGICAL HISTORY Procedure Laterality Date COLONOSCOPY FLX DX W/COLLJ SPEC WHEN PFRMD 05/18/1998 Colonoscopy COLONOSCOPY FLX DX W/COLLJ SPEC WHEN PFRMD 05/08/2006 COLONOSCOPY GEN ANES 09/01/2020 EGD 09/01/2020 MASTOIDECTOMY Left 1943 RMVL LUNG OTHER THAN PNEUMONECTOMY 1 LOBE LOBECT 09/16/2009 right middle lobe removed TONSILLECTOMY HX 194 TOTAL ABDOMINAL HYSTERECT W/WO RMVL TUBE OVARY 07/1999 Hysterectomy, RAY TUBAL LIGATION HX 1972 FAMILY HISTORY Problem Relation Age of Onset Cancer Mother skin, non melanoma Heart Mother 89 ? arrhythmia Heart Father 68 [place] Diabetes Maternal Grandmother Diabetes Paternal Grandmother Heart Paternal Grandmother Diabetes Maternal Grandfather Social History Tobacco Use Smoking status: Never Smokeless tobacco: Never Vaping Use Vaping status: Never Used Substance Use Topics Alcohol use: No Drug use: No Current Outpatient Medications Medication Sig clobetasol (TEMOVATE) 0.05 % ointment Apply 1 application to affected area two times a day. TO AFFECTED AREA. aspirin, enteric coated (ECOTRIN LOW STRENGTH) 81 mg EC tablet Take 1 tablet by mouth once daily. atorvastatin (LIPITOR) 10 mg tablet Take 1 tablet by mouth once daily. terazosin (HYTRIN) 2 mg capsule Take 1 capsule by mouth daily at bedtime. fluticasone furoate (ARNUITY ELLIPTA) 100 mcg/actuation inhaler Inhale 1 Puff as instructed once daily. metoprolol succinate ER (TOPROL XL) 25 mg [...] by mouth twice daily. Per Dr. Mejia VIT A/C/E AC/ZNOX/CUPRIC OXIDE (EYE VITAMIN AND MINERALS ORAL) Take 1 tablet by mouth twice daily. No current facility-administered medications for this visit. Allergies As of Date: 08/05/2024 Allergen Noted Reaction PLENDIL [FELODIPINE] 01/17/2005 Rash and Shortness of Breath CARDIZEM [DILTIAZEM HCL] 07/23/2010 Other: See Comments DEMEROL [MEPERIDINE (PF)] 10/14/2016 Other: See Comments HYDROCHLOROTHIAZIDE 02/06/2019 Unknown LANOLIN 01/17/2005 LATEX 01/17/2005 NEOMYCIN 02/17/2021 Other: See Comments NEOSPORIN [[id number]* 5 THIMEROSAL 12/03/2009 Other: See Comments Fully Assessed 08/05/2024 REVIEW OF SYSTEMS Abdomen: No bloating, early satiety, indigestion, or increased flatulence. No abdominal pain, nausea, vomiting, diarrhea, or constipation. Bladder: No dysuria, gross hematuria, urinary frequency, urinary urgency, or incontinence. Breast: No breast lumps, nipple d/c, overlying skin changes, redness or skin retraction. Expanded ROS: N/A Allergies and current medication updated:Yes SENSITIVE EXAM: The sensitive examination was discussed with the Patient or Patient's Authorized Resist Coater Developer. As applicable, any other physician, advance practice provider, medical student, or other health professional student that will be observing or involved in the sensitive examination for educational or training purposes was discussed with the Patient or Authorized Resist Coater Developer. The Patient or Authorized Resist Coater Developer has agreed to proceed with the sensitive examination. (Sensitive examination includes inspection and/or palpation of the breasts, pelvis, prostate and anorectal regions). EXAM: There were no vitals taken for this visit. GENERAL: pleasant, female PELVIC: normal Bartholin's glands, urethra, Fincastle's glands, no vulvar lesions, no cervical lesions, good vaginal support, physiologic discharge present, normal appearing perineal body and perianal region, vulvar dermatitis/inflammation resolving. ASSESSMENT AND PLAN: Assessment & Plan Vulvar dermatitis Has changed to co[place]on underclothing, clear detergent and d/c dryer sheets ftft> 20 m Continue clobetasol twice daily Porter Underwood MD documented in this encounter [facility] 07-17-2024 Note HNO ID: [id number] Author: PORTER UNDERWOOD MD Service: ? Author Type: Physician Type: Progress Notes Filed: 07/17/2024 11:59 Note Text: Health Care Marketing Specialist provided by Audra Vinson LPN Latha Ferrara is a 84 year old female who presents for problem visit vaginal and vulvar irritation for 5 month(s). Refractory to steroids and AANDD ointment HPI: OB History No obstetric history on file. Body Die Maker History LMP: Postmenopausal Age at Menarche: Age at First : Age at Menopause: Body Die Maker History Comments: Sexual Activity: Yes; Male Contraception: No contraception data on record PAST MEDICAL HISTORY Diagnosis Date Age-related macular degeneration 06/11/2024 Calculus of gallbladder without mention of cholecystitis or obstruction Carpal tunnel syndrome Chronic kidney insufficiency, stage 2 (mild) 12/02/2021 Disturbance of skin sensation Essential hypertension with goal blood pressure less than 140/90 07/06/2015 External hemorrhoids without mention of complication Generalized osteoarthrosis, unspecified site Hemorrhage of rectum and anus Lymphocytic colitis Nonspecific elevation of levels of transaminase or lactic acid dehydrogenase (LDH) 05/06/2008 Other and unspecified hyperlipidemia 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 In [place], Sees [facility] Dr Saenz. Annual CT scans normal Primary osteoarthritis involving multiple joints 12/09/2015 Psoriatic arthropathy (HCC) 12/09/2015 RHINITIS CHRONIC 04/04/2008 Snoring Unspecified asthma(493.90) Unspecified essential hypertension PAST SURGICAL HISTORY Procedure Laterality Date COLONOSCOPY FLX DX W/COLLJ SPEC WHEN PFRMD 05/18/1998 Colonoscopy COLONOSCOPY FLX DX W/COLLJ SPEC WHEN PFRMD 05/08/2006 COLONOSCOPY GEN ANES 09/01/2020 EGD 09/01/2020 MASTOIDECTOMY Left 1943 RMVL LUNG OTHER THAN PNEUMONECTOMY 1 LOBE LOBECT 09/16/2009 right middle lobe removed TONSILLECTOMY HX 194 TOTAL ABDOMINAL HYSTERECT W/WO RMVL TUBE OVARY 07/1999 Hysterectomy, RAY TUBAL LIGATION HX 1972 FAMILY HISTORY Problem Relation Age of Onset Cancer Mother skin, non melanoma Heart Mother 89 ? arrhythmia Heart Father 68 [place] Diabetes Maternal Grandmother Diabetes Paternal Grandmother Heart Paternal Grandmother Diabetes Maternal Grandfather Social History Tobacco Use Smoking status: Never Smokeless tobacco: Never Vaping Use Vaping status: Never Used Substance Use Topics Alcohol use: No Drug use: No Current Outpatient Medications Medication Sig aspirin, enteric coated (ECOTRIN LOW STRENGTH) 81 mg EC tablet Take 1 tablet by mouth once daily. atorvastatin (LIPITOR) 10 mg tablet Take 1 tablet by mouth once daily. terazosin (HYTRIN) 2 mg capsule Take 1 capsule by mouth daily at bedtime. fluticasone furoate (ARNUITY ELLIPTA) 100 mcg/actuation inhaler Inhale 1 Puff as instructed once daily. metoprolol succinate ER (TOPROL XL) 25 mg [...] by mouth twice daily. Per Dr. Mejia VIT A/C/E AC/ZNOX/CUPRIC OXIDE (EYE VITAMIN AND MINERALS ORAL) Take 1 tablet by mouth twice daily. No current facility-administered medications for this visit. Allergies As of Date: 07/17/2024 Allergen Noted Reaction PLENDIL [FELODIPINE] 01/17/2005 Rash and Shortness of Breath CARDIZEM [DILTIAZEM HCL] 07/23/2010 Other: See Comments DEMEROL [MEPERIDINE (PF)] 10/14/2016 Other: See Comments HYDROCHLOROTHIAZIDE 02/06/2019 Unknown LANOLIN 01/17/2005 LATEX 01/17/2005 NEOMYCIN 02/17/2021 Other: See Comments NEOSPORIN [[id number]* 5 THIMEROSAL 12/03/2009 Other: See Comments Fully Assessed 06/11/2024 REVIEW OF SYSTEMS Abdomen: No bloating, early satiety, indigestion, or increased flatulence. No abdominal pain, nausea, vomiting, diarrhea, or constipation. Bladder: No dysuria, gross hematuria, urinary frequency, urinary urgency, or incontinence. Breast: No breast lumps, nipple d/c, overlying skin changes, redness or skin retraction. Expanded ROS: N/A Allergies and current medication updated:Yes SENSITIVE EXAM: The sensitive examination was discussed with the Patient or Patient's Authorized Resist Coater Developer. As applicable, any other physician, advance practice provider, medical student, or other health professional student that will be observing or involved in the sensitive examination for educational or training purposes was discussed with the Patient or Au (more content not included)... [facility] 07-17-2024 History of Present illness Narrative Health Care Marketing Specialist provided by Audra Vinson LPN Latha Ferrara is a 84 year old female who presents for problem visit vaginal and vulvar irritation for 5 month(s). Refractory to steroids and A&D ointment HPI: OB History No obstetric history on file. Body Die Maker History LMP: Postmenopausal Age at Menarche: Age at First : Age at Menopause: Body Die Maker History Comments: Sexual Activity: Yes; Male Contraception: No contraception data on record PAST MEDICAL HISTORY Diagnosis Date Age-related macular degeneration 06/11/2024 Calculus of gallbladder without mention of cholecystitis or obstruction Carpal tunnel syndrome Chronic kidney insufficiency, stage 2 (mild) 12/02/2021 Disturbance of skin sensation Essential hypertension with goal blood pressure less than 140/90 07/06/2015 External hemorrhoids without mention of complication Generalized osteoarthrosis, unspecified site Hemorrhage of rectum and anus Lymphocytic colitis Nonspecific elevation of levels of transaminase or lactic acid dehydrogenase (LDH) 05/06/2008 Other and unspecified hyperlipidemia 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 In [place], Sees [facility] Dr Saenz. Annual CT scans normal Primary osteoarthritis involving multiple joints 12/09/2015 Psoriatic arthropathy (HCC) 12/09/2015 RHINITIS CHRONIC 04/04/2008 Snoring Unspecified asthma(493.90) Unspecified essential hypertension PAST SURGICAL HISTORY Procedure Laterality Date COLONOSCOPY FLX DX W/COLLJ SPEC WHEN PFRMD 05/18/1998 Colonoscopy COLONOSCOPY FLX DX W/COLLJ SPEC WHEN PFRMD 05/08/2006 COLONOSCOPY GEN ANES 09/01/2020 EGD 09/01/2020 MASTOIDECTOMY Left 1943 RMVL LUNG OTHER THAN PNEUMONECTOMY 1 LOBE LOBECT 09/16/2009 right middle lobe removed TONSILLECTOMY HX 194 TOTAL ABDOMINAL HYSTERECT W/WO RMVL TUBE OVARY 07/1999 Hysterectomy, RAY TUBAL LIGATION HX 1972 FAMILY HISTORY Problem Relation Age of Onset Cancer Mother skin, non melanoma Heart Mother 89 ? arrhythmia Heart Father 68 [place] Diabetes Maternal Grandmother Diabetes Paternal Grandmother Heart Paternal Grandmother Diabetes Maternal Grandfather Social History Tobacco Use Smoking status: Never Smokeless tobacco: Never Vaping Use Vaping status: Never Used Substance Use Topics Alcohol use: No Drug use: No Current Outpatient Medications Medication Sig aspirin, enteric coated (ECOTRIN LOW STRENGTH) 81 mg EC tablet Take 1 tablet by mouth once daily. atorvastatin (LIPITOR) 10 mg tablet Take 1 tablet by mouth once daily. terazosin (HYTRIN) 2 mg capsule Take 1 capsule by mouth daily at bedtime. fluticasone furoate (ARNUITY ELLIPTA) 100 mcg/actuation inhaler Inhale 1 Puff as instructed once daily. metoprolol succinate ER (TOPROL XL) 25 mg [...] by mouth twice daily. Per Dr. Mejia VIT A/C/E AC/ZNOX/CUPRIC OXIDE (EYE VITAMIN AND MINERALS ORAL) Take 1 tablet by mouth twice daily. No current facility-administered medications for this visit. Allergies As of Date: 07/17/2024 Allergen Noted Reaction PLENDIL [FELODIPINE] 01/17/2005 Rash and Shortness of Breath CARDIZEM [DILTIAZEM HCL] 07/23/2010 Other: See Comments DEMEROL [MEPERIDINE (PF)] 10/14/2016 Other: See Comments HYDROCHLOROTHIAZIDE 02/06/2019 Unknown LANOLIN 01/17/2005 LATEX 01/17/2005 NEOMYCIN 02/17/2021 Other: See Comments NEOSPORIN [[id number]* 5 THIMEROSAL 12/03/2009 Other: See Comments Fully Assessed 06/11/2024 REVIEW OF SYSTEMS Abdomen: No bloating, early satiety, indigestion, or increased flatulence. No abdominal pain, nausea, vomiting, diarrhea, or constipation. Bladder: No dysuria, gross hematuria, urinary frequency, urinary urgency, or incontinence. Breast: No breast lumps, nipple d/c, overlying skin changes, redness or skin retraction. Expanded ROS: N/A Allergies and current medication updated:Yes SENSITIVE EXAM: The sensitive examination was discussed with the Patient or Patient's Authorized Resist Coater Developer. As applicable, any other physician, advance practice provider, medical student, or other health professional student that will be observing or involved in the sensitive examination for educational or training purposes was discussed with the Patient or Authorized Resist Coater Developer. The Patient or Authorized Resist Coater Developer has agreed to proceed with the sensitive examination. (Sensitive examination includes inspection and/or palpation of the breasts, pelvis, prostate and anorectal regions). EXAM: There were no vitals taken for this visit. GENERAL: pleasant, female in no apparent distress PELVIC: Extensive vulvar, perineal, and perianal erythema BIMANUAL: no adnexal masses, non-tender, and uterus surgically absent ASSESSMENT AND PLAN: Assessment & Plan Encounter for gynecological examination (general) (routine) without abnormal findings Encounter for screening mammogram for breast cancer Contact dermatitis, unspecified contact dermatitis type, unspecified trigger Chronic vulvitis Tx Clobetasol Porter Underwood MD documented in this encounter [facility] 06-12-2024 Telephone encounter Note Patient requesting recent lab results from 06/11/24 to be faxed to her Scow Captain, Dr. Tash Mejia. Faxed as requested to [phone]. Emerita Glynn RN [facility] 06-12-2024 Miscellaneous Notes Patient requesting recent lab results from 06/11/24 to be faxed to her Scow Captain, Dr. Tash Mejia. Faxed as requested to [phone]. Emerita Glynn RN documented in this encounter [facility] 06-11-2024 Note HNO ID: [id number] Author: CHELSEY MORA APRN.JAGDISH Service: ? Author Type: Nurse Practitioner Type: Progress Notes Filed: 06/11/2024 10:01 Note Text: Latha Ferrara is a 84 year old female here for a Medicare wellness visit. Medicare Health Risk Assessment General Health Good Exercise: Minutes/Day 0 min Exercise: Days/Week 0 days Alcohol: Daily Use Never Alcohol: Drinks/Day Patient does not drink Alcohol: 6 or more drinks Never Feel off balance No Concerns: Teeth/Dentures No Concerns: Sexual function No Troubled by feelings Stressed Frequency: Eating healthy diet Nearly every day ADLs requiring help None of the above Safety precautions in home/vehicle Yes Smoke, vape, chews tobacco No Difficulty hearing No Difficulty seeing Yes Current Providers Specialists: I have reviewed specialist-related care of the patient in the medical record. Current care team: Patient Care Team: Romulo Awan MD as PCP - General (Internal Medicine) Chelsey Mora APRN.JAGDISH as Medart Operator (Internal Medicine) for Sleep apnea - Dentist [facility] Orthopedics - Rheumatology - allergy injections - Cardiology Medical/Family history review Reviewed and updated problem list, medical/surgical/family/social history, medications, and allergies. Opioid use review Opioid Medications (last 90 days) 06/11/2024 08:56 Opioid Medications tramadol HCl 50 mg TID PRN ORAL (50 mg tab) Details Patient-reported Prescribed No opioid use on file in the last 90 days Does patient have risk factors for opioid abuse? No Pain overview Current pain concerns and treatment plan reviewed. Patient stable on current treatment plan. Anxiety/Depression screening PHQ-2 Score: 0 (Lower risk for depression) ERIKA-2 Score: 2 (Lower risk for anxiety) Recommendation: no further intervention at this time Cognitive screening Mini Cog Score: 4 Cognitive screening reviewed and No further action needed (score 3-5). Functional Observation Was the patient's Timed Up AND Go test unsteady or >= 12 seconds? No Advance Care Planning Surrogate decision maker documented and/or advance directives scanned in chart Measurements BP 118/74 Pulse (!) 42 Resp 12 Ht 158 cm (5' 2.21) Wt 73 kg (160 lb 15 oz) SpO2 98% BMI 29.24 kg/m? Vision Screening: Follows with optometry/ophthalmology Assessment/Plan Medicare annual wellness visit, subsequent (Z00.00) - Counseled on healthy diet and regular exercise - Fall avoidance information provided - Personalized prevention plan provided Additional Concerns The following concerns were also discussed with the patient: The patient consented to the use of ComHear software for draft documentation of the visit consistent with [facility]?s Notice of Privacy Practices. Latha is a 84-year-old female, with a history of HTN, macular degeneration, and psoriatic arthritis, presenting for a Medicare wellness visit. She is accompanied by her . She was evaluated on 05/27/24 by her pet supplies salesperson Dr. Mistry for reports of double vision x 3 months. He noted downbeat nystagmus on exam and ordered a carotid ultrasound and a brain MRI. 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 Following these findings, she was started on a daily baby aspirin by Dr. Mistry. She is not on cholesterol medication and has never been prescribed it. Her blood pressure is well controlled on anti-hypertensives prescribed by her material cutter. She denies any stroke like symptoms except for one episode of severe vertigo a few months ago. She is currently under the care of multiple specialists, including a material cutter (Dr. Manuel), a health physics technician (Dr. Olmstead), and an consulting marine engineer (Dr. Biswas). She had a back injection at [facility] on December 26. She is also taking tramadol at night for pain and Otezla for psoriatic arthritis. She uses Arnuity Ellipta for asthma, managed by Dr. Estevez, and denies any recent issues with asthma. She denies new or worsening chest pain, heart palpitations, edema or dyspnea. She reports occasional rectal bleeding when wiping, which she attributes to tissue thinning. She notes that the bleeding is not as severe as a previous episode for which she was seen in March. Denies black/bloody stools. Her last colonoscopy was in 2020 and was unremarkable Review of Systems Constitutional: Negative for chills, diaphoresis, fatigue and unexpected weight change. Respiratory: Negative for cough and wheezing. Gastrointestinal: Negative for abdominal pain, constipation, diarrhea, nausea, rectal pain and vomiting. Neurological: Negative for dizziness, tremors, syncope, facial asymmetry, speech difficulty, weakness, light-headedness, numbness and headaches. Physical Exam Vitals revie (more content not included)... [facility] 06-11-2024 History of Present illness Narrative Images from the original note were not included. Latha Ferrara is a 84 year old female here for a Medicare wellness visit. Medicare Health Risk Assessment General Health Good Exercise: Minutes/Day 0 min Exercise: Days/Week 0 days Alcohol: Daily Use Never Alcohol: Drinks/Day Patient does not drink Alcohol: 6 or more drinks Never Feel off balance No Concerns: Teeth/Dentures No Concerns: Sexual function No Troubled by feelings Stressed Frequency: Eating healthy diet Nearly every day ADLs requiring help None of the above Safety precautions in home/vehicle Yes Smoke, vape, chews tobacco No Difficulty hearing No Difficulty seeing Yes Current Providers Specialists: I have reviewed specialist-related care of the patient in the medical record. Current care team: Patient Care Team: Romulo Awan MD as PCP - General (Internal Medicine) Chelsey Mora APRN.JAGDISH as Medart Operator (Internal Medicine) for Sleep apnea - Dentist [facility] Orthopedics - Rheumatology - allergy injections - Cardiology Medical/Family history review Reviewed and updated problem list, medical/surgical/family/social history, medications, and allergies. Opioid use review Opioid Medications (last 90 days) 06/11/2024 08:56 Opioid Medications tramadol HCl 50 mg TID PRN ORAL (50 mg tab) Details Patient-reported Prescribed No opioid use on file in the last 90 days Does patient have risk factors for opioid abuse? No Pain overview Current pain concerns and treatment plan reviewed. Patient stable on current treatment plan. Anxiety/Depression screening PHQ-2 Score: 0 (Lower risk for depression) ERIKA-2 Score: 2 (Lower risk for anxiety) Recommendation: no further intervention at this time Cognitive screening Mini Cog Score: 4 Cognitive screening reviewed and No further action needed (score 3-5). Functional Observation Was the patient's Timed Up & Go test unsteady or >= 12 seconds? No Advance Care Planning Surrogate decision maker documented and/or advance directives scanned in chart Measurements BP 118/74 Pulse (!) 42 Resp 12 Ht 158 cm (5' 2.21) Wt 73 kg (160 lb 15 oz) SpO2 98% BMI 29.24 kg/m Vision Screening: Follows with optometry/ophthalmology Assessment/Plan Medicare annual wellness visit, subsequent (Z00.00) - Counseled on healthy diet and regular exercise - Fall avoidance information provided - Personalized prevention plan provided Additional Concerns The following concerns were also discussed with the patient: The patient consented to the use of ambient AI software for draft documentation of the visit consistent with [facility] s Notice of Privacy Practices. Latha is a 84-year-old female, with a history of HTN, macular degeneration, and psoriatic arthritis, presenting for a Medicare wellness visit. She is accompanied by her . She was evaluated on 05/27/24 by her pet supplies salesperson Dr. Mistry for reports of double vision x 3 months. He noted downbeat nystagmus on exam and ordered a carotid ultrasound and a brain MRI. 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 Following these findings, she was started on a daily baby aspirin by Dr. Mistry. She is not on cholesterol medication and has never been prescribed it. Her blood pressure is well controlled on anti-hypertensives prescribed by her material cutter. She denies any stroke like symptoms except for one episode of severe vertigo a few months ago. She is currently under the care of multiple specialists, including a material cutter (Dr. Manuel), a health physics technician (Dr. Olmstead), and an consulting marine engineer (Dr. Biswas). She had a back injection at [facility] on December 26. She is also taking tramadol at night for pain and Otezla for psoriatic arthritis. She uses Arnuity Ellipta for asthma, managed by Dr. Estevez, and denies any recent issues with asthma. She denies new or worsening chest pain, heart palpitations, edema or dyspnea. She reports occasional rectal bleeding when wiping, which she attributes to tissue thinning. She notes that the bleeding is not as severe as a previous episode for which she was seen in March. Denies black/bloody stools. Her last colonoscopy was in 2020 and was unremarkable Review of Systems Constitutional: Negative for chills, diaphoresis, fatigue and unexpected weight change. Respiratory: Negative for cough and wheezing. Gastrointestinal: Negative for abdominal pain, constipation, diarrhea, nausea, rectal pain and vomiting. Neurological: Negative for dizziness, tremors, syncope, facial asymmetry, speech difficulty, weakness, light-headedness, numbness and headaches. Physical Exam Vitals reviewed. Constitutional: Appearance: Normal appearance. Cardiovascular: Rate and Rhythm: Regular rhythm. Bradycardia present. Heart sounds: Normal heart sounds. No murmur heard. Pulmonary: Effort: Pulmonary effort is normal. Breath sounds: Normal breath sounds. No wheezing, rhonchi or rales. Skin: General: Skin is warm and dry. Neurological: Mental Status: She is alert. Data Reviewed: most recent MRI brain, carotid ultrasound, labs, colonoscopy, MRI kidneys Imaging: - Carotid Ultrasound: Less than 50% stenosis. - MRI Brain: acute left putamen infarct. - MRI of the Kidney: Normal aside from right renal cyst; follow-up recommended in 6 to 12 months. 1. Medicare annual wellness visit, subsequent (Z00.00) See medicare wellness plan 2. 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 Mistry to evaluate diplopia revealed an acute left putamen infarct. Carotid ultrasound showed less than 50% stenosis. Patient started on low-dose aspirin by Dr. Mistry. - Discussed secondary prevention strategies, including the initiation of atorvastatin 10 mg daily. - hypertension well controlled. 3. Rectal bleeding (K62.5) Intermittent rectal bleeding noted, described as possibly due to friable tissue. Previous colonoscopy showed no hemorrhoids. - Advised to maintain soft bowel movements with adequate fiber and hydration. - Recommended referral to gastroenterology to evaluate further however patient declined at this time. She will consider if bleeding persists or worsens 4. 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 - Ordered renal ultrasound to be performed before the next follow-up appointment in 6 months 5. Essential hypertension with goal blood pressure less than 130/80 (I10) Blood pressure well-controlled at 118/74 mmHg. Continue current medications 6. Psoriatic arthropathy (HCC) (L40.50) Stable on Otezla and Tramadol as needed 7. Impaired fasting glucose (R73.01) - Ordered HgbA1c 8. Age-related macular degeneration (H35.30) Chronic condition. Under the care of Dr. Mistry. 9. Mild intermittent asthma without complication (HCC) (J45.20) Well-controlled with Arnuity Ellipta. Managed by Dr. Saenz 10. Bradycardia (R00.1) Heart rate at 42 bpm, likely secondary to metoprolol. No symptoms of dizziness, lightheadedness, or shortness of breath reported. 11. Encounter for screening examination for other mental health and behavioral disorders (Z13.39) Screening for depression (Z13.31) Increased stress due to family issues, but no significant anxiety or depression reported. Chelsey Mora APRN.CNP Medical Decision Making: Problems: Moderate: 2+ stable chronic illnesses and New problem with uncertain prognosis Data: Unique test result(s) reviewed: 3+ Unique test(s) ordered: 1 Risk: Low: Low risk from testing/treatment Moderate: Drug management Medical Decision Making Level: 4 - Moderate documented in this encounter [facility] 06-11-2024 Instructions Chelsey Mora APRN.CNP - 06/11/2024 9:29 AM EDT We discussed your recent stroke and stroke prevention: - You are currently taking a daily baby aspirin, which is part of stroke prevention. - I recommend starting atorvastatin 10 mg daily to help reduce your risk of another stroke. This prescription has been sent to your pharmacy. - Stroke prevention also includes maintaining a healthy diet, staying active, and managing other risk factors like high blood pressure. We discussed your carotid ultrasound results: - Your carotid ultrasound showed less than 50% blockage, which is within acceptable limits. No further action is needed at this time. We discussed your rectal bleeding: - You mentioned occasional blood when wiping, which may be due to thinning tissue. - To help prevent this, ensure your bowel movements are soft by eating plenty of fiber and drinking adequate water. - If the bleeding worsens or becomes more frequent, I recommend seeing a general claims agent for further evaluation. We discussed your kidney ultrasound: - Your prior MRI showed kidney cyst that require follow-up. I have ordered a kidney ultrasound to be done in 6-12 months. You can schedule this at your convenience or closer to your next visit. - Your heart rate was slightly low at 42, but you are on metoprolol, which can lower heart rate. Let us know if you experience dizziness, lightheadedness, or shortness of breath. Please let us know if you have any new or worsening symptoms or additional concerns before your next visit. WHAT YOU CAN DO TO PREVENT FALLS [...] review all the medicines you take, even [id number] medicines. As you get older, the way [...] certain medical conditions. documented in this encounter [facility] 04-15-2024 Telephone encounter Note Patient notified and verbalized understanding. Becky Simons MA [facility] 04-15-2024 Miscellaneous Notes Patient notified and verbalized understanding. Becky Simons MA ----- Message from Chelsey Mora APRN.CNP sent at 04/15/2024 7:55 AM EST ----- Please let the patient know the MRI of the abdomen indicated the cyst on her right kidney was likely benign however the recommendation is to reevaluate with ultrasound in 6 to 12 months. The MRI was otherwise normal Chelsey Mora APRN.CNP documented in this encounter [facility] 04-15-2024 Telephone encounter Note ----- Message from Chelsey Mora APRN.CNP sent at 04/15/2024 7:55 AM EST ----- Please let the patient know the MRI of the abdomen indicated the cyst on her right kidney was likely benign however the recommendation is to reevaluate with ultrasound in 6 to 12 months. The MRI was otherwise normal Chelsey Mora APRN.ENVIRONMENTAL HEALTH SANITARIAN [facility] 04-10-2024 History of Present illness Narrative Radiology Service Progress Note DATE OF SERVICE: April 10, 2024 TIME: 8:34 AM PATIENT IDENTITY VERIFICATION COMPLETED USING TWO (2) STANDARD IDENTIFIERS: Name and Date of confirmed by patient verbally. FALL SCREENING: Has the patient had 2 falls in the last year or 1 fall with injury or currently using an Ambulatory Assistive Device (Walker, Cane, Wheelchair, Crutches, etc.)? Yes, Patient High Risk for Falls What interventions were put in place to prevent falls during this visit? Instructed Patient to Call for Help if Needed, Offered Assistance with Transfers/Clothing, Instructed Patient to Remain Seated (Not on Exam Table) Until Exam, and Increased Observations by Caregivers PATIENT GENDER DATA: Assigned female at . status: : No status: NO. PATIENT RELEVANT IMPLANT DATA REVIEWED: Yes PATIENT PRESENTS WITH AN IMPLANTABLE OR ATTACHED SHACTOR: No ALLERGIES: Reviewed and unchanged CONTRAST ALLERGY: NO. EXAM: MRI - CONTRAST TYPE: GROUP II PERIPHERAL IV DATA: Ambulatory: A peripheral IV was started in the Left antecubital site with a Angio cath: 22 gauge. RADIOLOGY DEPARTMENT: MR; Exam(s) Completed: Body: Renal SIGNATURE: CHARAN Mariee) PATIENT NAME: Latha Ferrara DATE: April 10, 2024 TIME: 8:34 AM documented in this encounter [facility] 04-10-2024 Note HNO ID: [id number] Author: DORYS DE PAZ RT(R) Service: ? Author Type: Technologist Type: Progress Notes Filed: 04/10/2024 08:35 Note Text: Radiology Service Progress Note DATE OF SERVICE: April 10, 2024 TIME: 8:34 AM PATIENT IDENTITY VERIFICATION COMPLETED USING TWO (2) STANDARD IDENTIFIERS: Name and Date of confirmed by patient verbally. FALL SCREENING: Has the patient had 2 falls in the last year or 1 fall with injury or currently using an Ambulatory Assistive Device (Walker, Cane, Wheelchair, Crutches, etc.)? Yes, Patient High Risk for Falls What interventions were put in place to prevent falls during this visit? Instructed Patient to Call for Help if Needed, Offered Assistance with Transfers/Clothing, Instructed Patient to Remain Seated (Not on Exam Table) Until Exam, and Increased Observations by Caregivers PATIENT GENDER DATA: Assigned female at . status: : No status: NO. PATIENT RELEVANT IMPLANT DATA REVIEWED: Yes PATIENT PRESENTS WITH AN IMPLANTABLE OR ATTACHED SHACTOR: No ALLERGIES: Reviewed and unchanged CONTRAST ALLERGY: NO. EXAM: MRI - CONTRAST TYPE: GROUP II PERIPHERAL IV DATA: Ambulatory: A peripheral IV was started in the Left antecubital site with a Angio cath: 22 gauge. RADIOLOGY DEPARTMENT: MR; Exam(s) Completed: Body: Renal SIGNATURE: Dorys De Paz, RT(R) PATIENT NAME: Latha Ferrara DATE: April 10, 2024 TIME: 8:34 AM [facility] 04-09-2024 Telephone encounter Note Latha notified of below results/recommendation, will repeat tomorrow. Kim Gonzalez LPN [facility] 04-09-2024 Miscellaneous Notes Latha notified of below results/recommendation, will repeat tomorrow. Kim Gonzalez LPN ----- Message from Chelsey Mora APRN.ENVIRONMENTAL HEALTH SANITARIAN sent at 04/09/2024 8:28 AM EST ----- Please let the patient know the urine culture showed mixed bacteria which typically indicates contamination during collection. I have ordered another urine test, she can have done tomorrow when she is here for the MRI Chelsey Mora APRN.ENVIRONMENTAL HEALTH SANITARIAN documented in this encounter [facility] 04-09-2024 Telephone encounter Note ----- Message from Chelsey Mora APRN.JAGDISH sent at 04/09/2024 8:28 AM EST ----- Please let the patient know the urine culture showed mixed bacteria which typically indicates contamination during collection. I have ordered another urine test, she can have done tomorrow when she is here for the MRI Chelsey Mora APRN.JAGDISH [facility] 04-03-2024 Telephone encounter Note Spoke with patient and scheduled MRI. Giovanna Chan [facility] 04-03-2024 Miscellaneous Notes Spoke with patient and scheduled MRI. Giovanna Chan Patient notified of below results/recommendations. Latha has not had any more episodes of bleeding. Please order urinalysis & MRI, Patient will come in to lab. Let Patient know [facility]SS will be contacting her to schedule MRI. Kim Gonzalez LPN ----- Message from Chelsey Mora APRN.ENVIRONMENTAL HEALTH SANITARIAN sent at 04/03/2024 8:39 AM EST ----- Please let the patient know the CT of the abdomen was negative for diverticulitis or other issues in the GI tract. However there were a couple incidental findings that are not the cause of her symptoms. There was a cyst on the right kidney that needs further evaluation with MRI. Findings of the bladder indicate possible urinary tract infection. She will need to have urinalysis to evaluate further. Has she had any further episodes of bleeding? Chelsey Mora APRN.CNP documented in this encounter [facility] 04-03-2024 Telephone encounter Note Patient notified of below results/recommendations. Latha has not had any more episodes of bleeding. Please order urinalysis & MRI, Patient will come in to lab. Let Patient know PSS will be contacting her to schedule MRI. Kim Gonzalez LPN [facility] 04-03-2024 Telephone encounter Note ----- Message from Chelsey Mora APRN.ENVIRONMENTAL HEALTH SANITARIAN sent at 04/03/2024 8:39 AM EST ----- Please let the patient know the CT of the abdomen was negative for diverticulitis or other issues in the GI tract. However there were a couple incidental findings that are not the cause of her symptoms. There was a cyst on the right kidney that needs further evaluation with MRI. Findings of the bladder indicate possible urinary tract infection. She will need to have urinalysis to evaluate further. Has she had any further episodes of bleeding? Chelsey Mora APRN.ENVIRONMENTAL HEALTH SANITARIAN [facility] 04-02-2024 History of Present illness Narrative Radiology Service Progress Note DATE OF SERVICE: April 02, 2024 TIME: 3:31 PM PATIENT IDENTITY VERIFICATION COMPLETED USING TWO (2) STANDARD IDENTIFIERS: Name and Date of confirmed by patient verbally. FALL SCREENING: Has the patient had 2 falls in the last year or 1 fall with injury or currently using an Ambulatory Assistive Device (Walker, Cane, Wheelchair, Crutches, etc.)? No PATIENT GENDER DATA: Assigned female at . status: : No status: NO. PATIENT RELEVANT IMPLANT DATA REVIEWED: Yes PATIENT PRESENTS WITH AN IMPLANTABLE OR ATTACHED SHACTOR: No ALLERGIES: Reviewed and unchanged CONTRAST ALLERGY: NO. EXAM: CT -CONTRAST INDUCED NEPHROPATHY RISK FACTORS: Patient age > 60 years CREATININE: Creatinine Date Value Ref Range Status 04/02/2024 0.87 0.58 - 0.96 mg/dL Final 03/19/2021 0.77 0.58 - 0.96 mg/dL Final 02/25/2021 0.98 (H) 0.58 - 0.96 mg/dL Final Estimated Glomerular Filtration Rate Date Value Ref Range Status 04/02/2024 66 >=60 mL/min/1.73m Final Comment: Estimated Glomerular Filtration Rate (eGFR) is calculated using the 2020 CKD-EPI creatinine equation. This equation utilizes serum creatinine, sex, and age as parameters. The creatinine assay has traceable calibration to isotope dilution-mass spectrometry. Refer to KDIGO guidelines for clinical interpretation. In patients with unstable renal function, e.g. those with acute kidney injury, the eGFR may not accurately reflect actual GFR. eGFR- Date Value Ref Range Status 03/19/2021 >60 Final P.O.C.T. RESULTS: POC done: Yes, See Lab Tab April 02, 2024 TREATMENT: N/A PERIPHERAL IV DATA: Ambulatory: A peripheral IV was started in the Left antecubital site with a Angio cath: 22 gauge. RADIOLOGY DEPARTMENT: CT; Exam(s) Completed: Abdomen/Pelvis SIGNATURE: CHARAN Goldsmith) PATIENT NAME: Latha Ferrara DATE: April 02, 2024 TIME: 3:31 PM documented in this encounter [facility] 04-02-2024 Note HNO ID: [id number] Author: MEETA WOOD RT(R) Service: ? Author Type: Brass Roller Type: Progress Notes Filed: 04/02/2024 15:31 Note Text: Radiology Service Progress Note DATE OF SERVICE: April 02, 2024 TIME: 3:31 PM PATIENT IDENTITY VERIFICATION COMPLETED USING TWO (2) STANDARD IDENTIFIERS: Name and Date of confirmed by patient verbally. FALL SCREENING: Has the patient had 2 falls in the last year or 1 fall with injury or currently using an Ambulatory Assistive Device (Walker, Cane, Wheelchair, Crutches, etc.)? No PATIENT GENDER DATA: Assigned female at . status: : No status: NO. PATIENT RELEVANT IMPLANT DATA REVIEWED: Yes PATIENT PRESENTS WITH AN IMPLANTABLE OR ATTACHED SHACTOR: No ALLERGIES: Reviewed and unchanged CONTRAST ALLERGY: NO. EXAM: CT -CONTRAST INDUCED NEPHROPATHY RISK FACTORS: Patient age > 60 years CREATININE: Creatinine Date Value Ref Range Status 04/02/2024 0.87 0.58 - 0.96 mg/dL Final 03/19/2021 0.77 0.58 - 0.96 mg/dL Final 02/25/2021 0.98 (H) 0.58 - 0.96 mg/dL Final Estimated Glomerular Filtration Rate Date Value Ref Range Status 04/02/2024 66 >=60 mL/min/1.73m? Final Comment: Estimated Glomerular Filtration Rate (eGFR) is calculated using the 2020 CKD-EPI creatinine equation. This equation utilizes serum creatinine, sex, and age as parameters. The creatinine assay has traceable calibration to isotope dilution-mass spectrometry. Refer to KDIGO guidelines for clinical interpretation. In patients with unstable renal function, e.g. those with acute kidney injury, the eGFR may not accurately reflect actual GFR. eGFR- Date Value Ref Range Status 03/19/2021 >60 Final P.O.C.T. RESULTS: POC done: Yes, See Lab Tab April 02, 2024 TREATMENT: N/A PERIPHERAL IV DATA: Ambulatory: A peripheral IV was started in the Left antecubital site with a Angio cath: 22 gauge. RADIOLOGY DEPARTMENT: CT; Exam(s) Completed: Abdomen/Pelvis SIGNATURE: RT Rupal(R) PATIENT NAME: Latha Ferrara DATE: April 02, 2024 TIME: 3:31 PM [facility] 04-02-2024 Note HNO ID: [id number] Author: CHELSEY MORA APRN.ENVIRONMENTAL HEALTH SANITARIAN Service: ? Author Type: Nurse Practitioner Type: Progress Notes Filed: 04/02/2024 12:49 Note Text: CC: Patient presents with: Rectal Problem: X 1 days HPI Latha Ferrara is a 84 year old female who presents today for above. Patient reports a few episodes since early this AM of bright red blood in the toilet and on the paper when she wiped. She noted a small blood clot in the toilet once as well. She had severe abdominal cramping with the first episode of bleeding along with nausea and diaphoresis. Since then abdominal cramping has been mild. She has been more constipated than usual. Denies any blood mixed in the stool or dark/tarry stools. Denies fever, chills, nausea, vomiting, diarrhea, loss of appetite, unintentional weight loss. PMH includes chronic diarrhea and lymphocytic colitis. She has a small external hemorrhoid that is not painful or swollen. Denies history of GI bleeding. She is not on any blood thinners. Last colonoscopy in 2020 was normal. Review of Systems Respiratory: Negative for shortness of breath. Cardiovascular: Negative for palpitations and leg swelling. Genitourinary: Negative for decreased urine volume. Neurological: Negative for dizziness, syncope, weakness, light-headedness and headaches. 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 In [place], Sees PULM Dr Saenz. Annual CT scans normal Primary osteoarthritis involving multiple joints 12/09/2015 Psoriatic arthropathy (HCC) 12/09/2015 Snoring Unspecified asthma(493.90) Unspecified essential hypertension PAST SURGICAL HISTORY Procedure Laterality Date COLONOSCOPY FLX DX W/COLLJ SPEC WHEN PFRMD 05/18/1998 Colonoscopy COLONOSCOPY FLX DX W/COLLJ SPEC WHEN PFRMD 05/08/2006 COLONOSCOPY GEN ANES 09/01/2020 EGD 09/01/2020 MASTOIDECTOMY Left 1943 RMVL LUNG OTHER THAN PNEUMONECTOMY 1 LOBE LOBECT 09/16/2009 right middle lobe removed TONSILLECTOMY HX 1947 TOTAL ABDOMINAL HYSTERECT W/WO RMVL TUBE OVARY 07/1999 Hysterectomy, RAY TUBAL LIGATION HX 1971 ALLERGIES Plendil [Felodipine], Cardizem [Diltiazem Hcl], Demerol [Meperidine (Pf)], Hydrochlorothiazide, Lanolin, Latex, Neomycin, Neosporin [Airiaqai-Vutqudsgoo-Hrhgutflm], and Thimerosal MEDICATIONS fluticasone furoate (ARNUITY ELLIPTA) 100 mcg/actuation inhaler Inhale 1 Puff as instructed once daily. terazosin (HYTRIN) 2 mg capsule Take 1 [...] by mouth twice daily. Per Dr. Mejia VIT A/C/E AC/ZNOX/CUPRIC OXIDE (EYE VITAMIN AND MINERALS ORAL) Take 1 tablet by mouth twice daily. FAMILY HISTORY Problem Relation Age of Onset Cancer Mother skin, non melanoma Heart Mother 89 ? arrhythmia Heart Father 68 [place] Diabetes Maternal Grandmother Diabetes Paternal Grandmother Heart Paternal Grandmother Diabetes Maternal Grandfather Social History Tobacco Use Smoking status: Never Smokeless tobacco: Never Vaping Use Vaping status: Never Used Substance Use Topics Alcohol use: No Drug use: No BP 124/60 Pulse (!) 52 Resp 14 Wt 74 kg (163 lb 2.3 oz) SpO2 96% BMI 31.00 kg/m? Physical Exam Vitals reviewed. Constitutional: General: She is not in acute distress. Appearance: Normal appearance. She is not ill-appearing. HENT: Mouth/Throat: Mouth: Mucous membranes are moist. Eyes: Conjunctiva/sclera: Conjunctivae normal. Cardiovascular: Rate and Rhythm: Regular rhythm. Bradycardia present. Heart sounds: Normal heart sounds. No murmur heard. Pulmonary: Effort: Pulmonary effort is normal. Breath sounds: Normal breath sounds. No wheezing, rhonchi or rales. Abdominal: General: Bowel sounds are normal. There is no distension. Palpations: Abdomen is (more content not included)... [facility] 04-02-2024 History of Present illness Narrative CC: Patient presents with: Rectal Problem: X 1 days HPI Latha Ferrara is a 84 year old female who presents today for above. Patient reports a few episodes since early this AM of bright red blood in the toilet and on the paper when she wiped. She noted a small blood clot in the toilet once as well. She had severe abdominal cramping with the first episode of bleeding along with nausea and diaphoresis. Since then abdominal cramping has been mild. She has been more constipated than usual. Denies any blood mixed in the stool or dark/tarry stools. Denies fever, chills, nausea, vomiting, diarrhea, loss of appetite, unintentional weight loss. PMH includes chronic diarrhea and lymphocytic colitis. She has a small external hemorrhoid that is not painful or swollen. Denies history of GI bleeding. She is not on any blood thinners. Last colonoscopy in 2020 was normal. Review of Systems Respiratory: Negative for shortness of breath. Cardiovascular: Negative for palpitations and leg swelling. Genitourinary: Negative for decreased urine volume. Neurological: Negative for dizziness, syncope, weakness, light-headedness and headaches. 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 In [place], Sees [facility]UL[facility] Dr Saenz. Annual CT scans normal Primary osteoarthritis involving multiple joints 12/09/2015 Psoriatic arthropathy (HCC) 12/09/2015 Snoring Unspecified asthma(493.90) Unspecified essential hypertension PAST SURGICAL HISTORY Procedure Laterality Date COLONOSCOPY FLX DX W/COLLJ SPEC WHEN PFRMD 05/18/1998 Colonoscopy COLONOSCOPY FLX DX W/COLLJ SPEC WHEN PFRMD 05/08/2006 COLONOSCOPY GEN ANES 09/01/2020 EGD 09/01/2020 MASTOIDECTOMY Left 1943 RMVL LUNG OTHER THAN PNEUMONECTOMY 1 LOBE LOBECT 09/16/2009 right middle lobe removed TONSILLECTOMY HX 194 TOTAL ABDOMINAL HYSTERECT W/WO RMVL TUBE OVARY 07/1999 Hysterectomy, RAY TUBAL LIGATION HX 1971 ALLERGIES Plendil [Felodipine], Cardizem [Diltiazem Hcl], Demerol [Meperidine (Pf)], Hydrochlorothiazide, Lanolin, Latex, Neomycin, Neosporin [Vhtcisfv-Dempbiovro-Ldklcxwhw], and Thimerosal MEDICATIONS fluticasone furoate (ARNUITY ELLIPTA) 100 mcg/actuation inhaler Inhale 1 Puff as instructed once daily. terazosin (HYTRIN) 2 mg capsule Take 1 [...] by mouth twice daily. Per Dr. Mejia VIT A/C/E AC/ZNOX/CUPRIC OXIDE (EYE VITAMIN AND MINERALS ORAL) Take 1 tablet by mouth twice daily. FAMILY HISTORY Problem Relation Age of Onset Cancer Mother skin, non melanoma Heart Mother 89 ? arrhythmia Heart Father 68 [place] Diabetes Maternal Grandmother Diabetes Paternal Grandmother Heart Paternal Grandmother Diabetes Maternal Grandfather Social History Tobacco Use Smoking status: Never Smokeless tobacco: Never Vaping Use Vaping status: Never Used Substance Use Topics Alcohol use: No Drug use: No BP 124/60 Pulse (!) 52 Resp 14 Wt 74 kg (163 lb 2.3 oz) SpO2 96% BMI 31.00 kg/m Physical Exam Vitals reviewed. Constitutional: General: She is not in acute distress. Appearance: Normal appearance. She is not ill-appearing. HENT: Mouth/Throat: Mouth: Mucous membranes are moist. Eyes: Conjunctiva/sclera: Conjunctivae normal. Cardiovascular: Rate and Rhythm: Regular rhythm. Bradycardia present. Heart sounds: Normal heart sounds. No murmur heard. Pulmonary: Effort: Pulmonary effort is normal. Breath sounds: Normal breath sounds. No wheezing, rhonchi or rales. Abdominal: General: Bowel sounds are normal. There is no distension. Palpations: Abdomen is soft. There is no hepatomegaly, splenomegaly or mass. Tenderness: There is abdominal tenderness (LLQ, mild). There is no guarding or rebound. Skin: General: Skin is warm and dry. Coloration: Skin is not pale. Neurological: Mental Status: She is alert. DATA REVIEWED: Most recent labs and colonoscopy ASSESSMENT/PLAN: 1. Rectal bleeding - ICD9: 569.3, ICD10: K62.5 (primary diagnosis) Etiology unclear. Differentials include bleeding hemorrhoids, diverticulitis, lower GI bleed. No alarm symptoms or exam findings however patient had severe abdominal pain initially and she is tender on exam. Will need stat work-up with: - CT ABD/PEL W IVCON - IV CONTRAST (RADIOLOGY PROCEDURE) - NOT ON MAR - ENTERIC CONTRAST (RADIOLOGY PROCEDURE) - NOT ON MAR - COMPLETE BLOOD COUNT - COMPREHENSIVE METABOLIC PANEL Follow-up pending results 2. Left lower quadrant abdominal pain - ICD9: 789.04, ICD10: R10.32 As above - CT ABD/PEL W IVCON - IV CONTRAST (RADIOLOGY PROCEDURE) - NOT ON MAR - ENTERIC CONTRAST (RADIOLOGY PROCEDURE) - NOT ON MAR - COMPLETE BLOOD COUNT - COMPREHENSIVE METABOLIC PANEL Prescription instructions reviewed with patient as applicable. Potential red flag symptoms discussed with the patient. Reviewed appropriate action plan to take if red flag symptoms occur. Patient agreeable to treatment plan. Chelsey Mora APRN.ENVIRONMENTAL HEALTH SANITARIAN documented in this encounter [facility] 04-02-2024 Telephone encounter Note Taryn with Dr. Saenz's office calls to report pt is there for a follow up appt and mentioned she has had bright red bloody stools yesterday and this morning. Pt's vitals: 144/72 P50. Palpation of abdomen did not show any tenderness. No fever. Appt scheduled today with SEASONAL RECRUITER. Maria Alejandra Mckeon LPN [facility] 04-02-2024 Miscellaneous Notes Taryn with Dr. Saenz's office calls to report pt is there for a follow up appt and mentioned she has had bright red bloody stools yesterday and this morning. Pt's vitals: 144/72 P50. Palpation of abdomen did not show any tenderness. No fever. Appt scheduled today with SEASONAL RECRUITER. Maria Alejandra Mckeon LPN documented in this encounter [facility] 12-12-2023 Note HNO ID: [id number] Author: CHELSEY MORA APRN.ENVIRONMENTAL HEALTH SANITARIAN Service: ? Author Type: Nurse Practitioner Type: Progress Notes Filed: 12/12/2023 09:03 Note Text: CC: Patient presents with: F/U 6 months HPI Latha Ferrara is a 83 year old female who presents today for above. Denies any concerns or issues today. Taking all of her medications as prescribed, denies side effects. Restaurant General Manager lowered Metoprolol from 100 to 25 mg daily due to bradycardia. Patient denies dizziness, lightheadedness, feeling faint, fatigue or passing out. She is following up with specialists routinely including health physics technician for RA, car supplier for asthma, and pain management for chronic hip and back pain. She had hip and spine injections by Dr. Pfeiffer that were successful at keeping pain manageable. She is due for repeat injections and will be scheduling soon. Checks BP at home daily, average in the 110's/70's. Review of Systems Constitutional: Negative for chills, diaphoresis and fever. Respiratory: Negative for cough, shortness of breath and wheezing. Cardiovascular: Negative for chest pain, palpitations and leg swelling. 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 In [place], Sees [facility] Sa[facility]. Annual CT scans normal Primary osteoarthritis involving multiple joints 12/09/2015 Psoriatic arthropathy (HCC) 12/09/2015 Snoring Unspecified asthma(493.90) Unspecified essential hypertension PAST SURGICAL HISTORY Procedure Laterality Date COLONOSCOPY FLX DX W/COLLJ SPEC WHEN PFRMD 05/18/1998 Colonoscopy COLONOSCOPY FLX DX W/COLLJ SPEC WHEN PFRMD 05/08/2006 COLONOSCOPY GEN ANES 09/01/2020 EGD 09/01/2020 MASTOIDECTOMY Left 1943 RMVL LUNG OTHER THAN PNEUMONECTOMY 1 LOBE LOBECT 09/16/2009 right middle lobe removed TONSILLECTOMY HX 1947 TOTAL ABDOMINAL HYSTERECT W/WO RMVL TUBE OVARY 07/1999 Hysterectomy, RAY TUBAL LIGATION HX 1972 ALLERGIES Plendil [Felodipine], Cardizem [Diltiazem Hcl], Demerol [Meperidine (Pf)], Hydrochlorothiazide, Lanolin, Latex, Neomycin, Neosporin [Uzmiioxb-Uidotvwdsy-Slnpmqdul], and Thimerosal MEDICATIONS ARNUITY ELLIPTA 200 mcg/actuation inhaler 1 PUFF DAILY FOLLOWED BY [facility] terazosin (HYTRIN) 2 mg capsule Take 1 [...] (FLONASE) 50 mcg/actuation nasal spray Use 1 [place] in each nostril once daily. USE DIRECTED COMPRESSOR, FOR NEBULIZER As directed FAMILY HISTORY Problem Relation Age of Onset Cancer Mother skin, non melanoma Heart Mother 89 ? arrhythmia Heart Father 68 [place] Diabetes Maternal Grandmother Diabetes Paternal Grandmother Heart Paternal Grandmother Diabetes Maternal Grandfather Social History Tobacco Use Smoking status: Never Smokeless tobacco: Never Vaping Use Vaping status: Never Used Substance Use Topics Alcohol use: No Drug use: No BP 146/68 Pulse (!) 49 Resp 16 Wt 73.2 kg (161 lb 6 oz) SpO2 94% BMI 30.67 kg/m? Physical Exam Vitals reviewed. Constitutional: Appearance: Normal appearance. Cardiovascular: Rate and Rhythm: Regular rhythm. Bradycardia present. Heart sounds: Normal heart sounds. No murmur heard. Pulmonary: Effort: Pulmonary effort is normal. Breath sounds: Normal breath sounds. No wheezing, rhonchi or rales. Skin: General: Skin is warm and dry. Neurological: Mental Status: She is alert. Psychiatric: Mood and Affect: Mood normal. Health maintenance reviewed with patient: Covid-19 Vaccine(2023- season) due on (more content not included)... [facility] 12-12-2023 History of Present illness Narrative CC: Patient presents with: F/U 6 months HPI Latha Ferrara is a 83 year old female who presents today for above. Denies any concerns or issues today. Taking all of her medications as prescribed, denies side effects. Restaurant General Manager lowered Metoprolol from 100 to 25 mg daily due to bradycardia. Patient denies dizziness, lightheadedness, feeling faint, fatigue or passing out. She is following up with specialists routinely including health physics technician for RA, car supplier for asthma, and pain management for chronic hip and back pain. She had hip and spine injections by Dr. Pfeiffer that were successful at keeping pain manageable. She is due for repeat injections and will be scheduling soon. Checks BP at home daily, average in the 110's/70's. Review of Systems Constitutional: Negative for chills, diaphoresis and fever. Respiratory: Negative for cough, shortness of breath and wheezing. Cardiovascular: Negative for chest pain, palpitations and leg swelling. 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 In [place], Sees [facility] Dr Saenz. Annual CT scans [...] Hcl], Demerol [Meperidine (Pf)], Hydrochlorothiazide, Lanolin, Latex, Neomycin, Neosporin [Qsydyyto-Pwqaoygybi-Vmkkjhsyy], and Thimerosal MEDICATIONS ARNUITY ELLIPTA 200 mcg/actuation inhaler 1 PUFF DAILY FOLLOWED BY [facility] terazosin (HYTRIN) 2 mg capsule Take 1 [...] (FLONASE) 50 mcg/actuation nasal spray Use 1 [place] in each nostril once daily. USE DIRECTED COMPRESSOR, FOR NEBULIZER As directed FAMILY HISTORY Problem Relation Age of Onset Cancer Mother skin, non melanoma Heart Mother 89 ? arrhythmia Heart Father 68 [place] Diabetes Maternal Grandmother Diabetes Paternal Grandmother Heart Paternal Grandmother Diabetes Maternal Grandfather Social History Tobacco Use Smoking status: Never Smokeless tobacco: Never Vaping Use Vaping status: Never Used Substance Use Topics Alcohol use: No Drug use: No BP 146/68 Pulse (!) 49 Resp 16 Wt 73.2 kg (161 lb 6 oz) SpO2 94% BMI 30.67 kg/m Physical Exam Vitals reviewed. Constitutional: Appearance: Normal appearance. Cardiovascular: Rate and Rhythm: Regular rhythm. Bradycardia present. Heart sounds: Normal heart sounds. No murmur heard. Pulmonary: Effort: Pulmonary effort is normal. Breath sounds: Normal breath sounds. No wheezing, rhonchi or rales. Skin: General: Skin is warm and dry. Neurological: Mental Status: She is alert. Psychiatric: Mood and Affect: Mood normal. Health maintenance reviewed with patient: Covid-19 Vaccine( season) due on 11/05/2023 DTaP,Tdap,Td Vaccine(2 - Td or Tdap) due on 06/08/2024 Shingrix Vaccine(1 of 2) due on 06/08/2024 Influenza Vaccine(1) due on 09/02/2024 Depression Screening due on 06/08/2024 Anxiety Screening due on 06/08/2024 Diabetes Screening due on 06/09/2025 Bone Density Screening Completed Advance Directive Discussion Completed RSV Vaccine Completed Pneumococcal Vaccine: 65+ Completed Spirometry Discontinued Cervical Cancer Screening Discontinued Colorectal Cancer Screening Discontinued DATA REVIEWED: Most recent labs ASSESSMENT/PLAN: 1. Essential hypertension with goal blood pressure less than 130/80 - ICD9: 401.9, ICD10: I10 (primary diagnosis) - Controlled - Continue current medications - Recommend home blood pressure monitoring, to bring results to next visit - Encouraged sodium restriction, DASH or Mediterranean diet - Recommend regular aerobic exercise - LIPID PANEL BASIC 2. Impaired fasting glucose - ICD9: 790.21, ICD10: R73.01 Recheck - HEMOGLOBIN A1C 3. Mild intermittent asthma without complication - ICD9: 493.90, ICD10: J45.20 stable 4. Psoriatic arthropathy (HCC) - ICD9: 696.0, ICD10: L40.50 Stable 5. Chronic kidney insufficiency, stage 2 (mild) - ICD9: 585.2, ICD10: N18.2 - eGFR: Stable - Counseled on avoiding NSAIDs, adequate hydration - Counseled on low sodium diet Prescription instructions reviewed with patient as applicable. Potential red flag symptoms discussed with the patient. Reviewed appropriate action plan to take if red flag symptoms occur. Patient agreeable to treatment plan. Chelsey Mora APRN.JAGDISH documented in this encounter [facility] 06-09-2023 Instructions Chelsey Mora APRN.JAGDISH - 06/09/2023 11:32 AM EDT Screening schedule The following prevention plan is recommended: Shingrix Vaccine(1 of 2) due on 08/08/2011 Covid-19 Vaccine(2022-24 season) due on 11/04/2022 DTaP,Tdap,Td Vaccine(2 - Td or Tdap) due on 01/25/2023 WHAT YOU CAN DO TO PREVENT FALLS [...] review all the medicines you take, even jwzk-jrf-hmmmvpy medicines. As you get older, the way [...] certain medical conditions. documented in this encounter [facility] 06-09-2023 History of Present illness Narrative Images from the original note were not included. Latha Ferrara is a 83 year old female here for a Medicare wellness visit. Medicare Health Risk Assessment General Health Very good Exercise: Minutes/Day 0 min Exercise: Days/Week 0 days Alcohol: Daily Use Never Alcohol: Drinks/Day Patient does not drink Alcohol: 6 or more drinks Never Feel off balance No Concerns: Teeth/Dentures No Concerns: Sexual function No Troubled by feelings None of the above Frequency: Eating healthy diet Nearly every day ADLs requiring help None of the above Safety precautions in home/vehicle Yes Smoke, vape, chews tobacco No Difficulty hearing No Difficulty seeing No Current Providers Specialists: I have reviewed specialist-related care of the patient in the medical record. Current care team: Patient Care Team: Romulo Awan MD as PCP - General (Internal Medicine) Outside specialists seen: for Sleep apnea - Dentist [facility] Orthopedics - Rheumatology - allergy injections - Cardiology Medical/Family history review Reviewed and updated problem list, medical/surgical/family/social history, medications, and allergies. Opioid use review Opioid Medications (last 90 days) 06/09/2023 Opioid Medications tramadol HCl 50 mg TID PRN ORAL (50 mg tab) No sig Details Patient-reported medication Prescribed No opioid use on file in the last 90 days Does patient have risk factors for opioid abuse? Yes Pain overview Current pain concerns and treatment plan reviewed. Patient not currently experiencing pain, stable on current treatment plan, and under the care of a specialist. Depression screening Depression Screening PHQ-2 Score 06/09/2023 0 Depression screening tool completed and reviewed. Based on score and interview, patient is not at risk for depression. Screening tool discussed with patient, and I recommended no further intervention at this time. Cognitive screening Mini Cog Score: 5 Cognitive screening reviewed and no further action needed (score 3-5) Functional Observation Was the patient's Timed Up & Go test unsteady or ? 12 seconds? No Advance Care Planning Surrogate decision maker and/or advance care plan documented Measurements BP 114/64 Pulse 68 Resp 14 Ht 5' .827 (1.55m) Wt 156 lb (70.8kg) SpO2 95% BMI 29.64 kg/(m^2). Assessment/Plan Medicare annual wellness visit, subsequent (Z00.00) - Counseled on healthy diet and regular exercise - Fall avoidance information provided - Personalized prevention plan provided Additional Concerns: 6 month follow up with refills. She has been taking her medications as prescribed without side effects or concerns. She needs a refill on Terazosin. She received a caudal injection and steroid injection to her right hip in February 2023. Since, she has had significant improvement with pain and performance with ADL's. Prior to the injections she was unable to go to the grocery store, now she is doing her own shopping. She is walking with a cane for security, although feels it is not needed. Her diet has not changed. She eats breakfast twice weekly at a restaurant. Otherwise all meals are cooked at home. She denies chest pain, SOB, problems with bowel movements or urination. No change in appetite or sleep. She does not experience claudication or leg edema. REVIEW OF SYSTEMS GENERAL: No weight loss, malaise or fevers RESPIRATORY: Negative for cough, hemoptysis, wheezing, COPD, dyspnea or shortness of breath CARDIOVASCULAR: Negative for chest pain, leg swelling, hypertension, CHF or palpitations GI: No nausea, vomiting, or diarrhea and Negative for abdominal discomfort, blood in stools or black stools, change in bowel habit, diarrhea, heart burn, nausea, vomiting : No history of dysuria, frequency or incontinence, Negative for dysuria, frequency, and incontinence MUSCULOSKELETAL: back pain SKIN: Negative for lesions, rash, and itching PHYSICAL EXAM BP 114/64 Pulse 68 Resp 14 Ht 154.5 cm (5' 0.83) Wt 70.8 kg (156 lb) SpO2 95% BMI 29.64 kg/m GENERAL: well appearing, alert, in no acute distress and ambulates with cane CARDIOVASCULAR: regular rate and rhythm. No murmur, rubs or gallops. PULMONARY: clear to auscultation, no wheezing, rhonchi, or crackles ABDOMEN: soft, non-tender, non-distended, no masses or organomegaly EXTREMITY: no lower extremity edema. No skin discoloration., brisk capillary refill, and 2+ pedal pulses of both lower extremities ASSESSMENT/PLAN: 1. Medicare annual wellness visit, subsequent - ICD9: V70.0, ICD10: Z00.00 (primary diagnosis) - Counseled on healthy diet and regular exercise - Calcium intake with supplements or by diet of 1000 mg/day for under 50, 0413-0322 mg/day for 50+ - Depression screening tool completed and reviewed with patient. Based on score and interview, patient is not at risk for depression and recommended no further intervention at this time. - Follow up for annual medicare wellness exam in one year 2. Essential hypertension with goal blood pressure less than 130/80 - ICD9: 401.9, ICD10: I10 Patient adherent with medications and follow up visits with cardiology. She is eating a heart healthy diet and tolerating her medications well. - Controlled - Continue current medications - Encouraged to continue sodium restriction and healthy diet choices. - Recommend regular aerobic exercise whenever possible. - Follow up in 6 months for hypertension visit - TERAZOSIN 2 MG CAPSULE 3. Psoriatic arthropathy (HCC) - ICD9: 696.0, ICD10: L40.50 Dhiraj, health physics technician Dr. Roberto Mora APRN.ENVIRONMENTAL HEALTH SANITARIAN documented in this encounter [facility] 06-01-2022 Instructions Chelsey Sanford APRN.JAGDISH - 06/01/2022 1:02 PM EDT Screening schedule [...] Exercises that improve balance and coordination (like Rbent Chi) are the most helpful. Lack of exercise leads to weakness and increases your chances of falling. Ask your doctor or health care provider about the best type of exercise program for you. 2. Have your health care provider review your medicines Have your doctor or pharmacist review all the medicines you take, even [id number] medicines. As you get older, the way [...] certain medical conditions. documented in this encounter [facility] 06-01-2022 History of Present illness Narrative Latha Ferrara is a 82 year old female here for a Medicare Subsequent Annual Wellness Visit Health Risk Assessment In general, health is: Very good Concerns with balance:Not at all Concerns with teeth or dentures:Not at all Concerns with sexual function:Not at all [place] anxious, stressed, angry, irritable, lonely, isolated, or [...] Current care team: Patient Care Team: Romulo Awan MD as PCP - General (Internal Medicine) Outside specialists seen: Scow Captain- Dr. Mejia, Pulmonary-Dr. Saenz, ENT-Dr. Ayoub, [facility], cardiology-Dr. Manuel Medical/Family history review Reviewed and updated problem list, medical/surgical/family/social history, medications, and allergies. Opioid use review Patient is currently using opioids. Prescribed Tramadol as needed prescribed by health physics technician. Takes at nightly at bedtime. Does patient [...] diet of 1000 mg/day for under 50, 6051-6819 mg/day for 50+ - Discussed need and benefit for weight loss. BMI 29.64 kg/(m^2) - Patient was counseled [id number] by myself (the billing provider) for the [...] R73.01 Recheck - HGB A1C Chelsey Sanford APRN.JAGDISH documented in this encounter [facility] 12-15-2021 Miscellaneous Notes Terazosin was sent escript. notified. Kim Gonzalez LPN Patient's request for medication is as follows Requested Prescriptions Signed Prescriptions Disp Refills terazosin (HYTRIN) 2 mg capsule 90 capsule 1 Sig: Take 1 capsule by mouth daily at bedtime. Authorizing Provider: ROMULO AWAN Order entered - please phone pharmacy and notify patient. Romulo Awan MD Pt calls to report that pcp increased terazosin 1 mg to 2 mg. Pt reports her bp readings have been averaging 112/60-70. Pt reports she is going to need a new rx with the 2 mg dose since she will run out of 1 mg earlier. Maria Alejandra Mckeon LPN documented in this encounter [facility] 05-31-2021 History of Present illness Narrative CC: Patient presents with: F/U 6 months HPI Latha Ferrara is a 81 year old female who presents today for above. Patient was very ill in February. Treated for UTI. Chlorthalidone was discontinued due to hyponatremia. She was referred to motorcycle fabricator for leukocytosis, thrombocytosis, and anemia. Further evaluation [...] intermittent asthma without complication Pulmicort prescribed by car supplier. Denies frequent cough, wheezing, SOB. No longer using albuterol inhaler. Lymphocytic colitis Diarrhea resolved. Weaned off Entocort, no reoccurring issues. Psoriatic arthropathy (HCC) Medications and monitoring managed by health physics technician Dr. Mejia. Taking Otezla as prescribed, symptoms [...] (HCC) 07/06/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 In [place], Sees [facility] Saenz. Annual CT scans normal Primary osteoarthritis involving multiple joints 12/09/2015 Psoriatic arthropathy (HCC) 12/09/2015 Snoring Unspecified asthma(493.90) Unspecified essential hypertension PAST SURGICAL HISTORY Procedure Laterality Date COLONOSCOPY FLX DX W/COLLJ SPEC WHEN PFRMD 05/18/1998 Colonoscopy COLONOSCOPY FLX DX W/COLLJ SPEC WHEN PFRMD 05/08/2006 COLONOSCOPY GEN ANES 09/01/2020 EGD 09/01/2020 MASTOIDECTOMY Left 1943 RMVL LUNG OTHER THAN PNEUMONECTOMY 1 LOBE LOBECT 09/16/2009 right middle lobe removed TONSILLECTOMY HX 1947 TOTAL ABDOMINAL HYSTERECT W/WO RMVL TUBE OVARY 07/1999 Hysterectomy, RAY TUBAL LIGATION HX 1971 ALLERGIES Plendil [Felodipine], Cardizem [Diltiazem Hcl], Demerol [Meperidine (Pf)], Hydrochlorothiazide, Lanolin, Latex, Neosporin [Dymakjrg-Czavggpltq-Gokqhiyol], and Thimerosal MEDICATIONS omeprazole (PRILOSEC) 20 mg [...] (FLONASE) 50 mcg/actuation nasal spray Use 1 [place] in each nostril once daily. USE DIRECTED COMPRESSOR, FOR NEBULIZER As directed budesonide, enteric coated (ENTOCORT EC) 3 mg 24 hr capsule Take 1 capsule by mouth once daily. FAMILY HISTORY Problem Relation Age of Onset Cancer Mother skin, non melanoma Heart Mother 89 ? arrhythmia Heart Father 68 [place] Diabetes Maternal Grandmother Diabetes Paternal Grandmother Heart [...] Chelsey Sanford APRN.CNP documented in this encounter [facility] 02-24-2021 History of Present illness Narrative Radiology Service Progress Note PATIENT NAME: Latha Ferrara DATE OF SERVICE: February 24, 2021 TIME: 5:22 PM PATIENT IDENTITY VERIFICATION COMPLETED USING TWO (2) IDENTIFIERS: Name and Date of confirmed by patient verbally. FALL SCREENING: Has the patient had 2 falls in the last year or 1 fall with injury or currently using an Ambulatory Assistive Device (Walker, Cane, Wheelchair, Crutches, etc.)? No PATIENT GENDER DATA: Female. status: : No status: NO. PATIENT RELEVANT IMPLANT DATA REVIEWED: Not Applicable RADIOLOGY DEPARTMENT: General X-ray: Exam(s) Completed: Chest X-Ray PERIPHERAL IV DATA: Not applicable SIGNED BY: RT [place](R) February 24, 2021 5:22 PM documented in this encounter [facility] 05-27-2020 History of Present illness Narrative Radiology Service Progress Note PATIENT NAME: Latha Ferrara DATE OF SERVICE: May 27, 2020 TIME: 12:46 PM PATIENT IDENTITY VERIFICATION COMPLETED USING TWO (2) IDENTIFIERS: Name and Date of confirmed by patient verbally. FALL SCREENING: Has the patient had 2 falls in the last year or 1 fall with injury or currently using an Ambulatory Assistive Device (Walker, Cane, Wheelchair, Crutches, etc.)? No PATIENT GENDER DATA: Female. status: : No status: NO. PATIENT RELEVANT IMPLANT DATA REVIEWED: Yes RADIOLOGY DEPARTMENT: General X-ray: Exam(s) Completed: Upper Extremity X-Ray(s): Shoulder, AP / TRUE AP right : PERIPHERAL IV DATA: Not applicable SIGNED BY: RT Xin May 27, 2020 12:46 PM documented in this encounter [facility] 07-06-2015 History of Past i llness Narrative Problem Noted Date Resolved Date Primary atypical carcinoid tumor of right lung 0 07/06/2015 12/15/2016 Overview: September 2009 [place] [facility] [place] 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 Home BP: 159/61 Office BP: 157/73 Hyperlipidemia 07/06/2015 Asthma 07/06/2015 Hemorrhage of rectum and anus documented as of this encounter (statuses as of 05/31/2021) [facility] History of Past illness Narrative* Problem Noted Date Resolved Date Primary atypical carcinoid tumor of right lung 0 07/06/2015 12/15/2016 Overview: September 2009 [place] [facility] [place] 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 Home BP: 159/61 Office BP: 157/73 Hyperlipidemia 07/06/2015 Asthma 07/06/2015 Hemorrhage of rectum and anus documented as of this encounter (statuses as of 12/15/2021) [facility] History of Past illness Narrative* Problem Noted Date Resolved Date Primary atypical carcinoid tumor of right lung 0 07/06/2015 12/15/2016 Overview: September 2009 [place] [facility] [place] [facility] [place] 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 Home BP: 159/61 Office BP: 157/73 Hyperlipidemia 07/06/2015 Asthma 07/06/2015 Hemorrhage of rectum and anus documented as of this encounter (statuses as of 06/01/2022) [facility] History of Past illness Narrative* Problem Noted Date Diagnosed Date Resolved Date Primary atypical carcinoid t umor of right lung 07/06/2015 12/15/2016 Overview: September 2009 right middle lobectomy [facility] In [place], Sees [facility] Dr Saenz. Annual CT scans normal Carcinoid tumor of lung 07/07/201004/2015 Lung cancer 12/03/2009 07/06/2015 Essential hypertension 07/05 Overview: 11/11/2013: Home BP Cuff Validated. Home BP: 159/61 Office BP: 157/73 Hyperlipidemia 07/06/2015 Asthma 07/06/2015 Hemorrhage of rectum and anus 12/09/2015 documented as of this encounter (statuses as of 06/09/2023) [facility] [place] [facility] Diagnosis Essential hypertension with goal blood pressure less than 130/80- Primary Mild intermittent asthma without complication Unspecified asthma Lymphocytic colitis Other and unspecified noninfectious gastroenteritis and colitis Psoriatic arthropathy (HCC) Psoriatic arthropathy Overweight (BMI 25.0-29.9) Overweight documented [facility] this encounter [facility] [place] noteNo assessment information availableWAshtab[facility] Work Phone: Evaluation note* Diagnosis Essential hypertension with goal blood pressure less than 130/80- Primary [facility] Diagnosis Medicare annual wellness visit, subsequent- Primary Routine general medical examination at a health care facility Essential hypertension with goal blood pressure less than 130/80 Impaired fasting glucose Psoriatic arthropathy (HCC) Psoriatic arthropathy [facility] [place] [facility]* Diagnosis Onset Date Resolution Status Bradycardia acute Essential (primary) hypertension [facility] [place] Work Phone: Evaluation note* Diagnosis Onset Date Resolution Status Strain of right knee acute Bradycardia acute Essential (primary) hypertension [facility] [place] Work Phone: Evaluation note* Diagnosis Medicare annual wellness visit, subsequent- Primary Routine general medical examination at a health care facility Essential hypertension with goal blood pressure less than 130/80 Psoriatic arthropathy (HCC) Psoriatic arthropathy [facility] [place] [facility]* Diagnosis Moderate persistent asthma without complication Unspecified asthma Leukocytosis, unspecified type Essential hypertension with goal blood pressure less than 130/80- Primary Mild intermittent asthma without complication Unspecified asthma Lymphocytic colitis Other and unspecified noninfectious gastroenteritis and colitis Psoriatic arthropathy (HCC) Psoriatic arthropathy Overweight (BMI 25.0-29.9) Overweight [facility] [place] [facility]* Diagnosis Essential hypertension with goal blood pressure less than 130/80- Primary Mild intermittent asthma without complication Unspecified asthma Lymphocytic colitis Other and unspecified noninfectious gastroenteritis and colitis Psoriatic arthropathy (HCC) Psoriatic arthropathy Overweight (BMI 25.0-29.9) Overweight Essential hypertension with goal blood pressure less than 130/80- Primary Impaired fasting glucose Mild intermittent asthma without complication Unspecified asthma Psoriatic arthropathy (HCC) Psoriatic arthropathy Chronic kidney insufficiency, stage 2 (mild) [facility] [place] [facility]* Diagnosis Chronic right shoulder pain Pain in joint, shoulder region Essential hypertension with goal blood pressure less than 130/80- Primary Mild intermittent asthma without complication Unspecified asthma Lymphocytic colitis Other and unspecified noninfectious gastroenteritis and colitis Psoriatic arthropathy (HCC) Psoriatic arthropathy Overweight (BMI 25.0-29.9) Overweight [facility] [place] [facility]* Diagnosis Essential hypertension with goal blood pressure less than 130/80- Primary Mild intermittent asthma without complication Unspecified asthma Lymphocytic colitis Other and unspecified noninfectious gastroenteritis and colitis Psoriatic arthropathy (HCC) Psoriatic arthropathy Overweight (BMI 25.0-29.9) Overweight Rectal bleeding- Primary Hemorrhage of rectum and anus Left lower quadrant abdominal pain Constipation, unspecified constipation type Left lower quadrant abdominal pain Rectal bleeding Hemorrhage of rectum and anus documented [facility] [place] [facility]* Diagnosis Essential hypertension with goal blood pressure less than 130/80- Primary Mild intermittent asthma without complication Unspecified asthma Lymphocytic colitis Other and unspecified noninfectious gastroenteritis and colitis Psoriatic arthropathy (HCC) Psoriatic arthropathy Overweight (BMI 25.0-29.9) Overweight Left lower quadrant abdominal pain- Primary Renal cyst Unspecified congenital cystic kidney disease Acquired cyst of kidney [facility] [place] [facility]* Diagnosis Essential hypertension with goal blood pressure less than 130/80- Primary Mild intermittent asthma without complication Unspecified asthma Lymphocytic colitis Other and unspecified noninfectious gastroenteritis and colitis Psoriatic arthropathy (HCC) Psoriatic arthropathy Overweight (BMI 25.0-29.9) Overweight Left lower quadrant abdominal pain Rectal bleeding Hemorrhage of rectum and anus documented [facility] [place] [facility]* Diagnosis Essential hypertension with goal blood pressure less than 130/80- Primary Mild intermittent asthma without complication Unspecified asthma Lymphocytic colitis Other and unspecified noninfectious gastroenteritis and colitis Psoriatic arthropathy (HCC) Psoriatic arthropathy Overweight (BMI 25.0-29.9) Overweight Left lower quadrant abdominal pain- Primary [facility] [place] [facility]* Diagnosis Essential hypertension with goal blood pressure less than 130/80- Primary Mild intermittent asthma without complication Unspecified asthma Lymphocytic colitis Other and unspecified noninfectious gastroenteritis and colitis Psoriatic arthropathy (HCC) Psoriatic arthropathy Overweight (BMI 25.0-29.9) Overweight Renal cyst Unspecified congenital cystic kidney disease Acquired cyst of kidney [facility] Diagnosis Essential hypertension with goal blood pressure less than 130/80- Primary Mild intermittent asthma without complication (HCC) Unspecified asthma Lymphocytic colitis Other and unspecified noninfectious gastroenteritis and colitis Psoriatic arthropathy (HCC) Psoriatic arthropathy Overweight (BMI 25.0-29.9) Overweight Medicare annual wellness visit, subsequent- Primary Routine general medical examination at a health care facility 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 Essential hypertension with goal blood pressure less than 130/80 Psoriatic arthropathy (HCC) Psoriatic arthropathy Impaired fasting glucose Age-related macular degeneration Macular degeneration (senile) of retina, unspecified Mild intermittent asthma without complication (HCC) Unspecified asthma Bradycardia Other specified cardiac dysrhythmias Encounter for screening examination for other mental health and behavioral disorders Screening for depression [facility] [place] [facility]* Diagnosis Essential hypertension with goal blood pressure less than 130/80- Primary Mild intermittent asthma without complication (HCC) Unspecified asthma Lymphocytic colitis Other and unspecified noninfectious gastroenteritis and colitis Psoriatic arthropathy (HCC) Psoriatic arthropathy Overweight (BMI 25.0-29.9) Overweight Encounter for gynecological examination (general) (routine) without abnormal findings- Primary Encounter for screening mammogram for breast cancer Contact dermatitis, unspecified contact dermatitis type, unspecified trigger Chronic vulvitis Vaginitis and vulvovaginitis, unspecified Encounter for screening mammogram for malignant neoplasm of breast Other screening mammogram [facility] Diagnosis Essential hypertension with goal blood pressure less than 130/80- Primary Mild intermittent asthma without complication (HCC) Unspecified asthma Lymphocytic colitis Other and unspecified noninfectious gastroenteritis and colitis Psoriatic arthropathy (HCC) Psoriatic arthropathy Overweight (BMI 25.0-29.9) Overweight Vulvar dermatitis- Primary Other inflammatory disease of cervix, vagina and vulva documented in this encounter [facility] (narrative)No reason for referral information availableWAshtabula [facility] Hospital Work Phone: Summary Purpose Family History No Family History Records FoundNo Family History Records FoundNo Family History Records Found Advance Directives Documents on File Type Date Recorded Patient Resist Coater Developer Expl anation Advance Directive(s) 09/01/2020 8:42 AM Advance Directive(s) 07/16/2018 10:43 AM Advance Directive(s) 10/25/2016 10:42 AM Advance Directive(s) 08/29/2016 11:16 AM Advance Directive Response Recorded Date/ Time Living Will Yes February 17, 11:12am Power of Industrial Ecologist Yes February 17, 2021 11:12am Documents on File Type Date Recorded Patient Resist Coater Developer Expl anation Advance Directive(s) 07/16/2018 10:43 AM Advance Directive Response Recorded Date/ Time Living Will Yes February 17, 10:12am Power of Industrial Ecologist Yes February 17, 2021 10:12am Documents on File Type Date Recorded Patient Resist Coater Developer Expl anation Advance Directive(s) 07/16/2018 10:43 AM Chief Complaint and Reason for Visit Chief Complaint CHEST XRAY Chief Complaint 1 Y FU (MOVED FROM [facility]) BRADYCARDIA Reason for Visit Bradycardia Essential (primary) hypertension Chief Complaint RIGHT LEG PAIN/NO KN OWN INJURY 4 M FU PAIN- COPY PCP Reason for Visit Strain of right knee Bradycardia Essential (primary) hypertension Chief Complaint 6 M FU Reason for Visit Bradycardia Essential (primary) hypertension Chief Complaint 6 M FU XRAY OF LEFT KNEE - PAIN Reason for Visit Bradycardia Essential (primary) hypertension Chief Complaint Admit Date Unspecified nystagmus May 24, 2024 7 :10am Chief Complaint Admit Date Unspecified nystagmus May 24, 2024 7 :10am DIPLOPIA June 05, 2024 1:35 pm Reason for Referral Specialty Diagnoses / Procedures Referred By Contac t Referred To Contact CT IMAGING Diagnoses Left lower quadrant abdominal pain Rectal bleeding Procedures CT ABD/PEL W IVCON CT ABD & PELVIS W/CONTRAST Chelsey Mora, PLUMBER AND TINNER.ENVIRONMENTAL HEALTH SANITARIAN [address] [place] [id number] [id number] Referral ID Status Reason Start Date Expiration Date V isits Requested Visits Authorized [id number] Closed Auto-Generate d Referral 04/02/2024 05/02/2025 1 1 Specialty Diagnoses / Procedures Referred By Contac t Referred To Contact MR IMAGING Diagnoses Renal cyst Acquired cyst of kidney Procedures MRI KIDNEY WO/W IVCON MRI ABDOMEN W/O & W/CONTRAST MATERIAL Chelsey Mora, PLUMBER AND TINNER.ENVIRONMENTAL HEALTH SANITARIAN [address] [facility] [place] [id number] [id number] Referral ID Status Reason Start Date Expiration Date Visits Requested Visits Authorized [id number] Authorized Auto-Generat ed Referral 04/03/2024 05/03/2025 1 1 Additional Source Comments INFORMATION SOURCE (unrecogn ized section and content) DATE CREATED AUTHOR 06/13/2020 [facility] DATE CREATED AUTHOR AUTHOR'S ORGANIZ ATION 06/12/2024 [facility] DATE CREATED AUTHOR AUTHOR'S ORGANIZ ATION 08/05/2024 [facility] Source Comments (unrecognize d section and content) In the event this informatio n is protected by the Federal Confidentiality of Alcohol and Drug Abuse Patient Records regulations: The Federal rules restrict any use of the information to criminally investigate or prosecute any alcohol or drug abuse patient.[facility] HospitalIn the event this information is protected by the Federal Confidentiality of Alcohol and Drug Abuse Patient Records regulations: The Federal rules restrict any use of the information to criminally investigate or prosecute any alcohol or drug abuse patient.[facility] HospitalIn the event this information is protected by the Federal Confidentiality of Alcohol and Drug Abuse Patient Records regulations: The Federal rules restrict any use of the information to criminally investigate or prosecute any alcohol or drug abuse patient.[facility] HospitalIn the event this information is protected by the Federal Confidentiality of Alcohol and Drug Abuse Patient Records regulations: The Federal rules restrict any use of the information to criminally investigate or prosecute any alcohol or drug abuse patient.[facility] HospitalIn the event this information is protected by the Federal Confidentiality of Alcohol and Drug Abuse Patient Records regulations: The Federal rules restrict any use of the information to criminally investigate or prosecute any alcohol or drug abuse patient.[facility] HospitalIn the event this information is protected by the Federal Confidentiality of Alcohol and Drug Abuse Patient Records regulations: The Federal rules restrict any use of the information to criminally investigate or prosecute any alcohol or drug abuse patient.[facility] HospitalIn the event this information is protected by the Federal Confidentiality of Alcohol and Drug Abuse Patient Records regulations: The Federal rules restrict any use of the information to criminally investigate or prosecute any alcohol or drug abuse patient.[facility] HospitalIn the event this information is protected by the Federal Confidentiality of Alcohol and Drug Abuse Patient Records regulations: The Federal rules restrict any use of the information to criminally investigate or prosecute any alcohol or drug abuse patient.[facility] HospitalIn the event this information is protected by the Federal Confidentiality of Alcohol and Drug Abuse Patient Records regulations: The Federal rules restrict any use of the information to criminally investigate or prosecute any alcohol or drug abuse patient.[facility] HospitalIn the event this information is protected by the Federal Confidentiality of Alcohol and Drug Abuse Patient Records regulations: The Federal rules restrict any use of the information to criminally investigate or prosecute any alcohol or drug abuse patient.[facility] HospitalIn the event this information is protected by the Federal Confidentiality of Alcohol and Drug Abuse Patient Records regulations: The Federal rules restrict any use of the information to criminally investigate or prosecute any alcohol or drug abuse patient.[facility] HospitalIn the event this information is protected by the Federal Confidentiality of Alcohol and Drug Abuse Patient Records regulations: The Federal rules restrict any use of the information to criminally investigate or prosecute any alcohol or drug abuse patient.[facility] HospitalIn the event this information is protected by the Federal Confidentiality of Alcohol and Drug Abuse Patient Records regulations: The Federal rules restrict any use of the information to criminally investigate or prosecute any alcohol or drug abuse patient.[facility] HospitalIn the event this information is protected by the Federal Confidentiality of Alcohol and Drug Abuse Patient Records regulations: The Federal rules restrict any use of the information to criminally investigate or prosecute any alcohol or drug abuse patient.[facility] HospitalIn the event this information is protected by the Federal Confidentiality of Alcohol and Drug Abuse Patient Records regulations: The Federal rules restrict any use of the information to criminally investigate or prosecute any alcohol or drug abuse patient.[facility] HospitalIn the event this information is protected by the Federal Confidentiality of Alcohol and Drug Abuse Patient Records regulations: The Federal rules restrict any use of the information to criminally investigate or prosecute any alcohol or drug abuse patient.[facility] HospitalIn the event this information is protected by the Federal Confidentiality of Alcohol and Drug Abuse Patient Records regulations: The Federal rules restrict any use of the information to criminally investigate or prosecute any alcohol or drug abuse patient.[facility] HospitalIn the event this information is protected by the Federal Confidentiality of Alcohol and Drug Abuse Patient Records regulations: The Federal rules restrict any use of the information to criminally investigate or prosecute any alcohol or drug abuse patient.[facility] HospitalIn the event this information is protected by the Federal Confidentiality of Alcohol and Drug Abuse Patient Records regulations: The Federal rules restrict any use of the information to criminally investigate or prosecute any alcohol or drug abuse patient.[facility] HospitalIn the event this information is protected by the Federal Confidentiality of Alcohol and Drug Abuse Patient Records regulations: The Federal rules restrict any use of the information to criminally investigate or prosecute any alcohol or drug abuse patient.[facility] HospitalIn the event this information is protected by the Federal Confidentiality of Alcohol and Drug Abuse Patient Records regulations: The Federal rules restrict any use of the information to criminally investigate or prosecute any alcohol or drug abuse patient.[facility] HospitalIn the event this information is protected by the Federal Confidentiality of Alcohol and Drug Abuse Patient Records regulations: The Federal rules restrict any use of the information to criminally investigate or prosecute any alcohol or drug abuse patient.[facility] Reason for Visit (unrecogniz ed section and content) Reason Comments Radiology CT Specialty Diagnoses / Procedures Referred By Contac t Referred To Contact CT IMAGING Diagnoses Left lower quadrant abdominal pain Rectal bleeding Procedures CT ABD/PEL W IVCON CT ABD & PELVIS W/CONTRAST Chelsey Mora, [employer].ENVIRONMENTAL HEALTH SANITARIAN [address] [place] [address] [place] [address] Referral ID Status Reason Start Date Expiration Date V isits Requested Visits Authorized [id number] Closed Auto-Generate d Referral 04/02/2024 05/02/2025 1 1 Reason Comments F/U 6 months Reason Comments bp update/need for medication Reason Comments Medicare Wellness Exam Reason Comments Medicare Wellness Exam F/U 6 months Reason Comments Rectal Problem X 1 days Reason Comments Results Reason Comments Results Specialty Diagnoses / Procedures Referred By Contac t Referred To Contact MR IMAGING Diagnoses Renal cyst Acquired cyst of kidney Procedures MRI KIDNEY WO/W IVCON MRI ABDOMEN W/O & W/CONTRAST MATERIAL Chelsey Mora, [employer].ENVIRONMENTAL HEALTH SANITARIAN [address] [place] [address] [place] [address] Referral ID Status Reason Start Date Expiration Date V isits Requested Visits Authorized [id number] Closed Auto-Generate d Referral 04/03/2024 05/03/2025 1 1 Reason Comments Rectal Problem Reason Comments Medicare Wellness Exam Reason Comments Patient Request Reason Comments Problem Visit Reason Comments Follow Up Vulvar irritation Reason Comments Refill Request Care Teams (unrecognized sec tion and content) [employer] Administrator Relationship Specialty Start Date End Date Romulo Awan MD [address] [place] [address] PCP - General Internal Medicine 10/22/15 [employer] Administrator Relationship Specialty Start Date End Date Romulo Awan MD [address] [place] [address] PCP - General Internal Medicine 10/22/15 Team Status: Active Member Role Status Dates Dr. Romulo Awan MD Family Provider Active Dr. Romulo Awna MD Primary Care Provider Active Team Status: Inactive Member Role Status Dates Dr. Romulo Awan MD Primary Care Provider Active Dr. Kayden Saenz MD Attending Provider Active Team Status: Inactive Member Role Status Dates Dr. Romulo Awan MD Primary Care Provider Active Dr. Ashely Mejia MD Attending Provider Active [employer] Administrator Relationship Specialty Start Date End Date Romulo Awan MD [address] [place], [place] [address] PCP - General Internal Medicine 10/22/15 Team Status: Inactive Member Role Status Dates Dr. Romulo Awan MD Primary Care Provider, Refer ring Provider Active Dr. Larry Manuel MD Active Sakina Bennett SEASONAL RECRUITER, SEASONAL RECRUITER-C Attending Provider Active Team Status: Inactive Member Role Status Dates Dr. Romulo Awan MD Primary Care Provider Active Sakina Bennett SEASONAL RECRUITER, SEASONAL RECRUITER-C Attending Provider Active Team Status: Inactive Member Role Status Dates Dr. Romulo Awan MD Primary Care Provider, Refer ring Provider Active Sakina Bennett SEASONAL RECRUITER, SEASONAL RECRUITER-C Attending Provider Active Team Status: Inactive Member Role Status Dates Dr. Romulo Awan MD Primary Care Provider, Refer ring Provider Active Geovany Gilmore PA, PA Attending Provider Active Team Status: Inactive Member Role Status Dates Dr. Romulo Awan MD Primary Care Provider Active Dr. Ashely Mejia MD Attending Provider, Referring Provider Active Team Status: Inactive Member Role Status Dates Dr. Romulo Awan MD Primary Care Provider Active SEASONAL RECRUITER. Laila Wright Attending Provider, Referring Provid er Active [employer] Administrator Relationship Specialty Start Date End Date Romulo Awan MD [address] [facility] [place] [place] [address] PCP - General Internal Medicine 10/22/15 [employer] Administrator Relationship Specialty Start Date End Date Romulo Awan MD [address] [facility] [place] [place] [address] PCP - General Internal Medicine 10/22/15 [employer] Administrator Relationship Specialty Start Date End Date Romulo Awan MD [address] [facility] [place] [place] [address] PCP - General Internal Medicine 10/22/15 [employer] Administrator Relationship Specialty Start Date End Date Romulo Awan MD [address] [facility] [place] [place] [address] PCP - General Internal Medicine 10/22/15 [employer] Administrator Relationship Specialty Start Date End Date Romulo Awan MD [address] [facility] [place] [place] [address] PCP - General Internal Medicine 10/22/15 Chelsey Mora, [employer].ENVIRONMENTAL HEALTH SANITARIAN [address] [facility] [place] [place] [address] [employer] Operator Internal Medicine 02/12/24 [employer] Administrator Relationship Specialty Start Date End Date Romulo Awan MD [address] [facility] [place] [place] [address] PCP - General Internal Medicine 10/22/15 hCelsey Mora, [employer].ENVIRONMENTAL HEALTH SANITARIAN [address] [facility] [place] [place] [address] [employer] Operator Internal Medicine 02/12/24 [employer] Administrator Relationship Specialty Start Date End Date Romulo Awan MD [address] [facility] [place] [place] [address] PCP - General Internal Medicine 10/22/15 Chelsey Mora, [employer].ENVIRONMENTAL HEALTH SANITARIAN [address] [facility] [place] [place] [address] [employer] Operator Internal Medicine 02/12/24 [employer] Administrator Relationship Specialty Start Date End Date Romulo Awan MD [address] [place] [address] PCP - General Internal Medicine 10/22/15 Chelsey Mora, [employer].ENVIRONMENTAL HEALTH SANITARIAN [address] [facility] [place] [place] [address] [employer] Operator Internal Medicine 02/12/24 [employer] Administrator Relationship Specialty Start Date End Date Romulo Awan MD [address] [facility] [place] [place] [address] PCP - General Internal Medicine 10/22/15 Chelsey Mora, [employer].ENVIRONMENTAL HEALTH SANITARIAN [address] [facility] [place] [place] [address] [employer] Operator Internal Medicine 02/12/24 [employer] Administrator Relationship Specialty Start Date End Date Romulo Awan MD [address] [facility] [place] [place] [address] PCP - General Internal Medicine 10/22/15 Chelsey Mora, [employer].ENVIRONMENTAL HEALTH SANITARIAN [address] [facility], [place] [id number] [employer] Operator Internal Medicine 02/12/24 [employer] Administrator Relationship Specialty Start Date End Date Romulo Awan MD [address] [facility], [place] [address] PCP - General Internal Medicine 10/22/15 Chelsey Mora, [employer].ENVIRONMENTAL HEALTH SANITARIAN [address] [facility] [place] [place] [address] [employer] Operator Internal Medicine 02/12/24 [employer] Administrator Relationship Specialty Start Date End Date Romulo Awan MD [address] [facility], [place] [address] PCP - General Internal Medicine 10/22/15 Chelsey Mora, [employer].ENVIRONMENTAL HEALTH SANITARIAN [address] [facility], [place] [address] [facility] Internal Medicine 02/12/24 [employer] Administrator Relationship Specialty Start Date End Date Romulo Awan MD [address] [facility] [place] [place] [address] PCP - General Internal Medicine 10/22/15 Chelsey Mora, [employer].ENVIRONMENTAL HEALTH SANITARIAN [address] [facility] [place] [place] [address] [employer] Operator Internal Medicine 02/12/24 Team Status: Active Member Role Status Dates Dr. Romulo Awan MD Primary Care Provider Active Team Status: Inactive Member Role Status Dates Dr. Romulo Awan MD Primary Care Provider Active Start: May 24, 2024 End: May 24, 2024 Dr. Maximo Meadows MD Attending Provider Active Start: May 24, 2024 End: May 24, 2024 Dr. Maximo Meadows MD Referring Provider Active Start: May 24, 2024 End: May 24, 2024 Team Status: Inactive Member Role Status Dates Dr. Romulo Awan MD Primary Care Provider Active Start: June 05, 2024 End: June 05, 2024 Dr. Maximo Meadows MD Attending Provider Active Start: June 05, 2024 End: June 05, 2024 Dr. Maximo Meadows MD Referring Provider Active Start: June 05, 2024 End: June 05, 2024 Team Status: Active Member Role Status Dates Dr. Romulo Awan MD Primary Care Provider Active Start: June 05, 2024 Dr. Compa Rico MD Attending Provider Active S tart: June 05, 2024 [employer] Administrator Relationship Specialty Start Date End Date Romulo Awan MD [address] [facility], [place] [address] PCP - General Internal Medicine 10/22/15 Chelsey Mora, [employer].ENVIRONMENTAL HEALTH SANITARIAN [address] [facility], [place] [id number] [employer] Operator Internal Medicine 02/12/24 [employer] Administrator Relationship Specialty Start Date End Date Romulo Awan MD [address] [facility], [place] [address] PCP - General Internal Medicine 10/22/15 Chelsey Mora, [employer].ENVIRONMENTAL HEALTH SANITARIAN [address] [facility], [place] [address] [employer] Operator Internal Medicine 02/12/24 [employer] Administrator Relationship Specialty Start Date End Date Romulo Awan MD [address] [facility], [place] [address] PCP - General Internal Medicine 10/22/15 Chelsey Mora, [employer]UM[employer] T[employer]NER.ENVIRONMENTAL HEALTH SANITARIAN [address] [place], [place] [address] [facility] Internal Medicine 02/12/24 [employer] Administrator Relationship Specialty Start Date End Date Romulo Awan MD [address] [place], [place] [address] PCP - General Internal Medicine 10/22/15 Chelsey Mora, [employer].ENVIRONMENTAL HEALTH SANITARIAN [address] [place], [place] [address] [facility] Internal [facility] 02/12/24 [employer] Administrator Relationship Specialty Start Date End Date Romulo Awan MD [address] [place], [place] [address] PCP - General Internal Medicine 10/22/15 Chelsey Mora, [employer].ENVIRONMENTAL HEALTH SANITARIAN [address] [place], [place] [address] [facility] Internal [facility] 02/12/24 Goals (unrecognized section and content) Goals may be documented in a n alternate sectionGoals may be documented in an alternate sectionGoals may be documented in an alternate sectionGoals may be documented in an alternate sectionGoals may be documented in an alternate sectionGoals may be documented in an alternate sectionGoals may be documented in an alternate sectionGoals may be documented in an alternate sectionGoals may be documented in an alternate section FOR RECORDS PERTAINING TO PATIENTS WHO ARE [...] BE BASED ON THE PRIMARY CLINICAL RECORDS. [facility], [facility]. provides no warranty or guarantee of the accuracy or completeness of information in this document.
== END | disposition home or self-care (01) ==
LOC: US 07:29
PROVIDERS: PCP Internal Medicine; Referring Provider Internal Medicine Rheumatology; Visit Provider Internal Medicine Rheumatology
DX: L40.59 Other psoriatic arthropathy (principal); M35.1 Other overlap syndromes; Z79.899 Other long term (current) drug therapy; R76.8 Other specified abnormal immunological findings in serum
CPT/HCPCS: 76705

== ENCOUNTER → 2024-09-16 | Outpatient (CLI) | payer MEDICARE, OTHER, SELFPAY ==
[2024-09-16 10:54] LABS: AST(SGOT) 106 U/L (<=31); Alanine Aminotransfer ALT/SGPT 20 U/L (<=34); Albumin, Serum 3.8 g/dL (3.4-4.8); Alkaline Phosphatase 93 U/L (35-104); Anion Gap 11 (5-15); BUN 21 mg/dL (4-19); BUN/Creat Ratio 19.7 RATIO (10-20); Calcium,Total 9.4 mg/dL (7.6-11.0); Carbon Dioxide 25.5 mmol/L (21.0-32.0); Chloride 104 mmol/L (98-108); Globulin 3.3 g/dL (2.2-4.2); Glucose 99 mg/dL (70-99); Potassium 4.4 mmol/L (3.3-5.1)
[2024-09-16 11:50] LABS: Hematocrit 42.4 % (37-47); Hemoglobin 13.7 g/dL (12.0-15.0); Immature Granulocytes Count 0.010 X10^3/uL (0.0-0.0); Mean Corp Hgb Conc 32.3 g/dL (32-36); Mean Corpuscular Volume 93.0 fL (81-99); Mean Platelet Vol. 12.6 fl (6.2-12.0); NRBC Flagged by Analyzer 0 % (0-5); Platelet Count 228 K/mm3 (150-450); RBC Distribution Width CV 14.7 % (11.6-14.6); RBC Distribution Width SD 50.9 fl (35.1-43.9); Red Blood Count 4.56 M/mm3 (4.2-5.4); White Blood Count 8.4 K/mm3 (4.4-11.0)
== END | disposition home or self-care (01) ==
LOC: MTLAB 08:13
PROVIDERS: PCP Internal Medicine; Referring Provider Internal Medicine Rheumatology; Visit Provider Internal Medicine Rheumatology
DX: L40.59 Other psoriatic arthropathy (principal); Z79.899 Other long term (current) drug therapy
CPT/HCPCS: 36415; 80053; 85025

== ENCOUNTER 2024-12-11 18:34 | Inpatient (IN) | payer MEDICARE, OTHER, SELFPAY ==
[2024-12-11] VITALS (11 sets, daily range): BP systolic 127–153; BP diastolic 84–98; PULSE 67–141; RESP 18–22; TEMP 36.7–36.8; O2SAT 94–97
--- NOTE | 2024-12-11 18:39 | RAD_ITS ---
PROCEDURE: CHEST 1 VIEW (PORTABLE) 12/11/2024 REASON FOR EXAM: CHEST PAIN TECHNIQUE: Frontal view of the chest. COMPARISON: Chest x-ray 01/10/2022 FINDINGS: Hardware: Monitoring electrodes overlying chest wall. Heart: Heart size is moderately enlarged. Lungs: Persistent patchy opacity within right infrahilar region with scarring. Bilateral low lung volumes. Bones: Diffuse osteopenia of visualized bones. Degenerative changes of bilateral shoulder joints. RAD/Chest 1 View (Portable) IMPRESSION: Persistent patchy opacity with scarring in right infrahilar region. No acute f indings. Reading Location: [id number]
[2024-12-11 18:59] LABS: Hematocrit 43.0 % (37-47); Hemoglobin 14.3 g/dL (12.0-15.0); Immature Granulocytes Count 0.060 X10^3/uL (0.0-0.0); Mean Corp Hgb Conc 33.3 g/dL (32-36); Mean Corpuscular Volume 92.3 fL (81-99); Mean Platelet Vol. 11.1 fl (6.2-12.0); NRBC Flagged by Analyzer 0 % (0-5); POSITIVE DIFFERENTIAL YES; Platelet Count 238 K/mm3 (150-450); RBC Distribution Width CV 13.2 % (11.6-14.6); RBC Distribution Width SD 45.0 fl (35.1-43.9); Red Blood Count 4.66 M/mm3 (4.2-5.4); White Blood Count 13.7 K/mm3 (4.4-11.0)
[2024-12-11 19:14] LABS: Differential Indicated SCAN CRITERIA MET
[2024-12-11 19:18] LABS: Prothrombin Time (Protime)PT. 13.3 SECONDS (11.7-14.9)
[2024-12-11 19:31] LABS: Anion Gap 13 (5-15); BUN 15 mg/dL (4-19); BUN/Creat Ratio 15.8 RATIO (10-20); Calcium,Total 9.1 mg/dL (7.6-11.0); Carbon Dioxide 23.4 mmol/L (21.0-32.0); Chloride 102 mmol/L (98-108); Glucose 123 mg/dL (70-99); Potassium 4.2 mmol/L (3.3-5.1); Troponin T High Sensitivity 14 ng/L (<=14)
--- NOTE | 2024-12-11 20:12 | CT_ITS ---
PROCEDURE: CTA CHEST W/WO CONTRAST 12/11/2024 REASON FOR EXAM: RULE OUT PE TECHNIQUE: Procedure Code: [id number] Modality: CT Procedure: CTA CHEST W/WO CONTRAST Multiplanar Sagittal and Coronal images were obtained. One or more dose reduction techniques were used (e.g., Automated exposure control, adjustment of the mA and/or kV according to patient size, use of iterative reconstruction technique). CONTRAST: Isovue 370 VOLUME: 100 mL RADIATION DOSE SUMMARY: CTDlvol: 1 4 mGy DLP: 424 mGycm COMPARISON: # of known CTs in the past 12 months: Not documented # of known Cardiac Nuclear Medicine Studies in the past 12 months: Not documented FINDINGS: Lymph nodes: Scattered multiple mediastinal lymph nodes. Heart: Cardiomegaly. No pericardial effusion. Thoracic Aorta: No thoracic aortic aneurysm or dissection. Ascending aorta measures 3.3 cm and pulmonary trunk measures 2.7 cm Pulmonary Vessels: No large central pulmonary emboli are identified. Contrast timing is suboptimal for evaluation of more distal branches. Lungs and Airways: Bilateral diffuse patchy opacity and scattered nodularity such as calcified nodule abutting right major fissure measuring 5 mm, left upper lobe pleural-based nodule measuring 5.9 mm. Additional multiple scattered bilateral pulmonary nodules are visualized measuring up to 3 mm. There is patchy reticulation with multifocal opacities predominantly within right upper and left lower lung. Findings are concerning for underlying infectious/inflammatory process. Pleura: Diffuse bilateral pleural thickening Upper Abdomen: Diffuse hepatic steatosis. Scattered calcification within spleen likely representing granulomas. Stomach is distended with food particles. Bones: Age-related degenerative changes of spine. Other: Bilateral prominent breast tissue with scattered calcifications. CT/CTA Chest W/WO Contrast IMPRESSION: No CTA evidence of any large filling defect to suggest pulmonary embolism. Lashae luation of segmental and subsegmental pulmonary arteries is severely limited. Bilateral diffuse patchy opacities and scattered nodules. Findings are concern ing for underlying infectious/inflammatory process. Attention on short-term follow-up imaging is recommended. Bilateral prominent breast tissue with calcification. Correlate with recent ma mmogram. Reading Location: [facility]
[2024-12-11 20:27] LABS: Differential Comment SCANNED
[2024-12-11 21:41] LABS: Troponin T High Sens 2 HR 14 ng/L (<=14)
[2024-12-11] MEDS: 0.9% Normal Saline (1000mL) 1,000 ML 1000 ML IV (22:15)
--- NOTE | 2024-12-11 22:48 | PCM.HP.STD ---
[facility] - General General Date of Admission: 12/11/24 Date of Service: 12/11/24 Chief Complaint: Chest Pain, Palpitations and SOB. [facility] Narrative SVITLANA FERRARA, is a 84 F with a past medical history of essential hypertension; on amlodipine, benazepril BID and metoprolol succinate nightly, hyperlipidemia; on atorvastatin, obesity (class I); with BMI of 30.8 this admission, EMMIE; on BiPAP, history of carcinoid bronchial adenoma of Right lung; s/p RLL lobectomy (2009), history of mild pulmonary arterial systolic hypertension, history of asthma; on fluticasone daily, history of hysterectomy, psoriatic arthropathy; on apremilast, history of muscle spasms; on tizanidine TID prn and OA; s/p Right rotator cuff repair on tramadol q. HS who presents to [facility] complaining of chest pain, palpitations and SOB. Mrs. Ferrara reports her symptoms began approximately one day prior to admission with Left-sided chest pain under her Left breast that began last night but then resolved spontaneously so she did not seek medical attention at that time. Then this morning her chest pain recurred and was made worse with deep breathing with mild SOB at rest and intermittent palpitations so she decided to come in for further evaluation and treatment. She denies associated fever, chills, cough, wheezing, chest congestion, diaphoresis, nausea, vomiting, abdominal pain, diarrhea, constipation, dysuria, hematuria, headache, rash, history of VTE or known recent sick contacts. In the ER she was noted to have Leukocytosis of 13.7K present on admission with corresponding CT scan of the chest with IV contrast that revealed no evidence of large filling defect to suggest PE with bilateral diffuse patchy opacities and scattered nodules with concern for underlying infectious/inflammatory process consistent with suspected Multifocal Pneumonia with short-term follow up on imaging recommended in addition to bilateral prominent breast tissue with calcifications to be correlated with recent mammogram consistent with suspected Multifocal Pneumonia complicated by EKG evidence of New-onset Atrial Fibrillation; with RVR plus RBBB and she was then admitted to the PCU for ongoing care for a stay that is expected to extend beyond 2 midnights. [facility] Medical History EMMIE (obstructive sleep apnea) Colitis 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 Osteoarthritis Obesity Essential (primary) hypertension Asthma Home Medications ?Medication ?Instructions ?Recorded ?Last Taken ?Type apremilast 30 mg tablet (Otezla) 30 mg PO BID 02/04/19 Unknown History vit A 7,160 unit-vit C 113 mg-vit 1 tab PO BID 02/04/19 Unknown History E 100 [id number] tablet acetaminophen 500 mg tablet 500 mg PO Q6H PRN Pain 05/15/19 Unknown History (Tylenol Extra Strength) tizanidine 4 mg tablet 4 mg PO TID PRN Pain 04/28/20 Unknown History terazosin 2 mg capsule 2 mg PO QHS 05/27/22 Unknown History tramadol 50 mg tablet 50 mg PO QHS 05/27/22 Unknown History fluticasone furoate 200 1 inh inhalation DAILY 08/10/23 Unknown History mcg/actuation blister powder for inhalation (Arnuity Ellipta) amlodipine 10 mg tablet 10 mg PO DAILY #90 tabs 05/23/24 Unknown Rx potassium chloride 10 mEq 20 meq (2 x 10 mEq) PO DAILY This 07/22/24 Unknown Rx capsule,extended release is a dose increase #180 caps benazepril 20 mg tablet 20 mg PO BID #180 TABLETS 09/02/24 Unknown Rx atorvastatin 10 mg tablet 10 mg PO DAILY 12/11/24 Unknown History metoprolol succinate 25 mg 25 mg PO QHS 12/11/24 Unknown History tablet,extended release 24 hr aspirin 81 mg tablet 81 mg PO DAILY stroke 12/12/24 12/12/24 History Allergy/AdvReac Type Severity Reaction Status Date / Time felodipine (From Plendil) Allergy rash/dyspne Verified 12/11/24 18:35 a meperidine (From Demerol) Allergy over Verified 12/11/24 18:35 sedation thimerosal Allergy rash Verified 12/11/24 18:35 diltiazem (From Cardizem) AdvReac tachycardia Verified 12/11/24 18:35 hydrochlorothiazide AdvReac azotemia Verified 12/11/24 18:35 lanolin AdvReac unknown Verified 12/11/24 18:35 latex AdvReac Unknown Verified 12/11/24 18:35 neomycin AdvReac unknown Verified 12/11/24 18:35 Surgical History S/P right rotator cuff repair History of carpal tunnel release History of hysterectomy History of lobectomy of lung (2010) Social History Smoking Status: Never smoker alcohol intake: never ROS ROS Narrative Review of Systems: Constitutional: Patient denies fever or chills. Eyes: Patient denies changes in vision or discharge from eyes. ENT: Patient denies runny nose sore throat or ear pain. Resp: Patient admits to SOB and pleuritic Left-sided chest pain that is made worse with profound respiration. She denies cough or wheezing. CV: Patient admits to Left-sided pleuritic chest pain with intermittent palpitations as per HPI. GI: Patient denies abdominal pain, nausea, vomiting, diarrhea or constipation. : Patient denies dysuria or hematuria. MSK: Patient denies arthralgias or myalgias. Skin: Patient denies rash, abscess wounds or jaundice. Psych: Patient denies symptoms of uncontrolled depression or anxiety. Neuro: Patient denies headache, paresthesias or focal neurologic deficits. Allergy: Patient denies lip swelling,tongue swelling or urticaria. Hematology: Patient denies easy bleeding or easy bruisability. Endocrinology: Patient denies polyuria, polydipsia, polyphagia or heat/cold intolerance. 14 point ROS otherwise negative except for positives noted above in HPI. Vital Signs Vital Signs Vital Signs: 12/11/24 18:35 12/11/24 18:39 12/11/24 19:34 Temperature 98.1 F Temperature Source Temporal Pulse Rate 67 112 H Respiratory Rate 22 H 18 Blood Pressure 153/98 H 142/84 H Blood Pressure Mean 116 103 Pulse Ox 96 94 Oxygen Delivery Method Room Air Room Air Room Air 12/11/24 20:00 12/11/24 21:00 12/11/24 21:53 Temperature Temperature Source Pulse Rate 110 H 110 H 141 H Respiratory Rate 19 H 18 Blood Pressure 132/94 H 132/94 H Blood Pressure Mean 106 106 Pulse Ox 96 95 Oxygen Delivery Method Room Air Room Air 12/11/24 22:00 12/11/24 22:30 12/11/24 22:34 Temperature 98.3 F Temperature Source Pulse Rate 110 H 102 H 105 H Respiratory Rate 18 18 18 Blood Pressure 152/85 H 128/90 H 128/90 H Blood Pressure Mean 107 102 102 Pulse Ox 96 94 95 Oxygen Delivery Method Room Air Room Air 12/11/24 22:39 Temperature Temperature Source Pulse Rate 85 Respiratory Rate 18 Blood Pressure 129/93 H Blood Pressure Mean 105 Pulse Ox 97 Oxygen Delivery Method Room Air Physical Exam Const alert, oriented x3, no apparent distress, average body habitus and healthy appearing General Appearance: cooperative HEENT normocephalic, head/scalp atraumatic, hearing grossly normal bilaterally and moist oral mucous membranes Eyes PERRL, EOMs intact bilaterally and conjunctivae normal Neck no lymphadenopathy, supple and no JVD Resp Resp Narrative: Diminished breath sounds throughout. Cardio Cardio Narrative: Irregularly irregular @ ~90 bpm. GI normal to inspection, nondistended, normoactive bowel sounds, soft to palpation, non-tender and non-distended GI Narrative: Obese. Extremity normal to inspection, full ROM and no clubbing, cyanosis or edema Skin Skin Narrative: Patient has no evidence of rash, abscess, wounds or jaundice. Neuro oriented x3, CN's II-XII intact bilaterally, moves all extremities and no focal motor deficits Sensorium / Orientation: awake, alert, oriented to person, oriented to place and oriented to time Speech: speech normal Psych affect normal Results Medical Records Data Attestation: I reviewed the patient's medical records Lab / Micro Data Attestation: I reviewed the patient's lab results. 12/12/24 05:31 12/12/24 05:31 Labs: Laboratory Results - last 24 hr 12/11/24 18:50: WBC 13.7 H, RBC 4.66, Hgb 14.3, Hct 43.0, MCV 92.3, MCH 30.7, MCHC 33.3, RDW Std Deviation 45.0 H, RDW Coeff of Carol 13.2, Plt Count 238, MPV 11.1, Immature Gran % (Auto) 0.400, Neut % (Auto) 53.4, Lymph % (Auto) 26.6, [place] % (Auto) 13.0 H, Eos % (Auto) 5.9 H, Baso % (Auto) 0.7, Absolute Neuts (auto) 7.3, Absolute Lymphs (auto) 3.63, Nucleated RBC % 0, Differential Comment SCANNED, Platelet Estimate ADEQUATE, PT 13.3, INR 1.0, Sodium 138, Potassium 4.2, Chloride 102, Carbon Dioxide 23.4, Anion Gap 13, BUN 15, Creatinine 0.96, Est GFR (MDRD) Non-Af 58 L, BUN/Creatinine Ratio 15.8, Glucose 123 H, Calcium 9.1, Troponin T High Sens 14 12/11/24 20:47: Troponin T Hi Sens 2 Hr 14 Imaging Radiology Impression Chest X-Ray 12/11/24 18:39 IMPRESSION: Persistent patchy opacity with scarring in right infrahilar region. No acute findings. Reading Location: [facility] Chest CTA 12/11/24 20:12 IMPRESSION: No CTA evidence of any large filling defect to suggest pulmonary embolism. Evaluation of segmental and subsegmental pulmonary arteries is severely limited. Bilateral diffuse patchy opacities and scattered nodules. Findings are concerning for underlying infectious/inflammatory process. Attention on short-term follow-up imaging is recommended. Bilateral prominent breast tissue with calcification. Correlate with recent mammogram. Reading Location: [facility] Assessment & Plan Assessment/Plan (1) Multifocal pneumonia: (2) Leukocytosis: QUALIFIERS: Leukocytosis type: unspecified Qualified Code(s): D72.829 - Elevated white blood cell count, unspecified (3) Breast calcifications: (4) Atrial fibrillation with RVR: (5) RBBB: (6) Personal history of malignant carcinoid tumor of bronchus and lung: (7) History of asthma: (8) Mild pulmonary arterial systolic hypertension: (9) Obesity (BMI 30.0-34.9): (10) EMMIE (obstructive sleep apnea): (11) Acute cystitis without hematuria: PLAN: Plan 1. Multifocal Pneumonia with Leukocytosis of 13.7K present on admission with corresponding CT scan of the chest with IV contrast that revealed no evidence of large filling defect to suggest PE with bilateral diffuse patchy opacities and scattered nodules with concern for underlying infectious/inflammatory process with short-term follow up on imaging recommended in addition to bilateral prominent breast tissue with calcifications to be correlated with recent mammogram - Admit to PCU. Continue empiric IV ceftriaxone and add IV azithromycin and await culture and sensitivity data. Check urinary antigens to Streptococcus pneumonia and Legionella. Check viral respiratory panel. Give acetaminophen prn for [id number] (level 1-5/10) pain or fever. Continue tramadol prn for severe (level 6-10/10) pain. 2. New-onset Atrial Fibrillation; with RVR and RBBB complicating #1 in the setting of previously diagnosed allergy to diltiazem (tachycardia) - Give metoprolol IV prn keep heart rate <100 bpm. Initiate treatment with full-dose enoxaparin 70 mg sq BID for CVA prophylaxis. Check TSH. Check echocardiogram to evaluate LVEF with last one done here in February 2019 which revealed LVEF ~65% with stage I diastolic dysfunction and mild pulmonary hypertension. Serial troponin in normal range x 3. 3. History of carcinoid bronchial adenoma of Right lung; s/p RLL lobectomy in the setting of previously diagnosed Asthma adding to the medical complexity of #1 & #2 - Stable with no evidence of recurrence of malignancy or acute asthma flare. Maintain fluticasone as previous and give nebulizers prn. 4. Obesity; with BMI of 30.8 this admission plus EMMIE; on BiPAP adding to the burden of disease outlined from #1 - #3 - Weight loss will be recommended. Check TSH. This complicates her case and may hamper recovery. 5. History of mild pulmonary arterial systolic hypertension - Noted. 6. Essential hypertension; on amlodipine, benazepril BID and metoprolol succinate nightly - Maintain present antihypertensive regimen plus give metoprolol IV prn for systolic blood pressure > 160 mmHg or heart rate >120 bpm. 7. Hyperlipidemia; on atorvastatin - Resume statin. 8. History of hysterectomy - Noted for the sake of completeness. 9. Psoriatic arthropathy; on apremilast - Continue present therapy with no known increased risk of infection on this agent. 10. History of muscle spasms; on tizanidine TID prn - Maintain tizanidine prn as previous. 11. OA; s/p Right rotator cuff repair on tramadol q. HS - Stable. We will follow pain regimen and scales outlined in #1. 12. DVT prophylaxis - Patient placed on full-dose enoxaparin for #2. Total time: Approximately (but not less than) 75 minutes. Update: UA returned at end of shift positive for Acute Cystitis; without hematuria which should be covered by empiric IV ceftriaxone used to treat #1. We will await culture & sensitivity data. Charges/Coding Visit Charges Inpatient E&M: 44368 Init Hosp L3
--- NOTE | 2024-12-11 22:56 | ED.VIS.CHEST ---
HPI History of Present Illness Chief Complaint: Chest Pain Narrative Narrative: Patient is an 84-year-old female presenting to the emergency department for left-sided chest pain under her left breast that started last night. Patient has a past medical history of EMMIE., Hypertension, CAD has mild pulmonary arterial systolic hypertension and adenoma of the right lobe. Status post lobectomy in 2009. She states it went away and then it started again this morning. States that it does not radiate anywhere. She reports that it hurts worse with deep inspiration. Endorses some mild shortness of breath. Denies fever, chills, cough, congestion, sore throat. Denies any diaphoresis, nausea, vomiting or abdominal pain. Patient denies any lower extremity swelling. Denies any recent travel, hospitalizations or surgeries. Denies any history of DVT or PE. [facility] Medical History EMMIE (obstructive sleep apnea) Colitis 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 Osteoarthritis Obesity Essential (primary) hypertension Asthma Home Medications ?Medication ?Instructions ?Recorded ?Last Taken ?Type apremilast 30 mg tablet (Otezla) 30 mg PO BID 02/04/19 Unknown History vit A 7,160 unit-vit C 113 mg-vit 1 tab PO BID 02/04/19 Unknown History E 100 [id number] tablet acetaminophen 500 mg tablet 500 mg PO Q6H PRN Pain 05/15/19 Unknown History (Tylenol Extra Strength) tizanidine 4 mg tablet 4 mg PO TID PRN Pain 04/28/20 Unknown History terazosin 2 mg capsule 2 mg PO QHS 05/27/22 Unknown History tramadol 50 mg tablet 50 mg PO QHS 05/27/22 Unknown History fluticasone furoate 200 1 inh inhalation DAILY 08/10/23 Unknown History mcg/actuation blister powder for inhalation (Arnuity Ellipta) amlodipine 10 mg tablet 10 mg PO DAILY #90 tabs 05/23/24 Unknown Rx potassium chloride 10 mEq 20 meq (2 x 10 mEq) PO DAILY This 07/22/24 Unknown Rx capsule,extended release is a dose increase #180 caps benazepril 20 mg tablet 20 mg PO BID #180 TABLETS 09/02/24 Unknown Rx atorvastatin 10 mg tablet 10 mg PO DAILY 12/11/24 Unknown History metoprolol succinate 25 mg 25 mg PO QHS 12/11/24 Unknown History tablet,extended release 24 hr Allergy/AdvReac Type Severity Reaction Status Date / Time felodipine (From Plendil) Allergy rash/dyspne Verified 12/11/24 18:35 a meperidine (From Demerol) Allergy over Verified 12/11/24 18:35 sedation thimerosal Allergy rash Verified 12/11/24 18:35 diltiazem (From Cardizem) AdvReac tachycardia Verified 12/11/24 18:35 hydrochlorothiazide AdvReac azotemia Verified 12/11/24 18:35 lanolin AdvReac unknown Verified 12/11/24 18:35 latex AdvReac Unknown Verified 12/11/24 18:35 neomycin AdvReac unknown Verified 12/11/24 18:35 Surgical History S/P right rotator cuff repair History of carpal tunnel release History of hysterectomy History of lobectomy of lung (2009) Social History Smoking Status: Never smoker alcohol intake: never ROS ROS ED ROS Narrative see HPI EXAM Physical Exam Narrative Exam Narrative: Vital signs: Reviewed General: Alert and oriented x 3. No acute distress HEENT: Head is normocephalic and atraumatic, sinuses nontender, pupils equal round and reactive. Nares are patent. Oropharynx and throat exams normal. Neck: Supple without lymphadenopathy nontender Cardiovascular: Irregularly irregular rate and rhythm, no murmurs. No rubs or gallops. Normal S1 and S2 Respiratory: Clear to auscultation bilaterally. No wheezes, rales, rhonchi Abdominal: Soft and nontender. Normal bowel sounds. No guarding or rebound. Nonsurgical abdomen Extremities: No lower extremity edema. No tenderness. No bruising. Normal range of motion. Normal sensation. Skin: No rash or redness. Neurological: Cranial nerves II through XII are grossly intact. Normal strength and sensation. Normal cerebellar function The rest of the physical exam is unremarkable Const Vital Signs: 12/11/24 18:35 12/11/24 18:39 12/11/24 19:34 Temperature 98.1 F Temperature Source Temporal Pulse Rate 67 112 H Respiratory Rate 22 H 18 Blood Pressure 153/98 H 142/84 H Blood Pressure Mean 116 103 Pulse Ox 96 94 Oxygen Delivery Method Room Air Room Air Room Air 12/11/24 20:00 12/11/24 21:00 12/11/24 21:53 Temperature Temperature Source Pulse Rate 110 H 110 H 141 H Respiratory Rate 19 H 18 Blood Pressure 132/94 H 132/94 H Blood Pressure Mean 106 106 Pulse Ox 96 95 Oxygen Delivery Method Room Air Room Air 12/11/24 22:00 12/11/24 22:30 12/11/24 22:34 Temperature 98.3 F Temperature Source Pulse Rate 110 H 102 H 105 H Respiratory Rate 18 18 18 Blood Pressure 152/85 H 128/90 H 128/90 H Blood Pressure Mean 107 102 102 Pulse Ox 96 94 95 Oxygen Delivery Method Room Air Room Air 12/11/24 22:39 Temperature Temperature Source Pulse Rate 85 Respiratory Rate 18 Blood Pressure 129/93 H Blood Pressure Mean 105 Pulse Ox 97 Oxygen Delivery Method Room Air MDM MDM MDM Narrative Medical decision making narrative: Patient is a 84-year-old female presenting to the emergency department for left-sided chest pain that started last night. Patient was seen and examined. Vitals are stable. Does appear that the patient is in A-fib RVR on the monitor. Does not have a history of this. Differential includes but is not limited to: ACS, PE, pneumonia, pleurisy EKG shows A-fib with RVR and route. Right bundle branch block. Patient started on a fluid bolus. Before I evaluated the patient blood work and a chest x-ray was obtained. CBC with mild leukocytosis of 13.7 and a normal hemoglobin. BMP with no significant abnormalities. Troponin and reflex within normal limits. Chest x-ray reviewed by myself. No opacities, pneumothorax or wide mediastinum seen. Radiology read with persistent patchy opacity with scarring in right infrahilar region. No acute findings. With the patient's complaint of worsening chest pain with inspiration and age along with her new onset A-fib, CT PE ordered that showed no CTA evidence of any large filling defect to suggest pulmonary embolism. Evaluation of segmental and subsegmental pulmonary arteries is severely limited. Bilateral diffuse patchy opacities and scattered nodules. Findings are concerning for underlying infectious/inflammatory process. Attention on short-term follow-up imaging is recommended. Bilateral prominent breast tissue with calcification. Correlate with recent mammogram. Patient started on antibiotics including Rocephin and doxycycline. She was given 3 doses q5 of Lopressor for her new onset A-fib with RVR. Patient's heart rate did improve into the high 90s to low 100s. Ambulation test was attempted but her heart rate went into the 130s to 140s. Patient will require admission for her pneumonia and new onset A-fib with RVR. Discussed with patient and at bedside and they are agreeable. Patient admitted to Dr. Boyle for further management. Clinical impression: New onset a fib with RVR pneumonia Chest pain History & Record Review Discussion w/independent historian: Patient and Significant other Lab Data Attestation: I reviewed the patient's lab results. Labs: Laboratory Results - last 24 hr 12/11/24 12/11/24 18:50 20:47 WBC 13.7 H RBC 4.66 Hgb 14.3 Hct 43.0 MCV 92.3 MCH 30.7 MCHC 33.3 RDW Std Deviation 45.0 H RDW Coeff of Carol 13.2 Plt Count 238 MPV 11.1 Immature Gran % (Auto) 0.400 Neut % (Auto) 53.4 Lymph % (Auto) 26.6 [place] % (Auto) 13.0 H Eos % (Auto) 5.9 H Baso % (Auto) 0.7 Absolute Neuts (auto) 7.3 Absolute Lymphs (auto) 3.63 Nucleated RBC % 0 Differential Comment SCANNED Platelet Estimate ADEQUATE PT 13.3 INR 1.0 Sodium 138 Potassium 4.2 Chloride 102 Carbon Dioxide 23.4 Anion Gap 13 BUN 15 Creatinine 0.96 Est GFR (MDRD) Non-Af 58 L BUN/Creatinine Ratio 15.8 Glucose 123 H Calcium 9.1 Troponin T High Sens 14 Troponin T Hi Sens 2 Hr 14 Radiography Chest X-Ray - ED: 2 View, Read by ED Physician and No Acute Disease Diagnostic Testing: Clinical Impression(s) from Imaging Studies Chest X-Ray 12/11/24 18:39 IMPRESSION: Persistent patchy opacity with scarring in right infrahilar region. No acute findings. Reading Location: [id number] Chest CTA 12/11/24 20:12 IMPRESSION: No CTA evidence of any large filling defect to suggest pulmonary embolism. Evaluation of segmental and subsegmental pulmonary arteries is severely limited. Bilateral diffuse patchy opacities and scattered nodules. Findings are concerning for underlying infectious/inflammatory process. Attention on short-term follow-up imaging is recommended. Bilateral prominent breast tissue with calcification. Correlate with recent mammogram. Reading Location: [facility] Discharge Plan Triage Chief Complaint: Chest Pain ED Provider: Ghazala Kyle Dx/Rx/DC Orders Prescriptions: No Action Otezla 30 mg tablet 30 mg PO BID vit A-vit C-vit [id number]-pzuqvc 7,160-113-100 atkm-jk-viuy tablet 1 tab PO BID acetaminophen [Tylenol Extra Strength] 500 mg tablet 500 mg PO Q6H PRN (Reason: Pain) tizanidine 4 mg tablet 4 mg PO TID PRN (Reason: Pain) Patient Comments: TAKE 1 TABLET BY MOUTH 3 TIMES A DAY NEEDED terazosin 2 mg capsule 2 mg PO QHS tramadol 50 mg tablet 50 mg PO QHS Arnuity Ellipta 200 mcg/actuation blister with device 1 inh inhalation DAILY atorvastatin 10 mg tablet 10 mg PO DAILY metoprolol succinate 25 mg tablet extended release 24 hr 25 mg PO QHS amlodipine 10 mg tablet 10 mg PO DAILY Qty: 90 3RF potassium chloride 10 mEq capsule, extended release 20 meq PO DAILY Qty: 180 3RF benazepril 20 mg tablet 20 mg PO BID Qty: 180 3RF Primary Care Provider: Romulo Awan Referrals: Romulo Awan MD [Primary Care Provider, Internal Medicine] Print Language: Tamazight
[2024-12-11 23:14] LABS: Troponin T High Sens 4 HR 13 ng/L (<=14)
[2024-12-11] MEDS: Doxycycline 100 MG in 0.9% Normal Saline (250mL Bag) 250 ML 250 MG IV (23:25)
[2024-12-12] VITALS (10 sets, daily range): BP systolic 115–151; BP diastolic 61–89; PULSE 63–103; RESP 16–20; TEMP 35.9–37; O2SAT 91–99; BMI 30.7; BMI 30.9
[2024-12-12] MEDS: Azithromycin 500 MG in 0.9% Normal Saline (250mL Bag) 250 ML 250 MG IV (00:38)
[2024-12-12] MEDS: 0.9% Normal Saline (1000mL) 1,000 ML 70 ML IV (00:38)
[2024-12-12 00:57] LABS: Magnesium 1.9 mg/dL (1.5-2.2)
[2024-12-12 02:33] LABS: Pro- Brain NATRIURETIC PEPTIDE 881 pg/mL (<=1800)
[2024-12-12 04:31] LABS: Mucous, Urine 0 SEEN /hpf (<or=2+); Red Blood Cells-Urine 0 SEEN /hpf (0-5)
[2024-12-12 04:32] LABS: Color, Urine Straw (Yellow); Glucose, Dipstick Normal (Normal); Ketone-Dipstick Negative (Negative); Leukocyte Esterase-Dipstick 100 /ul (Negative); Nitrite-Dipstick Negative (Negative); Occult Blood-Urine Negative /ul (Negative); Protein-Dipstick Negative (Negative); Specific Gravity, Urine 1.010 (1.002-1.030); Urine Bilirubin Dipstick Negative (Negative)
[2024-12-12 04:49] LABS: Squamous Epithelial Cells - UA 0-5 SEEN /hpf (5-10)
[2024-12-12 05:58] LABS: Hematocrit 38.5 % (37-47); Hemoglobin 12.6 g/dL (12.0-15.0); Immature Granulocytes Count 0.050 X10^3/uL (0.0-0.0); Mean Corp Hgb Conc 32.7 g/dL (32-36); Mean Corpuscular Volume 93.2 fL (81-99); Mean Platelet Vol. 11.8 fl (6.2-12.0); NRBC Flagged by Analyzer 0 % (0-5); Platelet Count 209 K/mm3 (150-450); RBC Distribution Width CV 13.2 % (11.6-14.6); RBC Distribution Width SD 45.4 fl (35.1-43.9); Red Blood Count 4.13 M/mm3 (4.2-5.4); White Blood Count 12.0 K/mm3 (4.4-11.0)
[2024-12-12 06:25] LABS: AST(SGOT) 70 U/L (<=31); Alanine Aminotransfer ALT/SGPT 11 U/L (<=34); Albumin, Serum 3.3 g/dL (3.4-4.8); Alkaline Phosphatase 93 U/L (35-104); Anion Gap 10 (5-15); BUN 12 mg/dL (4-19); BUN/Creat Ratio 14.5 RATIO (10-20); Calcium,Total 8.4 mg/dL (7.6-11.0); Carbon Dioxide 21.9 mmol/L (21.0-32.0); Chloride 108 mmol/L (98-108); Estimated Creatinine Clearance 46.26 ml/min (50-250); Globulin 2.8 g/dL (2.2-4.2); Glucose 107 mg/dL (70-99); Potassium 4.2 mmol/L (3.3-5.1)
[2024-12-12] MEDS: Budesonide Respules 0.5 MG/2 ML AMPUL.NEB. INHALATION ×2 (07:14→19:54)
--- NOTE | 2024-12-12 07:49 | PN.HOSP_ITS ---
Reason for Visit Chief Complaint: Chest Pain, Palpitations and SOB. Subjective Subjective Patient states she does not have any coughing, she states no real shortness of breath at this time. She has no fever or chills. She states she does have chest pain under her left breast with deep breathing that is still present but less sharp in nature than it was at the time of admission. CTA was negative for PE. Objective Data Objective Data Vital Signs: Vital Signs Temp Pulse Resp BP Pulse Ox O2 Del Method O2 Flow Rate 97 F L 84 20 H 122/61 H 95 Nasal Cannula 2 12/12/24 04:11 12/12/24 07:16 12/12/24 07:16 12/12/24 04:11 12/12/24 07:16 12/12/24 07:16 12/12/24 07:16 Oxygen Flow Rate (L/min) 2 Oxygen Delivery Method Nasal Cannula Weight: 74.4 kg Body Mass Index (BMI) 30.9 Intake & Output: Intake and Output for Last 24 Hours 12/10/24 12/11/24 12/12/24 23:59 23:59 23:59 Intake Total 50 / 50 1500 / 1500 Balance 50 / 50 1500 / 1500 Lab / Micro Data 12/12/24 05:31 12/12/24 05:31 Labs: Laboratory Results - last 24 hr 12/11/24 18:50: WBC 13.7 H, RBC 4.66, Hgb 14.3, Hct 43.0, MCV 92.3, MCH 30.7, MCHC 33.3, RDW Std Deviation 45.0 H, RDW Coeff of Carol 13.2, Plt Count 238, MPV 11.1, Immature Gran % (Auto) 0.400, Neut % (Auto) 53.4, Lymph % (Auto) 26.6, M jose alberto % (Auto) 13.0 H, Eos % (Auto) 5.9 H, Baso % (Auto) 0.7, Absolute Neuts (auto) 7.3, Absolute Lymphs (auto) 3.63, Nucleated RBC % 0, Differential Comment SCANNED, Platelet Estimate ADEQUATE, PT 13.3, INR 1.0, Sodium 138, Potassium 4.2, Chloride 102, Carbon Dioxide 23.4, Anion Gap 13, BUN 15, Creatinine 0.96, E st GFR (MDRD) Non-Af 58 L, BUN/Creatinine Ratio 15.8, Glucose 123 H, Calcium 9.1, Troponin T High Sens 14 12/11/24 20:47: Troponin T Hi Sens 2 Hr 14 12/11/24 22:44: Magnesium 1.9, Troponin T Hi Sens 4Hr 13, NT pro BNP II 881, TSH 1.390 12/12/24 04:00: Urine Color Straw, Urine Clarity Clear, Urine pH 6.0, Ur Specific [place]field 1.010, Urine Protein Negative, Urine Glucose (UA) Normal, Urine Ketones Negative, Urine Occult Blood Negative, Urine Nitrite Negative, Urine Bilirubin Negative, Urine Urobilinogen Normal, Ur Leukocyte Esterase 100 H, Urine RBC 0 SEEN, Urine WBC 10-25 SEEN, Ur Squamous Epith Cells 0-5 SEEN, Urine Bacteria RARE, Urine Mucus 0 SEEN 12/12/24 05:31: WBC 12.0 H, RBC 4.13 L, Hgb 12.6, Hct 38.5, MCV 93.2, MCH 30.5, MCHC 32.7, RDW Std Deviation 45.4 H, RDW Coeff of Carol 13.2, Plt Count 209, MPV 11.8, Immature Gran % (Auto) 0.400, Neut % (Auto) 64.6, Lymph % (Auto) 18.5 L, M jose alberto % (Auto) 12.1 H, Eos % (Auto) 4.0, Baso % (Auto) 0.4, Absolute Neuts (auto) 7.7, Absolute Lymphs (auto) 2.21, Nucleated RBC % 0, Sodium 140, Potassium 4.2, Chloride 108, Carbon Dioxide 21.9, Anion Gap 10, BUN 12, Creatinine 0.85, Estim Creat Clear Calc 46.26 L, Est GFR (MDRD) Non-Af 68, BUN/Creatinine Ratio 14.5, G lucose 107 H, Calcium 8.4, Phosphorus 3.1, Total Bilirubin 0.40, AST 70 H, ALT 11, Alkaline Phosphatase 93, Total Protein 6.1, Albumin 3.3 L, Globulin 2.8, Albumin/Globulin Ratio 1.2 Micro: Microbiology 12/12/24 01:30 Mucosa - Nasopharyngeal Respiratory Panel (PCR) - Final 12/12/24 04:00 Urine, Clean Catch Legionella Antigen - Final 12/12/24 04:00 Urine, Clean Catch Streptococcus pneumoniae Antigen (M - Final Radiography Diagnostic Testing: Radiology Impression Chest X-Ray 12/11/24 18:39 IMPRESSION: Persistent patchy opacity with scarring in right infrahilar region. No acute findings. Reading Location: [facility] Chest CTA 12/11/24 20:12 IMPRESSION: No CTA evidence of any large filling defect to suggest pulmonary embolism. Evaluation of segmental and subsegmental pulmonary arteries is severely limited. Bilateral diffuse patchy opacities and scattered nodules. Findings are concerning for underlying infectious/inflammatory process. Attention on short-term follow-up imaging is recommended. Bilateral prominent breast tissue with calcification. Correlate with recent mammogram. Reading Location: [facility] Physical Exam Const alert, oriented x3, no apparent distress and well nourished; Negative for average body habitus Constitutional Narrative: Obese, elderly, white female, sitting up on the edge of the bed, watching television, at bedside, appears well, nontoxic at this time HEENT head/scalp atraumatic and moist oral mucous membranes Head and Scalp: normocephalic Resp normal respiratory effort, no retractions, no use of accessory muscles and clear to auscultation bilaterally Resp Narrative: Some splinting with deep breathing but lungs are clear, no tachypnea Auscultation: Negative for crackles, rhonchi or wheezes Cardio regular rate, regular rhythm, S1 normal heart sound, S2 normal heart sound, no murmurs, no rub, no gallops and no clicks GI normal to inspection, nondistended, normoactive bowel sounds, soft to palpation and non-tender Extremity no clubbing, cyanosis or edema Extremity Narrative: Pedal and radial pulses are 2+ Neuro moves all extremities and no focal motor deficits Psych affect normal Psych Narrative: Very pleasant, interacts appropriately Assessment & Plan Assessment/Plan (1) Atrial fibrillation with RVR: (2) Pleuritic chest pain: (3) Abnormal CAT scan: (4) Leukocytosis: QUALIFIERS: Leukocytosis type: unspecified Qualified Code(s): D 72.829 - Elevated white blood cell count, unspecified PLAN: Plan Pleuritic chest pain - Seems to be improving - CAT scan was suggestive of multifocal pneumonia however the patient is not symptomatic with symptoms consistent with pneumonia - Seems more consistent with pleurisy - Will try her some burst steroids - No left shift on differential with elevated white count--> will hold off on antibiotics for now - Strep pneumo and Legionella antigens are negative - Respiratory viral panel and RSV/COVID/flu are negative New onset A-fib with RVR - Patient has converted to sinus rhythm but seems to be in and out - Rate is controlled with current therapy including metoprolol 25 mg daily - Continue anticoagulation but transition to Eliquis from enoxaparin - TSH within normal limits - Echocardiogram shows an EF of 60% with diastolic dysfunction, moderate left atrial enlargement, mild mitral valve regurgitation, right ventricular systolic pressure of 40 mmHg and mild aortic valve sclerosis with no stenosis -Continue to monitor on telemetry - Patient does have history of bradycardia so we will monitor closely if we need of her metoprolol at all Leukocytosis - Etiology is unclear - No left shift but does have a monocytosis 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 Abnormal CT of the chest - Shows multifocal pneumonia - Patient without any symptoms consistent with this - Outpatient follow-up Essential hypertension/hyperlipidemia - Continue home amlodipine - Continue home benazepril - Continue metoprolol - continue home terazosin - Continue hyperlipidemia Psoriatic arthritis - Restart therapy at discharge 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
--- NOTE | 2024-12-12 07:50 | ECHOD_ITS ---
Reason For Study Reason For Study: ATRIAL FIB-FLUTTER Procedure This was a 2D Doppler, Color Flow transthoracic echocardiogram. Exam performed portable in patient room. Left Ventricle Normal LV size. Mild concentric left ventricular hypertrophy. The left ventricular ejection fraction is 60 %. Diastolic dysfunction present however unable to grade on account of arrhythmia. Right Ventricle Normal right ventricle. Atria The left atrium is moderately enlarged. Normal right atrium. Mitral Valve Moderate posterior mitral valve annular calcification. Mild mitral valve regurgitation. Tricuspid Valve Mild (1+) tricuspid valve insufficiency. Right ventricular systolic pressure estimated to be 40 mmHg. Aortic Valve Mildly calcified aortic valve. Aortic valve sclerosis without stenosis. Pulmonic Valve The pulmonic valve is not well visualized. Great Vessels Normal sized aortic root. Pericardium/Pleural No pericardial effusion. MMode/2D Measurements & Calculations LVIDd: 4.2 cm IVSd: 1.2 cm Ao root diam: 2.8 cm LVIDs: 2.9 cm LVPWd: 1.2 cm LA dimension: 4.6 cm RVDd: 3.2 cm FS: 30.0 % LAV(MOD-bp): 43.6 ml LVAd ap4: 21.6 cm2 SV(MOD-sp4): 36.9 ml LAV(MOD-bp) Indexed: 25.1 ml/m2 LVLd ap4: 6.6 cm SI(MOD-sp4): 21.2 ml/m2 LAV(MOD-sp2): 44.3 ml EDV(MOD-sp4): 57.4 ml LAV(MOD-sp4): 43.2 ml EDV(sp4-el): 59.4 ml LVAs ap4: 11.7 cm2 LVLs ap4: 5.8 cm ESV(MOD-sp4): 20.5 ml ESV(sp4-el): 20.1 ml EF(MOD-sp4): 64.3 % EF(sp4-el): 66.2 % SV(sp4-el): 39.3 ml LA A4 area: 17.8 cm2 LA dimension(2D): 4.1 cm RA A4 area: 15.8 cm2 TAPSE: 1.7 cm Doppler Measurements & Calculations MV E max pedro: 111.4 cm/sec Ao V2 max: 153.7 cm/sec LV V1 max: 95.9 cm/sec Ao max P.5 mmHg LV V1 max P.7 mmHg PA V2 max: 84.5 cm/sec TR max pedro: 294.9 cm/sec TR max P.8 mmHg ECHO/Echo Complete Interpretation Summary Mild concentric left ventricular hypertrophy. The left ventricular ejection fraction is 60 %. Diastolic dysfunction present however unable to grade on account of arrhythmia. The left atrium is moderately enlarged. Moderate posterior mitral valve annular calcification. Mild mitral valve regurg itation. Right ventricular systolic pressure estimated to be 40 mmHg. Mildly calcified aortic valve. Aortic valve sclerosis without stenosis. Ordering Physician: Kyra Mukherjee Referring Physician: RASHAD SPANN Performed By: Trina Ramos RDCS
[2024-12-12] MEDS: Potassium Chloride Oral Tablet 20 MEQ PO (10:01)
[2024-12-12] MEDS: Cholecalciferol (Vit D3) 125 MCG CAPSULE (5,000 UNITS) PO (10:02)
[2024-12-12] MEDS: Lactobacillis Acidophilus 1 CAP PO ×4 (10:02→21:11)
[2024-12-12] MEDS: Multivitamin (Healthy Eyes) Capsule 1 CAP PO ×2 (10:02→21:12)
[2024-12-12] MEDS: 0.9% Saline Lock 10 ML Syringe IV (10:07)
--- NOTE | 2024-12-12 13:29 | CASEMGMT ---
RN CM Face to Face with patient for initial transition planning/care coordination assessment. RN CM introduced self and role at [facility]. Patient lying in bed, alert and oriented, at bedside. Patient willing to participate in assessment and is able to answer all questions appropriately. Care providers, pharmacy, and demographics verified. Strata: 2 PCP: Lv Specialists: Laurel, instructional technology director; Dany, piercing mill operator; RA Roberto Preferred Pharmacy: [facility] Insurance: [facility], Refinder by [employer] Prescription Benefit: yes Living Will/HPOA: yes, Lonny Serrano LNOK: Living Arrangements: Patient lives with in a single story home with ramp to enter. Patient is independent at home. Transportation: DME/HHC: Patient has shower chair, raised toilet, cane, walker, rollator, grab bars, cpap, nebulizer, pusle ox at home. No previous HHC or SNF Patient wishes to discharge home, denies need for home health at this time. Patient states she has no further needs or concerns at this time. CM to follow for discharge planning needs that may arise. Disposition Plan: Patient to discharge home with family support and follow-up plans in place. Chapis BURNETT, RN, CM
--- NOTE | 2024-12-12 15:27 | CHAPLAIN ---
Type of Pastoral Visit ___ Initial Visit ___ Follow-up Visit ___ On-call Visit ___ General Patient Visit ___ Spiritual Assessment ___ Family Conference ___ Bereavement ___ Rapid Response ___ Code Blue ___ Other (describe below) Pastoral Care Referral From ___ Patient ___ Family ___ Nurse ___ Physician ___ Aviation Safety Inspector ___ [place] ___ Other (describe below) Sacrament/Intervention _x__ Active listening ___ Anointing ___ Jehovah'S Witness ___ Bereavement ___ Communion ___ Ania exploration ___ _x__ Life review _x__ Prayer ___ Reconciliation ___ Sacrament of Sick _x__ Supportive presence ___ Wedding ___ Other (describe below) Pastoral Comments patient has been met before; pt is talkative and gives updates on self and her family; pt acknowledges two health needs that had to be addressed; spouse is with her at this time for support; pt welcomes a prayer
[2024-12-12] MEDS: APIXABAN 5 MG TABLET PO (21:12)
[2024-12-12] MEDS: Metoprolol(XL)Succ 25 MG Tablet PO (21:14)
--- NOTE | 2024-12-13 00:16 | CPS ---
patient wears 3L HS during her stay here instead of her Bipap, patient declined needing a bipap during her stay here and would rather wear oxygen HS.
[2024-12-13 03:15] VITALS: BP 104/61; PULSE 101; RESP 14; TEMP 36.4; O2SAT 100
[2024-12-13 05:44] VITALS: BMI 30.1
[2024-12-13 06:06] LABS: Hematocrit 40.0 % (37-47); Hemoglobin 13.5 g/dL (12.0-15.0); Immature Granulocytes Count 0.040 X10^3/uL (0.0-0.0); Mean Corp Hgb Conc 33.8 g/dL (32-36); Mean Corpuscular Volume 90.3 fL (81-99); Mean Platelet Vol. 11.5 fl (6.2-12.0); NRBC Flagged by Analyzer 0 % (0-5); Platelet Count 227 K/mm3 (150-450); RBC Distribution Width CV 13.1 % (11.6-14.6); RBC Distribution Width SD 43.6 fl (35.1-43.9); Red Blood Count 4.43 M/mm3 (4.2-5.4); White Blood Count 11.9 K/mm3 (4.4-11.0)
[2024-12-13] MEDS: Albuterol 2.5 MG/3 ML VIAL.NEB. INHALATION (06:29)
[2024-12-13] MEDS: Budesonide Respules 0.5 MG/2 ML AMPUL.NEB. INHALATION (06:29)
[2024-12-13 06:30] VITALS: PULSE 97; RESP 16; O2SAT 95
[2024-12-13 06:35] LABS: Anion Gap 11 (5-15); BUN 16 mg/dL (4-19); BUN/Creat Ratio 17.6 RATIO (10-20); Calcium,Total 8.9 mg/dL (7.6-11.0); Carbon Dioxide 24.0 mmol/L (21.0-32.0); Chloride 104 mmol/L (98-108); Estimated Creatinine Clearance 43.10 ml/min (50-250); Glucose 144 mg/dL (70-99); Magnesium 1.9 mg/dL (1.5-2.2); Potassium 4.1 mmol/L (3.3-5.1)
[2024-12-13 08:28] VITALS: BP 114/66; PULSE 120; RESP 14; TEMP 36.9; O2SAT 96
[2024-12-13] MEDS: APIXABAN 5 MG TABLET PO (08:34)
[2024-12-13] MEDS: Multivitamin (Healthy Eyes) Capsule 1 CAP PO (08:34)
[2024-12-13] MEDS: Potassium Chloride Oral Tablet 20 MEQ PO (08:34)
[2024-12-13] MEDS: Lactobacillis Acidophilus 1 CAP PO (08:34)
[2024-12-13] MEDS: Cholecalciferol (Vit D3) 125 MCG CAPSULE (5,000 UNITS) PO (08:35)
[2024-12-13 10:33] VITALS: PULSE 100
[2024-12-13 10:35] VITALS: O2SAT 96; O2SAT 97
--- NOTE | 2024-12-13 12:26 | DS.PCM_ITS ---
Providers Date of Admission: 12/11/24 Date of Discharge: 12/13/24 Primary Care Physician: Dr. Romulo Spann MD Reason For Visit: MULTIFOCAL PNEUMONIA, CHEST PAIN, PALPITATIONS AND Diagnosis Discharge Diagnosis (1) Atrial fibrillation with RVR: Status: Acute Code(s): I48.91 - Unspecified atrial fibrillation (2) Pleuritic chest pain: Status: Acute Code(s): R07.81 - Pleurodynia (3) Abnormal CAT scan: Status: Acute Code(s): R93.89 - Abnormal findings on diagnostic imaging of other specified body structures (4) Leukocytosis: Status: Acute Code(s): D72.829 - Elevated white blood cell count, unspecified Qualifiers: Leukocytosis type: unspecified Qualified Code(s): D72.829 - Elevated white blood cell count, unspecified Medications at Discharge Home Medications apremilast 30 mg tablet (Otezla) 30 mg PO BID arthritis 02/04/19 vit A 7,160 unit-vit C 113 mg-vit E 100 [id number] tablet 1 tab PO BID vitamin 02/04/19 acetaminophen 500 mg tablet (Tylenol Extra Strength) 500 mg PO Q6H PRN Pain 05/15/19 tizanidine 4 mg tablet 4 mg PO TID PRN Pain 04/28/20 terazosin 2 mg capsule 2 mg PO QHS blood pressure 05/27/22 tramadol 50 mg tablet 50 mg PO QHS pain 05/27/22 fluticasone furoate 200 mcg/actuation blister powder for inhalation (Arnuity Ellipta) 1 inh inhalation DAILY breathing 08/10/23 amlodipine 10 mg tablet 10 mg PO DAILY blood pressure #90 tabs 05/23/24 Held on 12/13/24. Instructions: Until you follow-up with cardiology and are instructed to start potassium chloride 10 mEq capsule,extended release 20 meq (2 x 10 mEq) PO DAILY This is a dose increase #180 caps 07/22/24 benazepril 20 mg tablet 20 mg PO BID blood pressure #180 TABLETS 09/02/24 atorvastatin 10 mg tablet 10 mg PO DAILY cholesterol 12/11/24 apixaban 5 mg tablet (Eliquis) 5 mg PO BID #60 tabs 12/13/24 metoprolol tartrate 25 mg tablet 50 mg (2 x 25 mg) PO BID #120 tabs 12/13/24 prednisone 20 mg tablet 40 mg (2 x 20 mg) PO BREAKFAST #0 tabs 12/13/24 Hospital Course Operations None Procedures 2-D Echocardiogram, EKG and - (Chest x-ray/CTA chest) Summary of Care Provided Minutes Spent on Discharge: 38 Hospital Course: Mrs. Serrano is an 84-year-old white female who presents emergency department with left-sided chest pain that was under her left breast and pleuritic in nature that started the night prior to presentation. 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 She stated the pain started to go away and then began again on the morning of presentation and slowly worsened throughout the day. It was sharp in nature. She reported that it did not radiate anywhere and that was worse with deep inspiration. She did complain of some mild shortness of breath but had no fever, chills, cough, congestion or any other upper respiratory symptoms. She not been ill recently. Vital signs on presentation showed temperature 98.1, heart rate 67 with a repeat heart rate of 112, respiratory was 22, blood pressure 153/98 and pulse ox was 90% on room air. CBC showed a mild leukocytosis with a white count of 13.7 differential was monocyte predominant. Chemistry panel was overtly unremarkable. Initial troponin was 14 with a delta of 14. BNP was unremarkable. Chest x-ray showed patchy persistent opacity in the right infrahilar wheezing consistent with her previous lobectomy. CTA of the chest was performed given the pleuritic nature of her pain and showed no evidence of large filling defect with limitation of segmental and subsegmental pulmonary arteries as well as diffuse patchy opacities and scattered nodules that were concerning for an inflammatory versus infectious process. Patient does have psoriatic arthritis at baseline. EKG did show persistent right bundle branch block with A-fib with RVR. She was given antibiotics in the emergency department with concern for infection with Rocephin and doxycycline and was given Lopressor for her A-fib. She had previously been on Lopressor at max dose of 100 mg daily but had bradycardia related to this so she was down titrated previously by cardiology. She has no known history of atrial fibrillation per documentation or cardiology documentation. They did attempt to ambulate her in the emergency department but her heart rates were in the 130s to 140s so she was admitted to the hospital for possible pneumonia and new onset A-fib with RVR. She was intermittently in A-fib during her hospitalization. We did uptitrate her beta-jana to 50 mg p.o. twice daily to slow her heart rates down. Heart rates at discharge were between 70 and 100 for the most part. She was started on full anticoagulation initially with Lovenox twice daily and then transition to Eliquis 5 mg p.o. twice daily. Pathophysiology was reviewed with the patient and she voiced understanding. I did give her F 14-day event monitor at the time of discharge to assist cardiology in ascertaining if her heart rates were well-controlled and not too slow on the beta-jana given her previous history. If she is having intermittent bradycardia medical therapy may need to be altered. With regards to her pneumonia diagnosis, she was essentially asymptomatic with regards to pneumonia. Respiratory viral panel and COVID were negative. Urine culture was unremarkable. Strep pneumo and Legionella antigens were negative and she had no marked infiltrate on imaging. I did discontinue antibiotics and I do suspect that she probably had some pulmonary edema related to her A-fib despite an unremarkable BNP given the acuity of the event. With regards to her pleuritic chest pain we did give her some burst prednisone. She does have a history of psoriatic arthritis so I do suspect she may have had some pleurisy. Prednisone helped. She will continue 2 more days of prednisone at discharge then stop. Prednisone 40 mg daily x 4 days. Prescriptions for metoprolol and Eliquis were given to patient at discharge. Event monitor was ordered. Follow-up with was made for 12/24/2024. Ambulatory pulse ox was done prior to discharge and patient was stable on room air. 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 Obesity Physical Exam Const alert, oriented x3, no apparent distress, no limitations, healthy appearing and well nourished; Negative for average body habitus Constitutional Narrative: Obese, elderly, white female, sitting up on the edge of the bed, watching television, appears well, nontoxic at this time General Appearance: cooperative, comfortable, well kempt and well developed Exam Limitations: no limitations Nutritional Appearance: obese HEENT normocephalic, head/scalp atraumatic, hearing grossly normal bilaterally and moist oral mucous membranes HEENT Narrative: Mallampati 3, no thrush Eyes conjunctivae normal Eyes Narrative: No scleral icterus Neck supple Neck Narrative: Trachea midline Resp normal respiratory effort, no retractions, no use of accessory muscles and clear to auscultation bilaterally Resp Narrative: No further splinting with deep breathing with comfortable deep breathing Auscultation: Negative for crackles, rhonchi or wheezes Cardio regular rate, S1 normal heart sound, S2 normal heart sound, no murmurs, no rub, no gallops and no clicks; Negative for regular rhythm Cardio Narrative: Irregularly irregular GI normal to inspection, nondistended, normoactive bowel sounds, soft to palpation and non-tender Extremity no clubbing, cyanosis or edema Extremity Narrative: Pedal and radial pulses are 2+ Skin no jaundice, no petechiae and no mottling Neuro moves all extremities and no focal motor deficits Speech: speech normal Psych affect normal Psych Narrative: Very pleasant, interacts appropriately Weight / BMI Weight Weight: 72.4 kg Body Mass Index (BMI) 30.1 ABG / Lab / Microbiology Data 12/13/24 05:36 12/13/24 05:36 Laboratory: Laboratory Results - last 24 hr 12/13/24 05:36: WBC 11.9 H, RBC 4.43, Hgb 13.5, Hct 40.0, MCV 90.3, MCH 30.5, MCHC 33.8, RDW Std Deviation 43.6, RDW Coeff of Carol 13.1, Plt Count 227, MPV 11.5, Immature Gran % (Auto) 0.300, Neut % (Auto) 74.3 H, Lymph % (Auto) 15.2 L, Rice % (Auto) 9.9, Eos % (Auto) 0.1, Baso % (Auto) 0.2, Absolute Neuts (auto) 8.8 H, Absolute Lymphs (auto) 1.80, Nucleated RBC % 0, Sodium 138, Potassium 4.1, Chloride 104, Carbon Dioxide 24.0, Anion Gap 11, BUN 16, Creatinine 0.90, E stim Creat Clear Calc 43.10 L, Est GFR (MDRD) Non-Af 64, BUN/Creatinine Ratio 17.6, Glucose 144 H, Calcium 8.9, Phosphorus 4.0, Magnesium 1.9 Microbiology: Microbiology 12/12/24 04:00 Urine, Clean Catch Urine Culture - Preliminary Culture exhibits no growth. 12/12/24 08:30 Mucosa - Nasopharyngeal Coronavirus COVID-19 PCR - Final 12/12/24 01:30 Mucosa - Nasopharyngeal Respiratory Panel (PCR) - Final 12/12/24 04:00 Urine, Clean Catch Legionella Antigen - Final 12/12/24 04:00 Urine, Clean Catch Streptococcus pneumoniae Antigen (M - Final Radiography Diagnostic Testing: Radiology Impression Echocardiogram 12/12/24 07:50 Interpretation Summary Mild concentric left ventricular hypertrophy. The left ventricular ejection fraction is 60 %. Diastolic dysfunction present however unable to grade on account of arrhythmia. The left atrium is moderately enlarged. Moderate posterior mitral valve annular calcification. Mild mitral valve regurgitation. Right ventricular systolic pressure estimated to be 40 mmHg. Mildly calcified aortic valve. Aortic valve sclerosis without stenosis. Ordering Physician: Kyra Mukherjee Referring Physician: ROMULO SPANN Performed By: Trina Ramos RDCS D/C Instructions Discharge Activity: Return to Normal Activity DC O2, CPAP, BIPAP Needs Home O2 Discharge instructions: No DC home with Oxygen: No Meaningful Use Info Meaningful Use Meaningful Use Diagnoses (Choose all that apply): None applicable Discharge Plan Admission Admit Date/Time: 12/11/24 23:33 Primary Reason for Your Visit: Left-sided chest pain Attending Provider: Kyra Mukherjee Primary Care Provider: Romulo Spann Consulting Providers: Bobby Neal Instructions Additional Instructions / Restrictions: 1. With your history of slow heart rates and now fast heart rates I have decided to give you an event monitor which she wore for 14 days. This will assess for any slow heart rates with the new medication in addition to any fast heart rates that might need change in medications or alter treatment plan. The monitor will be sent to you in the mail with instructions on how to wear it and how to send it back once completed. 2. Take 40 mg of prednisone daily for the next 2 days then stop Discharge Orders/Prescriptions Prescriptions: New Eliquis 5 mg Tablet 5 mg PO BID Qty: 60 2RF metoprolol tartrate 25 mg Tablet 50 mg PO BID Qty: 120 1RF prednisone 20 mg Tablet 40 mg PO BREAKFAST Qty: 0 0RF Rx Instructions: Take through 11/15/2024 and stop on Monday Continued Otezla 30 mg tablet 30 mg PO BID vit A-vit C-vit [id number]-[id number] 7,160-113-100 bdbm-[id number]-yiiz tablet 1 tab PO BID acetaminophen [Tylenol Extra Strength] 500 mg tablet 500 mg PO Q6H PRN (Reason: Pain) tizanidine 4 mg tablet 4 mg PO TID PRN (Reason: Pain) Patient Comments: TAKE 1 TABLET BY MOUTH 3 TIMES A DAY NEEDED terazosin 2 mg capsule 2 mg PO QHS tramadol 50 mg tablet 50 mg PO QHS fluticasone furoate [Arnuity Ellipta] 200 mcg/actuation blister with device 1 inh inhalation DAILY atorvastatin 10 mg tablet 10 mg PO DAILY potassium chloride 10 mEq capsule, extended release 20 meq PO DAILY Qty: 180 3RF benazepril 20 mg tablet 20 mg PO BID Qty: 180 3RF Held amlodipine 10 mg tablet 10 mg PO DAILY Qty: 90 3RF Hold Instructions: Until you follow-up with cardiology and are instructed to start Discontinued metoprolol succinate 25 mg tablet extended release 24 hr 25 mg PO QHS aspirin 81 mg tablet 81 mg PO DAILY Other Ambulatory Orders: 14 Day Event Recorder Preventi (Urgent) Timeframe: 1 Day Facility: [facility] - Location: Cardiovascular Services Ordered By: Dr. Kyra Mukherjee Referrals / Follow Up: Larry Manuel MD [Med Staff - Active Staff, Cardiology] - 12/24/24 10:00 am Referral Note: APPOINTMENT WITH Romulo Louie N.P., MD [Primary Care Provider, Internal Medicine] - See Referral Note Referral Note: As needed Disposition Disposition (needs filled in before D/C Order can be placed): Home, Self Care Charges/Coding Visit Charges Inpatient E&M: 46339 Disch Hosp >30min
--- NOTE | 2024-12-13 13:06 | PHA.DC_ITS ---
Pharmacy [facility] has performed discharge medication counseling for this patient. The patient was counseled on the following discharge medications and changes in medications for homegoing review. - Metoprolol Tartrate 25 mg tablet, Apixaban 5 mg tablet The Reason for Use, instructions for use, and potential side effects were review ed for all new medications. The patient's questions regarding all of their medications were answered. The patient was able to verbally demonstrate an understanding of their discharge medications. Medications at Discharge Home Medications apremilast 30 mg tablet (Otezla) 30 mg PO BID arthritis 02/04/19 vit A 7,160 unit-vit C 113 mg-vit E 100 hqbj-jscq-[id number] tablet 1 tab PO BID vitamin 02/04/19 acetaminophen 500 mg tablet (Tylenol Extra Strength) 500 mg PO Q6H PRN Pain 05/15/19 tizanidine 4 mg tablet 4 mg PO TID PRN Pain 04/28/20 terazosin 2 mg capsule 2 mg PO QHS blood pressure 05/27/22 tramadol 50 mg tablet 50 mg PO QHS pain 05/27/22 fluticasone furoate 200 mcg/actuation blister powder for inhalation (Arnuity Ellipta) 1 inh inhalation DAILY breathing 08/10/23 amlodipine 10 mg tablet 10 mg PO DAILY blood pressure #90 tabs 05/23/24 Held on 12/13/24. Instructions: Until you follow-up with cardiology and are instructed to start potassium chloride 10 mEq capsule,extended release 20 meq (2 x 10 mEq) PO DAILY This is a dose increase #180 caps 07/22/24 benazepril 20 mg tablet 20 mg PO BID blood pressure #180 TABLETS 09/02/24 atorvastatin 10 mg tablet 10 mg PO DAILY cholesterol 12/11/24 apixaban 5 mg tablet (Eliquis) 5 mg PO BID #60 tabs 12/13/24 metoprolol tartrate 25 mg tablet 50 mg (2 x 25 mg) PO BID #120 tabs 12/13/24 prednisone 20 mg tablet 40 mg (2 x 20 mg) PO BREAKFAST #0 tabs 12/13/24
--- NOTE | 2024-12-13 13:23 | CASEMGMT ---
Patient has order for discharge. Patient discharging on Eliqulyric, MANDA CM called [facility], $0 copay. RN CM in to discuss needs at discharge. Patient denies needs or help at discharge. Patient had no further questions or concerns.
[2024-12-13 13:34] VITALS: BP 120/77; PULSE 92; RESP 17; TEMP 36.6; O2SAT 97
== END 2024-12-13 14:04 | disposition home or self-care (01) | DRG 310 ==
LOC: ED 20:10 → PCU 23:44
PROVIDERS: Admitting Provider Internal Medicine; Emergency Provider Student in an Organized Health Care Education/Training Program; PCP Internal Medicine; Visit Provider Internal Medicine
DX: I48.91 Unspecified atrial fibrillation (principal); I27.20 Pulmonary hypertension, unspecified; L40.50 Arthropathic psoriasis, unspecified; I35.8 Other nonrheumatic aortic valve disorders; J45.909 Unspecified asthma, uncomplicated; Z68.30 Body mass index [BMI] 30.0-30.9, adult; G47.33 Obstructive sleep apnea (adult) (pediatric); M19.90 Unspecified osteoarthritis, unspecified site; I45.10 Unspecified right bundle-branch block; E78.5 Hyperlipidemia, unspecified; R09.1 Pleurisy; D72.829 Elevated white blood cell count, unspecified; E66.811 Obesity, class 1; R93.89 Abnormal findings on diagnostic imaging of other specified body structures; Z11.52 Encounter for screening for COVID-19; Z79.01 Long term (current) use of anticoagulants; Z79.891 Long term (current) use of opiate analgesic; Z79.51 Long term (current) use of inhaled steroids; Z79.899 Other long term (current) drug therapy; Z90.2 Acquired absence of lung [part of]; Z85.110 Personal history of malignant carcinoid tumor of bronchus and lung
CPT/HCPCS: 36415; 71045; 71275; 80048; 80053; 81001; 83735; 83880; 84100; 84443; 84484; 85025; 85610; 87086; 87449; 87633; 87635; 93005; 93306; 94640; 94668; 97165; 99285; Q9967; A4216; J1938